=== PATIENT | female | born 1955 | race Caucasian/White ===

== ENCOUNTER 2018-07-27 10:26 | Inpatient (IN) | payer OTHER ==
[2018-07-27 10:46] VITALS: BMI 27.4
--- NOTE | 2018-07-27 11:31 | HP ---
CIWA Score - CIWA Score Nausea/Vomitin Muscle Tremors: 2 Anxiety: 2 Agitation: 2 Paroxysmal Sweats: 1-Minimal Palms Moist Orientation: 0-Oriented Tacttile Disturbances: 1-Very Mild Itch/Numbness Auditory Disturbances: 1-Very Mild Visual Disturbances: 0-None Headache: 2-Mild CIWA-Ar Total Score: 13 Admission ROS BHS - HPI Chief Complaint: i need help to stop drinking alcohol Allergies/Adverse Reactions: Allergies Allergy/AdvReac Type Severity Reaction Status Date / Time codeine [Codeine] AdvReac Severe Nausea Verified 07/27/18 11:11 History of Present Illness: this 62 years old female with alcohol dependence with alcohol dependence, seeking help detox,withdrawal symptom, seen in [facility] last night,receving ativan needed help to come in for detox from alcohol last adission in detox [facility] in 2017 history of hypertenion,fx left foot,ambulate with cane ambulatioin with cane for balance history of appnedectomy in 1987 right thoracotomy in 2009 for hemothorax post blunt trauma remoal of lipoma of neck longest period of sobriety copd rash left face no significant period of sobriety - Ebola screening Have you traveled outside of the country in the last 21 days: No Have you had contact with anyone from an Ebola affected area: No Have you been sick,other than usual withdrawal symptoms: No - Review of Systems Constitutional: Loss of Appetite, Malaise, Night Sweats, Changes in sleep, Weakness EENT: reports: Nose Congestion, Other (rash left face for 1 year) Respiratory: reports: No Symptoms reported, Other (copd s/p right thoracotomy post blunt trauma) Cardiac: reports: No Symptoms Reported GI: reports: Diarrhea, Nausea, Abdominal cramping : reports: No Symptoms Reported Musculoskeletal: reports: Back Pain, Muscle Pain Integumentary: reports: Dryness Neuro: reports: Headache, Tremors Endocrine: reports: No Symptoms Reported Hematology: reports: No Symptoms Reported Psychiatric: reports: No Sypmtoms Reported, Judgement Intact, Mood/Affect Appropiate, Orientated x3, Depressed Patient History - Patient Medical History Hx Anemia: Yes (NOT ON IRON SUPPLEMENT) Hx Asthma: No Hx Chronic Obstructive Pulmonary Disease (COPD): Yes (on albuterol inhaler) Hx Cardiac Disorders: No Hx Hypertension: No Hx Hypercholesterolemia: Yes (SLIGHTLY ELEVATED BUT NO MEDS) HX Cerebrovascular Accident: No Hx Seizures: Yes (Alcohol related last 4 years ago) Hx Diabetes: No Hx Gastrointestinal Disorders: Yes (HX OF ULCERITIVE COLITIS---RESOLVED) Hx Liver Disease: No Hx Genitourinary Disorders: No Hx Sexually Transmitted Disorders: No Hx Human Immunodeficiency Virus (HIV): No (NEGATIVE IN THE PAST last 2015) Hx Hepatitis C: No Hx Depression: Yes Hx Suicide Attempt: Yes (OD ON VALIUM IN 1987; DENIES CURRENT IDEATIONS.) Hx Bipolar Disorder: No Hx Schizophrenia: No Other Medical History: no suicidal,no homicidal, - Patient Surgical History Past Surgical History: Yes Hx Lung Surgery: Yes (Thoracotomy - 2009 for hemothorax post trauma) Hx Abdominal Surgery: Yes (Tubalization,s/p appendectomy in 1987) Anesthesia Reaction: No - PPD History Previous Implant?: Yes Documented Results: Negative w/o proof Implanted On Prior [facility] Admission?: Yes Date: 11/09/12 PPD to be Administered?: Yes - Reproductive History Patient is a Female of Child Bearing Age (11 -55 yrs old): No Patient : No - Smoking Cessation Smoking history: Never smoked - Substance & Tx. History Hx Alcohol Use: Yes Hx Substance Use: No Substance Use Type: Alcohol Hx Substance Use Treatment: Yes (last treatment in [facility] in 2017) - Substances Abused Alcohol-vodka Route: Oral Frequency: Daily Amount used: 1-2 pts. Age of first use: 12 Date of Last Use: 07/26/18 Family Disease History - Family Disease History Family Disease History: Other: Father (alcohol,no contact), Mother (alcohol, ) Admission Physical Exam S - Vital Signs Vital Signs: Vital Signs - 24 hr 07/27/18 10:44 Temperature 98.2 F Pulse Rate 60 Respiratory 20 Rate Blood Pressure 140/89 - Physical General Appearance: Yes: Moderate Distress, Tremorous, Irritable, Sweating, Anxious HEENTM: Yes: Normal ENT Inspection, WILBERTO, Pharynx Normal Respiratory: Yes: Lungs Clear, Normal Breath Sounds, No Respiratory Distress, Other (s/p right thoracotomy post trauma for hemothorax s/p right chest tube) Neck: Yes: Within Normal Limits, Supple, Trachea in good position Breast: Yes: Within Normal Limits Cardiology: Yes: Within Normal Limits, Regular Rhythm, Regular Rate, S1, S2 Abdominal: Yes: Within Normal Limits, Non Tender, Soft Genitourinary: Yes: Within Normal Limits Back: Yes: Muscle Spasm Extremities: Yes: Normal Range of Motion, Tremors Neurological: Yes: 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 NML intact, Fully Oriented, Alert, Motor Strength 5/5 Integumentary: Yes: Dry Lymphatic: Yes: Within Normal Limits - Diagnostic (1) Alcohol dependence with uncomplicated withdrawal Current Visit: Yes Status: Acute (2) COPD (chronic obstructive pulmonary disease) Current Visit: Yes Status: Acute (3) Alcohol related seizure Current Visit: Yes Status: Acute (4) Depression Current Visit: Yes Status: Acute (5) Use of cane as ambulatory aid Current Visit: Yes Status: Acute (6) History of thoracotomy Current Visit: Yes Status: Acute (7) History of appendectomy Current Visit: Yes Status: Acute (8) Rash Current Visit: Yes Status: Acute (9) Frequent falls Current Visit: Yes Status: Acute Cleared for Admission S - Detox or Rehab [facility] Level of Care: Medically Managed Detox Regimen/Protocol: Librium [facility] Breath Alcohol Content Breath Alcohol Content: 0 Urine Pregancy Test - Result Urine Test Results: Negative- NO Line Present Urine Drug Screen - Results Drug Screen Negative: No Urine Drug Screen Results: BZO-Benzodiazepines
[2018-07-27] MEDS ORDERED: LOPERAMIDE HCL 2 MG CAPSULE PO PRN (11:48)
[2018-07-27] MEDS ORDERED: ACETAMINOPHEN 325 MG TABLET (FP) PO PRN (11:48)
[2018-07-27] MEDS ORDERED: hydrOXYzine PAMOATE 25 MG CAPSULE (FP) PO PRN (11:48)
[2018-07-27] MEDS ORDERED: P-EPHED 60MG/TRIPROLIDI 2.5MG TABLET PO PRN (11:48)
[2018-07-27] MEDS ORDERED: MAGNESIUM CITRATE 300 ML BOTTLE PO PRN (11:48)
[2018-07-27] MEDS ORDERED: IBUPROFEN 400 MG TABLET (FP) PO PRN (11:48)
[2018-07-27] MEDS ORDERED: MAGNESIUM HYDROX 2400MG/30ML ORAL SUSPENSION 30 ML CUP PO PRN (11:48)
[2018-07-27] MEDS ORDERED: guaiFENesin/D-METHORPHAN HB 10 ML UNIT-DOSE CUPS PO PRN (11:48)
[2018-07-27] MEDS ORDERED: MAG HYDROX/AL HYDROX/SIMETH 30 ML UNIT-DOSE CUP PO PRN (11:48)
[2018-07-27] MEDS ORDERED: chlordiazePOXIDE HCL 25 MG CAPSULE PO PRN (11:48)
[2018-07-27] MEDS ORDERED: MENTHOL/PHENOL 1 EACH UD MM PRN (11:48)
--- NOTE | 2018-07-27 13:52 | CONSULT ---
[facility] Psychiatric Consult - Data Date of interview: 07/27/18 Admission source: [facility] Identifying data: this IS A 62 years old female,ambulating with a cane, , mother of three, homeless, on PA support, with no psychiatric hospitalization history, with chronic alcohol dependence reporting Alcohol withdrawal symptoms and seeking detox. Substance Abuse History: - Smoking Cessation. Smoking history: Never smoked. - Substance & Tx. History. Hx Alcohol Use: Yes. Hx Substance Use: No. Substance Use Type: Alcohol. Hx Substance Use Treatment: Yes (last treatment in [facility] in 2017). - Substances Abused. Alcohol-vodka. Route: Oral. Frequency: Daily. Amount used: 1-2 pts. Age of first use: 12. Date of Last Use: 07/26/18 Medical History: COPD, S/P Thoracotony after Pnumathorax, ambulates with cane, Psychiatric History: Patient reports history of depression and anxiety, reports suicidal attaempt on 1987 by OD with Valium, reports no suicidal history since then. Reports no psychiatric hospitalization history, denies suicidal , homicidal ideation, reports taking prior to admission: Trazodone 50mg po qhs Physical/Sexual Abuse/Trauma History: Denies Additional Comment: Trazodone 50mg po qhs Mental Status Exam - Mental Status Exam Alert and Oriented to: Person Cognitive Function: Fair Patient Appearance: Unkempt Mood: Anxious Affect: Mood Congruent Patient Behavior: Cooperative Speech Pattern: Appropriate Voice Loudness: Mildly Soft/Quiet Thought Process: Goal Oriented Thought Disorder: Being Controlled Hallucinations: Denies Suicidal Ideation: Denies Homicidal Ideation: Denies Insight/Judgement: Fair Sleep: Difficulty falling asleep Appetite: Fair Muscle strength/Tone: Mild Hypotonicity Gait/Station: Deferred Additional Comments: Trazodone 50mg po qhs Psychiatric Findings - Problem List ([place] 1, 2,3) (1) Alcohol dependence with uncomplicated withdrawal Current Visit: Yes Status: Acute (2) Alcohol related seizure Current Visit: Yes Status: Acute (3) COPD (chronic obstructive pulmonary disease) Current Visit: Yes Status: Acute (4) Frequent falls Current Visit: Yes Status: Acute (5) History of thoracotomy Current Visit: Yes Status: Acute (6) Use of cane as ambulatory aid Current Visit: Yes Status: Acute - Initial Treatment Plan Initial Treatment Plan: Trazodone 50mg po qhs
[2018-07-27] MEDS ORDERED: TUBERCULIN PPD 5 TU/0.1ML SYRINGE (IN PATIENT USE ONLY) ID ONE (14:45)
[2018-07-27] MEDS ORDERED: ONDANSETRON *ODT* 4 MG TABLET SL PRN (14:53)
[2018-07-27] MEDS: chlordiazePOXIDE HCL 25 MG CAPSULE PO SCH ×2 (17:16→22:08)
[2018-07-27] MEDS ORDERED: MELATONIN 5 MG TABLETS PO PRN (22:00)
[2018-07-27] MEDS: THIAMINE HCL 100 MG TABLET (FP) PO SCH (22:07)
[2018-07-27] MEDS: traZODone HCL 50 MG TABLET (FP) PO SCH (22:07)
[2018-07-27] MEDS: CLINDAMYCIN 1% TP SCH (22:07)
[2018-07-27] MEDS: AMMONIUM LACTATE 12% CREAM 140 GM TUBE TP SCH (22:08)
[2018-07-27 23:17] LABS: URINE APPEARANCE CLOUDY; URINE BILIRUBIN NEGATIVE (<2.0 mg/dL); URINE COLOR AMBER; URINE GLUCOSE (UA) NEGATIVE (NEGATIVE); URINE KETONE NEGATIVE (NEGATIVE); URINE LEUK ESTERASE 3+ (NEGATIVE); URINE NITRITE NEGATIVE (NEGATIVE); URINE PROTEIN 1+ (NEGATIVE)
[2018-07-27 23:29] LABS: EPI CELLS RARE /HPF (FEW); URINE BACTERIA RARE /hpf (NONE SEEN); URINE MUCUS RARE
[2018-07-28] MEDS: chlordiazePOXIDE HCL 25 MG CAPSULE PO SCH ×4 (05:29→23:07)
--- NOTE | 2018-07-28 09:45 | EKG ---
Test Reason : Blood Pressure : / mmHG Vent. Rate : 061 BPM Atrial Rate : 061 BPM P-R Int : 176 ms QRS Dur : 086 ms QT Int : 418 ms P-R-T Axes : 053 -08 022 degrees QTc Int : 420 ms NORMAL SINUS RHYTHM LOW VOLTAGE QRS NONSPECIFIC ST ABNORMALITY ABNORMAL ECG NO PREVIOUS ECGS AVAILABLE Confirmed by MAY ALEGRIA MD ([id number]) on 07/28/2018 9:45:17 AM Referred By: Confirmed By:MAY ALEGRIA MD
[2018-07-28] MEDS ORDERED: ERGOCALCIFEROL (VITAMIN D2) 50,000 UNIT CAPSULE (FP) PO SCH (10:00)
[2018-07-28] MEDS: MAGNESIUM OXIDE 400 MG TABLET (FP) PO SCH (10:36)
[2018-07-28] MEDS: FOLIC ACID 1 MG TABLET (FP) PO SCH (10:36)
[2018-07-28] MEDS: PRENATAL VITAMINS W/ FOLIC ACID TABLET (FP) PO SCH (10:36)
[2018-07-28] MEDS: CLINDAMYCIN 1% TP SCH ×2 (10:37→23:08)
[2018-07-28] MEDS: AMMONIUM LACTATE 12% CREAM 140 GM TUBE TP SCH ×2 (10:41→23:07)
[2018-07-28 10:42] LABS: HEMOGLOBIN 12.9 GM/dL (10.7-15.3); MCH 35.5 pg (25.7-33.7); MEAN CELL VOLUME 104.4 fl (80-96); MEAN PLT VOLUME 10.1 fl (7.5-11.1); PLATELET COUNT 89 K/MM3 (134-434); RBC 3.64 M/mm3 (3.60-5.2); RDW 14.2 % (11.6-15.6); WHITE BLOOD COUNT 4.6 K/mm3 (4.0-10.0)
[2018-07-28 10:53] LABS: ALK PHOS 113 U/L (45-117); ANION GAP 8 MMOL/L (8-16); BILIRUBIN,TOTAL 1.6 mg/dL (0.2-1); BLOOD UREA NITROGEN 10 mg/dL (7-18); CHLORIDE 103 mmol/L (98-107); CO2 31 mmol/L (21-32); CREATININE 0.8 mg/dL (0.55-1.3); GLUCOSE,RANDOM 91 mg/dL (74-106); POTASSIUM 3.4 mmol/L (3.5-5.1); SGOT/AST 96 U/L (15-37); SGPT/ALT 55 U/L (13-61); SODIUM 142 mmol/L (136-145); TOT PROT 7.3 g/dl (6.4-8.2)
--- NOTE | 2018-07-28 10:58 | PN ---
S CIWA - CIWA Score Nausea/Vomitin-Mild Nausea/No Vomiting Muscle Tremors: 4-Moderate,w/Arms Extend Anxiety: 3 Agitation: 4-Moderately Restless Paroxysmal Sweats: 3 Orientation: 0-Oriented Tacttile Disturbances: 0-None Auditory Disturbances: 0-None Visual Disturbances: 0-None Headache: 0-None Present CIWA-Ar Total Score: 15 BHS Progress Note (SOAP) Subjective: nausea sweats chills diarrhea body aches Objective: 07/28/18 10:55 Vital Signs Temperature 97.7 F 07/28/18 09:38 Pulse Rate 63 07/28/18 09:38 Respiratory Rate 16 07/28/18 09:38 Blood Pressure 133/76 07/28/18 09:38 O2 Sat by Pulse Oximetry (%) Laboratory Tests 07/27/18 07/28/18 07/28/18 16:09 05:45 05:45 WBC 4.6 RBC 3.64 Hgb 12.9 Hct 38.0 MCV 104.4 H MCH 35.5 H MCHC 34.0 RDW 14.2 Plt Count 89 L D MPV 10.1 Sodium 142 Potassium 3.4 L Chloride 103 Carbon Dioxide 31 Anion Gap 8 BUN 10 Creatinine 0.8 Creat Clearance w eGFR > 60 Random Glucose 91 Calcium 9.0 Total Bilirubin 1.6 H AST 96 H ALT 55 Alkaline Phosphatase 113 Total Protein 7.3 Albumin 4.0 Urine Color [place] Urine Appearance Cloudy Urine pH 6.0 Ur Specific [place] 1.016 Urine Protein 1+ H Urine Glucose (UA) Negative Urine Ketones Negative Urine Blood Negative Urine Nitrite Negative Urine Bilirubin Negative Urine Urobilinogen 2.0 H Ur Leukocyte Esterase 3+ H Urine WBC (Auto) 258 Urine RBC (Auto) None Ur Epithelial Cells Rare Urine Bacteria Rare Urine Mucus Rare low potassium 3.4; kdur 20meq x 4 days ordered repeat u/a aaox3 ambulating no acute distress Assessment: 07/28/18 10:58 withdrawal sx Plan: continue detox increase fluids kdur ordered repeat u/a pending results
[2018-07-28] MEDS: POTASSIUM CHLORIDE TABS 20 MEQ TABLET.ER (FP) PO SCH (11:18)
--- NOTE | 2018-07-28 11:21 | PN ---
BHS Progress Note Note: pt acknowledged to RN she has been scratching her head. assessment done and pt has active lice on head. Permetherin (elimite) ordered. Instruction will be given to pt regarding use.
[2018-07-28] MEDS ORDERED: PERMETHRIN 5% TOPICAL CREAM 60 GM TUBE TP ONE (11:30)
[2018-07-28] MEDS: [UNRECOGNIZED DRUG - OTHER] TP SCH (16:07)
[2018-07-28] MEDS: THIAMINE HCL 100 MG TABLET (FP) PO SCH (23:07)
[2018-07-28] MEDS: traZODone HCL 50 MG TABLET (FP) PO SCH (23:07)
[2018-07-29] MEDS: chlordiazePOXIDE HCL 25 MG CAPSULE PO SCH ×2 (05:59→10:36)
[2018-07-29] MEDS: PRENATAL VITAMINS W/ FOLIC ACID TABLET (FP) PO SCH (10:36)
[2018-07-29] MEDS: POTASSIUM CHLORIDE TABS 20 MEQ TABLET.ER (FP) PO SCH (10:36)
[2018-07-29] MEDS: FOLIC ACID 1 MG TABLET (FP) PO SCH (10:36)
[2018-07-29] MEDS: MAGNESIUM OXIDE 400 MG TABLET (FP) PO SCH (10:36)
[2018-07-29] MEDS: CLINDAMYCIN 1% TP SCH ×2 (10:37→22:16)
[2018-07-29] MEDS: AMMONIUM LACTATE 12% CREAM 140 GM TUBE TP SCH ×2 (13:58→22:16)
[2018-07-29] MEDS: [UNRECOGNIZED DRUG - OTHER] TP SCH (15:18)
--- NOTE | 2018-07-29 15:18 | PN ---
S CIWA - CIWA Score Nausea/Vomitin-No Nausea/No Vomiting Muscle Tremors: 3 Anxiety: 3 Agitation: 1-Slight > Activity Paroxysmal Sweats: No Perspiration Orientation: 0-Oriented Tacttile Disturbances: 0-None Auditory Disturbances: 0-None Visual Disturbances: 0-None Headache: 0-None Present CIWA-Ar Total Score: 7 BHS Progress Note (SOAP) Subjective: C/o anxiety and tremors of hands. Also very concerned about results of lice eradication. C/o itchy scalp. Objective: A&O x 3. Scattered small red pinpoint areas noted on scalp w/ c/o itchiness at site. No head lice in head and very few nits on shaft of hair. Mild tremors of hands. Gait steady w/ use of a cane. Vital Signs 07/29/18 07/29/18 14:08 17:44 Temperature 99.0 F 97 F L Pulse Rate 68 62 Respiratory 16 18 Rate Blood Pressure 121/80 154/87 Laboratory Last Values WBC 4.6 K/mm3 (4.0-10.0) 07/28/18 05:45 RBC 3.64 M/mm3 (3.60-5.2) 07/28/18 05:45 Hgb 12.9 GM/dL (10.7-15.3) 07/28/18 05:45 Hct 38.0 % (32.4-45.2) 07/28/18 05:45 MCV 104.4 fl (80-96) H 07/28/18 05:45 MCH 35.5 pg (25.7-33.7) H 07/28/18 05:45 MCHC 34.0 g/dl (32.0-36.0) 07/28/18 05:45 RDW 14.2 % (11.6-15.6) 07/28/18 05:45 Plt Count 89 K/MM3 (134-434) L D 07/28/18 05:45 MPV 10.1 fl (7.5-11.1) 07/28/18 05:45 Sodium 142 mmol/L (136-145) 07/28/18 05:45 Potassium 3.4 mmol/L (3.5-5.1) L 07/28/18 05:45 Chloride 103 mmol/L (98-107) 07/28/18 05:45 Carbon Dioxide 31 mmol/L (21-32) 07/28/18 05:45 Anion Gap 8 MMOL/L (8-16) 07/28/18 05:45 BUN 10 mg/dL (7-18) 07/28/18 05:45 Creatinine 0.8 mg/dL (0.55-1.3) 07/28/18 05:45 Creat Clearance w eGFR > 60 (>60) 07/28/18 05:45 Random Glucose 91 mg/dL (74-106) 07/28/18 05:45 Calcium 9.0 mg/dL (8.5-10.1) 07/28/18 05:45 Total Bilirubin 1.6 mg/dL (0.2-1) H 07/28/18 05:45 AST 96 U/L (15-37) H 07/28/18 05:45 ALT 55 U/L (13-61) 07/28/18 05:45 Alkaline Phosphatase 113 U/L (45-117) 07/28/18 05:45 Total Protein 7.3 g/dl (6.4-8.2) 07/28/18 05:45 Albumin 4.0 g/dl (3.4-5.0) 07/28/18 05:45 Urine Color [place] 07/27/18 16:09 Urine Appearance Cloudy 07/27/18 16:09 Urine pH 6.0 (5.0-8.0) 07/27/18 16:09 Ur Specific [place] 1.016 (1.010-1.035) 07/27/18 16:09 Urine Protein 1+ (NEGATIVE) H 07/27/18 16:09 Urine Glucose (UA) Negative (NEGATIVE) 07/27/18 16:09 Urine Ketones Negative (NEGATIVE) 07/27/18 16:09 Urine Blood Negative (NEGATIVE) 07/27/18 16:09 Urine Nitrite Negative (NEGATIVE) 07/27/18 16:09 Urine Bilirubin Negative (<2.0 mg/dL) 07/27/18 16:09 Urine Urobilinogen 2.0 mg/dL (0.2-1.0) H 07/27/18 16:09 Ur Leukocyte Esterase 3+ (NEGATIVE) H 07/27/18 16:09 Urine WBC (Auto) 258 /hpf (3-5) 07/27/18 16:09 Urine RBC (Auto) None /hpf (0-3) 07/27/18 16:09 Ur Epithelial Cells Rare /HPF (FEW) 07/27/18 16:09 Urine Bacteria Rare /hpf (NONE SEEN) 07/27/18 16:09 Urine Mucus Rare 07/27/18 16:09 RPR Titer Nonreactive (NONREACTIVE) 07/28/18 05:45 Assessment: Opiate withdrawal. S/P head lice Plan: Continue detox. Have patient wash hair thoroughly. Monitor linens, clothes, and hair for re-infestation.
[2018-07-29] MEDS: chlordiazePOXIDE 5 MG CAPSULE PO SCH ×2 (17:27→22:16)
[2018-07-29] MEDS: THIAMINE HCL 100 MG TABLET (FP) PO SCH (22:15)
[2018-07-29] MEDS: traZODone HCL 50 MG TABLET (FP) PO SCH (22:15)
[2018-07-30] MEDS: chlordiazePOXIDE 5 MG CAPSULE PO SCH ×2 (04:22→10:10)
[2018-07-30] MEDS: POTASSIUM CHLORIDE TABS 20 MEQ TABLET.ER (FP) PO SCH (10:10)
[2018-07-30] MEDS: PRENATAL VITAMINS W/ FOLIC ACID TABLET (FP) PO SCH (10:10)
[2018-07-30] MEDS: AMMONIUM LACTATE 12% CREAM 140 GM TUBE TP SCH ×2 (10:10→22:24)
[2018-07-30] MEDS: MAGNESIUM OXIDE 400 MG TABLET (FP) PO SCH (10:10)
[2018-07-30] MEDS: CLINDAMYCIN 1% TP SCH ×2 (10:11→22:23)
[2018-07-30] MEDS: FOLIC ACID 1 MG TABLET (FP) PO SCH (10:47)
--- NOTE | 2018-07-30 13:53 | PN ---
BHS Progress Note (SOAP) Subjective: feeling better no tremor less sweat no gi distress sleep better at night Objective: 07/30/18 13:49 Vital Signs Temperature 98.5 F 07/30/18 09:56 Pulse Rate 66 07/30/18 09:56 Respiratory Rate 16 07/30/18 09:56 Blood Pressure 110/69 07/30/18 09:56 O2 Sat by Pulse Oximetry (%) Laboratory Last Values WBC 4.6 K/mm3 (4.0-10.0) 07/28/18 05:45 RBC 3.64 M/mm3 (3.60-5.2) 07/28/18 05:45 Hgb 12.9 GM/dL (10.7-15.3) 07/28/18 05:45 Hct 38.0 % (32.4-45.2) 07/28/18 05:45 MCV 104.4 fl (80-96) H 07/28/18 05:45 MCH 35.5 pg (25.7-33.7) H 07/28/18 05:45 MCHC 34.0 g/dl (32.0-36.0) 07/28/18 05:45 RDW 14.2 % (11.6-15.6) 07/28/18 05:45 Plt Count 89 K/MM3 (134-434) L D 07/28/18 05:45 MPV 10.1 fl (7.5-11.1) 07/28/18 05:45 Sodium 142 mmol/L (136-145) 07/28/18 05:45 Potassium 3.4 mmol/L (3.5-5.1) L 07/28/18 05:45 Chloride 103 mmol/L (98-107) 07/28/18 05:45 Carbon Dioxide 31 mmol/L (21-32) 07/28/18 05:45 Anion Gap 8 MMOL/L (8-16) 07/28/18 05:45 BUN 10 mg/dL (7-18) 07/28/18 05:45 Creatinine 0.8 mg/dL (0.55-1.3) 07/28/18 05:45 Creat Clearance w eGFR > 60 (>60) 07/28/18 05:45 Random Glucose 91 mg/dL (74-106) 07/28/18 05:45 Calcium 9.0 mg/dL (8.5-10.1) 07/28/18 05:45 Total Bilirubin 1.6 mg/dL (0.2-1) H 07/28/18 05:45 AST 96 U/L (15-37) H 07/28/18 05:45 ALT 55 U/L (13-61) 07/28/18 05:45 Alkaline Phosphatase 113 U/L (45-117) 07/28/18 05:45 Total Protein 7.3 g/dl (6.4-8.2) 07/28/18 05:45 Albumin 4.0 g/dl (3.4-5.0) 07/28/18 05:45 Urine Color [place] 07/27/18 16:09 Urine Appearance Cloudy 07/27/18 16:09 Urine pH 6.0 (5.0-8.0) 07/27/18 16:09 Ur Specific [place] 1.016 (1.010-1.035) 07/27/18 16:09 Urine Protein 1+ (NEGATIVE) H 07/27/18 16:09 Urine Glucose (UA) Negative (NEGATIVE) 07/27/18 16:09 Urine Ketones Negative (NEGATIVE) 07/27/18 16:09 Urine Blood Negative (NEGATIVE) 07/27/18 16:09 Urine Nitrite Negative (NEGATIVE) 07/27/18 16:09 Urine Bilirubin Negative (<2.0 mg/dL) 07/27/18 16:09 Urine Urobilinogen 2.0 mg/dL (0.2-1.0) H 07/27/18 16:09 Ur Leukocyte Esterase 3+ (NEGATIVE) H 07/27/18 16:09 Urine WBC (Auto) 258 /hpf (3-5) 07/27/18 16:09 Urine RBC (Auto) None /hpf (0-3) 07/27/18 16:09 Ur Epithelial Cells Rare /HPF (FEW) 07/27/18 16:09 Urine Bacteria Rare /hpf (NONE SEEN) 07/27/18 16:09 Urine Mucus Rare 07/27/18 16:09 RPR Titer Nonreactive (NONREACTIVE) 07/28/18 05:45 lab noted Assessment: 07/30/18 13:52 mild withdrawal sx Plan: medically supervised detox
[2018-07-30] MEDS: diphenhydrAMINE HCL 25 MG CAPSULE (FP) PO PRN (14:23)
[2018-07-30] MEDS: [UNRECOGNIZED DRUG - OTHER] TP SCH (15:47)
[2018-07-30] MEDS: chlordiazePOXIDE HCL 10 MG CAPSULE PO SCH ×2 (17:56→22:24)
[2018-07-30 20:29] LABS: URINE APPEARANCE CLEAR; URINE BILIRUBIN NEGATIVE (<2.0 mg/dL); URINE COLOR LTYELLOW; URINE GLUCOSE (UA) NEGATIVE (NEGATIVE); URINE KETONE NEGATIVE (NEGATIVE); URINE LEUK ESTERASE NEGATIVE (NEGATIVE); URINE NITRITE NEGATIVE (NEGATIVE); URINE PROTEIN NEGATIVE (NEGATIVE); URINE UROBILINOGEN NEGATIVE mg/dL (0.2-1.0)
[2018-07-30] MEDS: THIAMINE HCL 100 MG TABLET (FP) PO SCH (22:23)
[2018-07-30] MEDS: traZODone HCL 50 MG TABLET (FP) PO SCH (22:24)
[2018-07-31] MEDS: diphenhydrAMINE HCL 25 MG CAPSULE (FP) PO PRN (03:44)
[2018-07-31] MEDS: chlordiazePOXIDE HCL 10 MG CAPSULE PO SCH ×2 (05:15→11:07)
--- NOTE | 2018-07-31 08:52 | DS ---
[facility] Detox Discharge Summary Admission Date: 07/27/18 Discharge Date: 07/31/18 - History Present History: Alcohol Dependence - Physical Exam Results Vital Signs: Vital Signs Temperature 97.9 F 07/31/18 06:00 Pulse Rate 50 L 07/31/18 06:00 Respiratory Rate 07/31/18 06:00 Blood Pressure 131/64 07/31/18 06:00 O2 Sat by Pulse Oximetry (%) - Treatment Hospital Course: Detox Protocol Followed, Detoxed Safely, Responded well, Discharged Condition Good, Rehab Referral Accepted - Medication Discharge Medications: Ambulatory Orders Ammonium Lactate Cream [Lac-Hydrin 12% Cream -] 1 applic TP BID 07/27/18 Ergocalciferol [Vitamin D2] 50,000 unit PO WEEKLY 07/27/18 Folic Acid - 1 mg PO DAILY 07/27/18 Magnesium Oxide [Mag-Ox -] 400 mg PO DAILY 07/27/18 Thiamine HCl [Vitamin B1 -] 100 mg PO DAILY 07/27/18 Tramadol HCl [Ultram] 50 mg PO TID PRN 07/27/18 traZODone HCL [Trazodone HCl] 50 mg PO HS #30 tablet 07/27/18 Clindamycin 1% Gel [Cleocin 1% Gel -] 30 gm TP BID #10 tube 07/30/18 Metoprolol Succinate [Toprol Xl] 50 mg PO DAILY #30 tab.er.24h 07/30/18 - Diagnosis (1) Alcohol dependence with uncomplicated withdrawal Current Visit: Yes Status: Chronic (2) Alcohol related seizure Current Visit: Yes Status: Acute (3) COPD (chronic obstructive pulmonary disease) Current Visit: Yes Status: Acute (4) Depression Current Visit: Yes Status: Acute (5) Frequent falls Current Visit: Yes Status: Acute (6) History of appendectomy Current Visit: Yes Status: Acute (7) History of thoracotomy Current Visit: Yes Status: Acute (8) Rash Current Visit: Yes Status: Acute (9) Use of cane as ambulatory aid Current Visit: Yes Status: Acute - AMA Did Patient Leave Against Medical Advice: No ([facility])
[2018-07-31 10:27] VITALS: BP 126/71; PULSE 59; TEMP 98.1
[2018-07-31] MEDS: AMMONIUM LACTATE 12% CREAM 140 GM TUBE TP SCH (11:07)
[2018-07-31] MEDS: CLINDAMYCIN 1% TP SCH (11:07)
[2018-07-31] MEDS: PRENATAL VITAMINS W/ FOLIC ACID TABLET (FP) PO SCH (11:08)
[2018-07-31] MEDS: MAGNESIUM OXIDE 400 MG TABLET (FP) PO SCH (11:08)
[2018-07-31] MEDS: FOLIC ACID 1 MG TABLET (FP) PO SCH (11:08)
[2018-07-31] MEDS: POTASSIUM CHLORIDE TABS 20 MEQ TABLET.ER (FP) PO SCH (11:10)
== END 2018-07-31 13:14 | disposition home or self-care (01) | DRG 775 ==
LOC: YASAS 10:26 → Y6N 12:17
PROC: HZ2ZZZZ Detoxification Services for Substance Abuse Treatment (ICD-10-PCS; principal; 2018-07-27)
DX: F10.230 Alcohol dependence with withdrawal, uncomplicated (principal); F32.9 Major depressive disorder, single episode, unspecified; J44.9 Chronic obstructive pulmonary disease, unspecified; B85.0 Pediculosis due to Pediculus humanus capitis; R21 Rash and other nonspecific skin eruption; R29.6 Repeated falls; Z99.89 Dependence on other enabling machines and devices; Z86.69 Personal history of other diseases of the nervous system and sense organs; Z88.6 Allergy status to analgesic agent; Z91.5 Personal history of self-harm
CPT/HCPCS: 36415; 80053; 81003; 81015; 84132; 85027; 86593; 93005; 93010; Q0162

== ENCOUNTER 2019-04-28 13:15 | Emergency (ER) | payer OTHER ==
--- NOTE | 2019-04-28 13:31 | PDOC ---
History of Present Illness - General Chief Complaint: Alcohol intoxication Stated Complaint: ETOH Time Seen by Provider: 04/28/19 13:30 History Source: Patient Exam Limitations: No Limitations - History of Present Illness Initial Comments: 63 yo F history EtOH abuse, COPD presents with EtOH intox. She was brought in by EMS after she was found sitting on a curb s/p fall. She recalls the details of the fall, stating she was trying to catch the bus, fell to the side, landing on her buttocks. Denies any pain at present. Did not hit her head, no LOC. She was drinking alcohol this morning. Past History - Past Medical History Allergies/Adverse Reactions: Allergies Allergy/AdvReac Type Severity Reaction Status Date / Time codeine [Codeine] AdvReac Severe Nausea Verified 07/27/18 11:11 Home Medications: Ambulatory Orders Ergocalciferol [Vitamin D2] 50,000 unit PO WEEKLY 07/27/18 Folic Acid - 1 mg PO DAILY 07/27/18 Magnesium Oxide [Mag-Ox -] 400 mg PO DAILY 07/27/18 Thiamine HCl [Vitamin B1 -] 100 mg PO DAILY 07/27/18 Tramadol HCl [Ultram] 50 mg PO TID PRN 07/27/18 traZODone HCL [Trazodone HCl] 50 mg PO HS #30 tablet 07/27/18 Cetirizine HCl [Zyrtec -] 10 mg PO DAILY 04/28/19 Anemia: Yes (NOT ON IRON SUPPLEMENT) Asthma: No Cardiac Disorders: No CVA: No COPD: Yes (on albuterol inhaler) Diabetes: No GI Disorders: Yes (HX OF ULCERITIVE COLITIS---RESOLVED) Disorders: No HTN: No Hypercholesterolemia: Yes (SLIGHTLY ELEVATED BUT NO MEDS) Kidney Stones: No Liver Disease: No Seizures: Yes (Alcohol related last 4 years ago) - Surgical History Abdominal Surgery: Yes (Tubalization,s/p appendectomy in 1987) Cardiac Surgery: No Lung Surgery: Yes (Thoracotomy - 2009 for hemothorax post trauma) Neurologic Surgery: No - Reproductive History PID: No - Suicide/Smoking/Psychosocial Hx Smoking History: Never smoked Have you smoked in the past 12 months: No Hx Alcohol Use: Yes Drug/Substance Use Hx: No Substance Use Type: Alcohol Hx Substance Use Treatment: Yes (last treatment in [facility] in 2016) Review of Systems - Review of Systems Able to Perform ROS?: Yes Comments:: GENERAL/CONSTITUTIONAL: No fever or chills. No weakness. HEAD, EYES, EARS, NOSE AND THROAT: No change in vision. No ear pain or discharge. No sore throat. CARDIOVASCULAR: No chest pain or shortness of breath. RESPIRATORY: No cough, wheezing, or hemoptysis. GASTROINTESTINAL: No nausea, vomiting, diarrhea or constipation. GENITOURINARY: No dysuria, frequency, or change in urination. MUSCULOSKELETAL: No joint or muscle swelling or pain. No neck or back pain. SKIN: No rash. NEUROLOGIC: No headache, vertigo, loss of consciousness, or change in strength/ sensation. ENDOCRINE: No increased thirst. No abnormal weight change. HEMATOLOGIC/LYMPHATIC: No anemia, easy bleeding, or history of blood clots. ALLERGIC/IMMUNOLOGIC: No hives or skin allergy. *Physical Exam - Physical Exam Comments: GENERAL: Awake, alert, and fully oriented. Slurred speech. +AOB. HEAD: No signs of trauma EYES: PERRLA, EOMI, sclera anicteric, conjunctiva clear ENT: Auricles normal inspection, hearing grossly normal, nares patent, oropharynx clear without exudates. Moist mucosa NECK: Normal ROM, supple, no lymphadenopathy, JVD, or masses LUNGS: Breath sounds equal, clear to auscultation bilaterally. No wheezes, and no crackles HEART: Regular rate and rhythm, normal S1 and S2, no murmurs, rubs or gallops ABDOMEN: Soft, nontender, normoactive bowel sounds. No guarding, no rebound. No masses EXTREMITIES: Normal range of motion, no edema. No clubbing or cyanosis. No cords, erythema, or tenderness NEUROLOGICAL: Cranial nerves II through XII grossly intact. Slurred speech. Motor and sensation intact. Gait not tested due to intoxication SKIN: Warm, dry, normal turgor, no rashes or lesions noted. Medical Decision Making - Medical Decision Making 04/28/19 13:55 Pt presents s/p fall, admits to intoxication. No visible head injury. Will DC home when clinically sober, as her speech is slurred at present. 04/28/19 14:32 Pt ambulated to bathroom without difficulty, then stated she did not wish to stay in the ED any longer. She is ambulating without difficulty, steady gait. Patient eloped. *DC/Admit/Observation/Transfer Diagnosis at time of Disposition: Alcohol intoxication Qualifiers: Complication of substance-induced condition: uncomplicated Qualified Code(s): F10.920 - Alcohol use, unspecified with intoxication, uncomplicated - Discharge Dispostion Disposition: ELOPED Condition at time of disposition: Stable Decision to Admit order: No - Referrals - Patient Instructions - Post Discharge Activity
[2019-04-28 13:49] VITALS: BP 103/61; PULSE 72; TEMP 97.8; BMI 27.3
== END 2019-04-28 14:25 | disposition home or self-care (01) ==
LOC: FER 13:15
DX: F10.920 Alcohol use, unspecified with intoxication, uncomplicated (principal); J44.9 Chronic obstructive pulmonary disease, unspecified; D64.9 Anemia, unspecified
CPT/HCPCS: 99282-25

== ENCOUNTER 2019-05-04 12:12 | Inpatient (IN) | payer OTHER ==
[2019-05-04] MEDS ORDERED: SODIUM CHLORIDE 1,000 ML IV STA (12:44)
[2019-05-04] MEDS ORDERED: ALBUTEROL SO4 2.5/IPRATROPIUM 0.5 INH SOL 3 ML VIAL.NEB. NEB ONE ×4 (12:54→14:34)
--- NOTE | 2019-05-04 13:01 | PDOC ---
History of Present Illness - General Chief Complaint: Shortness of Breath Stated Complaint: SOB Time Seen by Provider: 05/04/19 12:19 History Source: Patient, Old Records Exam Limitations: No Limitations - History of Present Illness Initial Comments: 05/04/19 12:55 63yo F with PMH of HTN, COPD, EtOH use presenting to ED with complaints of diarrhea x20d. Pt states she was at [facility] x[facility] since April 12, 2019 for a fall, diarrhea and sepsis. She says she has 5 loose stools daily without blood with slight stomach discomfort. When asked, pt states she feels short of breath at rest and with exertion. Also admits to dry cough. She is not taking any medications for COPD and denies tobacco use. She does endorse drinking 2 beers daily and drank prior to arrival. Denies chest pain, fever, chills, abdominal pain, nausea, vomiting, syncope, headache, dysuria, frequency, back pain, numbness/tingling. PMD: Lyo PMH: see hpi PSH: Meds: see med rec Allergies: codeine Social: alcohol use Past History - Past Medical History Allergies/Adverse Reactions: Allergies Allergy/AdvReac Type Severity Reaction Status Date / Time codeine [Codeine] AdvReac Severe Nausea Verified 07/27/18 11:11 Home Medications: Ambulatory Orders Ergocalciferol [Vitamin D2] 50,000 unit PO WEEKLY 07/27/18 Folic Acid - 1 mg PO DAILY 07/27/18 Magnesium Oxide [Mag-Ox -] 400 mg PO DAILY 07/27/18 Thiamine HCl [Vitamin B1 -] 100 mg PO DAILY 07/27/18 Tramadol HCl [Ultram] 50 mg PO TID PRN 07/27/18 traZODone HCL [Trazodone HCl] 50 mg PO HS #30 tablet 07/27/18 Cetirizine HCl [Zyrtec -] 10 mg PO DAILY 04/28/19 Albuterol 2.5/Ipratropium 0.5 [Duoneb -] 1 neb IH QID #20 vial.neb. 05/04/19 L. Acidophilus/Pectin, [place] [Acidophilus Probiotic Capsule] 1 each PO DAILY # 30 capsule 05/04/19 Nebulizer [Aeroeclipse II] 1 each MC DAILY 30 Days #30 each 05/04/19 Anemia: Yes (NOT ON IRON SUPPLEMENT) Asthma: No Cardiac Disorders: No CVA: No COPD: Yes (on albuterol inhaler) Diabetes: No GI Disorders: Yes (HX OF ULCERITIVE COLITIS---RESOLVED) Disorders: No HTN: No Hypercholesterolemia: Yes (SLIGHTLY ELEVATED BUT NO MEDS) Kidney Stones: No Liver Disease: No Seizures: Yes (Alcohol related last 4 years ago) - Surgical History Abdominal Surgery: Yes (Tubalization,s/p appendectomy in 1987) Cardiac Surgery: No Lung Surgery: Yes (Thoracotomy - 2010 for hemothorax post trauma) Neurologic Surgery: No - Reproductive History PID: No - Suicide/Smoking/Psychosocial Hx Smoking History: Never smoked Have you smoked in the past 12 months: No Hx Alcohol Use: Yes Drug/Substance Use Hx: No Substance Use Type: Alcohol Hx Substance Use Treatment: Yes (last treatment in [facility] in 2016) Review of Systems - Review of Systems Constitutional: No: Chills, Fever, Weakness HEENTM: No: Symptoms Reported Respiratory: Yes: Shortness of Breath. No: Cough, Wheezing, Productive cough, Hemoptysis Cardiac (ROS): No: Chest Pain, Lightheadedness, Palpitations, Syncope, Chest Tightness ABD/GI: Yes: Diarrhea. No: Nausea, Vomiting, Abdominal cramping : No: Symptoms Reported Musculoskeletal: No: Symptoms Reported Integumentary: No: Symptoms Reported Neurological: No: Symptoms reported *Physical Exam - Vital Signs Last Vital Signs Temp Pulse Resp BP Pulse Ox 97.9 F 54 L 19 94/52 L 98 05/04/19 12:13 05/04/19 12:13 05/04/19 12:13 05/04/19 12:13 05/04/19 12:13 - Physical Exam General Appearance: Yes: Nourished, Appropriately Dressed, Mild Distress, Other (alcohol on breath. No fasiculations) HEENT: positive: EOMI (horizontal nystagmus), WILBERTO, Pharynx Normal Neck: positive: Trachea midline, Supple Respiratory/Chest: positive: Lungs Clear, Normal Breath Sounds. negative: Accessory Muscle Use, Labored Respiration, Crackles, Rales, Rhonchi, Wheezing Cardiovascular: positive: Regular Rhythm, Regular Rate, S1, S2. negative: Edema , JVD, Murmur Vascular Pulses: Dorsalis-Pedis (R): 2+, Doralis-Pedis (L): 2+ Gastrointestinal/Abdominal: positive: Normal Bowel Sounds, Soft, Distended. negative: Tender, Guarding, Tenderness, Hernia Musculoskeletal: negative: CVA Tenderness Extremity: positive: Normal Capillary Refill. negative: Swelling, Calf Tenderness Integumentary: positive: Normal Color, Dry, Warm Neurologic: positive: gravity meter observer II-XII NML intact, Fully Oriented, Alert, Normal Mood/ Affect, Normal Response, Motor Strength 02/04 ED Treatment Course - LABORATORY CBC & Chemistry Diagram: 05/04/19 13:24 05/04/19 13:24 - RADIOLOGY Radiology Studies Ordered: Category Date Time Status CHEST PA & LAT [RAD] Stat Radiology 05/04/19 12:44 Ordered Medical Decision Making - Medical Decision Making 05/04/19 13:02 63yo F with PMH of HTN, COPD, EtOH use presenting to ED with complaints of diarrhea x20d. Pt states she was at [facility] x15 since April 12, 2019 for a fall, diarrhea and sepsis. She says she has 5 loose stools daily without blood with slight stomach discomfort. When asked, pt states she feels short of breath at rest and with exertion. Also admits to dry cough. She is not taking any medications for COPD and denies tobacco use. She does endorse drinking 2 beers daily and drank prior to arrival. Denies chest pain, fever, chills, abdominal pain, nausea, vomiting, syncope, headache, dysuria, frequency, back pain, numbness/tingling. Vitals: slightly hypotensive 90s/60s PE: horizontal nystagmus, slurred speech, distended abdomen without tenderness. lungs cta 05/04/19 14:44 ekg: nsr at 60bpm. NJ 160, QTc 406. no natalya or depressions. pt stating she cannot breathe. saturating well on ra, lungs sounds clear. not tachycardic, normotensive. rpt bp 114/64. when asked if feeling anxious pt says yes. will give 0.5mg Ativan. Will replete K and Mg. After first breathing treatment, pt did not feel better. Will order second. 05/04/19 14:56 Pt continues to feel sob, states now it is with exertion. Although not tachycardic, pt is on beta blockers. Pt is slightly hypotensive. will order CTA 08/02/19 19:33 CTA negative for PE. basilar atelectasis with possible superimposed infiltrate in R base. Pt does not have white count, is saturating well, not tachycardic or tachypneic, afebrile. Low suspicion for infectious process. All other labs wnl. K and Mg low, will replenish. Pt originally agreeable for dc home with rx for nebulizer and probiotics. Pt continues to feel short of breath. States that whenever she goes outside she cannot breathe. She states that she is unable to walk without her cane and ems did not bring her cane. Also stating that she is homeless, has no way to get her medications and has no transportation. Refusing to go to detox. Pt not actively withdrawing at this time. Pt refusing to go to alf or have arrangement to go to alf due to shortness of breath. Will admit for further evaluation of sob. accepted by admitting team. *DC/Admit/Observation/Transfer Diagnosis at time of Disposition: Shortness of breath - Discharge Dispostion Condition at time of disposition: Good Decision to Admit order: Yes - Prescriptions Prescriptions: Albuterol 2.5/Ipratropium 0.5 [Duoneb -] 1 neb IH QID #20 vial.neb. L. Acidophilus/Pectin, [place] [Acidophilus Probiotic Capsule] 1 each PO DAILY # 30 capsule Nebulizer [Aeroeclipse II] 1 each MC DAILY 30 Days #30 each - Referrals Referrals: Minnie Barnett MD, MD [Primary Care Provider] - Martinez Cooper MD [Staff Physician] - Sonido Wilson DO [Staff Physician] - - Patient Instructions Additional Instructions: You were seen in the emergency room today for shortness of breath and diarrhea. The diarrhea could be due to use of antibiotics. The shortness of breath could be due to COPD. Your blood work was normal and the CT scan shows atelectasis but no infection or clots. The breathing difficulties could be due to being around smoke. A prescription for a nebulizer and breathing treatments has been prescribed. Use as directed. A prescription for probiotics has also been prescribed; this can help with the diarrhea. You can also eat yogurt. I highly recommend that you see your doctor for further evaluation of your breathing. A referral to a auto locator is provided below. I also recommend seeing a GI doctor for evaluation of diarrhea. Information is also provided below. Come back to the emergency room if you have difficulty breathing, have chest pain, develop fever, have cough productive of yellow/green phlegm, notice swelling in your legs or if any new concerning symptom develops. Thank you - Post Discharge Activity
[2019-05-04 13:53] LABS: BASO % 0.9 % (0-2.0); EOS % 1.2 % (0-4.5); HEMATOCRIT 34.6 % (32.4-45.2); HEMOGLOBIN 11.7 GM/dL (10.7-15.3); LYMPH % 55.5 % (8-40); MCH 35.1 pg (25.7-33.7); MCHC 33.9 g/dl (32.0-36.0); MEAN CELL VOLUME 103.4 fl (80-96); MEAN PLT VOLUME 8.3 fl (7.5-11.1); MONO % 4.2 % (3.8-10.2); NEUT % 38.2 % (42.8-82.8); PLATELET COUNT 338 K/MM3 (134-434); RBC 3.35 M/mm3 (3.60-5.2); RDW 14.8 % (11.6-15.6); WHITE BLOOD COUNT 6.5 K/mm3 (4.0-10.0)
--- NOTE | 2019-05-04 13:58 | EKG ---
Test Reason : Blood Pressure : / mmHG Vent. Rate : 060 BPM Atrial Rate : 060 BPM P-R Int : 160 ms QRS Dur : 082 ms QT Int : 406 ms P-R-T Axes : 048 002 020 degrees QTc Int : 406 ms NORMAL SINUS RHYTHM LOW VOLTAGE QRS WHEN COMPARED WITH ECG OF 27-JUL-2018 13:13, NO SIGNIFICANT CHANGE WAS FOUND Confirmed by MAY ALEGRIA MD ([id number]) on 05/04/2019 1:58:14 PM Referred By: Confirmed By:MAY ALEGRIA MD
[2019-05-04 14:15] LABS: ALBUMIN 3.1 g/dl (3.4-5.0); BILIRUBIN,TOTAL 0.6 mg/dL (0.2-1); BLOOD UREA NITROGEN 10.6 mg/dL (7-18); CALCIUM 8.5 mg/dL (8.5-10.1); CREATININE 0.7 mg/dL (0.55-1.3); MAGNESIUM 1.7 mg/dL (1.8-2.4); POTASSIUM 3.4 mmol/L (3.5-5.1); TOT PROT 6.8 g/dl (6.4-8.2)
[2019-05-04] MEDS ORDERED: LORazepam 0.5 MG TABLET PO ONE (14:43)
[2019-05-04] MEDS ORDERED: MAGNESIUM SULF 50% (8.12 MEQ/2 ML-1 GM VIAL) IVPB ONE (14:52)
[2019-05-04] MEDS ORDERED: POTASSIUM CHLORIDE TABS 20 MEQ TABLET.ER (FP) PO ONE ×2 (14:52→15:00)
[2019-05-04] MEDS ORDERED: MAGNESIUM SULF 50% (8.12 MEQ/2 ML-1 GM VIAL) ONE (15:00)
[2019-05-04] MEDS ORDERED: LORazepam 0.5 MG TABLET ONE (15:00)
--- NOTE | 2019-05-04 15:10 | PDOC ---
Documentation entered by Kai Camp SCRIBE, acting as scribe for Jewel Knox MD. Jewel Knox MD: This documentation has been prepared by the Zoë gomez Xhesika, SCRIBE, under my direction and personally reviewed by me in its entirety. I confirm that the documentation accurately reflects all work, treatment, procedures, and medical decision making performed by me. Attending Attestation - Resident Resident Name: Luly Yadav - ED Attending Attestation I have performed the following: I have examined & evaluated the patient, The case was reviewed & discussed with the resident, I agree w/resident's findings & plan, Exceptions are as noted - HPI HPI: 05/04/19 13:04 The patient is a 63 year old female with a significant PMH of EtOH abuse, anemia, alcohol related seizures and COPD who presents to the emergency department with 3 weeks of diarrhea and SOB. Patient states she was recently admitted for 15 days for a fall and head injury. Pt states that during her admission, she developed PNA and an intestinal infection, for which she was started on abx. Since her discharge 2 weeks ago, pt has had persistent diarrhea and SOB with BURROWS. Patient states she endorses approximately 5 episodes of loose stools daily, described as chocolate pudding. She also reports dry cough and SOB. The patient denies chest pain, headache and dizziness. Denies fever, chills , nausea, vomiting, and constipation. Denies dysuria, frequency, urgency and hematuria. Allergies: codeine Past surgical history: Tubal Ligation (s/p appendectomy in 1987), Thoracotomy ( 2009 for hemothorax post trauma) Social history: EtOH abuse - Physicial Exam PE: 05/04/19 13:05 GENERAL: Awake, alert, and fully oriented, in no acute distress. HEAD: No signs of trauma EYES: PERRLA, EOMI, sclera anicteric, conjunctiva clear ENT: Auricles normal inspection, hearing grossly normal, nares patent, oropharynx clear without exudates. Moist mucosa NECK: Nontender, no stepoffs, Normal ROM, supple, no lymphadenopathy, JVD, or masses LUNGS: Breath sounds equal, clear to auscultation bilaterally. No wheezes, and no crackles HEART: Regular rate and rhythm, normal S1 and S2, no murmurs, rubs or gallops ABDOMEN: Soft, nontender, normoactive bowel sounds. No guarding, no rebound. No masses EXTREMITIES: Normal range of motion, no edema. No clubbing or cyanosis. No cords, erythema, or tenderness NEUROLOGICAL: Cranial nerves II through XII intact. 5/5 strength and sensation in all extremities, Normal speech, normal gait, normal cerebellar function SKIN: Warm, Dry, normal turgor, no rashes or lesions noted. - Medical Decision Making 05/04/19 15:14 63 F with diarrhea and SOB. Benign abdomen on exam. Suspect diarrhea is 2/2 abx use. Cause of pt's SOB unclear at this time. Pt with no wheezing on exam, but will trial nebs given h/o COPD. Given recent hospitalization, also consider PE vs recurrent PNA. - Labs, trop - CXR - Stool studies - Consider CTA chest to r/o PE 05/04/19 17:51 Labs unremarkable CTA negative for PE 05/04/19 18:46 Pt reassessed - reports persistent SOB
[2019-05-04] MEDS ORDERED: ALBUTEROL SO4 2.5/IPRATROPIUM 0.5 INH SOL 3 ML VIAL.NEB. NEB PRN (21:21)
--- NOTE | 2019-05-04 22:10 | HP ---
Admitting History and Physical - Primary Care Physician PCP: Jose Barnett MD - Admission Chief Complaint: Diarrhea, SOB History of Present Illness: This is a 89 y/o woman with a PMHx of HTN, COPD, Alcohol Abuse. Who presents to the ED with diarrhea for > 2 weeks, resolved 2 days ago and SOB x today. Patient reports drinking a pint of Vodka daily and admits to drinking prior to arrival. Patient reports recent admission to [facility] for s/p Fall, Intestinal Infection and Sepsis. Patient reports daily drinking to cope with "Life". She reports having a son with MS and that she is homeless. Patient reports increased SOB on exertion. She reports using her Ventolin MDI > 6x/day without relief. Patient denies fever, chills, dizziness, cP, palpitations, AP, N /V,dysuria History Source: Patient Limitations to Obtaining History: No Limitations - Past Medical History Cardiovascular: Yes: HTN Pulmonary: Yes: COPD Psych: Yes: Addictions (Alcohol) - Smoking History Smoking history: Never smoked Have you smoked in the past 12 months: No - Alcohol/Substance Use Hx Alcohol Use: Yes Number of Drinks Daily: 1 (Vodka Bottle) History of Substance Use: reports: None - Social History Usual Living Arrangement: Yes: Other (Homeless) ADL: Independent History of Recent Travel: No Home Medications - Allergies Allergies/Adverse Reactions: Allergies Allergy/AdvReac Type Severity Reaction Status Date / Time codeine [Codeine] AdvReac Severe Nausea Verified 07/27/18 11:11 - Home Medications Home Medications: Ambulatory Orders Ergocalciferol [Vitamin D2] 50,000 unit PO WEEKLY 07/27/18 Folic Acid - 1 mg PO DAILY 07/27/18 Magnesium Oxide [Mag-Ox -] 400 mg PO DAILY 07/27/18 Thiamine HCl [Vitamin B1 -] 100 mg PO DAILY 07/27/18 Tramadol HCl [Ultram] 50 mg PO TID PRN 07/27/18 traZODone HCL [Trazodone HCl] 50 mg PO HS #30 tablet 07/27/18 Cetirizine HCl [Zyrtec -] 10 mg PO DAILY 04/28/19 Albuterol 2.5/Ipratropium 0.5 [Duoneb -] 1 neb IH QID #20 vial.neb. 05/04/19 L. Acidophilus/Pectin, [place] [Acidophilus Probiotic Capsule] 1 each PO DAILY # 30 capsule 05/04/19 Nebulizer [Aeroeclipse II] 1 each MC DAILY 30 Days #30 each 05/04/19 Family Disease History - Family Disease History Family Disease History: CA: Father (Colon Ca, ), Mother (Lung Ca, ), Other: Father, Mother, Son (MS) Review of Systems - Review of Systems Constitutional: reports: No Symptoms Eyes: reports: No Symptoms HENT: reports: No Symptoms Neck: reports: No Symptoms Cardiovascular: reports: Shortness of Breath Respiratory: reports: SOB, SOB on Exertion Gastrointestinal: reports: Diarrhea Genitourinary: reports: No Symptoms Breasts: reports: No Symptoms Reported Musculoskeletal: reports: No Symptoms Integumentary: reports: No Symptoms Neurological: reports: No Symptoms Endocrine: reports: No Symptoms Hematology/Lymphatic: reports: No Symptoms Psychiatric: reports: No Symptoms Physical Examination Vital Signs: Vital Signs Temperature 98.6 F 05/04/19 19:05 Pulse Rate 66 05/04/19 19:05 Respiratory Rate 05/04/19 15:54 Blood Pressure 110/66 05/04/19 19:05 O2 Sat by Pulse Oximetry (%) 98 05/04/19 19:05 Constitutional: Yes: Anxious, Mild Distress Eyes: Yes: EOM Intact, PERRL, Other (Conjunctiva- injected) HENT: Yes: WNL, Atraumatic, Normocephalic Neck: Yes: WNL, Supple, Trachea Midline Cardiovascular: Yes: Regular Rate and Rhythm, S1, S2 Respiratory: Yes: On Nasal O2, Rhonchi, SOB on Exertion, Wheezes Gastrointestinal: Yes: Soft, Hypoactive Bowel Sounds Renal/: Yes: WNL Breast(s): Yes: WNL Musculoskeletal: Yes: WNL Extremities: Yes: WNL Edema: No Peripheral Pulses WNL: Yes Neurological: Yes: Tremors (mild-) ...Motor Strength: WNL Psychiatric: Yes: Alert, Oriented Labs: CBC, BMP 05/04/19 13:24 05/04/19 13:24 Laboratory Results - last 24 hr 05/04/19 05/04/19 05/04/19 13:24 13:24 13:24 WBC 6.5 RBC 3.35 L Hgb 11.7 Hct 34.6 MCV 103.4 H MCH 35.1 H MCHC 33.9 RDW 14.8 Plt Count 338 D MPV 8.3 D Absolute Neuts (auto) 2.5 Neutrophils % 38.2 L Lymphocytes % 55.5 H Monocytes % 4.2 Eosinophils % 1.2 Basophils % 0.9 Nucleated RBC % 0 Sodium 145 Potassium 3.4 L Chloride 109 H Carbon Dioxide 29 Anion Gap 7 L BUN 10.6 Creatinine 0.7 Est GFR (CKD-EPI)AfAm 106.87 Est GFR (CKD-EPI)NonAf 92.21 Random Glucose 111 H Calcium 8.5 Magnesium 1.7 L Total Bilirubin 0.6 AST 52 H ALT 27 Alkaline Phosphatase 178 H Troponin I < 0.02 Total Protein 6.8 Albumin 3.1 L Alcohol, Quantitative 05/04/19 13:24 WBC RBC Hgb Hct MCV MCH MCHC RDW Plt Count MPV Absolute Neuts (auto) Neutrophils % Lymphocytes % Monocytes % Eosinophils % Basophils % Nucleated RBC % Sodium Potassium Chloride Carbon Dioxide Anion Gap BUN Creatinine Est GFR (CKD-EPI)AfAm Est GFR (CKD-EPI)NonAf Random Glucose Calcium Magnesium Total Bilirubin AST ALT Alkaline Phosphatase Troponin I Total Protein Albumin Alcohol, Quantitative 411.4 H Intake & Output 05/01/19 05/02/19 05/03/19 05/04/19 23:59 23:59 23:59 23:59 Weight 68.039 kg Imaging - Results Chest X-ray: Report Reviewed, Image Reviewed Cat Scan: Report Reviewed, Image Reviewed Problem List - Problems (1) COPD exacerbation Code(s): J44.1 - CHRONIC OBSTRUCTIVE PULMONARY DISEASE W (ACUTE) EXACERBATION (2) Shortness of breath Code(s): R06.02 - SHORTNESS OF BREATH (3) Alcohol dependence with uncomplicated withdrawal Code(s): F10.230 - ALCOHOL DEPENDENCE WITH WITHDRAWAL, UNCOMPLICATED (4) Alcohol intoxication Code(s): F10.929 - ALCOHOL USE, UNSPECIFIED WITH INTOXICATION, UNSPECIFIED Qualifiers: Complication of substance-induced condition: uncomplicated Qualified Code(s ): F10.920 - Alcohol use, unspecified with intoxication, uncomplicated (5) HTN (hypertension) Code(s): I10 - ESSENTIAL (PRIMARY) HYPERTENSION (6) Depression Code(s): F32.9 - MAJOR DEPRESSIVE DISORDER, SINGLE EPISODE, UNSPECIFIED Assessment/Plan This is a 63 y/o woman with a PMHx of HTN, COPD, Alcohol Abuse. Admitted for COPD Exacerbation, Alcohol Dependency, Hypokalemia for further evaluation of their emergent condition. Admit CTA- neg PE, basilar atelectasis ?superimposed infiltrate R-base Chest Xray- No Leukocytosis, no L- shift, patient is afebrile less likely pneumonia Will order blood cultures, urine culture, urine legionella Repeat CBC, BMP Incentive Spirometer Appreciate Pulm consult Duonebs O2 Continue home meds Alcohol 411 Appreciate Detox Consult Ativan, Mg given in ED Banana Bag IVPB now Thiamine, MVI, Folic Acid po daily CIWAr 2 Ativan prn Appreciate Social Work consult- domicile placement CBC, BMP, Alcohol level in am Fall Precautions Seizure Precautions FEN- PO fluids as tolerated, Replete lytes prn, Low Na Diet DVT ppx- OOB, SCDs, Heparin Sq Dispo: Requires Inpatient Care Visit type - Emergency Visit Emergency Visit: Yes ED Registration Date: 05/04/19 Care time: The patient presented to the Emergency Department on the above date and was hospitalized for further evaluation of their emergent condition. - New Patient This patient is new to me today: Yes Date on this admission: 05/04/19 - Critical Care Critical Care patient: No
[2019-05-05] MEDS ORDERED: LORazepam 0.5 MG TABLET PO ONE (05:02)
[2019-05-05] MEDS ORDERED: AZITHROMYCIN IVPB 500 MG/250 ML BAG IVPB ONE (07:15)
[2019-05-05 07:29] LABS: COCAINE, UR NEGATIVE ng/ml (CUTOFF=300); METHADONE, UR NEGATIVE ng/ml (CUTOFF=300); OPIATES, URI NEGATIVE ng/ml (CUTOFF=300); PHENCYCLIDINE,URINE NEGATIVE ng/ml (CUTOFF=25); URINE AMPHETAMINES NEGATIVE ng/ml (CUTOFF=500); URINE BARBITURATES NEGATIVE ng/ml (CUTOFF=200); URINE BENZODIAZEPINES NEGATIVE ng/ml (CUTOFF=200)
[2019-05-05 08:13] LABS: BASO % 0.8 % (0-2.0); EOS % 2.6 % (0-4.5); HEMATOCRIT 29.9 % (32.4-45.2); HEMOGLOBIN 10.2 GM/dL (10.7-15.3); LYMPH % 38.8 % (8-40); MCH 35.7 pg (25.7-33.7); MCHC 34.2 g/dl (32.0-36.0); MEAN CELL VOLUME 104.5 fl (80-96); MEAN PLT VOLUME 8.4 fl (7.5-11.1); MONO % 4.9 % (3.8-10.2); NEUT % 52.9 % (42.8-82.8); PLATELET COUNT 238 K/MM3 (134-434); RBC 2.86 M/mm3 (3.60-5.2)
[2019-05-05 08:44] LABS: BLOOD UREA NITROGEN 8.4 mg/dL (7-18); CREATININE 0.6 mg/dL (0.55-1.3); MAGNESIUM 1.7 mg/dL (1.8-2.4); POTASSIUM 3.8 mmol/L (3.5-5.1)
[2019-05-05] MEDS ORDERED: TIOTROPIUM BROMIDE 2.5 MCG (SPIRIVA) RESPIMAT INHALER IH SCH (10:00)
[2019-05-05] MEDS: MULTIVITAMINS (DAILY MVI) TABLET (FP) PO SCH (10:29)
[2019-05-05] MEDS: FOLIC ACID 1 MG TABLET (FP) PO SCH (10:29)
[2019-05-05] MEDS: FOLIC ACID INJECTION - 1 MG, THIAMINE HCL 100 MG, MULTIVIT INJECTION ADULT 10 ML in SOD... IVPB ONE ×2 (10:30→11:58)
[2019-05-05] MEDS: THIAMINE HCL 100 MG TABLET (FP) PO SCH (10:30)
--- NOTE | 2019-05-05 11:26 | CONSULT ---
Consult Detox [facility] Reason for Current Admission/Consult: for alcohol detox Referred by:: gray jaeger - History History of Present Illness: this 63 years old female with alcohol dependence,stated drinking 1to 2 pint of vodka/2 of 12 ozs of beer,daily,stated at age of 12 years,last drinking 05/04/19 history of htn,copd,and anxiety,depression and insomnia multiple admissions in detox before last 04/12/19 in [facility] alcohol related seizure syncope alcohol related living in senior care history of anxiety,depression,insomnia,previous overdose i 07/04/88 non compliance with medical care ,last seen by private medical provider 3months ago no suicidal or homicidal ideation at this time stated last detox in [facility] history of head injury on 04/12/19 - History Source History Provided By: Patient Limitations to Obtaining History: No Limitations - Alcohol/Substance Use Hx Alcohol Use: Yes - Past Medical History [employer] DES[employer]RAF[employer]: Yes: Other (previous head injury on 04/12/19) Cardio/Vascular: Yes: HTN Pulmonary: Yes: COPD Gastrointestinal: Yes: Other (diarrhea) Hepatobiliary: Yes: Other (elevated liver enzymes) Psych: Yes: Addictions (Alcohol) Musculoskeletal: Yes: Chronic low back pain - Significant Medical Findings: this 63 years old female with alcohol dependence ,multiple admissions in detox, last [facility] on 04/12/19, alcohol related seizure,syncope,copd,hypertension,alcohol intoxication patient will need inpatient detox,ciwa score is 15,to start detox librium regimen CIWA Score - CIWA Score Nausea/Vomitin Muscle Tremors: 3 Anxiety: 3 Agitation: 3 Paroxysmal Sweats: 1-Minimal Palms Moist Orientation: 0-Oriented Tacttile Disturbances: 1-Very Mild Itch/Numbness Auditory Disturbances: 0-None Visual Disturbances: 0-None Headache: 2-Mild CIWA-Ar Total Score: 15 Assessment Plan - Diagnosis (1) COPD exacerbation Status: Acute (2) HTN (hypertension) Status: Acute (3) Alcohol dependence with uncomplicated withdrawal Status: Acute (4) Alcohol intoxication Status: Acute Qualifiers: Complication of substance-induced condition: uncomplicated Qualified Code(s ): F10.920 - Alcohol use, unspecified with intoxication, uncomplicated (5) Alcohol related seizure Status: Acute (6) COPD (chronic obstructive pulmonary disease) Status: Acute - Plan Plan: for detox from alcohol,librium regimen,medically managed Laboratory Last Values WBC 6.0 K/mm3 (4.0-10.0) 05/05/19 06:10 RBC 2.86 M/mm3 (3.60-5.2) L 05/05/19 06:10 Hgb 10.2 GM/dL (10.7-15.3) L 05/05/19 06:10 Hct 29.9 % (32.4-45.2) L 05/05/19 06:10 MCV 104.5 fl (80-96) H 05/05/19 06:10 MCH 35.7 pg (25.7-33.7) H 05/05/19 06:10 MCHC 34.2 g/dl (32.0-36.0) 05/05/19 06:10 RDW 15.0 % (11.6-15.6) 05/05/19 06:10 Plt Count 238 K/MM3 (134-434) D 05/05/19 06:10 MPV 8.4 fl (7.5-11.1) 05/05/19 06:10 Absolute Neuts (auto) 3.2 K/mm3 (1.5-8.0) 05/05/19 06:10 Neutrophils % 52.9 % (42.8-82.8) D 05/05/19 06:10 Lymphocytes % 38.8 % (8-40) D 05/05/19 06:10 Monocytes % 4.9 % (3.8-10.2) 05/05/19 06:10 Eosinophils % 2.6 % (0-4.5) D 05/05/19 06:10 Basophils % 0.8 % (0-2.0) 05/05/19 06:10 Nucleated RBC % 0 % (0-0) 05/05/19 06:10 Sodium 146 mmol/L (136-145) H 05/05/19 06:10 Potassium 3.8 mmol/L (3.5-5.1) 05/05/19 06:10 Chloride 111 mmol/L (98-107) H 05/05/19 06:10 Carbon Dioxide 25 mmol/L (21-32) 05/05/19 06:10 Anion Gap 10 MMOL/L (8-16) 05/05/19 06:10 BUN 8.4 mg/dL (7-18) 05/05/19 06:10 Creatinine 0.6 mg/dL (0.55-1.3) 05/05/19 06:10 Est GFR (CKD-EPI)AfAm 112.43 05/05/19 06:10 Est GFR (CKD-EPI)NonAf 97.01 05/05/19 06:10 Random Glucose 76 mg/dL (74-106) 05/05/19 06:10 Calcium 8.0 mg/dL (8.5-10.1) L 05/05/19 06:10 Magnesium 1.7 mg/dL (1.8-2.4) L 05/05/19 06:10 Total Bilirubin 0.6 mg/dL (0.2-1) 05/04/19 13:24 AST 52 U/L (15-37) H 05/04/19 13:24 ALT 27 U/L (13-61) 05/04/19 13:24 Alkaline Phosphatase 178 U/L (45-117) H 05/04/19 13:24 Creatine Kinase 35 U/L (26-192) 05/05/19 19:55 Troponin I < 0.02 ng/ml (0.00-0.05) 05/05/19 19:55 Total Protein 6.8 g/dl (6.4-8.2) 05/04/19 13:24 Albumin 3.1 g/dl (3.4-5.0) L 05/04/19 13:24 Opiates Screen Negative ng/ml (RKUSNE=239) 05/05/19 02:04 Methadone Screen Negative ng/ml (RCLTJQ=064) 05/05/19 02:04 Barbiturate Screen Negative ng/ml (QOAWKE=389) 05/05/19 02:04 Phencyclidine Screen Negative ng/ml (CUTOFF=25) 05/05/19 02:04 Ur Amphetamines Screen Negative ng/ml (ZLIXFK=319) 05/05/19 02:04 MDMA (Ecstasy) Screen Negative ng/ml (NUVSVC=684) 05/05/19 02:04 Benzodiazepines Screen Negative ng/ml (NZUQPA=770) 05/05/19 02:04 Cocaine Screen Negative ng/ml (WABCEF=036) 05/05/19 02:04 U Marijuana (THC) Screen Negative ng/ml (CUTOFF=50) 05/05/19 02:04 Alcohol, Quantitative 139.0 mg/dL (0.0-5.0) H 05/05/19 09:55 ast 52,alt 27 - Medication Detox Regimen/Protocol: Librium
--- NOTE | 2019-05-05 11:35 | PN ---
[facility] CIWA - CIWA Score Nausea/Vomitin Muscle Tremors: 3 Anxiety: 3 Agitation: 3 Paroxysmal Sweats: 1-Minimal Palms Moist Orientation: 0-Oriented Tacttile Disturbances: 1-Very Mild Itch/Numbness Auditory Disturbances: 0-None Visual Disturbances: 0-None Headache: 2-Mild CIWA-Ar Total Score: 15
[2019-05-05] MEDS ORDERED: LORazepam 1 MG TABLET PO PRN (11:37)
[2019-05-05] MEDS ORDERED: LORazepam 1 MG TABLET PO ONE (12:10)
[2019-05-05] MEDS ORDERED: chlordiazePOXIDE HCL 25 MG CAPSULE PO PRN (12:45)
--- NOTE | 2019-05-05 13:20 | CON.PULM ---
Consult Consult Specialty:: PULMONARY Referred by:: Dr Strange Reason for Consultation:: shortness of breath - History of Present Illness Chief Complaint: shortness of breath History of Present Illness: 63yo female with h/o HTN, COPD, alcohol abuse who was admitted with worsening generalized weakness and shortness of breath x 3 weeks. Denies chest pain or palpitations. +nonproductive cough without wheezing. No fevers, chills or sweats. Denies nausea, vomiting. Maintained on ventolin only at home but was not provide relief. No sick contacts or recent travel. She is a never smoker. 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) Cardio/Vascular: Yes: HTN Pulmonary: Yes: COPD Gastrointestinal: Yes: Other (diarrhea) Hepatobiliary: Yes: Other (elevated liver enzymes) Psych: Yes: Addictions (Alcohol) Musculoskeletal: Yes: Chronic low back pain - Alcohol/Substance Use Hx Alcohol Use: Yes Number of Drinks Daily: 1 (Vodka Bottle) History of Substance Use: reports: None - Smoking History Smoking history: Never smoked Have you smoked in the past 12 months: No - Social History ADL: Independent History of Recent Travel: No Home Medications - Allergies Allergies/Adverse Reactions: Allergies Allergy/AdvReac Type Severity Reaction Status Date / Time codeine [Codeine] AdvReac Severe Nausea Verified 07/27/18 11:11 - Home Medications Home Medications: Ambulatory Orders Ergocalciferol [Vitamin D2] 50,000 unit PO WEEKLY 07/27/18 Folic Acid - 1 mg PO DAILY 07/27/18 Magnesium Oxide [Mag-Ox -] 400 mg PO DAILY 07/27/18 Thiamine HCl [Vitamin B1 -] 100 mg PO DAILY 07/27/18 Tramadol HCl [Ultram] 50 mg PO TID PRN 07/27/18 traZODone HCL [Trazodone HCl] 50 mg PO HS #30 tablet 07/27/18 Cetirizine HCl [Zyrtec -] 10 mg PO DAILY 04/28/19 Albuterol 2.5/Ipratropium 0.5 [Duoneb -] 1 neb IH QID #20 vial.neb. 05/04/19 L. Acidophilus/Pectin, [place] [Acidophilus Probiotic Capsule] 1 each PO DAILY # 30 capsule 05/04/19 Nebulizer [Aeroeclipse II] 1 each MC DAILY 30 Days #30 each 05/04/19 Family Disease History - Family Disease History Family Disease History: CA: Father (Colon Ca, ), Mother (Lung Ca, ), Other: Father, Mother, Son (MS) Review of Systems - Review of Systems Constitutional: reports: Weakness. denies: Chills, Fever Eyes: denies: Recent Change in Vision HENT: denies: Nasal Congestion, Throat Pain Neck: denies: Stiffness, Tenderness Cardiovascular: reports: Shortness of Breath. denies: Chest Pain, Edema, Palpitations Respiratory: reports: Cough, Exercise Intolerance, SOB, SOB on Exertion. denies : Hemoptysis, Wheezing Gastrointestinal: denies: Abdominal Pain, Nausea, Vomiting Genitourinary: denies: Dysuria, Hematuria Neurological: denies: Dizziness, Headache Endocrine: denies: Unexplained Weight Loss Physical Exam Vital Sings: Vital Signs Temperature 98.6 F 05/05/19 09:00 Pulse Rate 92 H 05/05/19 09:00 Respiratory Rate 22 H 05/05/19 09:00 Blood Pressure 114/64 05/05/19 09:00 O2 Sat by Pulse Oximetry (%) 98 05/04/19 19:05 Constitutional: Yes: Anxious Eyes: Yes: Conjunctiva Clear, EOM Intact HENT: Yes: Atraumatic, Normocephalic Neck: Yes: Supple, Trachea Midline Cardiovascular: Yes: Regular Rate and Rhythm, Tachycardia Respiratory: Yes: Diminished (decreased breath sounds at the bases) ...Clubbing: No Gastrointestinal: Yes: Normal Bowel Sounds, Soft. No: Tenderness Edema: No Neurological: Yes: Alert, Oriented Labs: CBC, BMP 05/05/19 06:10 05/05/19 06:10 Imaging - Results Chest X-ray: Report Reviewed, Image Reviewed Cat Scan: Report Reviewed, Image Reviewed (RLL infiltrate vs atelectasis) Problem List - Problems (1) COPD exacerbation Code(s): J44.1 - CHRONIC OBSTRUCTIVE PULMONARY DISEASE W (ACUTE) EXACERBATION (2) HTN (hypertension) Code(s): I10 - ESSENTIAL (PRIMARY) HYPERTENSION (3) Alcohol intoxication Code(s): F10.929 - ALCOHOL USE, UNSPECIFIED WITH INTOXICATION, UNSPECIFIED Qualifiers: Complication of substance-induced condition: uncomplicated Qualified Code(s ): F10.920 - Alcohol use, unspecified with intoxication, uncomplicated Assessment/Plan Acute COPD Exacerbation Atelectasis vs Pneumonia HTN Alcohol Abuse - IV medrol - inhaled bronchodilators standing and PRN - empiric antibiotics - O2 to keep SpO2 >90% - echocardiogram to r/o CHF - monitor for alcohol withdrawal - outpt PFTs - DVT prophylaxis Thank you for this consult Yordy Eaton MD
[2019-05-05] MEDS ORDERED: ALBUTEROL SO4 0.083% IH SOL 2.5 MG/3 ML VIAL.NEB. NEB PRN (13:26)
[2019-05-05] MEDS ORDERED: methylPREDNISolone NA SUCC 40 MG/1 ML VIAL IVPUSH SCH (13:30)
[2019-05-05] MEDS ORDERED: CEFTRIAXONE 1 GM in DEXTROSE 5%-WATER - 50 ML IVPB SCH (13:45)
[2019-05-05] MEDS ORDERED: cefTRIAXone SODIUM 1 GM VIAL ONE (14:41)
[2019-05-05] MEDS ORDERED: DEXTROSE 5%-WATER - 50 ML IVPB ONE (14:41)
--- NOTE | 2019-05-05 15:34 | PN ---
Progress Note (short form) - Note Progress Note: SUBJECTIVE: feels jittery. No nausea/vomiting. No fever/chills. Mild dyspnea. Anxious++. no hallucinations OBJECTIVE: Afebrile, Hemodynamically Stable. Last Vital Signs Temp Pulse Resp BP Pulse Ox 98.6 F 92 H 22 H 114/64 98 05/05/19 09:00 05/05/19 09:00 05/05/19 09:00 05/05/19 09:00 05/04/19 19:05 HEENT - Atraumatic, normocephalic Heart - S1, s2, RRR Lungs - clear to auscultation, no wheeze. Abdomen - Soft, mild epigastric tenderness. Bowel Sounds normal. Extremities - No eema, no calf tenderness. Neuro - AAO x 3. Tone/Power normal all 4 extremities. Laboratory Results - last 24 hr 05/05/19 05/05/19 05/05/19 02:04 06:10 06:10 WBC 6.0 RBC 2.86 L Hgb 10.2 L Hct 29.9 L MCV 104.5 H MCH 35.7 H MCHC 34.2 RDW 15.0 Plt Count 238 D MPV 8.4 Absolute Neuts (auto) 3.2 Neutrophils % 52.9 D Lymphocytes % 38.8 D Monocytes % 4.9 Eosinophils % 2.6 D Basophils % 0.8 Nucleated RBC % 0 Sodium 146 H Potassium 3.8 Chloride 111 H Carbon Dioxide 25 Anion Gap 10 BUN 8.4 Creatinine 0.6 Est GFR (CKD-EPI)AfAm 112.43 Est GFR (CKD-EPI)NonAf 97.01 Random Glucose 76 Calcium 8.0 L Magnesium 1.7 L Opiates Screen Negative Methadone Screen Negative Barbiturate Screen Negative Phencyclidine Screen Negative Ur Amphetamines Screen Negative MDMA (Ecstasy) Screen Negative Benzodiazepines Screen Negative Cocaine Screen Negative U Marijuana (THC) Screen Negative Alcohol, Quantitative 05/05/19 09:55 WBC RBC Hgb Hct MCV MCH MCHC RDW Plt Count MPV Absolute Neuts (auto) Neutrophils % Lymphocytes % Monocytes % Eosinophils % Basophils % Nucleated RBC % Sodium Potassium Chloride Carbon Dioxide Anion Gap BUN Creatinine Est GFR (CKD-EPI)AfAm Est GFR (CKD-EPI)NonAf Random Glucose Calcium Magnesium Opiates Screen Methadone Screen Barbiturate Screen Phencyclidine Screen Ur Amphetamines Screen MDMA (Ecstasy) Screen Benzodiazepines Screen Cocaine Screen U Marijuana (THC) Screen Alcohol, Quantitative 139.0 H Current Medications Generic Name Dose Route Start Last Admin Trade Name Freq PRN Reason Stop Dose Admin Albuterol Sulfate 1 amp 05/05/19 13:26 Ventolin 0.083% Nebulizer Soln - NEB Q4H PRN SHORT OF BREATH/WHEEZING Albuterol/Ipratropium 1 amp 05/05/19 16:00 Duoneb - NEB RQID PENNIE Chlordiazepoxide HCl 10 mg 05/08/19 05:00 Librium - PO 05/08/19 23:01 [id number] PENNIE Chlordiazepoxide HCl 10 mg 05/09/19 05:00 Librium - PO 05/09/19 17:01 Q12H PENNIE Chlordiazepoxide HCl 10 mg 05/08/19 00:00 Librium - PO 05/09/19 00:00 Q4H PRN WITHDRAWAL(CONT SUBST) Chlordiazepoxide HCl 10 mg 05/10/19 05:00 Librium - PO 05/10/19 05:01 ONCE@0500 ONE Chlordiazepoxide HCl 50 mg 05/05/19 17:00 Librium - PO 05/06/19 23:01 [id number] PENNIE Chlordiazepoxide HCl 25 mg 05/07/19 05:00 Librium - PO 05/07/19 23:01 [id number] PENNIE Chlordiazepoxide HCl 25 mg 05/05/19 12:45 05/05/19 14:48 Librium - PO 05/06/19 12:44 25 mg Q4H PRN Administration WITHDRAWAL(CONT SUBST) Folic Acid 1 mg 05/05/19 10:00 05/05/19 10:29 Folic Acid - PO 1 mg DAILY PENNIE Administration Azithromycin 250 mg/ Dextrose 250 mls @ 250 mls/hr 05/06/19 10:00 IVPB 05/10/19 09:59 DAILY PENNIE Ceftriaxone Sodium 1 gm/ 50 mls @ 100 mls/hr 05/05/19 13:45 05/05/19 14:50 Dextrose IVPB 100 mls/hr DAILY PENNIE Administration Methylprednisolone Sodium Succinate 40 mg 05/05/19 13:30 05/05/19 14:49 Solu-Medrol - IVPUSH 40 mg Q8H-IV PENNIE Administration Multivitamins/Minerals/Vitamin C 1 tab 08/03/19 10:00 05/05/19 10:29 Tab-A-Vit - PO 1 tab DAILY PENNIE Administration Thiamine HCl 100 mg 05/05/19 10:00 05/05/19 10:30 Vitamin B1 - PO 100 mg DAILY PENNIE Administration Home Medications Medication Instructions Recorded Ergocalciferol [Vitamin D2] 50,000 unit PO WEEKLY 07/27/18 Folic Acid - 1 mg PO DAILY 07/27/18 Magnesium Oxide [Mag-Ox -] 400 mg PO DAILY 07/27/18 Thiamine HCl [Vitamin B1 -] 100 mg PO DAILY 07/27/18 Tramadol HCl [Ultram] 50 mg PO TID PRN 07/27/18 traZODone HCL [Trazodone HCl] 50 mg PO HS #30 tablet 07/27/18 Cetirizine HCl [Zyrtec -] 10 mg PO DAILY 04/28/19 Albuterol 2.5/Ipratropium 0.5 1 neb IH QID #20 vial.neb. 05/04/19 [Duoneb -] L. Acidophilus/Pectin, [place] 1 each PO DAILY #30 capsule 05/04/19 [Acidophilus Probiotic Capsule] Nebulizer [Aeroeclipse II] 1 each MC DAILY 30 Days #30 each 05/04/19 ASSESSMENT/PLAN: 63 year old homeless female with history of HTN, COPD, Alcohol Abuse, alcohol- related Seizure, Depression/Anxiety, Liver Cirrhosis, admitted with increasing SOB and lethargy/generalized weakness. 1. Acute Exacerbation of COPD CXR - No infiltrate CTA Chest - No PE. L basilar opacity, likely atelectasis. Hepatic Cirrhosis DuoNebs, Steroid, Abx Stable respiratory status. 2. Liver Cirrhosis Patient counselled. Needs GI follow up as out-patient for endoscopy. Will start Lactulose to maintain 3-4 soft bowel movements daily to prevent hepatic encephalopathy. Will give course of PPI (may have mild gastritis due to alcohol given mild epigastric tenderness). 3. Hx Alcohol Excess and Acute Withdrawal Seen by Addiction Medicine Started on Librium protocol for alcohol withdrawal. Thiamine, MVI, Folic Acid. Hx Alcohol withdrawal seizure - seizure/fall precautions Offered transfer to [facility] to complete Detox. 4. Hypomagnesemia - repleted. DVT Px - Heparin SQ Visit type - Emergency Visit Emergency Visit: Yes ED Registration Date: 05/04/19 Care time: The patient presented to the Emergency Department on the above date and was hospitalized for further evaluation of their emergent condition. - New Patient This patient is new to me today: Yes Date on this admission: 05/05/19 - Critical Care Critical Care patient: No - Discharge Referral Referred to [facility] Med [facility] No
[2019-05-05] MEDS ORDERED: MAGNESIUM SULF 50% (8.12 MEQ/2 ML-1 GM VIAL) IVPB STA (16:01)
[2019-05-05] MEDS ORDERED: LACTULOSE 20 GM/30 ML UDC (FOR ORAL USE ONLY) PO PRN ×2 (16:10→17:48)
[2019-05-05] MEDS: ALBUTEROL SO4 2.5/IPRATROPIUM 0.5 INH SOL 3 ML VIAL.NEB. NEB SCH ×2 (16:14→20:47)
[2019-05-05] MEDS: PANTOPRAZOLE 40 MG TABLET (FP) PO SCH (16:52)
--- NOTE | 2019-05-05 16:56 | DS ---
Physical Exam: SUBJECTIVE: Feels jittery. No nausea/vomiting. No fever/chills. Anxious++. No hallucinations. OBJECTIVE: Afebrile, Hemodynamically Stable. Last Vital Signs Temp Pulse Resp BP Pulse Ox 98.6 F 92 H 22 H 114/64 98 05/05/19 09:00 05/05/19 09:00 05/05/19 09:00 05/05/19 09:00 05/04/19 19:05 HEENT - Atraumatic, Normocephalic Heart - S1, S2, RRR Lungs - clear to auscultation, no wheeze. Abdomen - Soft, mild epigastric tenderness. Bowel Sounds normal. Extremities - No edema, no calf tenderness. Neuro - AAO x 3. Tone/Power normal all 4 extremities. Laboratory Results - last 24 hr 05/05/19 05/05/19 05/05/19 02:04 06:10 06:10 WBC 6.0 RBC 2.86 L Hgb 10.2 L Hct 29.9 L MCV 104.5 H MCH 35.7 H MCHC 34.2 RDW 15.0 Plt Count 238 D MPV 8.4 Absolute Neuts (auto) 3.2 Neutrophils % 52.9 D Lymphocytes % 38.8 D Monocytes % 4.9 Eosinophils % 2.6 D Basophils % 0.8 Nucleated RBC % 0 Sodium 146 H Potassium 3.8 Chloride 111 H Carbon Dioxide 25 Anion Gap 10 BUN 8.4 Creatinine 0.6 Est GFR (CKD-EPI)AfAm 112.43 Est GFR (CKD-EPI)NonAf 97.01 Random Glucose 76 Calcium 8.0 L Magnesium 1.7 L Opiates Screen Negative Methadone Screen Negative Barbiturate Screen Negative Phencyclidine Screen Negative Ur Amphetamines Screen Negative MDMA (Ecstasy) Screen Negative Benzodiazepines Screen Negative Cocaine Screen Negative U Marijuana (THC) Screen Negative Alcohol, Quantitative 05/05/19 09:55 WBC RBC Hgb Hct MCV MCH MCHC RDW Plt Count MPV Absolute Neuts (auto) Neutrophils % Lymphocytes % Monocytes % Eosinophils % Basophils % Nucleated RBC % Sodium Potassium Chloride Carbon Dioxide Anion Gap BUN Creatinine Est GFR (CKD-EPI)AfAm Est GFR (CKD-EPI)NonAf Random Glucose Calcium Magnesium Opiates Screen Methadone Screen Barbiturate Screen Phencyclidine Screen Ur Amphetamines Screen MDMA (Ecstasy) Screen Benzodiazepines Screen Cocaine Screen U Marijuana (THC) Screen Alcohol, Quantitative 139.0 H Discharge Medications Medication Instructions Recorded Ergocalciferol [Vitamin D2] 50,000 unit PO WEEKLY 07/27/18 Folic Acid - 1 mg PO DAILY 07/27/18 Magnesium Oxide [Mag-Ox -] 400 mg PO DAILY 07/27/18 Thiamine HCl [Vitamin B1 -] 100 mg PO DAILY 07/27/18 traZODone HCL [Trazodone HCl] 50 mg PO HS #30 tablet 07/27/18 Cetirizine HCl [Zyrtec -] 10 mg PO DAILY 04/28/19 Albuterol 2.5/Ipratropium 0.5 1 neb IH QID #20 vial.neb. 05/04/19 [Duoneb -] L. Acidophilus/Pectin, [place] 1 each PO DAILY #30 capsule 05/04/19 [Acidophilus Probiotic Capsule] Nebulizer [Aeroeclipse II] 1 each MC DAILY 30 Days #30 each 05/04/19 Albuterol 0.083% Nebulizer [place] 1 amp NEB Q4H PRN amp 05/05/19 [Ventolin 0.083% Nebulizer Soln -] Albuterol 2.5/Ipratropium 0.5 1 amp NEB Q6H PRN amp 05/05/19 [Duoneb -] Chlordiazepoxide [Librium -] 10 mg PO ASDIR capsule MDD 40mg 05/05/19 Lactulose (Oral Use) [Cephulac -] 20 gm PO TID PRN udc 05/05/19 Multivitamins [Multivit ([facility] 1 tab PO DAILY tab 05/05/19 Formulary)] Pantoprazole Sodium [Protonix -] 40 mg PO DAILY tablet.ec 05/05/19 Prednisone See Taper PO ASDIR #42 tablet 05/05/19 Tiotropium [place] [Spiriva 2 puff IH DAILY inhaler 05/05/19 Respimat] levoFLOXacin [Levaquin] 750 mg PO DAILY 4 Days #4 tab 05/05/19 Date of Admission:05/04/19 Date of Discharge: 05/05/19 Minutes to complete discharge: 40 Discharge Summary Reason For Visit: SOB/DIARRHEA Current Active Problems COPD exacerbation (Acute) HTN (hypertension) (Acute) Shortness of breath (Acute) Hospital Course: 63 year old homeless female with history of HTN, COPD, Alcohol Abuse, Hx of alcohol-related Seizure, Depression/Anxiety, Liver Cirrhosis, admitted with increasing SOB and lethargy/generalized weakness. She is being treated for COPD exacerbation and Alcohol withdrawal. She was given IV Antibiotics along with IV solumedroland bronchodilator nebulizations. Her oxygen saturations are 96% on room air so no need for supplemental oxygen. She will be transitioned to oral Prednisone taper along with oral Antibiotic Levofloxacin, which she should take 4 additional days to complete a 5 day course, as well as regular DuoNebs. She is medically stable for discharge to [facility] [place] to complete detox protocol with Librium. 1. Acute Exacerbation of COPD - improving CXR - No infiltrate CTA Chest - No PE. L basilar opacity, likely atelectasis. Hepatic Cirrhosis No need for supplemental O2 as SpO2 on Room air is 96% Continue DuoNebs, Levofloxacin (for 4 additonal days), and Prednisone taper ( 60mg for 2 additional days foll by 50mg for 2 additional days foll by 40mg for 2 additional days foll by 30mg for 2 additional days foll by 20mg for 2 additional days foll by 10mg for 2 additional days) Stable respiratory status. Medically optimized for discharge to [facility] [place]. No evidence of CHF clinically or radiologically. She should see Pulmonary as an outpatient for follow up and PFTs. 2. Liver Cirrhosis, newly recognized Patient counselled. Needs GI follow up as out-patient for screening endoscopy. Will start Lactulose to maintain 3-4 soft bowel movements daily to prevent hepatic encephalopathy. Will give course of PPI (may have mild gastritis due to alcohol given mild epigastric tenderness, especially with concurrent steroid taper). 3. Hx Alcohol Excess and Acute Withdrawal Seen by Addiction Medicine Started on Librium protocol for alcohol withdrawal. Continue Thiamine, MVI, Folic Acid. Hx Alcohol withdrawal seizure - seizure/fall precautions medically stable for transfer to [facility] [place] to complete Detox. 4. Hypomagnesemia - repleted. 5. Macrocytosis - likely sec to Alcohol excess. Can have B12 and Folate levels checked as out-patient. Condition: Good - Instructions Diet, Activity, Other Instructions: YOU WERE ADMITTED WITH SHORTNESS OF BREATH AND TREATED FOR COPD EXACERBATION. YOU ARE CURRENTLY WITHDRAWING FROM ALCOHOL AND YOU WERE EVALUATED BY THE ADDICTION MEDICINE SPECIALIST WHO STARTED YOU ON LIBRIUM WITHDRAWAL PROTOCOL. FOR YOUR COPD, YOU WILL CONTINUE ON BRONCHODILATOR NEBS, PREDNISONE TAPER, AND 4 ADDITIONAL DAYS OF ANTIBIOTICS TO COMPLETE A 5 DAY COURSE. YOU ARE MEDICALLY STABLE FOR TRANSFER TO [facility] TO COMPLETE YOUR DETOX FROM ALCOHOL. FOLLOW UP APPTS: 1. PCP - DR. LUCIA 2. PULMONARY - DR. FORBES FOR OUTPATIENT PFTS.YOU CAN ALSO BE REFERRED FOR OUTPATIENT ECHO AT THAT TIME. 3. GASTROENTEROLOGY FOR SCREENING ENDOSCOPY GIVEN NEWLY RECOGNIZED LIVER CIRRHOSIS Referrals: Minnie Lucia MD, MD [Primary Care Provider] - 1 Week Izabella Phelps MD [Staff Physician] - 1 Week Yordy Forbes MD, MD [Staff Physician] - Disposition: TRANSFER ACUTE CARE/OTHER HOSP - Home Medications Comprehensive Discharge Medication List: Ambulatory Orders Ergocalciferol [Vitamin D2] 50,000 unit PO WEEKLY 07/27/18 Folic Acid - 1 mg PO DAILY 07/27/18 Magnesium Oxide [Mag-Ox -] 400 mg PO DAILY 07/27/18 Thiamine HCl [Vitamin B1 -] 100 mg PO DAILY 07/27/18 traZODone HCL [Trazodone HCl] 50 mg PO HS #30 tablet 07/27/18 Cetirizine HCl [Zyrtec -] 10 mg PO DAILY 04/28/19 Albuterol 2.5/Ipratropium 0.5 [Duoneb -] 1 neb IH QID #20 vial.neb. 05/04/19 L. Acidophilus/Pectin, [place] [Acidophilus Probiotic Capsule] 1 each PO DAILY # 30 capsule 05/04/19 Nebulizer [Aeroeclipse II] 1 each MC DAILY 30 Days #30 each 05/04/19 Albuterol 0.083% Nebulizer [place] [Ventolin 0.083% Nebulizer Soln -] 1 amp NEB Q4H PRN amp 05/05/19 Albuterol 2.5/Ipratropium 0.5 [Duoneb -] 1 amp NEB Q6H PRN amp 05/05/19 Chlordiazepoxide [Librium -] 10 mg PO ASDIR capsule MDD 40mg 05/05/19 Lactulose (Oral Use) [Cephulac -] 20 gm PO TID PRN udc 05/05/19 Multivitamins [Multivit ([facility] Formulary)] 1 tab PO DAILY tab 05/05/19 Pantoprazole Sodium [Protonix -] 40 mg PO DAILY tablet.ec 05/05/19 Prednisone See Taper PO ASDIR #42 tablet 05/05/19 Tiotropium [place] [Spiriva Respimat] 2 puff IH DAILY inhaler 05/05/19 levoFLOXacin [Levaquin] 750 mg PO DAILY 4 Days #4 tab 05/05/19 This patient is new to me today: Yes Date on this admission: 05/05/19 Emergency Visit: Yes ED Registration Date: 05/04/19 Care time: The patient presented to the Emergency Department on the above date and was hospitalized for further evaluation of their emergent condition. Critical Care patient: No - Discharge Referral Referred to [facility] Med [facility].C.: No
[2019-05-05] MEDS ORDERED: predniSONE 20 MG TABLET (UD) PO ONE (17:00)
[2019-05-05] MEDS ORDERED: PANTOPRAZOLE 40 MG TABLET (FP) PO ONE (17:11)
[2019-05-05] MEDS ORDERED: traMADol HCL 50 MG TABLET PO ONE (17:11)
[2019-05-05] MEDS: chlordiazePOXIDE HCL 25 MG CAPSULE PO SCH ×2 (17:21→22:13)
[2019-05-05] MEDS: HEPARIN NA (PORCINE) 5,000 UNITS/ML 1ML VIAL SQ SCH (22:13)
[2019-05-06] MEDS: chlordiazePOXIDE HCL 25 MG CAPSULE PO SCH ×4 (05:48→22:28)
[2019-05-06] MEDS: HEPARIN NA (PORCINE) 5,000 UNITS/ML 1ML VIAL SQ SCH ×3 (05:48→22:28)
[2019-05-06] MEDS: ALBUTEROL SO4 2.5/IPRATROPIUM 0.5 INH SOL 3 ML VIAL.NEB. NEB SCH ×4 (08:53→19:58)
--- NOTE | 2019-05-06 09:02 | EKG ---
Test Reason : Blood Pressure : / mmHG Vent. Rate : 111 BPM Atrial Rate : 111 BPM P-R Int : 160 ms QRS Dur : 080 ms QT Int : 346 ms P-R-T Axes : 032 -18 -12 degrees QTc Int : 470 ms SINUS TACHYCARDIA POSSIBLE ANTEROLATERAL INFARCT , AGE UNDETERMINED ABNORMAL ECG WHEN COMPARED WITH ECG OF 04-MAY-2019 12:37, VENT. RATE HAS INCREASED BY 51 BPM NONSPECIFIC T WAVE ABNORMALITY NOW EVIDENT IN ANTEROLATERAL LEADS Confirmed by CLEMENCIA CAT MD ([id number]) on 05/06/2019 9:02:25 AM Referred By: DR GARIMA FINN Confirmed By:CLEMENCIA CAT MD
[2019-05-06] MEDS ORDERED: traMADol HCL 50 MG TABLET PO PRN (09:42)
[2019-05-06] MEDS ORDERED: AZITHROMYCIN IVPB 250 MG in DEXTROSE 5%-WATER - 250 ML IVPB SCH (10:00)
[2019-05-06] MEDS: predniSONE 20 MG TABLET (UD) PO SCH (10:26)
[2019-05-06] MEDS: MULTIVITAMINS (DAILY MVI) TABLET (FP) PO SCH (10:26)
[2019-05-06] MEDS: PANTOPRAZOLE 40 MG TABLET (FP) PO SCH (10:27)
[2019-05-06] MEDS: FOLIC ACID 1 MG TABLET (FP) PO SCH (10:27)
[2019-05-06] MEDS: THIAMINE HCL 100 MG TABLET (FP) PO SCH (10:27)
--- NOTE | 2019-05-06 12:08 | PN ---
Progress Note (short form) - Note Progress Note: SUBJECTIVE: Still feels "jittery/shakey". Mild nausea. No vomiting. No fever/ chills. Mild dyspnea. No cough/sputum/hemoptysis. Anxious++. No hallucinations. No fever/chills. OBJECTIVE: Afebrile, Hemodynamically Stable. Last Vital Signs Temp Pulse Resp BP Pulse Ox 98.3 F 117 H 20 140/72 97 05/06/19 10:00 05/06/19 10:00 05/06/19 10:00 05/06/19 10:00 05/05/19 21:00 Heart - S1, S2, RRR Lungs - clear to auscultation, occassional wheeze. Abdomen - Soft, mild epigastric tenderness. Bowel Sounds normal. Extremities - No edema, no calf tenderness. Neuro - AAO x 3. Tone/Power normal all 4 extremities. Laboratory Results - last 24 hr 05/05/19 05/06/19 19:55 09:26 Creatine Kinase 35 24 L Troponin I < 0.02 < 0.02 Current Medications Generic Name Dose Route Start Last Admin Trade Name Freq PRN Reason Stop Dose Admin Albuterol Sulfate 1 amp 05/05/19 13:26 Ventolin 0.083% Nebulizer Soln - NEB Q4H PRN SHORT OF BREATH/WHEEZING Albuterol/Ipratropium 1 amp 05/05/19 16:00 05/06/19 11:34 Duoneb - NEB 1 amp RQID PENNIE Administration Chlordiazepoxide HCl 10 mg 05/08/19 05:00 Librium - PO 05/08/19 23:01 [id number] PENNIE Chlordiazepoxide HCl 10 mg 05/09/19 05:00 Librium - PO 05/09/19 17:01 Q12H PENNIE Chlordiazepoxide HCl 10 mg 05/08/19 00:00 Librium - PO 05/09/19 00:00 Q4H PRN WITHDRAWAL(CONT SUBST) Chlordiazepoxide HCl 10 mg 05/10/19 05:00 Librium - PO 05/10/19 05:01 ONCE@0500 ONE Chlordiazepoxide HCl 50 mg 05/05/19 17:00 05/06/19 11:18 Librium - PO 05/06/19 23:01 50 mg [id number] PENNIE Administration Chlordiazepoxide HCl 25 mg 05/07/19 05:00 Librium - PO 05/07/19 23:01 [id number] PENNIE Chlordiazepoxide HCl 25 mg 05/05/19 12:45 05/05/19 14:48 Librium - PO 05/06/19 12:44 25 mg Q4H PRN Administration WITHDRAWAL(CONT SUBST) Folic Acid 1 mg 05/05/19 10:00 05/06/19 10:27 Folic Acid - PO 1 mg DAILY PENNIE Administration Heparin Sodium (Porcine) 5,000 unit 05/05/19 22:00 05/06/19 05:48 Heparin - SQ 5,000 unit TID PENNIE Administration Lactulose 20 gm 05/05/19 17:48 Cephulac (Oral Use) PO TID PRN CONSTIPATION Levofloxacin 750 mg 05/06/19 10:00 05/06/19 10:26 Levaquin - PO 750 mg DAILY PENNIE Administration Multivitamins/Minerals/Vitamin C 1 tab 05/05/19 10:00 05/06/19 10:26 Tab-A-Vit - PO 1 tab DAILY PENNIE Administration Pantoprazole Sodium 40 mg 05/05/19 16:15 05/06/19 10:27 Protonix - PO 40 mg DAILY PENNIE Administration Prednisone 60 mg 05/06/19 10:00 05/06/19 10:26 Deltasone - PO 60 mg DAILY PENNIE Administration Thiamine HCl 100 mg 05/05/19 10:00 05/06/19 10:27 Vitamin B1 - PO 100 mg DAILY PENNIE Administration Tramadol HCl 50 mg 05/06/19 09:42 Ultram - PO Q8H PRN PAIN LEVEL 4 - 6 Home Medications Medication Instructions Recorded Ergocalciferol [Vitamin D2] 50,000 unit PO WEEKLY 07/27/18 Folic Acid - 1 mg PO DAILY 07/27/18 Magnesium Oxide [Mag-Ox -] 400 mg PO DAILY 07/27/18 Thiamine HCl [Vitamin B1 -] 100 mg PO DAILY 07/27/18 Tramadol HCl [Ultram] 50 mg PO TID PRN 07/27/18 traZODone HCL [Trazodone HCl] 50 mg PO HS #30 tablet 07/27/18 Cetirizine HCl [Zyrtec -] 10 mg PO DAILY 04/28/19 Albuterol 2.5/Ipratropium 0.5 1 neb IH QID #20 vial.neb. 05/04/19 [Duoneb -] L. Acidophilus/Pectin, Mason 1 each PO DAILY #30 capsule 05/04/19 [Acidophilus Probiotic Capsule] Nebulizer [Aeroeclipse II] 1 each MC DAILY 30 Days #30 each 05/04/19 ASSESSMENT/PLAN: 63 year old homeless female with history of HTN, COPD, Alcohol Abuse, Hx of alcohol-related Seizure, Depression/Anxiety, Liver Cirrhosis, admitted with increasing SOB and lethargy/generalized weakness. She is being treated for COPD exacerbation and Alcohol withdrawal. She was given IV Antibiotics along with IV solumedroland bronchodilator nebulizations. Her oxygen saturations are 96% on room air so no need for supplemental oxygen. She was transitioned to oral Prednisone taper along with oral Antibiotic Levofloxacin, which she should take 4 additional days to complete a 5 day course, as well as regular DuoNebs. She is medically stable for discharge to [facility] to complete detox protocol with Librium if she chooses. 1. Acute Exacerbation of COPD - improving CXR - No infiltrate CTA Chest - No PE. L basilar opacity, likely atelectasis. Hepatic Cirrhosis No need for supplemental O2 as SpO2 on Room air is 97% Continue DuoNebs, Levofloxacin (for 4 additonal days), and Prednisone taper ( 60mg for 2 additional days foll by 50mg for 2 additional days foll by 40mg for 2 additional days foll by 30mg for 2 additional days foll by 20mg for 2 additional days foll by 10mg for 2 additional days) Stable respiratory status. Medically optimized for discharge to [facility]. No evidence of CHF clinically or radiologically. She should see Pulmonary as an outpatient for follow up and PFTs. 2. Liver Cirrhosis, newly recognized Patient counselled. Needs GI follow up as out-patient for screening endoscopy. Starte on Lactulose to maintain 3-4 soft bowel movements daily to prevent hepatic encephalopathy. also starte don course of PPI (may have mild gastritis due to alcohol given mild epigastric tenderness, especially with concurrent steroid use). 3. Hx Alcohol Excess and Acute Withdrawal Seen by Addiction Medicine Started on Librium protocol for alcohol withdrawal. Continue Thiamine, MVI, Folic Acid. Hx Alcohol withdrawal seizure - seizure/fall precautions Offered transfer to [facility] to complete detox, patient considering. Medically stable for transfer to [facility] to complete Detox once she agrees. 4. Hypomagnesemia - repleted. Awaiting today's labs. 5. Macrocytosis - likely sec to Alcohol excess/Liver Cirrhosis. Can have B12 and Folate levels checked as out-patient. DVT Px - Heparin SQ pending PT/INR check Visit type - Emergency Visit Emergency Visit: Yes ED Registration Date: 05/04/19 Care time: The patient presented to the Emergency Department on the above date and was hospitalized for further evaluation of their emergent condition. - New Patient This patient is new to me today: No - Critical Care Critical Care patient: No - Discharge Referral Referred to [facility] No
--- NOTE | 2019-05-06 12:18 | PN ---
Progress Note (short form) - Note Progress Note: PULMONARY Feels better today. Less shortness of breath. No fevers recorded. c/o abdominal pain. Vital Signs Period Temp Pulse Resp BP Sys/Bartlett Pulse Ox Last 24 Hr 98 F-98.7 F 76-117 20-22 127-140/72-87 95-97 Gen: less anxious Heart: RRR Lung: decreased breath sounds at the bases Abd: soft, nontender Ext: no edema CBC, BMP 05/05/19 06:10 Active Medications Albuterol Sulfate (Ventolin 0.083% Nebulizer Soln -) 1 amp NEB Q4H PRN PRN Reason: SHORT OF BREATH/WHEEZING Albuterol/Ipratropium (Duoneb -) 1 amp NEB RQID [facility] Last Admin: 05/06/19 11:34 Dose: 1 amp Chlordiazepoxide HCl (Librium -) 10 mg PO [id number] [facility] Stop: 05/08/19 23:01 Chlordiazepoxide HCl (Librium -) 10 mg PO Q12H [facility] Stop: 05/09/19 17:01 Chlordiazepoxide HCl (Librium -) 10 mg PO Q4H PRN PRN Reason: WITHDRAWAL(CONT SUBST) Stop: 05/09/19 00:00 Chlordiazepoxide HCl (Librium -) 10 mg PO ONCE@0500 ONE Stop: 05/10/19 05:01 Chlordiazepoxide HCl (Librium -) 50 mg PO [id number] [facility] Stop: 05/06/19 23:01 Last Admin: 05/06/19 11:18 Dose: 50 mg Chlordiazepoxide HCl (Librium -) 25 mg PO [id number] [facility] Stop: 05/07/19 23:01 Chlordiazepoxide HCl (Librium -) 25 mg PO Q4H PRN PRN Reason: WITHDRAWAL(CONT SUBST) Stop: 05/06/19 12:44 Last Admin: 05/05/19 14:48 Dose: 25 mg Folic Acid (Folic Acid -) 1 mg PO DAILY [facility] Last Admin: 05/06/19 10:27 Dose: 1 mg Heparin Sodium (Porcine) (Heparin -) 5,000 unit SQ TID [facility] Last Admin: 05/06/19 05:48 Dose: 5,000 unit Lactulose (Cephulac (Oral Use)) 20 gm PO TID PRN PRN Reason: CONSTIPATION Levofloxacin (Levaquin -) 750 mg PO DAILY [facility] Last Admin: 05/06/19 10:26 Dose: 750 mg Multivitamins/Minerals/Vitamin C (Tab-A-Vit -) 1 tab PO DAILY [facility] Last Admin: 05/06/19 10:26 Dose: 1 tab Pantoprazole Sodium (Protonix -) 40 mg PO DAILY [facility] Last Admin: 05/06/19 10:27 Dose: 40 mg Prednisone (Deltasone -) 60 mg PO DAILY [facility] Last Admin: 05/06/19 10:26 Dose: 60 mg Thiamine HCl (Vitamin B1 -) 100 mg PO DAILY [facility] Last Admin: 05/06/19 10:27 Dose: 100 mg Tramadol HCl (Ultram -) 50 mg PO Q8H PRN PRN Reason: PAIN LEVEL 4 - 6 A/P Acute COPD Exacerbation Atelectasis vs Pneumonia HTN Alcohol Abuse - prednisone - inhaled bronchodilators standing and PRN - empiric antibiotics - O2 to keep SpO2 >90% - echocardiogram to r/o CHF - monitor for alcohol withdrawal - outpt PFTs - DVT prophylaxis Problem List - Problems (1) COPD exacerbation Code(s): J44.1 - CHRONIC OBSTRUCTIVE PULMONARY DISEASE W (ACUTE) EXACERBATION (2) HTN (hypertension) Code(s): I10 - ESSENTIAL (PRIMARY) HYPERTENSION (3) Alcohol intoxication Code(s): F10.929 - ALCOHOL USE, UNSPECIFIED WITH INTOXICATION, UNSPECIFIED Qualifiers: Complication of substance-induced condition: uncomplicated Qualified Code(s ): F10.920 - Alcohol use, unspecified with intoxication, uncomplicated
[2019-05-06 14:32] LABS: ALBUMIN 3.2 g/dl (3.4-5.0); ALK PHOS 175 U/L (45-117); ANION GAP 8 MMOL/L (8-16); BILIRUBIN,TOTAL 1.6 mg/dL (0.2-1); BLOOD UREA NITROGEN 8.6 mg/dL (7-18); CALCIUM 9.3 mg/dL (8.5-10.1); CHLORIDE 104 mmol/L (98-107); CO2 28 mmol/L (21-32); CREATININE 0.8 mg/dL (0.55-1.3); GLUCOSE,RANDOM 131 mg/dL (74-106); MAGNESIUM 1.7 mg/dL (1.8-2.4); PHOSPHOROUS 3.6 mg/dL (2.5-4.9); POTASSIUM 4.2 mmol/L (3.5-5.1); SGOT/AST 45 U/L (15-37); SGPT/ALT 27 U/L (13-61); SODIUM 140 mmol/L (136-145); TOT PROT 7.1 g/dl (6.4-8.2)
[2019-05-06 14:50] VITALS: BMI 26.9
[2019-05-06 15:40] LABS: INR 1.26 (0.83-1.09); PROTHROMBIN TIME (PATIENT) 14.9 SEC (9.7-13.0)
[2019-05-06] MEDS ORDERED: MAGNESIUM SULF 50% (8.12 MEQ/2 ML-1 GM VIAL) IVPB ONE (15:45)
[2019-05-06 15:59] LABS: ALBUMIN 2.9 g/dl (3.4-5.0); BLOOD UREA NITROGEN 12.3 mg/dL (7-18); CALCIUM 9.1 mg/dL (8.5-10.1); CREATININE 1.1 mg/dL (0.55-1.3); MAGNESIUM 1.8 mg/dL (1.8-2.4); PHOSPHOROUS 2.8 mg/dL (2.5-4.9); POTASSIUM 4.6 mmol/L (3.5-5.1); TOT PROT 6.8 g/dl (6.4-8.2)
[2019-05-07] MEDS ORDERED: LORazepam 1 MG TABLET PO SCH (05:00)
[2019-05-07] MEDS: chlordiazePOXIDE HCL 25 MG CAPSULE PO SCH ×4 (05:15→22:03)
[2019-05-07] MEDS: HEPARIN NA (PORCINE) 5,000 UNITS/ML 1ML VIAL SQ SCH ×3 (05:16→21:49)
[2019-05-07] MEDS: ALBUTEROL SO4 2.5/IPRATROPIUM 0.5 INH SOL 3 ML VIAL.NEB. NEB SCH ×4 (07:45→20:20)
[2019-05-07] MEDS: PANTOPRAZOLE 40 MG TABLET (FP) PO SCH (10:49)
[2019-05-07] MEDS: predniSONE 20 MG TABLET (UD) PO SCH (10:50)
[2019-05-07] MEDS: FOLIC ACID 1 MG TABLET (FP) PO SCH (10:50)
[2019-05-07] MEDS: THIAMINE HCL 100 MG TABLET (FP) PO SCH (10:51)
[2019-05-07] MEDS: MULTIVITAMINS (DAILY MVI) TABLET (FP) PO SCH (10:51)
--- NOTE | 2019-05-07 11:13 | PN ---
Progress Note (short form) - Note Progress Note: Resting in NAD. Overall less shortness of breath. No fevers recorded. Intake & Output 05/04/19 05/05/19 05/06/19 05/07/19 23:59 23:59 23:59 23:59 Intake Total 600 450 Balance 600 450 Weight 150 lb 147 lb 11.2 oz 147 lb Last Vital Signs Temp Pulse Resp BP Pulse Ox 98.2 F 93 H 20 127/78 95 05/07/19 09:00 05/07/19 09:00 05/07/19 09:00 05/07/19 09:00 05/06/19 21:00 Active Medications Albuterol Sulfate (Ventolin 0.083% Nebulizer Soln -) 1 amp NEB Q4H PRN PRN Reason: SHORT OF BREATH/WHEEZING Albuterol/Ipratropium (Duoneb -) 1 amp NEB RQID [facility] Last Admin: 05/07/19 07:45 Dose: 1 amp Chlordiazepoxide HCl (Librium -) 10 mg PO [id number] [facility] Stop: 05/08/19 23:01 Chlordiazepoxide HCl (Librium -) 10 mg PO Q12H PENNIE Stop: 05/09/19 17:01 Chlordiazepoxide HCl (Librium -) 10 mg PO Q4H PRN PRN Reason: WITHDRAWAL(CONT SUBST) Stop: 05/09/19 00:00 Chlordiazepoxide HCl (Librium -) 10 mg PO ONCE@0500 ONE Stop: 05/10/19 05:01 Chlordiazepoxide HCl (Librium -) 25 mg PO [id number] [facility] Stop: 05/07/19 23:01 Last Admin: 05/07/19 10:52 Dose: 25 mg Folic Acid (Folic Acid -) 1 mg PO DAILY [facility] Last Admin: 05/07/19 10:50 Dose: 1 mg Heparin Sodium (Porcine) (Heparin -) 5,000 unit SQ TID [facility] Last Admin: 05/07/19 05:16 Dose: 5,000 unit Lactulose (Cephulac (Oral Use)) 20 gm PO TID PRN PRN Reason: CONSTIPATION Levofloxacin (Levaquin -) 750 mg PO DAILY [facility] Last Admin: 05/07/19 10:49 Dose: 750 mg Multivitamins/Minerals/Vitamin C (Tab-A-Vit -) 1 tab PO DAILY [facility] Last Admin: 05/07/19 10:51 Dose: 1 tab Pantoprazole Sodium (Protonix -) 40 mg PO DAILY [facility] Last Admin: 05/07/19 10:49 Dose: 40 mg Prednisone (Deltasone -) 60 mg PO DAILY [facility] Last Admin: 05/07/19 10:50 Dose: 60 mg Thiamine HCl (Vitamin B1 -) 100 mg PO DAILY [facility] Last Admin: 05/07/19 10:51 Dose: 100 mg Tramadol HCl (Ultram -) 50 mg PO Q8H PRN PRN Reason: PAIN LEVEL 4 - 6 Gen: NAD Heart: RRR Lung: decreased breath sounds at the bases Abd: soft, nontender Ext: no edema Laboratory Results - last 24 hr 05/06/19 05/06/19 05/06/19 09:26 14:45 14:45 PT with INR 14.90 H INR 1.26 H Sodium 140 139 Potassium 4.2 4.6 Chloride 104 103 Carbon Dioxide 28 27 Anion Gap 8 8 BUN 8.6 12.3 Creatinine 0.8 1.1 Est GFR (CKD-EPI)AfAm 90.94 61.88 Est GFR (CKD-EPI)NonAf 78.46 53.39 Random Glucose 131 H 132 H Calcium 9.3 9.1 Phosphorus 3.6 2.8 Magnesium 1.7 L 1.8 Total Bilirubin 1.6 H 1.0 AST 45 H 49 H ALT 27 27 Alkaline Phosphatase 175 H 165 H Creatine Kinase 24 L Troponin I < 0.02 Total Protein 7.1 6.8 Albumin 3.2 L 2.9 L Vitamin B12 1099 H Serum Folate 19 H Problem List - Problems (1) COPD exacerbation Code(s): J44.1 - CHRONIC OBSTRUCTIVE PULMONARY DISEASE W (ACUTE) EXACERBATION (2) HTN (hypertension) Code(s): I10 - ESSENTIAL (PRIMARY) HYPERTENSION (3) Alcohol intoxication Code(s): F10.929 - ALCOHOL USE, UNSPECIFIED WITH INTOXICATION, UNSPECIFIED Qualifiers: Complication of substance-induced condition: uncomplicated Qualified Code(s ): F10.920 - Alcohol use, unspecified with intoxication, uncomplicated A/P Acute COPD Exacerbation Atelectasis vs Pneumonia HTN Alcohol Abuse - prednisone - inhaled bronchodilators standing and PRN - O2 to keep SpO2 >90% - monitor for alcohol withdrawal - outpt PFTs - DVT prophylaxis Dr Keita
[2019-05-07 11:17] LABS: BILIRUBIN,TOTAL 0.9 mg/dL (0.2-1); BLOOD UREA NITROGEN 15.3 mg/dL (7-18); CALCIUM 9.1 mg/dL (8.5-10.1); CREATININE 1.1 mg/dL (0.55-1.3); MAGNESIUM 1.8 mg/dL (1.8-2.4); PHOSPHOROUS 2.9 mg/dL (2.5-4.9); POTASSIUM 3.3 mmol/L (3.5-5.1); TOT PROT 6.7 g/dl (6.4-8.2)
--- NOTE | 2019-05-07 12:14 | PN ---
Teaching Attending Note Name of Resident: Kennedy Kraus ATTENDING PHYSICIAN STATEMENT I saw and evaluated the patient. I reviewed the resident's note and discussed the case with the resident. I agree with the resident's findings and plan as documented. SUBJECTIVE: Still feels "shakey". Mild nausea. No vomiting. No fever/chills. No cough/sputum/hemoptysis. Anxious++. No hallucinations. No fever/chills. OBJECTIVE: Afebrile, Hemodynamically Stable. Last Vital Signs Temp Pulse Resp BP Pulse Ox 98.2 F 93 H 20 127/78 95 05/07/19 09:00 05/07/19 09:00 05/07/19 09:00 05/07/19 09:00 05/06/19 21:00 Heart - S1, S2, RRR Lungs - clear to auscultation. Abdomen - Soft, mild epigastric tenderness. Bowel Sounds normal. Extremities - No edema, no calf tenderness. Neuro - AAO x 3. Tone/Power normal all 4 extremities. Laboratory Results - last 24 hr 05/06/19 05/06/19 05/06/19 09:26 14:45 14:45 PT with INR 14.90 H INR 1.26 H Sodium 140 139 Potassium 4.2 4.6 Chloride 104 103 Carbon Dioxide 28 27 Anion Gap 8 8 BUN 8.6 12.3 Creatinine 0.8 1.1 Est GFR (CKD-EPI)AfAm 90.94 61.88 Est GFR (CKD-EPI)NonAf 78.46 53.39 Random Glucose 131 H 132 H Calcium 9.3 9.1 Phosphorus 3.6 2.8 Magnesium 1.7 L 1.8 Total Bilirubin 1.6 H 1.0 AST 45 H 49 H ALT 27 27 Alkaline Phosphatase 175 H 165 H Creatine Kinase 24 L Troponin I < 0.02 Total Protein 7.1 6.8 Albumin 3.2 L 2.9 L Vitamin B12 1099 H Serum Folate 19 H 05/07/19 10:25 PT with INR INR Sodium 142 Potassium 3.3 L Chloride 106 Carbon Dioxide 27 Anion Gap 9 BUN 15.3 Creatinine 1.1 Est GFR (CKD-EPI)AfAm 61.88 Est GFR (CKD-EPI)NonAf 53.39 Random Glucose 78 Calcium 9.1 Phosphorus 2.9 Magnesium 1.8 Total Bilirubin 0.9 AST 31 ALT 24 Alkaline Phosphatase 139 H Creatine Kinase Troponin I Total Protein 6.7 Albumin 3.0 L Vitamin B12 Serum Folate Current Medications Generic Name Dose Route Start Last Admin Trade Name Freq PRN Reason Stop Dose Admin Albuterol Sulfate 1 amp 05/05/19 13:26 Ventolin 0.083% Nebulizer Soln - NEB Q4H PRN SHORT OF BREATH/WHEEZING Albuterol/Ipratropium 1 amp 05/05/19 16:00 05/07/19 11:35 Duoneb - NEB 1 amp RQID PENNIE Administration Chlordiazepoxide HCl 10 mg 05/08/19 05:00 Librium - PO 05/08/19 23:01 [id number] PENNIE Chlordiazepoxide HCl 10 mg 05/09/19 05:00 Librium - PO 05/09/19 17:01 Q12H PENNIE Chlordiazepoxide HCl 10 mg 05/08/19 00:00 Librium - PO 05/09/19 00:00 Q4H PRN WITHDRAWAL(CONT SUBST) Chlordiazepoxide HCl 10 mg 05/10/19 05:00 Librium - PO 05/10/19 05:01 ONCE@0500 ONE Chlordiazepoxide HCl 25 mg 05/07/19 05:00 05/07/19 10:52 Librium - PO 05/07/19 23:01 25 mg [id number] PENNIE Administration Folic Acid 1 mg 05/05/19 10:00 05/07/19 10:50 Folic Acid - PO 1 mg DAILY PENNIE Administration Heparin Sodium (Porcine) 5,000 unit 05/05/19 22:00 05/07/19 05:16 Heparin - SQ 5,000 unit TID PENNIE Administration Lactulose 20 gm 05/05/19 17:48 Cephulac (Oral Use) PO TID PRN CONSTIPATION Levofloxacin 750 mg 05/06/19 10:00 05/07/19 10:49 Levaquin - PO 750 mg DAILY PENNIE Administration Magnesium Sulfate 2 gm 05/07/19 12:07 Magnesium Sulfate IVPB 05/07/19 12:08 ONCE ONE Multivitamins/Minerals/Vitamin C 1 tab 05/05/19 10:00 05/07/19 10:51 Tab-A-Vit - PO 1 tab DAILY PENNIE Administration Pantoprazole Sodium 40 mg 05/05/19 16:15 05/07/19 10:49 Protonix - PO 40 mg DAILY PENNIE Administration Potassium Chloride 40 meq 05/07/19 12:07 K-Dur - PO 05/07/19 12:08 ONCE ONE Prednisone 60 mg 05/06/19 10:00 05/07/19 10:50 Deltasone - PO 60 mg DAILY PENNIE Administration Thiamine HCl 100 mg 05/05/19 10:00 05/07/19 10:51 Vitamin B1 - PO 100 mg DAILY PENNIE Administration Home Medications Medication Instructions Recorded Ergocalciferol [Vitamin D2] 50,000 unit PO WEEKLY 07/27/18 Folic Acid - 1 mg PO DAILY 07/27/18 Magnesium Oxide [Mag-Ox -] 400 mg PO DAILY 07/27/18 Thiamine HCl [Vitamin B1 -] 100 mg PO DAILY 07/27/18 Tramadol HCl [Ultram] 50 mg PO TID PRN 07/27/18 traZODone HCL [Trazodone HCl] 50 mg PO HS #30 tablet 07/27/18 Cetirizine HCl [Zyrtec -] 10 mg PO DAILY 04/28/19 Albuterol 2.5/Ipratropium 0.5 1 neb IH QID #20 vial.neb. 05/04/19 [Duoneb -] L. Acidophilus/Pectin, Thomas 1 each PO DAILY #30 capsule 05/04/19 [Acidophilus Probiotic Capsule] Nebulizer [Aeroeclipse II] 1 each MC DAILY 30 Days #30 each 05/04/19 ASSESSMENT/PLAN: 63 year old homeless female with history of HTN, COPD, Alcohol Abuse, Hx of alcohol-related Seizure, Depression/Anxiety, Liver Cirrhosis, admitted with increasing SOB and lethargy/generalized weakness. She is being treated for COPD exacerbation and Alcohol withdrawal. She was given IV Antibiotics along with IV solumedrol and bronchodilator nebulizations. Her oxygen saturations are 96% on room air so no need for supplemental oxygen. She was transitioned to oral Prednisone taper along with oral Antibiotic Levofloxacin. She is medically stable for discharge to [facility] to complete detox protocol with Librium if she chooses. 1. Acute Exacerbation of COPD - improving CXR - No infiltrate CTA Chest - No PE. L basilar opacity, likely atelectasis. Hepatic Cirrhosis No need for supplemental O2 as SpO2 on Room air is 97% Continue DuoNebs, Levofloxacin (for 5 days total), and Prednisone taper (60mg for 2 additional days foll by 50mg for 2 additional days foll by 40mg for 2 additional days foll by 30mg for 2 additional days foll by 20mg for 2 additional days foll by 10mg for 2 additional days) Stable respiratory status. Medically optimized for discharge to [facility]. No evidence of CHF decompensation clinically or radiologically. Echo pending. She should see Pulmonary as an outpatient for follow up and PFTs. 2. Liver Cirrhosis, newly recognized Patient counselled. Needs GI follow up as out-patient for screening endoscopy. Started on Lactulose to maintain 3-4 soft bowel movements daily to prevent hepatic encephalopathy. also started on course of PPI (may have mild gastritis due to alcohol given mild epigastric tenderness, especially with concurrent steroid use). 3. Hx Alcohol Excess and Acute Withdrawal Seen by Addiction Medicine Started on Librium protocol for alcohol withdrawal. Continue Thiamine, MVI, Folic Acid. Hx Alcohol withdrawal seizure - no seizure activity on this admission. Seizure/ fall precautions. Offered transfer to [facility] to complete detox, patient considering. Medically stable for transfer to [facility] to complete Detox once she agrees. 4. Hypomagnesemia/hypokalemia - repleted. 5. Macrocytosis - likely sec to Alcohol excess/Liver Cirrhosis. B12/Folate levels are not deficient. DVT Px - Heparin SQ
--- NOTE | 2019-05-07 12:24 | ECHO ---
Name: GERHARDKENDALL Exam:Adult Echocardiogram Study Date: 05/07/2019 07:46 AM Age: 63 yrs Reason For Study: R/O CHF Height: 62 in Weight: 150 lb BSA: 1.7 m2 MMode/2D Measurements & Calculations IVSd: 0.84 cm Ao root diam: 2.9 cm LVIDd: 3.6 cm LA dimension: 2.8 cm LVIDs: 2.3 cm LVPWd: 0.71 cm EDV(Teich): 55.1 ml LVOT diam: 2.0 cm ESV(Teich): 17.9 ml LAV (MOD-bp): 40.9 ml Doppler Measurements & Calculations MV E max dale: 74.2 cm/sec Ao V2 max: 164.2 cm/sec MV A max dale: 81.0 cm/sec Ao max P.8 mmHg MV E/A: 0.92 MV dec time: 0.20 sec MANI(V,D): 2.0 cm2 LV V1 max P.4 mmHg TR max dale: 188.7 cm/sec LV V1 max: 105.3 cm/sec TR max P.3 mmHg PA V2 max: 90.9 cm/sec Med [place]: 7.0 cm/sec PA max P.3 mmHg Med E/e': 10.7 Lat [place]: 11.4 cm/sec Lat E/e': 6.5 Procedure A complete two-dimensional transthoracic echocardiogram was performed (2D, M-mode, Doppler and color flow Doppler). Left Ventricle The left ventricle is normal in size. Left ventricular systolic function is normal. Ejection Fraction = 60- 65%. No regional wall motion abnormalities noted. Right Ventricle The right ventricle is normal size. The right ventricular systolic function is normal. Atria The left atrial size is normal. LA volume index is 24 ml/m2. Right atrial size is normal. Mitral Valve The mitral valve is normal in structure and function. There is trace to mild mitral regurgitation. Tricuspid Valve The tricuspid valve is normal in structure and function. There is mild tricuspid regurgitation. Right ventricular systolic pressure is normal. Aortic Valve There is mild aortic sclerosis.;. Mild aortic regurgitation. Pulmonic Valve The pulmonic valve is not well visualized. Great Vessels The aortic root is normal size. Pericardium/Pleura There is no pericardial effusion. Interpretation Summary The left ventricle is normal in size. Left ventricular systolic function is normal. No regional wall motion abnormalities noted. Ejection Fraction = 60-65%. The right ventricular systolic function is normal. The left atrial size is normal. Right atrial size is normal. There is trace to mild mitral regurgitation. There is mild tricuspid regurgitation. Right ventricular systolic pressure is normal. There is mild aortic sclerosis. Mild aortic regurgitation. There is no pericardial effusion. Previous study is not available for comparison Chandan Franco MD 05/07/2019 12:24 PM
[2019-05-07] MEDS ORDERED: MAGNESIUM SULF 50% (8.12 MEQ/2 ML-1 GM VIAL) IVPB ONE (12:30)
[2019-05-07] MEDS ORDERED: POTASSIUM CHLORIDE TABS 20 MEQ TABLET.ER (FP) PO ONE (12:30)
--- NOTE | 2019-05-07 13:52 | PN ---
Physical Exam: SUBJECTIVE: 63 y/o F w PMH HTN, COPD, and etoh abuse, admitted for COPD exacerbation and etoh withdrawal, seen at bedside today, DIAZ 4. She c/o of feeling shaky. She states that she has felt this way the entire time she has been at the hospital. Pt reports loss of appetite but NO sweating, agitation, nausea, vomiting, tremor, and hallucinations. She has NOT experienced NVFD. She says she is breathing well and denies SOB, CP, and cough. She has NO SCOTT, vision changes, numbness, and tingling. Pt is concerned about where she will go after d /c because she and her are homeless. Huyen Grimm of social work team provided a list of placed pt can be d/c to and she would like to go to [facility]. OBJECTIVE: Vital Signs Temp Pulse Resp BP Pulse Ox 98.2 F 93 H 20 127/78 95 05/07/19 09:00 05/07/19 09:00 05/07/19 09:00 05/07/19 09:00 05/06/19 21:00 GENERAL: The patient is awake, alert, and fully oriented, in no acute distress. HEAD: Normal with no signs of trauma. EYES: HÉCTOR, EOMI, sclera anicteric, conjunctiva clear. ENT: Ears normal, nares patent, oropharynx clear without exudates, moist mucous membranes. NECK: Trachea midline, full range of motion, supple. LUNGS: Breath sounds equal, clear to auscultation bilaterally, no wheezes, no crackles, no accessory muscle use. HEART: Regular rate and rhythm, S1, S2 without murmur, rub or gallop. ABDOMEN: Soft, nontender, nondistended, normoactive bowel sounds, no guarding, no rebound, no hepatosplenomegaly, no masses. EXTREMITIES: 2+ pulses, warm, well-perfused, no edema. NEUROLOGICAL: Cranial nerves II through XII grossly intact. Normal speech, gait not observed. PSYCH: Anxious SKIN: Warm, dry, normal turgor, no rashes or lesions noted Laboratory Results - last 24 hr 05/06/19 05/06/19 05/06/19 09:26 14:45 14:45 PT with INR 14.90 H INR 1.26 H Sodium 140 139 Potassium 4.2 4.6 Chloride 104 103 Carbon Dioxide 28 27 Anion Gap 8 8 BUN 8.6 12.3 Creatinine 0.8 1.1 Est GFR (CKD-EPI)AfAm 90.94 61.88 Est GFR (CKD-EPI)NonAf 78.46 53.39 Random Glucose 131 H 132 H Calcium 9.3 9.1 Phosphorus 3.6 2.8 Magnesium 1.7 L 1.8 Total Bilirubin 1.6 H 1.0 AST 45 H 49 H ALT 27 27 Alkaline Phosphatase 175 H 165 H Total Protein 7.1 6.8 Albumin 3.2 L 2.9 L Vitamin B12 1099 H Serum Folate 19 H 05/07/19 10:25 PT with INR INR Sodium 142 Potassium 3.3 L Chloride 106 Carbon Dioxide 27 Anion Gap 9 BUN 15.3 Creatinine 1.1 Est GFR (CKD-EPI)AfAm 61.88 Est GFR (CKD-EPI)NonAf 53.39 Random Glucose 78 Calcium 9.1 Phosphorus 2.9 Magnesium 1.8 Total Bilirubin 0.9 AST 31 ALT 24 Alkaline Phosphatase 139 H Total Protein 6.7 Albumin 3.0 L Vitamin B12 Serum Folate Active Medications Albuterol Sulfate (Ventolin 0.083% Nebulizer Soln -) 1 amp NEB Q4H PRN PRN Reason: SHORT OF BREATH/WHEEZING Albuterol/Ipratropium (Duoneb -) 1 amp NEB RQID [facility] Last Admin: 05/07/19 11:35 Dose: 1 amp Chlordiazepoxide HCl (Librium -) 10 mg PO [id number] [facility] Stop: 05/08/19 23:01 Chlordiazepoxide HCl (Librium -) 10 mg PO Q12H [facility] Stop: 05/09/19 17:01 Chlordiazepoxide HCl (Librium -) 10 mg PO Q4H PRN PRN Reason: WITHDRAWAL(CONT SUBST) Stop: 05/09/19 00:00 Chlordiazepoxide HCl (Librium -) 10 mg PO ONCE@0500 [facility] Stop: 05/10/19 05:01 Chlordiazepoxide HCl (Librium -) 25 mg PO [id number] [facility] Stop: 05/07/19 23:01 Last Admin: 05/07/19 10:52 Dose: 25 mg Folic Acid (Folic Acid -) 1 mg PO DAILY [facility] Last Admin: 05/07/19 10:50 Dose: 1 mg Heparin Sodium (Porcine) (Heparin -) 5,000 unit SQ TID [facility] Last Admin: 05/07/19 05:16 Dose: 5,000 unit Lactulose (Cephulac (Oral Use)) 20 gm PO TID PRN PRN Reason: CONSTIPATION Levofloxacin (Levaquin -) 750 mg PO DAILY [facility] Stop: 05/09/19 23:59 Last Admin: 05/07/19 10:49 Dose: 750 mg Multivitamins/Minerals/Vitamin C (Tab-A-Vit -) 1 tab PO DAILY [facility] Last Admin: 05/07/19 10:51 Dose: 1 tab Pantoprazole Sodium (Protonix -) 40 mg PO DAILY [facility] Last Admin: 05/07/19 10:49 Dose: 40 mg Prednisone (Deltasone -) 50 mg PO DAILY [facility] Thiamine HCl (Vitamin B1 -) 100 mg PO DAILY [facility] Last Admin: 05/07/19 10:51 Dose: 100 mg ASSESSMENT/PLAN: 63 y/o homeless F w PMH HTN, COPD, and etoh abuse, admitted for COPD exacerbation and etoh withdrawal. She is stable today and met with social work to help determine what options she has for detox and rehab placement. # Acute COPD exacerbation - Cont. DuoNeb - Prednisone taper: 60mg for 2 additional days -> 50mg for 2 additional days -> 40mg for 2 additional days -> 30mg for 2 additional days -> 20mg for 2 additional days -> 10mg for 2 additional days - Outpt PFTs - Levofloxacin (for 5 days total) # Etoh w/drawal - Continue thiamine, MVI, folate - Librium protocol - Fall/seizure precautions - Physical therapy assesses her ability to walk with 2 wheel rolling significant for unsteady gait, shaky weaknes, imbalance, limited endurance, with limited distance of ambulation. Recommendation: rehabilitation. - Transfer to [facility] for detox and rehabilitation # Hepatic cirrhosis - Hepatic encephalopathy prophylaxis: Lactulose to maintain 3-4 soft bowel movements QD - PPI in setting of steroid administration and etoh abuse. - GI f/u out-patient for screening endoscopy # F/E/N - No standing fluids - Regular diet # DVT prophylaxis - SCD # Dispo Full code Dr. Kennedy Kraus MD Visit type - Emergency Visit Emergency Visit: No - New Patient This patient is new to me today: No - Critical Care Critical Care patient: No - Discharge Referral Referred to [facility] No ATTENDING PHYSICIAN STATEMENT I saw and evaluated the patient. I reviewed the resident's note and discussed the case with the resident. I agree with the resident's findings and plan as documented. SUBJECTIVE: OBJECTIVE: ASSESSMENT AND PLAN:
[2019-05-08] MEDS ORDERED: chlordiazePOXIDE 5 MG CAPSULE PO PRN
[2019-05-08] MEDS ORDERED: LORazepam 0.5 MG TABLET PO PRN
[2019-05-08] MEDS ORDERED: LORazepam 0.5 MG TABLET PO SCH (05:00)
[2019-05-08] MEDS: chlordiazePOXIDE 5 MG CAPSULE PO SCH ×4 (05:11→23:29)
[2019-05-08] MEDS: HEPARIN NA (PORCINE) 5,000 UNITS/ML 1ML VIAL SQ SCH ×3 (05:11→23:29)
[2019-05-08] MEDS: ALBUTEROL SO4 2.5/IPRATROPIUM 0.5 INH SOL 3 ML VIAL.NEB. NEB SCH ×4 (07:40→19:35)
[2019-05-08 08:15] LABS: BLOOD UREA NITROGEN 13.7 mg/dL (7-18); CALCIUM 8.7 mg/dL (8.5-10.1); CREATININE 0.8 mg/dL (0.55-1.3); POTASSIUM 3.7 mmol/L (3.5-5.1)
[2019-05-08] MEDS: MULTIVITAMINS (DAILY MVI) TABLET (FP) PO SCH (09:57)
[2019-05-08] MEDS: FOLIC ACID 1 MG TABLET (FP) PO SCH (09:57)
[2019-05-08] MEDS: PANTOPRAZOLE 40 MG TABLET (FP) PO SCH (09:57)
[2019-05-08] MEDS: predniSONE 20 MG TABLET (UD) PO SCH (09:57)
[2019-05-08] MEDS: THIAMINE HCL 100 MG TABLET (FP) PO SCH (09:58)
--- NOTE | 2019-05-08 11:38 | PN ---
Progress Note (short form) - Note Progress Note: Overall feels better. No fevers recorded. No acute events overnight. Intake & Output 05/05/19 05/06/19 05/07/19 05/08/19 23:59 23:59 23:59 23:59 Intake Total 407 121 3774 420 Balance 213 069 7060 420 Weight 147 lb 11.2 oz 147 lb Last Vital Signs Temp Pulse Resp BP Pulse Ox 98.6 F 63 20 136/73 99 05/08/19 02:00 05/08/19 02:00 05/08/19 02:00 05/08/19 02:00 05/07/19 21:00 Active Medications Albuterol Sulfate (Ventolin 0.083% Nebulizer Soln -) 1 amp NEB Q4H PRN PRN Reason: SHORT OF BREATH/WHEEZING Albuterol/Ipratropium (Duoneb -) 1 amp NEB RQID [facility] Last Admin: 05/08/19 07:40 Dose: 1 amp Chlordiazepoxide HCl (Librium -) 10 mg PO [id number] [facility] Stop: 05/08/19 23:01 Last Admin: 05/08/19 11:23 Dose: 10 mg Chlordiazepoxide HCl (Librium -) 10 mg PO Q12H [facility] Stop: 05/09/19 17:01 Chlordiazepoxide HCl (Librium -) 10 mg PO Q4H PRN PRN Reason: WITHDRAWAL(CONT SUBST) Stop: 05/09/19 00:00 Chlordiazepoxide HCl (Librium -) 10 mg PO ONCE@0500 ONE Stop: 05/10/19 05:01 Folic Acid (Folic Acid -) 1 mg PO DAILY [facility] Last Admin: 05/08/19 09:57 Dose: 1 mg Heparin Sodium (Porcine) (Heparin -) 5,000 unit SQ TID [facility] Last Admin: 05/08/19 05:11 Dose: 5,000 unit Lactulose (Cephulac (Oral Use)) 20 gm PO TID PRN PRN Reason: CONSTIPATION Levofloxacin (Levaquin -) 750 mg PO DAILY [facility] Stop: 05/09/19 23:59 Last Admin: 05/08/19 09:58 Dose: 750 mg Multivitamins/Minerals/Vitamin C (Tab-A-Vit -) 1 tab PO DAILY [facility] Last Admin: 08/06/19 09:57 Dose: 1 tab Pantoprazole Sodium (Protonix -) 40 mg PO DAILY [facility] Last Admin: 05/08/19 09:57 Dose: 40 mg Prednisone (Deltasone -) 50 mg PO DAILY [facility] Last Admin: 05/08/19 09:57 Dose: 50 mg Thiamine HCl (Vitamin B1 -) 100 mg PO DAILY [facility] Last Admin: 05/08/19 09:58 Dose: 100 mg Gen: NAD Heart: RRR Lung: decreased breath sounds at the bases Abd: soft, nontender Ext: no edema Laboratory Results - last 24 hr 05/08/19 07:20 Sodium 143 Potassium 3.7 Chloride 109 H Carbon Dioxide 26 Anion Gap 8 BUN 13.7 Creatinine 0.8 Est GFR (CKD-EPI)AfAm 90.94 Est GFR (CKD-EPI)NonAf 78.46 Random Glucose 78 Calcium 8.7 Problem List - Problems (1) COPD exacerbation Code(s): J44.1 - CHRONIC OBSTRUCTIVE PULMONARY DISEASE W (ACUTE) EXACERBATION (2) HTN (hypertension) Code(s): I10 - ESSENTIAL (PRIMARY) HYPERTENSION (3) Alcohol intoxication Code(s): F10.929 - ALCOHOL USE, UNSPECIFIED WITH INTOXICATION, UNSPECIFIED Qualifiers: Complication of substance-induced condition: uncomplicated Qualified Code(s ): F10.920 - Alcohol use, unspecified with intoxication, uncomplicated A/P Acute COPD Exacerbation Atelectasis vs Pneumonia HTN Alcohol Abuse - prednisone taper - inhaled bronchodilators standing and PRN - Noted Levaquin 750mg PO: consider deescalation - outpt PFTs - DVT prophylaxis - Needs substance abuse Rehab - No Pulmonary contraindication for D/C planning Dr Keita
[2019-05-08] MEDS ORDERED: IVERMECTIN 3 MG TABLET PO ONE (14:00)
[2019-05-08] MEDS ORDERED: LACTULOSE 20 GM/30 ML UDC (FOR ORAL USE ONLY) PO PRN (14:17)
[2019-05-08] MEDS ORDERED: PERMETHRIN 5% TOPICAL CREAM 60 GM TUBE TP ONE (14:25)
--- NOTE | 2019-05-08 14:35 | PN ---
Teaching Attending Note Name of Resident: Kennedy Kraus ATTENDING PHYSICIAN STATEMENT I saw and evaluated the patient. I reviewed the resident's note and discussed the case with the resident. I agree with the resident's findings and plan as documented. SUBJECTIVE:c/o diarrhea going 4x/day. also scalp pruritis which she reports is better today. has been treated for lice in the past with a cream. reports feeling shaky. denies Cp, SOB, fever, chills, N/V, no auditory/visual hallucinations OBJECTIVE: Last Vital Signs Temp Pulse Resp BP Pulse Ox 98 F 96 H 18 137/77 98 05/08/19 08:00 05/08/19 08:00 05/08/19 09:00 05/08/19 08:00 05/08/19 09:00 General NAD, resting comfortable, no agitation CV S1 S2 RRR no murmur/rub/sequeira Lungs CTA B/L no wheezing/rales/rhonchi Abdomen soft NT/ND Extremities no pedal edema no tremors ASSESSMENT AND PLAN: 63 year old homeless female with history of HTN, COPD, Alcohol Abuse, Hx of alcohol-related Seizure, Depression/Anxiety, Liver Cirrhosis, admitted with increasing SOB and lethargy/generalized weakness. She is being treated for COPD exacerbation and Alcohol withdrawal. She was given IV Antibiotics along with IV solumedrol and bronchodilator nebulizations. Her oxygen saturations are 96% on room air so no need for supplemental oxygen. She was transitioned to oral Prednisone taper along with oral Antibiotic Levofloxacin. She is medically stable for discharge to [facility] to complete detox protocol with Librium if she chooses. 1. Acute Exacerbation of COPD - improving. saturating well on RA. on prednisone taper and levaquin po. can reduce to 500mg for 5 days total which will be completed 05/09. pulmonary on board. will need formal PFT outpatient 2. Cirrhosis- newly diagnosed here. on lactulose. will reduce for 2-3BM/day. reports had EGD 2 years ago and was normal. was done "routinely" since they were doing a colonoscopy. can f/u with GI as outpatient 3. ETOH withdrawal- CIWA 2. on librium protocol. will complete on 05/10. counselled on risk assoc with continued use. never done inpatient rehab but not interested at this time. will give list for AA meetings 4. Lice- visualized by another person. permethrin cream and ivermectin given. contact precautions 5. Hypokalemia- kcl po 6. Hypomagnesmia- resolved 7. 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 no indication for transfusion. B12/folate levels wnl 8. DVT Px - Heparin SQ 9. optimized for discharge at this time. Only ambulates 15ft and would benefit from [facility] placement. awaiting bed availability. TESSA sent
--- NOTE | 2019-05-08 15:05 | PN ---
Physical Exam: SUBJECTIVE: 63 y/o F w PMH HTN, COPD, and etoh abuse, admitted for COPD exacerbation and etoh withdrawal, seen at bedside today, DIAZ 5. She c/o of itchy scalp. This has been getting worse over last two days. She states she thought her unwashed hair was the cause but now her head itches like it did when she was admitted in [facility] and was dx and tx for pediculosis capitis. The nurse aid last night was able to isolate 2 lice in a biohazard bag , which I can confirm are lice. Pt also reports 4x diarrhea over night: loose, non-bloody stools. Other than this new issue, the pt reports loss of appetite but NO sweating, agitation, nausea, vomiting, tremor, and hallucinations. She has NOT experienced NVFD. She says she is breathing well and denies SOB, CP, and cough. She has NO SCOTT, vision changes, numbness, and tingling. OBJECTIVE: Vital Signs Period Temp Pulse Resp BP Sys/Bartlett Pulse Ox Last 24 Hr 98 F-98.6 F 63-96 18-20 121-137/72-77 98-99 GENERAL: The patient is awake, alert, and fully oriented, in no acute distress. HEAD: Normal with no signs of trauma. EYES: HÉCTOR, EOMI, sclera anicteric, conjunctiva clear. ENT: Ears normal, nares patent, oropharynx clear without exudates, moist mucous membranes. NECK: Trachea midline, full range of motion, supple. LUNGS: Breath sounds equal, clear to auscultation bilaterally, no wheezes, no crackles, no accessory muscle use. HEART: Regular rate and rhythm, S1, S2 without murmur, rub or gallop. ABDOMEN: Soft, nontender, nondistended, normoactive bowel sounds, no guarding, no rebound, no hepatosplenomegaly, no masses. EXTREMITIES: 2+ pulses, warm, well-perfused, no edema. NEUROLOGICAL: Cranial nerves II through XII grossly intact. Normal speech, gait not observed. PSYCH: Anxious SKIN: Warm, dry, normal turgor, no rashes or lesions noted Laboratory Results - last 24 hr 05/08/19 07:20 Sodium 143 Potassium 3.7 Chloride 109 H Carbon Dioxide 26 Anion Gap 8 BUN 13.7 Creatinine 0.8 Est GFR (CKD-EPI)AfAm 90.94 Est GFR (CKD-EPI)NonAf 78.46 Random Glucose 78 Calcium 8.7 Active Medications Albuterol Sulfate (Ventolin 0.083% Nebulizer Soln -) 1 amp NEB Q4H PRN PRN Reason: SHORT OF BREATH/WHEEZING Albuterol/Ipratropium (Duoneb -) 1 amp NEB RQID [facility] Last Admin: 05/08/19 11:40 Dose: 1 amp Chlordiazepoxide HCl (Librium -) 10 mg PO [id number] [facility] Stop: 05/08/19 23:01 Last Admin: 05/08/19 11:23 Dose: 10 mg Chlordiazepoxide HCl (Librium -) 10 mg PO Q12H [facility] Stop: 05/09/19 17:01 Chlordiazepoxide HCl (Librium -) 10 mg PO Q4H PRN PRN Reason: WITHDRAWAL(CONT SUBST) Stop: 05/09/19 00:00 Chlordiazepoxide HCl (Librium -) 10 mg PO ONCE@0500 ONE Stop: 05/10/19 05:01 Folic Acid (Folic Acid -) 1 mg PO DAILY [facility] Last Admin: 05/08/19 09:57 Dose: 1 mg Heparin Sodium (Porcine) (Heparin -) 5,000 unit SQ TID [facility] Last Admin: 05/08/19 13:12 Dose: 5,000 unit Lactulose (Cephulac (Oral Use)) 20 gm PO TID PRN PRN Reason: CONSTIPATION Levofloxacin (Levaquin -) 500 mg PO DAILY@0600 [facility] Multivitamins/Minerals/Vitamin C (Tab-A-Vit -) 1 tab PO DAILY [facility] Last Admin: 05/08/19 09:57 Dose: 1 tab Pantoprazole Sodium (Protonix -) 40 mg PO DAILY [facility] Last Admin: 05/08/19 09:57 Dose: 40 mg Prednisone (Deltasone -) 50 mg PO DAILY [facility] Last Admin: 05/08/19 09:57 Dose: 50 mg Thiamine HCl (Vitamin B1 -) 100 mg PO DAILY [facility] Last Admin: 05/08/19 09:58 Dose: 100 mg ASSESSMENT/PLAN: 63 y/o homeless F w PMH HTN, COPD, and etoh abuse, admitted for COPD exacerbation and etoh withdrawal. Pt has pedulosis capitis, otherwise she is stable today, on penultimate date of librium treatment, and is awaiting [facility] for [facility]c [facility]. # Pediculosis capitis - Recommend shower and wet straight comb for hair - Permethrin rx # Diarrhea - Afibrile - Stool culture pending - Stop lactulose; may restart fermin. # Acute COPD exacerbation - Cont. DuoNeb - Prednisone taper: 60mg for 2 additional days -> 50mg for 2 additional days -> 40mg for 2 additional days -> 30mg for 2 additional days -> 20mg for 2 additional days -> 10mg for 2 additional days - Outpt PFTs - Levofloxacin (for 5 days total) # Etoh w/drawal - Continue thiamine, MVI, folate - Librium protocol - Fall/seizure precautions - Physical therapy assesses her ability to walk with 2 wheel rolling significant for unsteady gait, shaky weaknes, imbalance, limited endurance, with limited distance of ambulation. Recommendation: rehabilitation. - Transfer to [facility] for detox and rehabilitation # Hepatic cirrhosis - Hepatic encephalopathy prophylaxis, lactulose, HELD 2/2 to loose stools. Goal 2 BM. - PPI in setting of steroid administration and etoh abuse. - GI f/u out-patient for screening endoscopy # F/E/N - No standing fluids - Regular diet # DVT prophylaxis - SCD # Dispo Full code To [facility] Dr. Kennedy Kraus MD Visit type - Emergency Visit Emergency Visit: No - New Patient This patient is new to me today: No - Critical Care Critical Care patient: No - Discharge Referral [facility]erred to [facility] No ATTENDING PHYSICIAN STATEMENT I saw and evaluated the patient. I reviewed the resident's note and discussed the case with the resident. I agree with the resident's findings and plan as documented. SUBJECTIVE: OBJECTIVE: ASSESSMENT AND PLAN:
[2019-05-09] MEDS ORDERED: LORazepam 0.5 MG TABLET PO ONE (05:00)
[2019-05-09] MEDS: chlordiazePOXIDE 5 MG CAPSULE PO SCH ×2 (06:58→17:54)
[2019-05-09] MEDS: HEPARIN NA (PORCINE) 5,000 UNITS/ML 1ML VIAL SQ SCH (06:58)
[2019-05-09 07:31] LABS: BASO % 0.1 % (0-2.0); EOS % 0.3 % (0-4.5); HEMATOCRIT 30.6 % (32.4-45.2); HEMOGLOBIN 10.3 GM/dL (10.7-15.3); LYMPH % 26.6 % (8-40); MCH 35.3 pg (25.7-33.7); MCHC 33.6 g/dl (32.0-36.0); MEAN CELL VOLUME 104.9 fl (80-96); MEAN PLT VOLUME 8.6 fl (7.5-11.1); MONO % 6.1 % (3.8-10.2); NEUT % 66.9 % (42.8-82.8); PLATELET COUNT 89 K/MM3 (134-434); RBC 2.91 M/mm3 (3.60-5.2); RDW 14.7 % (11.6-15.6); WHITE BLOOD COUNT 4.7 K/mm3 (4.0-10.0)
[2019-05-09 07:50] LABS: ALBUMIN 2.7 g/dl (3.4-5.0); BILIRUBIN,TOTAL 0.6 mg/dL (0.2-1); BLOOD UREA NITROGEN 11.3 mg/dL (7-18); CALCIUM 8.5 mg/dL (8.5-10.1); CREATININE 0.9 mg/dL (0.55-1.3); MAGNESIUM 1.6 mg/dL (1.8-2.4); PHOSPHOROUS 3.2 mg/dL (2.5-4.9); POTASSIUM 3.4 mmol/L (3.5-5.1)
[2019-05-09] MEDS: ALBUTEROL SO4 2.5/IPRATROPIUM 0.5 INH SOL 3 ML VIAL.NEB. NEB SCH ×4 (08:00→21:37)
[2019-05-09] MEDS ORDERED: POTASSIUM CHLORIDE TABS 20 MEQ TABLET.ER (FP) PO ONE (08:25)
[2019-05-09] MEDS: predniSONE 20 MG TABLET (UD) PO SCH (10:45)
[2019-05-09] MEDS: NIFEdipine E.R. 30 MG TABLET (FP) PO SCH (10:45)
[2019-05-09] MEDS: THIAMINE HCL 100 MG TABLET (FP) PO SCH (10:46)
[2019-05-09] MEDS: FOLIC ACID 1 MG TABLET (FP) PO SCH (10:46)
[2019-05-09] MEDS: PANTOPRAZOLE 40 MG TABLET (FP) PO SCH (10:46)
[2019-05-09] MEDS: MULTIVITAMINS (DAILY MVI) TABLET (FP) PO SCH (10:46)
--- NOTE | 2019-05-09 10:56 | PN ---
Progress Note (short form) - Note Progress Note: Overall appears better. No fever. No acute events overnight. Intake & Output 05/06/19 05/07/19 05/08/19 05/09/19 23:59 23:59 23:59 23:59 Intake Total 450 1200 1140 0 Balance 450 1200 1140 0 Weight 147 lb Last Vital Signs Temp Pulse Resp BP Pulse Ox 98.7 F 88 18 128/77 98 05/09/19 10:00 05/09/19 10:00 05/09/19 10:00 05/09/19 10:00 05/08/19 21:00 Active Medications Albuterol Sulfate (Ventolin 0.083% Nebulizer Soln -) 1 amp NEB Q4H PRN PRN Reason: SHORT OF BREATH/WHEEZING Albuterol/Ipratropium (Duoneb -) 1 amp NEB RQID [facility] Last Admin: 05/09/19 08:00 Dose: Not Given Chlordiazepoxide HCl (Librium -) 10 mg PO Q12H [facility] Stop: 05/09/19 17:01 Last Admin: 05/09/19 06:58 Dose: 10 mg Chlordiazepoxide HCl (Librium -) 10 mg PO ONCE@0500 ONE Stop: 05/10/19 05:01 Folic Acid (Folic Acid -) 1 mg PO DAILY [facility] Last Admin: 05/09/19 10:46 Dose: 1 mg Heparin Sodium (Porcine) (Heparin -) 5,000 unit SQ TID [facility] Last Admin: 05/09/19 06:58 Dose: 5,000 unit Lactulose (Cephulac (Oral Use)) 20 gm PO TID PRN PRN Reason: CONSTIPATION Levofloxacin (Levaquin -) 500 mg PO DAILY@0600 [facility] Last Admin: 05/09/19 06:58 Dose: 500 mg Multivitamins/Minerals/Vitamin C (Tab-A-Vit -) 1 tab PO DAILY [facility] Last Admin: 05/09/19 10:46 Dose: 1 tab Nifedipine (Procardia Xl -) 30 mg PO DAILY [facility] Last Admin: 05/09/19 10:45 Dose: 30 mg Pantoprazole Sodium (Protonix -) 40 mg PO DAILY [facility] Last Admin: 05/09/19 10:46 Dose: 40 mg Prednisone (Deltasone -) 50 mg PO DAILY [facility] Last Admin: 05/09/19 10:45 Dose: 50 mg Thiamine HCl (Vitamin B1 -) 100 mg PO DAILY [facility] Last Admin: 05/09/19 10:46 Dose: 100 mg Trazodone HCl (Desyrel -) 50 mg PO HS [facility] Gen: NAD Heart: RRR Lung: decreased breath sounds at the bases Abd: soft, nontender Ext: no edema Laboratory Results - last 24 hr 05/09/19 05/09/19 06:30 06:30 WBC 4.7 RBC 2.91 L Hgb 10.3 L Hct 30.6 L MCV 104.9 H MCH 35.3 H MCHC 33.6 RDW 14.7 Plt Count 89 L D MPV 8.6 Absolute Neuts (auto) 3.1 Neutrophils % 66.9 D Lymphocytes % 26.6 D Monocytes % 6.1 Eosinophils % 0.3 D Basophils % 0.1 Nucleated RBC % 0 Sodium 142 Potassium 3.4 L Chloride 109 H Carbon Dioxide 24 Anion Gap 9 BUN 11.3 Creatinine 0.9 Est GFR (CKD-EPI)AfAm 78.87 Est GFR (CKD-EPI)NonAf 68.05 Random Glucose 98 Calcium 8.5 Phosphorus 3.2 Magnesium 1.6 L Total Bilirubin 0.6 AST 28 ALT 30 Alkaline Phosphatase 119 H Total Protein 6.0 L Albumin 2.7 L Problem List - Problems (1) COPD exacerbation Code(s): J44.1 - CHRONIC OBSTRUCTIVE PULMONARY DISEASE W (ACUTE) EXACERBATION (2) HTN (hypertension) Code(s): I10 - ESSENTIAL (PRIMARY) HYPERTENSION (3) Alcohol intoxication Code(s): F10.929 - ALCOHOL USE, UNSPECIFIED WITH INTOXICATION, UNSPECIFIED Qualifiers: Complication of substance-induced condition: uncomplicated Qualified Code(s ): F10.920 - Alcohol use, unspecified with intoxication, uncomplicated A/P Acute COPD Exacerbation Atelectasis vs Pneumonia HTN Alcohol Abuse - prednisone taper - inhaled bronchodilators standing and PRN - Noted Levaquin 750mg PO: consider deescalation - outpt PFTs - DVT prophylaxis - Needs substance abuse Rehab - No Pulmonary contraindication for D/C Dr Keita
[2019-05-09] MEDS ORDERED: MAGNESIUM SULF 50% (8.12 MEQ/2 ML-1 GM VIAL) IVPB ONE (11:40)
--- NOTE | 2019-05-09 12:10 | PN ---
Teaching Attending Note Name of Resident: Kennedy Kraus ATTENDING PHYSICIAN STATEMENT I saw and evaluated the patient. I reviewed the resident's note and discussed the case with the resident. I agree with the resident's findings and plan as documented. SUBJECTIVE:scalp remains pruritic. still having 4 BM this AM already. tolerating diet. states she was having diarrhea for a week prior to arrival. was at another facility where she was treated for sepsis and was on extended course of abx. denies Cp, SOB, fever, chills, N/V completed cream for lice yesterday OBJECTIVE: Last Vital Signs Temp Pulse Resp BP Pulse Ox 98.7 F 88 18 128/77 98 05/09/19 10:00 05/09/19 10:00 05/09/19 10:05/09/19 10:05/08/19 21:00 General NAD, resting comfortable, no agitation scalp- multiple bugs noted but are not moving. CV S1 S2 RRR no murmur/rub/sequeira Lungs CTA B/L no wheezing/rales/rhonchi Abdomen soft NT/ND Extremities no pedal edema no tremors ASSESSMENT AND PLAN: 63 year old homeless female with history of HTN, COPD, Alcohol Abuse, Hx of alcohol-related Seizure, Depression/Anxiety, Liver Cirrhosis, admitted with increasing SOB and lethargy/generalized weakness. She is being treated for COPD exacerbation and Alcohol withdrawal. She was given IV Antibiotics along with IV solumedrol and bronchodilator nebulizations. Her oxygen saturations are 96% on room air so no need for supplemental oxygen. She was transitioned to oral Prednisone taper along with oral Antibiotic Levofloxacin. She is medically stable for discharge to [facility] to complete detox protocol with Librium if she chooses. 1. Acute Exacerbation of COPD - improving. saturating well on RA. on prednisone taper and levaquin po day 5, can d/c after today. pulmonary on board. will need formal PFT outpatient 2. C diff diarrhea- ag + and toxin neg. has multiple risk factors for having cdiff despite not having any fevers, leukocytosis or abdominal pain. would treat at this time and check PCR. start vanco po. contact isolation. 3. Cirrhosis- newly diagnosed here. will hold lactulose as pt is having diarrhea with +cdiff ag. Reports had EGD 2 years ago and was normal. was done "routinely" since they were doing a colonoscopy. can f/u with GI as outpatient 4. ETOH withdrawal- CIWA 2. on librium protocol. will complete on 05/10. counselled on risk assoc with continued use. never done inpatient rehab but not interested at this time. will give list for AA meetings 5. Lice-scalp check performed. bugs visualized but none actively moving. will have patient do a good shower and then will re-check. contact precautions 6. Hypokalemia- kcl po 7. Hypomagnesmia- resolved 8. 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 no signs of bleeding. d/c hep 9. 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 no indication for transfusion. B12/folate levels wnl 10. DVT Px - SCD 11. spoke to significant other present at bedside. verbalized understanding and plan. Only ambulates 15ft and would benefit from [facility] placement.
[2019-05-09] MEDS: VANCOMYCIN 250 MG/5 ML ORAL SOLUTION PO SCH ×3 (13:40→23:28)
--- NOTE | 2019-05-09 16:55 | PN ---
Physical Exam: SUBJECTIVE: 63 y/o F w PMH HTN, COPD, and etoh abuse, admitted for COPD exacerbation and etoh withdrawal, seen at bedside today, DIAZ 6. She c/o of itchy scalp and diarrhea. Pt completing tx for pediculosis capitis today. 4x diarrhea throughout day: loose, non-bloody stools. Other than this new issue, the pt reports loss of appetite but NO sweating, agitation, nausea, vomiting, tremor, and hallucinations. She has NOT experienced NVFD. She says she is breathing well and denies SOB, CP, and cough. She has NO SCOTT, vision changes, numbness, and tingling. OBJECTIVE: Vital Signs Temp Pulse Resp BP Pulse Ox 99.1 F 83 18 121/69 98 05/09/19 15:41 05/09/19 15:41 05/09/19 15:41 05/09/19 15:41 05/08/19 21:00 GENERAL: The patient is awake, alert, and fully oriented, in no acute distress. HEAD: Normal with no signs of trauma. EYES: HÉCTOR, EOMI, sclera anicteric, conjunctiva clear. ENT: Ears normal, nares patent, oropharynx clear without exudates, moist mucous membranes. NECK: Trachea midline, full range of motion, supple. LUNGS: Breath sounds equal, clear to auscultation bilaterally, no wheezes, no crackles, no accessory muscle use. HEART: Regular rate and rhythm, S1, S2 without murmur, rub or gallop. ABDOMEN: Soft, nontender, nondistended, normoactive bowel sounds, no guarding, no rebound, no hepatosplenomegaly, no masses. EXTREMITIES: 2+ pulses, warm, well-perfused, no edema. NEUROLOGICAL: Cranial nerves II through XII grossly intact. Normal speech, gait not observed. PSYCH: Anxious SKIN: Warm, dry, normal turgor, no rashes or lesions noted Laboratory Results - last 24 hr 05/09/19 05/09/19 06:30 06:30 WBC 4.7 RBC 2.91 L Hgb 10.3 L Hct 30.6 L MCV 104.9 H MCH 35.3 H MCHC 33.6 RDW 14.7 Plt Count 89 L D MPV 8.6 Absolute Neuts (auto) 3.1 Neutrophils % 66.9 D Lymphocytes % 26.6 D Monocytes % 6.1 Eosinophils % 0.3 D Basophils % 0.1 Nucleated RBC % 0 Sodium 142 Potassium 3.4 L Chloride 109 H Carbon Dioxide 24 Anion Gap 9 BUN 11.3 Creatinine 0.9 Est GFR (CKD-EPI)AfAm 78.87 Est GFR (CKD-EPI)NonAf 68.05 Random Glucose 98 Calcium 8.5 Phosphorus 3.2 Magnesium 1.6 L Total Bilirubin 0.6 AST 28 ALT 30 Alkaline Phosphatase 119 H Total Protein 6.0 L Albumin 2.7 L Active Medications Albuterol Sulfate (Ventolin 0.083% Nebulizer Soln -) 1 amp NEB Q4H PRN PRN Reason: SHORT OF BREATH/WHEEZING Albuterol/Ipratropium (Duoneb -) 1 amp NEB RQID [facility] Last Admin: 05/09/19 15:30 Dose: 1 amp Chlordiazepoxide HCl (Librium -) 10 mg PO Q12H [facility] Stop: 05/09/19 17:01 Last Admin: 05/09/19 06:58 Dose: 10 mg Chlordiazepoxide HCl (Librium -) 10 mg PO ONCE@0500 ONE Stop: 05/10/19 05:01 Folic Acid (Folic Acid -) 1 mg PO DAILY [facility] Last Admin: 05/09/19 10:46 Dose: 1 mg Heparin Sodium (Porcine) (Heparin -) 5,000 unit SQ TID [facility] Last Admin: 05/09/19 06:58 Dose: 5,000 unit Multivitamins/Minerals/Vitamin C (Tab-A-Vit -) 1 tab PO DAILY [facility] Last Admin: 05/09/19 10:46 Dose: 1 tab Nifedipine (Procardia Xl -) 30 mg PO DAILY [facility] Last Admin: 05/09/19 10:45 Dose: 30 mg Pantoprazole Sodium (Protonix -) 40 mg PO DAILY [facility] Last Admin: 05/09/19 10:46 Dose: 40 mg Prednisone (Deltasone -) 40 mg PO DAILY [facility] Thiamine HCl (Vitamin B1 -) 100 mg PO DAILY [facility] Last Admin: 05/09/19 10:46 Dose: 100 mg Trazodone HCl (Desyrel -) 50 mg PO HS [facility] Vancomycin HCl (Vancomycin Oral Solution) 125 mg PO Q6HPO [facility] Last Admin: 05/09/19 13:40 Dose: 125 mg ASSESSMENT/PLAN: 63 y/o homeless F w PMH HTN, COPD, and etoh abuse, admitted for COPD exacerbation and etoh withdrawal. Pt has pedulosis capitis, otherwise she is stable today, on penultimate date of librium treatment, and is awaiting [facility] for d/c to halfway. # Pediculosis capitis - RESOLVED - Pt received permethrin yesterday 08 May 2019 - AM physical exam: several lice were found diffusely across scalp - PM physical exam s/p shower and shampoo: clean, dry, intact scalp with NO evidence of eggs, nymphs, nits, or adult lice. # Diarrhea - Afibrile - Stool culture: NEG c dif toxin, POS c dif bacteria - Will start vanco treatment - PCR for c diff - D/C lactulose # Acute COPD exacerbation - Cont. DuoNeb - Prednisone taper completed: 60mg for 2 additional days -> 50mg for 2 additional days -> - Prednisone taper remaininmg for 2 additional days -> 30mg for 2 additional days -> 20mg for 2 additional days -> 10mg for 2 additional days - Outpt PFTs - Levofloxacin (for 5 days total) # Etoh w/drawal - Continue thiamine, MVI, folate - Librium protocol to be completed tomorrow 10 May 2019 - Fall/seizure precautions - Physical therapy assesses her ability to walk with 2 wheel rolling significant for unsteady gait, shaky weaknes, imbalance, limited endurance, with limited distance of ambulation. Recommendation: rehabilitation. - Transfer to [facility] for detox and rehabilitation # Hepatic cirrhosis - Hepatic encephalopathy prophylaxis, lactulose, HELD 2/2 to loose stools. Goal 2 BM. - PPI in setting of steroid administration and etoh abuse. - GI f/u out-patient for screening endoscopy # F/E/N - No standing fluids - Regular diet # DVT prophylaxis - SCD # Dispo Full code To halfway Dr. Kennedy Kraus MD Visit type - Emergency Visit Emergency Visit: No - New Patient This patient is new to me today: No - Critical Care Critical Care patient: No - Discharge Referral Referred to [facility] Med [facility].C[facility] No ATTENDING PHYSICIAN STATEMENT I saw and evaluated the patient. I reviewed the resident's note and discussed the case with the resident. I agree with the resident's findings and plan as documented. SUBJECTIVE: OBJECTIVE: ASSESSMENT AND PLAN:
[2019-05-09] MEDS: traZODone HCL 50 MG TABLET (FP) PO SCH (23:27)
[2019-05-10] MEDS ORDERED: chlordiazePOXIDE 5 MG CAPSULE PO ONE (05:00)
[2019-05-10] MEDS: VANCOMYCIN 250 MG/5 ML ORAL SOLUTION PO SCH ×4 (06:39→23:06)
[2019-05-10] MEDS: ALBUTEROL SO4 2.5/IPRATROPIUM 0.5 INH SOL 3 ML VIAL.NEB. NEB SCH ×3 (08:00→16:13)
[2019-05-10 08:13] LABS: BASO % 0.2 % (0-2.0); EOS % 0.4 % (0-4.5); HEMATOCRIT 30.6 % (32.4-45.2); HEMOGLOBIN 10.3 GM/dL (10.7-15.3); LYMPH % 26.8 % (8-40); MCH 35.5 pg (25.7-33.7); MCHC 33.8 g/dl (32.0-36.0); MEAN CELL VOLUME 105.2 fl (80-96); MEAN PLT VOLUME 9.1 fl (7.5-11.1); MONO % 5.9 % (3.8-10.2); NEUT % 66.7 % (42.8-82.8); PLATELET COUNT 88 K/MM3 (134-434); RBC 2.91 M/mm3 (3.60-5.2); RDW 14.7 % (11.6-15.6); WHITE BLOOD COUNT 5.9 K/mm3 (4.0-10.0)
[2019-05-10 08:17] LABS: ALBUMIN 2.7 g/dl (3.4-5.0); BILIRUBIN,TOTAL 0.7 mg/dL (0.2-1); BLOOD UREA NITROGEN 10.4 mg/dL (7-18); CALCIUM 8.7 mg/dL (8.5-10.1); CREATININE 0.7 mg/dL (0.55-1.3); MAGNESIUM 1.7 mg/dL (1.8-2.4); POTASSIUM 3.7 mmol/L (3.5-5.1); TOT PROT 5.9 g/dl (6.4-8.2)
--- NOTE | 2019-05-10 09:33 | PN ---
Progress Note (short form) - Note Progress Note: Overall improved. No fever. No acute events overnight. Intake & Output 05/07/19 05/08/19 05/09/19 05/10/19 23:59 23:59 23:59 23:59 Intake Total 1200 1140 1120 Balance 1200 1140 1120 Last Vital Signs Temp Pulse Resp BP Pulse Ox 98.4 F 77 20 122/72 98 05/10/19 07:00 05/10/19 07:00 05/10/19 07:00 05/10/19 07:00 05/09/19 21:00 Active Medications Albuterol Sulfate (Ventolin 0.083% Nebulizer Soln -) 1 amp NEB Q4H PRN PRN Reason: SHORT OF BREATH/WHEEZING Albuterol/Ipratropium (Duoneb -) 1 amp NEB RQID [facility] Last Admin: 05/10/19 08:00 Dose: Not Given Folic Acid (Folic Acid -) 1 mg PO DAILY [facility] Last Admin: 05/09/19 10:46 Dose: 1 mg Heparin Sodium (Porcine) (Heparin -) 5,000 unit SQ TID [facility] Last Admin: 05/09/19 06:58 Dose: 5,000 unit Multivitamins/Minerals/Vitamin C (Tab-A-Vit -) 1 tab PO DAILY [facility] Last Admin: 05/09/19 10:46 Dose: 1 tab Nifedipine (Procardia Xl -) 30 mg PO DAILY [facility] Last Admin: 05/09/19 10:45 Dose: 30 mg Pantoprazole Sodium (Protonix -) 40 mg PO DAILY [facility] Last Admin: 05/09/19 10:46 Dose: 40 mg Prednisone (Deltasone -) 40 mg PO DAILY [facility] Thiamine HCl (Vitamin B1 -) 100 mg PO DAILY [facility] Last Admin: 05/09/19 10:46 Dose: 100 mg Trazodone HCl (Desyrel -) 50 mg PO HS [facility] Last Admin: 05/09/19 23:27 Dose: 50 mg Vancomycin HCl (Vancomycin Oral Solution) 125 mg PO Q6HPO [facility] Last Admin: 05/10/19 06:39 Dose: 125 mg Gen: NAD Heart: RRR Lung: decreased breath sounds at the bases Abd: soft, nontender Ext: no edema Laboratory Results - last 24 hr 05/10/19 05/10/19 06:50 06:50 WBC 5.9 RBC 2.91 L Hgb 10.3 L Hct 30.6 L MCV 105.2 H MCH 35.5 H MCHC 33.8 RDW 14.7 Plt Count 88 L MPV 9.1 Absolute Neuts (auto) 3.9 Neutrophils % 66.7 Lymphocytes % 26.8 Monocytes % 5.9 Eosinophils % 0.4 Basophils % 0.2 Nucleated RBC % 0 Sodium 143 Potassium 3.7 Chloride 111 H Carbon Dioxide 26 Anion Gap 6 L BUN 10.4 Creatinine 0.7 Est GFR (CKD-EPI)AfAm 106.87 Est GFR (CKD-EPI)NonAf 92.21 Random Glucose 84 Calcium 8.7 Phosphorus 4.0 Magnesium 1.7 L Total Bilirubin 0.7 AST 27 ALT 33 Alkaline Phosphatase 114 Total Protein 5.9 L Albumin 2.7 L Problem List - Problems (1) COPD exacerbation Code(s): J44.1 - CHRONIC OBSTRUCTIVE PULMONARY DISEASE W (ACUTE) EXACERBATION (2) HTN (hypertension) Code(s): I10 - ESSENTIAL (PRIMARY) HYPERTENSION (3) Alcohol intoxication Code(s): F10.929 - ALCOHOL USE, UNSPECIFIED WITH INTOXICATION, UNSPECIFIED Qualifiers: Complication of substance-induced condition: uncomplicated Qualified Code(s ): F10.920 - Alcohol use, unspecified with intoxication, uncomplicated A/P Acute COPD Exacerbation Atelectasis vs Pneumonia HTN Alcohol Abuse - prednisone taper - inhaled bronchodilators standing and PRN - outpt PFTs - DVT prophylaxis - Needs substance abuse Rehab - No Pulmonary contraindication for D/C Dr Keita
[2019-05-10] MEDS: NIFEdipine E.R. 30 MG TABLET (FP) PO SCH (11:26)
[2019-05-10] MEDS: PANTOPRAZOLE 40 MG TABLET (FP) PO SCH (11:26)
[2019-05-10] MEDS: predniSONE 20 MG TABLET (UD) PO SCH (11:27)
[2019-05-10] MEDS: FOLIC ACID 1 MG TABLET (FP) PO SCH (11:27)
[2019-05-10] MEDS: MULTIVITAMINS (DAILY MVI) TABLET (FP) PO SCH (11:27)
[2019-05-10] MEDS: THIAMINE HCL 100 MG TABLET (FP) PO SCH (11:28)
[2019-05-10 11:30] LABS: ANISOCYTOSIS 1+; MACROCYTOSIS 2+; PLATELET ESTIMATE DECREASED
--- NOTE | 2019-05-10 15:04 | PN ---
Teaching Attending Note Name of Resident: Kennedy Kraus ATTENDING PHYSICIAN STATEMENT I saw and evaluated the patient. I reviewed the resident's note and discussed the case with the resident. I agree with the resident's findings and plan as documented. SUBJECTIVE:c/o diarrhea. had 3 episodes this AM. unable to make it to the restroom before soiling herself. denies Cp, SOB, fever, chills, or abdominal pain OBJECTIVE: Last Vital Signs Temp Pulse Resp BP Pulse Ox 98.4 F 77 20 122/72 98 05/10/19 07:00 05/10/19 07:00 05/10/19 07:00 05/10/19 07:00 05/09/19 21:00 General NAD, scalp- no bugs seen on scalp or irritation of scalp Abdomen soft NT/ND ASSESSMENT AND PLAN: 63 year old homeless female with history of HTN, COPD, Alcohol Abuse, Hx of alcohol-related Seizure, Depression/Anxiety, Liver Cirrhosis, admitted with increasing SOB and lethargy/generalized weakness. She is being treated for COPD exacerbation and Alcohol withdrawal. She was given IV Antibiotics along with IV solumedrol and bronchodilator nebulizations. Her oxygen saturations are 96% on room air so no need for supplemental oxygen. She was transitioned to oral Prednisone taper along with oral Antibiotic Levofloxacin. She is medically stable for discharge to [facility] to complete detox protocol with Librium if she chooses. 1. Acute Exacerbation of COPD - improving. saturating well on RA. on prednisone taper. completed levaquin. pulmonary on board. will need formal PFT outpatient 2. C diff diarrhea- ag + and toxin neg.continues to have diarrhea. on vanco po. seems may have been treated for cdiff at another hospital. will try to obtain records. will treat for extended course. as per RN stools have been more formed than previously. will monitor. PCR pending. contact isolation. 3. Cirrhosis- newly diagnosed here. will hold lactulose as pt is having diarrhea with +cdiff ag. Reports had EGD 2 years ago and was normal. was done "routinely" since they were doing a colonoscopy. can f/u with GI as outpatient 4. ETOH withdrawal- CIWA 0. completed librium this AM. never done inpatient rehab but not interested at this time. will give list for AA meetings 5. Lice-scalp check performed. bugs visualized but none actively moving. will have patient do a good shower and then will re-check. contact precautions 6. Hypokalemia- resolvd 7. Hypomagnesmia- mg po 8. 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 no signs of bleeding. d/c hep 9. 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 no indication for transfusion. B12/folate levels wnl 10. DVT Px - SCD 11. accepted to [facility] for NATALIYA however due to significant diarrhea would like to monitor an additional day to see if stools become more controllable prior to discharge.
--- NOTE | 2019-05-10 17:56 | PN ---
Physical Exam: SUBJECTIVE: 63 y/o F w PMH HTN, COPD, and etoh abuse, admitted for COPD exacerbation and etoh withdrawal, seen at bedside today, DIAZ 7. During this visit she c/o diarrhea symptoms and has recovered from pediculosis capitis ( head lice). She no longer c/o of itchy scalp. Her diarrhea is improving: slightly more formed but pt reports continued urgency; frequency today x3. Otherwise, the pt reports loss of appetite but NO sweating, agitation, nausea, vomiting, tremor, and hallucinations. She has NOT experienced NVFD. She says she is breathing well and denies SOB, CP, and cough. She has NO SCOTT, vision changes, numbness, and tingling. OBJECTIVE: Vital Signs Temp Pulse Resp BP Pulse Ox 98.8 F 86 20 124/65 98 05/10/19 15:58 05/10/19 15:58 05/10/19 15:58 05/10/19 15:58 05/10/19 09:00 GENERAL: The patient is awake, alert, and fully oriented, in no acute distress. HEAD: Normal with no signs of trauma. EYES: HÉCTOR, EOMI, sclera anicteric, conjunctiva clear. ENT: Ears normal, nares patent, oropharynx clear without exudates, moist mucous membranes. NECK: Trachea midline, full range of motion, supple. LUNGS: Breath sounds equal, clear to auscultation bilaterally, no wheezes, no crackles, no accessory muscle use. HEART: Regular rate and rhythm, S1, S2 without murmur, rub or gallop. ABDOMEN: Soft, nontender, nondistended, normoactive bowel sounds, no guarding, no rebound, no hepatosplenomegaly, no masses. EXTREMITIES: 2+ pulses, warm, well-perfused, no edema. NEUROLOGICAL: Cranial nerves II through XII grossly intact. Normal speech, gait not observed. PSYCH: Not quiet as anxious as previous visits. Normal mood and affect today. SKIN: Warm, dry, normal turgor, no rashes or lesions noted Laboratory Results - last 24 hr 05/10/19 05/10/19 06:50 06:50 WBC 5.9 RBC 2.91 L Hgb 10.3 L Hct 30.6 L MCV 105.2 H MCH 35.5 H MCHC 33.8 RDW 14.7 Plt Count 88 L MPV 9.1 Absolute Neuts (auto) 3.9 Neutrophils % 66.7 Lymphocytes % 26.8 Monocytes % 5.9 Eosinophils % 0.4 Basophils % 0.2 Nucleated RBC % 0 Hypochromia 0 Platelet Estimate Decreased Polychromasia 0 Poikilocytosis 0 Anisocytosis 1+ Microcytosis 0 Macrocytosis 2+ Sodium 143 Potassium 3.7 Chloride 111 H Carbon Dioxide 26 Anion Gap 6 L BUN 10.4 Creatinine 0.7 Est GFR (CKD-EPI)AfAm 106.87 Est GFR (CKD-EPI)NonAf 92.21 Random Glucose 84 Calcium 8.7 Phosphorus 4.0 Magnesium 1.7 L Total Bilirubin 0.7 AST 27 ALT 33 Alkaline Phosphatase 114 Total Protein 5.9 L Albumin 2.7 L Active Medications Albuterol Sulfate (Ventolin 0.083% Nebulizer Soln -) 1 amp NEB Q4H PRN PRN Reason: SHORT OF BREATH/WHEEZING Albuterol/Ipratropium (Duoneb -) 1 amp NEB RQID [facility] Last Admin: 05/10/19 16:13 Dose: 1 amp Folic Acid (Folic Acid -) 1 mg PO DAILY [facility] Last Admin: 05/10/19 11:27 Dose: 1 mg Heparin Sodium (Porcine) (Heparin -) 5,000 unit SQ TID [facility] Last Admin: 05/09/19 06:58 Dose: 5,000 unit Multivitamins/Minerals/Vitamin C (Tab-A-Vit -) 1 tab PO DAILY [facility] Last Admin: 05/10/19 11:27 Dose: 1 tab Nifedipine (Procardia Xl -) 30 mg PO DAILY [facility] Last Admin: 05/10/19 11:26 Dose: 30 mg Pantoprazole Sodium (Protonix -) 40 mg PO DAILY [facility] Last Admin: 05/10/19 11:26 Dose: 40 mg Prednisone (Deltasone -) 40 mg PO DAILY [facility] Last Admin: 05/10/19 11:27 Dose: 40 mg Thiamine HCl (Vitamin B1 -) 100 mg PO DAILY [facility] Last Admin: 05/10/19 11:28 Dose: 100 mg Trazodone HCl (Desyrel -) 50 mg PO HS [facility] Last Admin: 05/09/19 23:27 Dose: 50 mg Vancomycin HCl (Vancomycin Oral Solution) 125 mg PO Q6HPO [facility] Last Admin: 05/10/19 17:15 Dose: 125 mg ASSESSMENT/PLAN: 63 y/o homeless F w PMH HTN, COPD, and etoh abuse, admitted for COPD exacerbation and etoh withdrawal. Pt was given IV abx with IV solumedrol and bronchodilator nebulizations. O2 sat now 96% on room air. Pt had pedulosis capitis and resolving diarrhea. Today was the final day of the librium proptocol. Pt has placement available at [facility]. Will monitor pt for another day to see if stools become more controllable prior to d/c. # Diarrhea - Afibrile - Awaiting stool pcr for c diff - Stool culture: NEG c dif toxin, POS c dif bacteria - Vanco day 2 - Will get in touch w [facility] to determine if pt was tx in the last hospitalization - D/C lactulose # Pediculosis capitis - RESOLVED - Pt received permethrin 08 May 2019, showered & scalp now clean, clear of infestation, and demonstrates intact skin # Acute COPD exacerbation - Cont. DuoNeb - Prednisone taper completed: 60mg for 2 additional days -> 50mg for 2 additional days -> 40mg for 2 additional days -> - Prednisone taper remaininmg for 2 additional days -> 20mg for 2 additional days -> 10mg for 2 additional days - Outpt PFTs - Levofloxacin (for 5 days total) - Under the care of yolanda Addison. # Etoh w/drawal - Continue thiamine, MVI, folate - Librium protocol completed today - Fall/seizure precautions - Physical therapy assesses her ability to walk with 2 wheel rolling significant for unsteady gait, shaky weaknes, imbalance, limited endurance, with limited distance of ambulation. Recommendation: rehabilitation. - Transfer to [facility] rehabilitation # Hepatic cirrhosis - Hepatic encephalopathy prophylaxis, lactulose, HELD 2/2 to loose stools. Goal 2 BM. - PPI in setting of steroid administration and etoh abuse. - Pt reports EGD 2 years ago was normal. - GI f/u out-patient for screening endoscopy # Thromobcytopenia - Consistent w cirrhosis - No signs of bleeding - D/C heparin # Macrocytic anemia - Consistent with etoh abuse and cirrohisis - No indication for transfusion - B12/folate levels wnl # F/E/N - No standing fluids - Regular diet # DVT prophylaxis - SCD # Dispo Full code To longterm Dr. Kennedy Kraus MD Visit type - Emergency Visit Emergency Visit: No - New Patient This patient is new to me today: No - Critical Care Critical Care patient: No - Discharge Referral Referred to [facility] No ATTENDING PHYSICIAN STATEMENT I saw and evaluated the patient. I reviewed the resident's note and discussed the case with the resident. I agree with the resident's findings and plan as documented. SUBJECTIVE: OBJECTIVE: ASSESSMENT AND PLAN:
[2019-05-10] MEDS: traZODone HCL 50 MG TABLET (FP) PO SCH (23:06)
[2019-05-11] MEDS: ALBUTEROL SO4 2.5/IPRATROPIUM 0.5 INH SOL 3 ML VIAL.NEB. NEB SCH ×5 (01:44→21:21)
[2019-05-11] MEDS: VANCOMYCIN 250 MG/5 ML ORAL SOLUTION PO SCH ×4 (05:45→22:05)
[2019-05-11] MEDS: PANTOPRAZOLE 40 MG TABLET (FP) PO SCH (10:55)
[2019-05-11] MEDS: THIAMINE HCL 100 MG TABLET (FP) PO SCH (10:55)
[2019-05-11] MEDS: MULTIVITAMINS (DAILY MVI) TABLET (FP) PO SCH (10:55)
[2019-05-11] MEDS: FOLIC ACID 1 MG TABLET (FP) PO SCH (10:55)
[2019-05-11] MEDS: NIFEdipine E.R. 30 MG TABLET (FP) PO SCH (10:55)
[2019-05-11] MEDS: predniSONE 20 MG TABLET (UD) PO SCH (11:00)
[2019-05-11] MEDS ORDERED: PT OWN MED DRAWER 7, Y5N ONE (12:40)
--- NOTE | 2019-05-11 12:40 | PN ---
Teaching Attending Note Name of Resident: Kennedy Kraus ATTENDING PHYSICIAN STATEMENT I saw and evaluated the patient. I reviewed the resident's note and discussed the case with the resident. I agree with the resident's findings and plan as documented. SUBJECTIVE:continues to have multiple BM. pudding consistency. is able to control BM at this time. denies Cp, SOB, fever, chills, N/V/ OBJECTIVE: Last Vital Signs Temp Pulse Resp BP Pulse Ox 98.6 F 88 18 116/68 98 05/11/19 12:00 05/11/19 12:00 05/11/19 12:00 05/11/19 12:00 05/10/19 09:00 General NAD, scalp- no bugs seen on scalp or irritation of scalp Abdomen soft NT/ND ASSESSMENT AND PLAN: 63 year old homeless female with history of HTN, COPD, Alcohol Abuse, Hx of alcohol-related Seizure, Depression/Anxiety, Liver Cirrhosis, admitted with increasing SOB and lethargy/generalized weakness. She is being treated for COPD exacerbation and Alcohol withdrawal. She was given IV Antibiotics along with IV solumedrol and bronchodilator nebulizations. Her oxygen saturations are 96% on room air so no need for supplemental oxygen. She was transitioned to oral Prednisone taper along with oral Antibiotic Levofloxacin. She is medically stable for discharge to [facility] to complete detox protocol with Librium if she chooses. 1. Acute Exacerbation of COPD - improving. saturating well on RA. on prednisone taper. completed levaquin. pulmonary on board. will need formal PFT outpatient 2. C diff diarrhea- ag + and toxin neg.continues to have multiple BM but are now more controlled. is able to hydrate well on her own. on vanco po. seems may have been treated for cdiff at another hospital. will try to obtain records. will treat for extended course. as per RN stools have been more formed than previously. will monitor. PCR pending. contact isolation. 3. Cirrhosis- newly diagnosed here. will hold lactulose as pt is having diarrhea with +cdiff ag. Reports had EGD 2 years ago and was normal. was done "routinely" since they were doing a colonoscopy. can f/u with GI as outpatient 4. ETOH withdrawal- CIWA 0. completed librium. never done inpatient rehab but not interested at this time. will give list for AA meetings 5. Lice-scalp check performed. no bugs seen. 6. Hypokalemia- resolved 7. Hypomagnesmia- resolved 8. 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 no signs of bleeding. d/c hep 9. 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 no indication for transfusion. B12/folate levels wnl 10. DVT Px - SCD 11. accepted to [facility] for NATALIYA will evaluate later today, anticipate discharge in next 24-48H if diarrhea continues to improve and pt able to hydrate well on her own
--- NOTE | 2019-05-11 14:37 | PN ---
Progress Note (short form) - Note Progress Note: PULMONARY Feels better today. Less shortness of breath. No fevers recorded. Vital Signs Period Temp Pulse Resp BP Sys/Bartlett Pulse Ox Last 24 Hr 98.0 F-98.8 F 86-89 18-20 116-135/65-70 Gen: less anxious Heart: RRR Lung: decreased breath sounds at the bases Abd: soft, nontender Ext: no edema CBC, BMP 05/10/19 06:50 05/10/19 06:50 Active Medications Albuterol Sulfate (Ventolin 0.083% Nebulizer Soln -) 1 amp NEB Q4H PRN PRN Reason: SHORT OF BREATH/WHEEZING Albuterol/Ipratropium (Duoneb -) 1 amp NEB RQID [facility] Last Admin: 05/11/19 11:36 Dose: 1 amp Folic Acid (Folic Acid -) 1 mg PO DAILY [facility] Last Admin: 05/11/19 10:55 Dose: 1 mg Heparin Sodium (Porcine) (Heparin -) 5,000 unit SQ TID [facility] Last Admin: 05/09/19 06:58 Dose: 5,000 unit Multivitamins/Minerals/Vitamin C (Tab-A-Vit -) 1 tab PO DAILY [facility] Last Admin: 05/11/19 10:55 Dose: 1 tab Nifedipine (Procardia Xl -) 30 mg PO DAILY [facility] Last Admin: 05/11/19 10:55 Dose: 30 mg Pantoprazole Sodium (Protonix -) 40 mg PO DAILY [facility] Last Admin: 05/11/19 10:55 Dose: 40 mg Prednisone (Deltasone -) 40 mg PO DAILY [facility] Last Admin: 05/11/19 11:00 Dose: 40 mg Thiamine HCl (Vitamin B1 -) 100 mg PO DAILY [facility] Last Admin: 05/11/19 10:55 Dose: 100 mg Trazodone HCl (Desyrel -) 50 mg PO HS [facility] Last Admin: 05/10/19 23:06 Dose: 50 mg Vancomycin HCl (Vancomycin Oral Solution) 125 mg PO Q6HPO [facility] Last Admin: 05/11/19 12:46 Dose: 125 mg A/P Acute COPD Exacerbation Atelectasis vs Pneumonia HTN Alcohol Abuse - prednisone taper - inhaled bronchodilators standing and PRN - continue antibiotics - O2 to keep SpO2 >90% - outpt PFTs - DVT prophylaxis Problem List - Problems (1) COPD exacerbation Code(s): J44.1 - CHRONIC OBSTRUCTIVE PULMONARY DISEASE W (ACUTE) EXACERBATION (2) HTN (hypertension) Code(s): I10 - ESSENTIAL (PRIMARY) HYPERTENSION
--- NOTE | 2019-05-11 16:01 | PN ---
Physical Exam: SUBJECTIVE: 63 y/o F w PMH HTN, COPD, and etoh abuse, admitted for COPD exacerbation and etoh withdrawal, seen at bedside today, DIAZ 8. During this visit she c/o diarrhea and has recovered from pediculosis capitis (head lice). She no longer c/o of itchy scalp. Her diarrhea is improving: pudding consistency , slightly more formed, and no longer experiencing urgency; frequency today x2. Otherwise, the pt reports loss of appetite but NO sweating, agitation, nausea, vomiting, tremor, and hallucinations. She has NOT experienced NVFD. She says she is breathing well and denies SOB, CP, and cough. She has NO SCOTT, vision changes, numbness, and tingling. OBJECTIVE: Vital Signs Temp Pulse Resp BP Pulse Ox 98.6 F 88 18 116/68 98 05/11/19 12:00 05/11/19 12:00 05/11/19 12:00 05/11/19 12:00 05/10/19 09:00 GENERAL: The patient is awake, alert, and fully oriented, in no acute distress. HEAD: Normocephalic, atraumatic EYES: HÉCTOR, EOMI, sclera anicteric, conjunctiva clear. ENT: Ears normal, nares patent, oropharynx clear without exudates, moist mucous membranes. NECK: Trachea midline, full range of motion, supple. LUNGS: Breath sounds equal, clear to auscultation bilaterally, no wheezes, no crackles, no accessory muscle use. HEART: Regular rate and rhythm, S1, S2 without murmur, rub or gallop. ABDOMEN: Soft, nontender, nondistended, normoactive bowel sounds, no guarding, no rebound, no hepatosplenomegaly, no masses. EXTREMITIES: 2+ pulses, warm, well-perfused, no edema. NEUROLOGICAL: Gait improved today with use of rollator: 50 feet with adequate strike, swing, and circumambulaiton. Cranial nerves II through XII grossly intact. Normal speech. PSYCH: Normal mood and affect today. SKIN: Warm, dry, normal turgor, no rashes or lesions noted Active Medications Albuterol Sulfate (Ventolin 0.083% Nebulizer Soln -) 1 amp NEB Q4H PRN PRN Reason: SHORT OF BREATH/WHEEZING Albuterol/Ipratropium (Duoneb -) 1 amp NEB RQID [facility] Last Admin: 05/11/19 11:36 Dose: 1 amp Folic Acid (Folic Acid -) 1 mg PO DAILY [facility] Last Admin: 05/11/19 10:55 Dose: 1 mg Heparin Sodium (Porcine) (Heparin -) 5,000 unit SQ TID [facility] Last Admin: 05/09/19 06:58 Dose: 5,000 unit Multivitamins/Minerals/Vitamin C (Tab-A-Vit -) 1 tab PO DAILY [facility] Last Admin: 05/11/19 10:55 Dose: 1 tab Nifedipine (Procardia Xl -) 30 mg PO DAILY [facility] Last Admin: 05/11/19 10:55 Dose: 30 mg Pantoprazole Sodium (Protonix -) 40 mg PO DAILY [facility] Last Admin: 05/11/19 10:55 Dose: 40 mg Prednisone (Deltasone -) 40 mg PO DAILY [facility] Last Admin: 05/11/19 11:00 Dose: 40 mg Thiamine HCl (Vitamin B1 -) 100 mg PO DAILY [facility] Last Admin: 05/11/19 10:55 Dose: 100 mg Trazodone HCl (Desyrel -) 50 mg PO HS [facility] Last Admin: 05/10/19 23:06 Dose: 50 mg Vancomycin HCl (Vancomycin Oral Solution) 125 mg PO Q6HPO [facility] Last Admin: 05/11/19 12:46 Dose: 125 mg ASSESSMENT/PLAN: 63 y/o homeless F w PMH HTN, COPD, and etoh abuse, admitted for COPD exacerbation and etoh withdrawal. Pt was given IV abx with IV solumedrol and bronchodilator nebulizations. O2 sat now 96% on room air. Pt had pedulosis capitis and has resolving diarrhea (c diff toxin NEG, c diff organism POS). Librium proptocol complete. On prednisone taper. Pt has placement available at [facility] plan to d/c tomorrow. # Diarrhea - Afibrile - 2 loose stools today (improvement) - On vanco day 3 - Awaiting stool pcr for c diff - Stool culture: NEG c dif toxin, POS c dif bacteria - Pt endorses this is second c diff infxn. Will start appropriate vanco regimen - D/C lactulose # Pediculosis capitis - RESOLVED - Pt received permethrin 08 May 2019, showered & scalp now clean, clear of infestation, and demonstrates intact skin # Acute COPD exacerbation - Cont. DuoNeb - Prednisone taper completed: 60mg for 2 additional days -> 50mg for 2 additional days -> 40mg for 2 additional days -> - Prednisone taper remaininmg for 2 additional days -> 20mg for 2 additional days -> 10mg for 2 additional days - Outpt PFTs - Levofloxacin (for 5 days total) - Under the care of yolanda Addison. # Etoh w/drawal - Continue thiamine, MVI, folate - Librium protocol completed yesterday - Fall/seizure precautions - Physical therapy assesses her ability to walk with 2 wheel rolling significant for unsteady gait, shaky weaknes, imbalance, limited endurance, with limited distance of ambulation. Recommendation: rehabilitation. - Transfer to [facility] tomorrow # Hepatic cirrhosis - Hepatic encephalopathy prophylaxis, lactulose, HELD 2/2 to loose stools. Goal 2 BM achieved today. - PPI in setting of steroid administration and etoh abuse. - Pt reports EGD 2 years ago was normal. - GI f/u out-patient for screening endoscopy # Thromobcytopenia - Consistent w cirrhosis - No signs of bleeding - D/C heparin # Macrocytic anemia - Consistent with etoh abuse and cirrohisis - No indication for transfusion - B12/folate levels wnl # F/E/N - No standing fluids - Regular diet # DVT prophylaxis - SCD # Dispo Full code To retirement Dr. Kennedy Kraus MD ATTENDING PHYSICIAN STATEMENT I saw and evaluated the patient. I reviewed the resident's note and discussed the case with the resident. I agree with the resident's findings and plan as documented. SUBJECTIVE: OBJECTIVE: ASSESSMENT AND PLAN:
[2019-05-11] MEDS: traZODone HCL 50 MG TABLET (FP) PO SCH (21:48)
[2019-05-12] MEDS: VANCOMYCIN 250 MG/5 ML ORAL SOLUTION PO SCH ×2 (05:26→11:43)
[2019-05-12] MEDS: ALBUTEROL SO4 2.5/IPRATROPIUM 0.5 INH SOL 3 ML VIAL.NEB. NEB SCH ×2 (08:41→11:41)
--- NOTE | 2019-05-12 10:08 | PN ---
Progress Note (short form) - Note Progress Note: PULMONARY Breathing better today. +nonproductive cough. No fevers recorded. Vital Signs Period Temp Pulse Resp BP Sys/Bartlett Pulse Ox Last 24 Hr 97.7 F-98.7 F 84-102 18-20 116-136/68-85 Gen: NAD at rest Heart: RRR Lung: decreased breath sounds at the bases Abd: soft, nontender Ext: no edema CBC, BMP 05/10/19 06:50 05/10/19 06:50 Active Medications Albuterol Sulfate (Ventolin 0.083% Nebulizer Soln -) 1 amp NEB Q4H PRN PRN Reason: SHORT OF BREATH/WHEEZING Albuterol/Ipratropium (Duoneb -) 1 amp NEB RQID [facility] Last Admin: 05/12/19 08:41 Dose: Not Given Folic Acid (Folic Acid -) 1 mg PO DAILY [facility] Last Admin: 05/11/19 10:55 Dose: 1 mg Heparin Sodium (Porcine) (Heparin -) 5,000 unit SQ TID [facility] Last Admin: 05/09/19 06:58 Dose: 5,000 unit Multivitamins/Minerals/Vitamin C (Tab-A-Vit -) 1 tab PO DAILY [facility] Last Admin: 05/11/19 10:55 Dose: 1 tab Nifedipine (Procardia Xl -) 30 mg PO DAILY [facility] Last Admin: 05/11/19 10:55 Dose: 30 mg Pantoprazole Sodium (Protonix -) 40 mg PO DAILY [facility] Last Admin: 05/11/19 10:55 Dose: 40 mg Prednisone (Deltasone -) 40 mg PO DAILY [facility] Last Admin: 05/11/19 11:00 Dose: 40 mg Thiamine HCl (Vitamin B1 -) 100 mg PO DAILY [facility] Last Admin: 05/11/19 10:55 Dose: 100 mg Trazodone HCl (Desyrel -) 50 mg PO HS [facility] Last Admin: 05/11/19 21:48 Dose: 50 mg Vancomycin HCl (Vancomycin Oral Solution) 125 mg PO Q6HPO [facility] Last Admin: 05/12/19 05:26 Dose: 125 mg A/P Acute COPD Exacerbation Atelectasis vs Pneumonia HTN Alcohol Abuse - prednisone taper, will decrease to 30mg daily - inhaled bronchodilators standing and PRN - continue antibiotics - O2 to keep SpO2 >90% - outpt PFTs - DVT prophylaxis Problem List - Problems (1) COPD exacerbation Code(s): J44.1 - CHRONIC OBSTRUCTIVE PULMONARY DISEASE W (ACUTE) EXACERBATION (2) HTN (hypertension) Code(s): I10 - ESSENTIAL (PRIMARY) HYPERTENSION
[2019-05-12] MEDS ORDERED: predniSONE 20 MG TABLET (UD) PO SCH (10:15)
--- NOTE | 2019-05-12 10:38 | PN ---
Progress Note (short form) - Note Progress Note: stools continue to be pudding consistency. went 4 times yesterday and 2 today. denies Cp, SOB, fever, chills, N/V/C/d, scalp pruritis. able to tolerate drinking fluids Current Medications Generic Name Dose Route Start Last Admin Trade Name Freq PRN Reason Stop Dose Admin Albuterol Sulfate 1 amp 05/05/19 13:26 Ventolin 0.083% Nebulizer Soln - NEB Q4H PRN SHORT OF BREATH/WHEEZING Albuterol/Ipratropium 1 amp 05/05/19 16:00 05/12/19 08:41 Duoneb - NEB Not Given RQID PENNIE Folic Acid 1 mg 05/05/19 10:00 05/11/19 10:55 Folic Acid - PO 1 mg DAILY PENNIE Administration Heparin Sodium (Porcine) 5,000 unit 05/05/19 22:00 05/09/19 06:58 Heparin - SQ 5,000 unit TID PENNIE Administration Multivitamins/Minerals/Vitamin C 1 tab 05/05/19 10:00 05/11/19 10:55 Tab-A-Vit - PO 1 tab DAILY [facility]ENNIE Administration Nifedipine 30 mg 05/09/19 10:00 05/11/19 10:55 Procardia Xl - PO 30 mg DAILY [facility]ENNIE Administration Pantoprazole Sodium 40 mg 05/05/19 16:15 05/11/19 10:55 Protonix - PO 40 mg DAILY [facility]ENNIE Administration Prednisone 30 mg 05/12/19 10:15 Deltasone - PO DAILY [facility]ENN[facility] Thiamine HCl 100 mg 05/05/19 10:00 05/11/19 10:55 Vitamin B1 - PO 100 mg DAILY [facility]ENNIE Administration Trazodone HCl 50 mg 05/09/19 22:00 05/11/19 21:48 Desyrel - PO 50 mg HS [facility]ENNIE Administration Vancomycin HCl 125 mg 05/09/19 12:00 05/12/19 05:26 Vancomycin Oral Solution PO 125 mg Q6HPO [facility]ENNIE Administration Last Vital Signs Temp Pulse Resp BP Pulse Ox 97.7 F 93 H 20 132/80 98 05/12/19 06:00 05/12/19 06:00 05/12/19 06:00 05/12/19 06:00 05/10/19 09:00 General NAD, scalp- no bugs seen on scalp or irritation of scalp Abdomen soft NT/ND ASSESSMENT AND PLAN: 63 year old homeless female with history of HTN, COPD, Alcohol Abuse, Hx of alcohol-related Seizure, Depression/Anxiety, Liver Cirrhosis, admitted with increasing SOB and lethargy/generalized weakness. She is being treated for COPD exacerbation and Alcohol withdrawal. She was given IV Antibiotics along with IV solumedrol and bronchodilator nebulizations. Her oxygen saturations are 96% on room air so no need for supplemental oxygen. She was transitioned to oral Prednisone taper along with oral Antibiotic Levofloxacin. She is medically stable for discharge to [facility] to complete detox protocol with Librium if she chooses. 1. Acute Exacerbation of COPD - improving. saturating well on RA. on prednisone taper. completed levaquin. pulmonary on board. will need formal PFT outpatient 2. C diff diarrhea- ag + and toxin neg. BM are slowing down in frequency. since this is 1st reoccurance will need extended course of vanco po. taper documented in d/c plan. will need GI follow up as outpatient. PCR pending. contact isolation. 3. Cirrhosis- newly diagnosed here. will hold lactulose as pt is having diarrhea with +cdiff ag. Reports had EGD 2 years ago and was normal. was done "routinely" since they were doing a colonoscopy. can f/u with GI as outpatient 4. ETOH withdrawal- CIWA 0. completed librium. never done inpatient rehab but not interested at this time. will give list for AA meetings 5. Lice-scalp check performed. no bugs seen. will need an additional dose of ivermectin next week to esnure all eggs have been killed 6. Hypokalemia- resolved 7. Hypomagnesmia- resolved 8. 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 no signs of bleeding. d/c hep 9. 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 no indication for transfusion. B12/folate levels wnl 10. DVT Px - SCD 11. d/c to [facility] for [facility] Visit type - Emergency Visit Emergency Visit: Yes ED Registration Date: 05/04/19 Care time: The patient presented to the Emergency Department on the above date and was hospitalized for further evaluation of their emergent condition. - New Patient This patient is new to me today: No - Critical Care Critical Care patient: No - Discharge Referral Referred to [facility] Med P.C.: No
[2019-05-12] MEDS: PANTOPRAZOLE 40 MG TABLET (FP) PO SCH (11:42)
[2019-05-12] MEDS: NIFEdipine E.R. 30 MG TABLET (FP) PO SCH (11:42)
[2019-05-12] MEDS: FOLIC ACID 1 MG TABLET (FP) PO SCH (11:42)
[2019-05-12] MEDS: MULTIVITAMINS (DAILY MVI) TABLET (FP) PO SCH (11:42)
[2019-05-12] MEDS: THIAMINE HCL 100 MG TABLET (FP) PO SCH (11:43)
[2019-05-12 13:18] VITALS: BP 115/81; PULSE 89; TEMP 98.1
== END 2019-05-12 12:20 | DRG 775 ==
LOC: JER 12:12 → J5S 18:36 → JER 21:30 → J5S 21:30
PROVIDERS: ADMIT Internal Medicine; ATTEND Internal Medicine
PROC: HZ2ZZZZ Detoxification Services for Substance Abuse Treatment (ICD-10-PCS; principal; 2019-05-04)
DX: F10.239 Alcohol dependence with withdrawal, unspecified (principal); J44.9 Chronic obstructive pulmonary disease, unspecified; F10.229 Alcohol dependence with intoxication, unspecified; J98.11 Atelectasis; E87.6 Hypokalemia; I10 Essential (primary) hypertension; B85.0 Pediculosis due to Pediculus humanus capitis; K74.60 Unspecified cirrhosis of liver; D75.89 Other specified diseases of blood and blood-forming organs; D53.9 Nutritional anemia, unspecified; J44.1 Chronic obstructive pulmonary disease with (acute) exacerbation; A04.72 Enterocolitis due to Clostridium difficile, not specified as recurrent; D69.6 Thrombocytopenia, unspecified; J18.9 Pneumonia, unspecified organism; E83.42 Hypomagnesemia
CPT/HCPCS: 36415; 71045-TC-FY; 71275-TC; 80048; 80053; 80307; 82550; 82607; 82746; 83735; 84100; 84484; 85025; 85610; 87045; 87046; 87077; 87324; 87449; 87493; 93005; 93010; 93306-TC; 94150; 94640; 97116-GP; 97161-GP; 99283-25; J1644; J7030

== ENCOUNTER 2019-06-30 00:20 | Emergency (ER) | payer OTHER ==
[2019-06-30 00:28] VITALS: BMI 31.1
--- NOTE | 2019-06-30 01:41 | PDOC ---
Attending Attestation - Resident Resident Name: Chin Cm - ED Attending Attestation I have performed the following: I have examined & evaluated the patient, The case was reviewed & discussed with the resident, I agree w/resident's findings & plan - HPI HPI: 06/30/19 01:41 Pt is an alcohol abuser and today she walked into detox and there were no beds, so they sent her here. She wants detox. 06/30/19 02:19 She has no complaints. Last detox was never - Physicial Exam PE: 06/30/19 01:41 Agree with resident exam 06/30/19 02:20 Normal heart and lungs. Abd soft NT ND. Afebrile. No pitting edema. A+Ox3 and resting comfortably. - Medical Decision Making 06/30/19 02:21 Pt will be observed overnight. I spoke to [facility] detox, and there are no beds available. She will be snet over there at 8AM with our securioty guards for eval in the morning in case a bed opens up.
--- NOTE | 2019-06-30 02:24 | PDOC ---
History of Present Illness - General Chief Complaint: Alcohol intoxication Stated Complaint: INTOX Time Seen by Provider: 06/30/19 00:39 History Source: Patient, Old Records Exam Limitations: Intoxication - History of Present Illness Initial Comments: 06/30/19 02:23 Patrica Berman is a 63F with PMH alcohol use disorder, COPD, and an admission to [facility] last summer for PNA and sepsis sent from [facility] because of alcohol intoxication and there were not beds available for detox. Patient reports that her went missing 2 weeks ago, which prompted her to increase her alcohol consumption to 1 pint of vodka per day. Today reports drinking at least 1 bottle of vodka this morning. Says she went to [facility] for detox because she is drinking too much. Denies drinking other forms of alcohol, and denies tobacco and all other drug use. Says she has had withdrawal symptoms in the past, and has had some tremors and syncope. Denies loss of consciousness, injury to head or body. Has history of COPD reported to be unrelated to tobacco, not on home oxygen. Currently denies N/V, chest pain, SOB, abd pain, urinary sx, C/D, dizziness, fever, chills. Not having tremors, anxiety, at this time. Denies hallucinations , suicidal/homicidal ideation. Walks with a cane. Past History - Past Medical History Allergies/Adverse Reactions: Allergies Allergy/AdvReac Type Severity Reaction Status Date / Time codeine [Codeine] AdvReac Severe Nausea Verified 06/30/19 10:18 Home Medications: Ambulatory Orders Ergocalciferol [Vitamin D2] 50,000 unit PO WEEKLY 07/27/18 Folic Acid - 1 mg PO DAILY 07/27/18 Magnesium Oxide [Mag-Ox -] 400 mg PO DAILY 07/27/18 Thiamine HCl [Vitamin B1 -] 100 mg PO DAILY 07/27/18 Cetirizine HCl [Zyrtec -] 10 mg PO DAILY 04/28/19 L. Acidophilus/Pectin, Bay [Acidophilus Probiotic Capsule] 1 each PO DAILY # 30 capsule 05/04/19 Nebulizer [Aeroeclipse II] 1 each MC DAILY 30 Days #30 each 05/04/19 Albuterol 0.083% Nebulizer Diamond [Ventolin 0.083% Nebulizer Soln -] 1 amp NEB Q4H PRN amp 05/05/19 Multivitamins [Multivit ([facility] Formulary)] 1 tab PO DAILY tab 05/05/19 Pantoprazole Sodium [Protonix -] 40 mg PO DAILY tablet.ec 05/05/19 Tiotropium Angora [Spiriva Respimat] 2 puff IH DAILY inhaler 05/05/19 Albuterol 2.5/Ipratropium 0.5 [Duoneb -] 1 amp NEB Q4H 05/07/19 Cephalexin [Keflex] 500 mg PO BID #14 capsule 06/30/19 Tramadol HCl [Ultram] 50 mg PO TID PRN 06/30/19 traZODone HCL [Trazodone HCl] 100 mg PO HS 06/30/19 Anemia: Yes (NOT ON IRON SUPPLEMENT) Asthma: No Cardiac Disorders: No CVA: No COPD: Yes (on albuterol inhaler) Diabetes: No GI Disorders: Yes (HX OF ULCERITIVE COLITIS---RESOLVED) Disorders: No HTN: No Hypercholesterolemia: Yes (SLIGHTLY ELEVATED BUT NO MEDS) Kidney Stones: No Liver Disease: No Seizures: Yes (Alcohol related last 4 years ago) - Surgical History Abdominal Surgery: Yes (Tubalization,s/p appendectomy in 1987) Cardiac Surgery: No Lung Surgery: Yes (Thoracotomy - 2009 for hemothorax post trauma) Neurologic Surgery: No - Reproductive History PID: No - Psycho Social/Smoking Cessation Hx Smoking History: Unknown if ever smoked Have you smoked in the past 12 months: No Information on smoking cessation initiated: No Hx Alcohol Use: Yes Drug/Substance Use Hx: Yes Substance Use Type: Alcohol Hx Substance Use Treatment: Yes Review of Systems - Review of Systems Constitutional: No: Chills, Fever, Weakness, Unexplained wgt Loss HEENTM: No: Blurred Vision, Recent change in vision, Hearing Loss Respiratory: Yes: Shortness of Breath. No: Cough Cardiac (ROS): No: Chest Pain, Irregular Heart Rate, Lightheadedness, Palpitations, Syncope ABD/GI: No: Constipated, Diarrhea, Nausea, Vomiting : No: Burning, Dysuria, Discharge, Frequency, Flank Pain, Hematuria, Incontinence Musculoskeletal: No: Symptoms Reported Integumentary: No: Symptoms Reported Neurological: Yes: Headache, Unsteady Gait. No: Numbness, Paresthesia, Seizure Psychiatric: Yes: Stressors, Emotional Problems Endocrine: No: Symptoms Reported Hematologic/Lymphatic: No: Symptoms Reported All Other Systems: Reviewed and Negative *Physical Exam - Vital Signs Last Vital Signs Temp Pulse Resp BP Pulse Ox 97.7 F 93 H 18 116/70 95 06/30/19 00:26 06/30/19 00:26 06/30/19 00:26 06/30/19 00:06/30/19 00:26 - Physical Exam General Appearance: Yes: Nourished, Appropriately Dressed, Mild Distress HEENT: positive: EOMI, WILBERTO, Normal Voice, Symmetrical, Pharynx Normal, Hearing Grossly Normal, Other (breath smells like alcohol). negative: Scleral Icterus ( R), Scleral Icterus (L), Pharyngeal Erythema, Tonsillar Exudate, Tonsillar Erythema Neck: positive: Trachea midline, Supple. negative: Rigid, Lymphadenopathy (R), Lymphadenopathy (L) Respiratory/Chest: positive: Lungs Clear, Normal Breath Sounds. negative: Respiratory Distress, Accessory Muscle Use, Crackles, Rales, Rhonchi Cardiovascular: positive: Regular Rhythm, Regular Rate. negative: Edema (BLE no edema noted), Murmur Gastrointestinal/Abdominal: positive: Normal Bowel Sounds, Flat, Soft. negative : Tender, Organomegaly Musculoskeletal: positive: Normal Inspection. negative: CVA Tenderness Extremity: positive: Normal Capillary Refill, Normal Inspection, Normal Range of Motion Integumentary: positive: Normal Color, Dry, Warm. negative: Diaphoresis, Bruising Neurologic: positive: slurry tank tender II-XII NML intact, Fully Oriented, Alert, Normal Mood/ Affect, Normal Response, Motor Strength 5/5, Other (no slurred speech, no confusion, ambulates with a cane but without ataxia). negative: Confused ED Treatment Course - LABORATORY CBC & Chemistry Diagram: 06/30/19 04:05 06/30/19 04:05 Medical Decision Making - Medical Decision Making 06/30/19 02:23 Patrica Berman is a 63F with PMH alcohol use disorder, COPD, and an admission to [facility] last summer for PNA and sepsis sent from [facility] because of alcohol intoxication and there were not beds available for detox. Patient presents A/O x3, good historian, gives accurate medical history, is able to ambulate with cane, no slurred speech, mild confusion, no tremors, or diaphoresis, no LOC or fall, consistent with acute alcohol intoxication without withdrawal symptoms. Contacted [facility], agree that if patient VS stable, can be sent back to [facility] at 8AM for possible placement. Patient resting comfortably in bed, in no acute distress. 06/30/19 04:28 Patient re-assessed, now having tremors and some anxiety, CIWA 8. Getting CMP, CBC, UA/UTOX. Starting 50mg PO Librium for likely withdrawal. 06/30/19 05:07 BAL 362 UTOX positive for benzos UA shows +nitrite and +leukesterase consistent with UTI, started on Keflex 500mg bid for 7 days. 06/30/19 06:55 Patient stable for discharge and self return to [facility]. Stable, in no acute distress, already given 50mg Librium and improved. Discharge - Discharge Information Problems reviewed: Yes Clinical Impression/Diagnosis: Alcohol dependence with uncomplicated withdrawal, Use of cane as ambulatory aid COPD (chronic obstructive pulmonary disease) Qualifiers: COPD type: unspecified COPD Qualified Code(s): J44.9 - Chronic obstructive pulmonary disease, unspecified Alcohol intoxication Qualifiers: Complication of substance-induced condition: uncomplicated Qualified Code(s): F10.920 - Alcohol use, unspecified with intoxication, uncomplicated Condition: Stable Disposition: HOME - Admission No - Additional Discharge Information Prescriptions: Cephalexin [Keflex] 500 mg PO BID #14 capsule - Follow up/Referral Referrals: Jose Barnett MD, MD [Primary Care Provider] - - Patient Discharge Instructions Patient Printed Discharge Instructions: DI for Alcohol Abuse, DI for Drug or Alcohol Withdrawal Additional Instructions: Today you were evaluated for alcohol intoxication and assistance getting into rehab. You began exhibiting signs of alcohol withdrawal, so we gave you 50mg of Librium and got some blood labs that do not show signs of significant infection or anemia. Your urine labs show that you have a urinary tract infection, so we started you on an antibiotic called Keflex. Please continue to take this twice a day for the next 7 days. Please see your doctor or the doctors at [facility] in the next 3 days for further management of your detox and UTI. If you experience worsening tremors, anxiety, abdominal pain, seizures, chest pain, shortness of breath, nausea, or vomiting, please return to the closest emergency room. - Post Discharge Activity
[2019-06-30] MEDS ORDERED: chlordiazePOXIDE HCL 25 MG CAPSULE PO ONE (03:45)
[2019-06-30] MEDS ORDERED: chlordiazePOXIDE HCL 25 MG CAPSULE ONE (03:55)
[2019-06-30 04:10] LABS: EPI CELLS 2.9 /HPF (0-5/HPF); HYALINE CASTS 1 /lpf (0-8); PH,URINE 5.5 (5.0-8.0); URINE APPEARANCE CLEAR; URINE BACTERIA 299.4 /hpf (NEGATIVE); URINE BILIRUBIN NEGATIVE (NEGATIVE); URINE COLOR YELLOW; URINE GLUCOSE (UA) NEGATIVE (NEGATIVE); URINE KETONE NEGATIVE (NEGATIVE); URINE LEUK ESTERASE 1+ (NEGATIVE); URINE NITRITE POSITIVE (NEGATIVE); URINE PROTEIN NEGATIVE (NEGATIVE); URINE RBC 0 /hpf (0-4); URINE UROBILINOGEN 0.2 mg/dL (0.2-1.0); URINE WBC 8 /hpf (0-5)
[2019-06-30 04:24] LABS: COCAINE, UR NEGATIVE ng/ml (CUTOFF=300); METHADONE, UR NEGATIVE ng/ml (CUTOFF=300); OPIATES, URI NEGATIVE ng/ml (CUTOFF=300); PHENCYCLIDINE,URINE NEGATIVE ng/ml (CUTOFF=25); URINE AMPHETAMINES NEGATIVE ng/ml (CUTOFF=500); URINE BARBITURATES NEGATIVE ng/ml (CUTOFF=200)
[2019-06-30] MEDS ORDERED: CEPHALEXIN MONOHYDRATE 500 MG CAPSULE (UD) PO ONE (04:28)
[2019-06-30] MEDS ORDERED: CEPHALEXIN MONOHYDRATE 500 MG CAPSULE (UD) ONE (04:31)
[2019-06-30 04:52] LABS: BASO % 0.6 % (0-2.0); EOS % 0.2 % (0-4.5); HEMATOCRIT 37.5 % (32.4-45.2); HEMOGLOBIN 12.4 GM/dL (10.7-15.3); LYMPH % 40.3 % (8-40); MCH 31.8 pg (25.7-33.7); MCHC 33.1 g/dl (32.0-36.0); MEAN PLT VOLUME 7.9 fl (7.5-11.1); MONO % 4.1 % (3.8-10.2); NEUT % 54.8 % (42.8-82.8); PLATELET COUNT 268 K/MM3 (134-434); RBC 3.91 M/mm3 (3.60-5.2); RDW 15.3 % (11.6-15.6); WHITE BLOOD COUNT 11.1 K/mm3 (4.0-10.0)
[2019-06-30 04:55] LABS: URINE BENZODIAZEPINES POSITIVE ng/ml (CUTOFF=200)
[2019-06-30 05:12] LABS: ALBUMIN 3.8 g/dl (3.4-5.0); BILIRUBIN,TOTAL 0.6 mg/dL (0.2-1); BLOOD UREA NITROGEN 12.1 mg/dL (7-18); CALCIUM 9.1 mg/dL (8.5-10.1); CREATININE 0.7 mg/dL (0.55-1.3); TOT PROT 7.1 g/dl (6.4-8.2)
[2019-06-30 06:33] VITALS: BP 121/74; PULSE 88; TEMP 97.8
== END 2019-06-30 07:00 | disposition home or self-care (01) ==
LOC: JER 00:20
DX: F10.230 Alcohol dependence with withdrawal, uncomplicated (principal); Y90.8 Blood alcohol level of 240 mg/100 ml or more; N39.0 Urinary tract infection, site not specified; J44.9 Chronic obstructive pulmonary disease, unspecified; Z99.89 Dependence on other enabling machines and devices; D64.9 Anemia, unspecified; E78.00 Pure hypercholesterolemia, unspecified; Z86.69 Personal history of other diseases of the nervous system and sense organs; Z88.5 Allergy status to narcotic agent
CPT/HCPCS: 36415; 80053; 80307; 81003; 85025; 99283-25

== ENCOUNTER 2019-06-30 09:54 | Inpatient (IN) | payer OTHER ==
[2019-06-30 10:39] VITALS: BMI 30.2
--- NOTE | 2019-06-30 11:25 | HP ---
CIWA Score Nausea/Vomitin Muscle Tremors: 4-Moderate,w/Arms Extend Anxiety: 4-Mod. Anxious/Guarded Agitation: 1-Slight > Activity Paroxysmal Sweats: No Perspiration Orientation: 0-Oriented Tacttile Disturbances: 0-None Auditory Disturbances: 0-None Visual Disturbances: 0-None Headache: 2-Mild CIWA-Ar Total Score: 13 - Admission Criteria OASAS Guidelines: Admission for Medically Managed Detox: Requires at least one of the followin. CIWA greater than 12 2. Seizures within the past 24 hours 3. Delirium tremens within the past 24 hours 4. Hallucinations within the past 24 hours 5. Acute intervention needed for co occurring medical disorder 6. Acute intervention needed for co occurring psychiatric disorder 7. Severe withdrawal that cannot be handled at a lower level of care (continued vomiting, continued diarrhea, abnormal vital signs) requiring intravenous medication and/or fluids 8. Admission [facility] Chief Complaint: I don't want to be like this, I don't like this feeling, I want to stop drinking Allergies/Adverse Reactions: Allergies Allergy/AdvReac Type Severity Reaction Status Date / Time codeine [Codeine] AdvReac Severe Nausea Verified 06/30/19 10:18 History of Present Illness: 63 yo woman here for detox from alcohol - one of several admissions for detox. Patient was here at [facility] early this morning and sent to ED as no beds available, treated for UTI and one dose of librium and then sent back here for detox. History of alcohol related seizure in April 2019 when tried to stop drinking on her own. She states she gets really shaky if she doesn't drink and then has to take a drink to stop shaking. States she cannot control her drinking and it has been escalating. 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 Patient states she fell in April 2019 and hit her head - was treated at [facility] then transferred to [facility] where she developed sepsis and was there for about three weeks. She was out a few days, then went to [facility] for diarrhea where she stayed a few days and then went to [facility] - states she was discharged around June 09 and she relapsed drinking after a week or so. Exam Limitations: No Limitations - Ebola screening Have you traveled outside of the country in the last 21 days: No (N) Have you had contact with anyone from an Ebola affected area: No Do you have a fever: No - Review of Systems Constitutional: Chills, Malaise, Changes in sleep, Weakness EENT: reports: No Symptoms Reported Respiratory: reports: SOB with Exertion Cardiac: reports: No Symptoms Reported GI: reports: Nausea, Poor Appetite, Abdominal cramping : reports: Dysuria Musculoskeletal: reports: Back Pain, Muscle Pain Integumentary: reports: Dryness Neuro: reports: Headache, Tremors Endocrine: reports: No Symptoms Reported Hematology: reports: No Symptoms Reported Psychiatric: reports: Judgement Intact, Mood/Affect Appropiate, Orientated x3, Anxious Other Systems: Reviewed and Negative Patient History - Patient Medical History Hx Anemia: No Hx Asthma: No Hx Chronic Obstructive Pulmonary Disease (COPD): Yes (on albuterol inhaler) Hx Cancer: No Hx Cardiac Disorders: No Hx Congestive Heart Failure: No Hx Hypertension: No Hx Hypercholesterolemia: No HX Cerebrovascular Accident: No (? hx of TIA) Hx Seizures: Yes (Alcohol related April 2019) Hx Diabetes: No Hx Gastrointestinal Disorders: Yes (HX OF ULCERITIVE COLITIS---RESOLVED) Hx Liver Disease: Yes (cirrhosis) Hx Genitourinary Disorders: Yes (uti) Hx Sexually Transmitted Disorders: No Hx Renal Disease (ESRD): No Hx Thyroid Disease: No Hx Human Immunodeficiency Virus (HIV): No (NEGATIVE IN THE PAST last 2015) Hx Hepatitis C: No Hx Depression: Yes Hx Suicide Attempt: Yes (OD ON VALIUM IN 1987; DENIES CURRENT IDEATIONS.) Hx Bipolar Disorder: No Hx Schizophrenia: No Other Medical History: back pain - Patient Surgical History Past Surgical History: Yes Hx Neurologic Surgery: No Hx Cataract Extraction: No Hx Cardiac Surgery: No Hx Lung Surgery: Yes (Thoracotomy - 2009 for hemothorax post trauma) Hx Abdominal Surgery: Yes (Tubalization,s/p appendectomy in 1987) Anesthesia Reaction: No - PPD History Previous Implant?: Yes Documented Results: Negative w/proof Implanted On Prior [facility] Admission?: Yes Date: 07/29/18 Results: 0 mm PPD to be Administered?: No - Reproductive History Patient is a Female of Child Bearing Age (11 -55 yrs old): No - Smoking Cessation Smoking history: Never smoked Have you smoked in the past 12 months: No Hx Chewing Tobacco Use: No - Substance & Tx. History Hx Alcohol Use: Yes Hx Substance Use: No Substance Use Type: Alcohol Hx Substance Use Treatment: Yes (detox, rehab) - Substances abused Alcohol Substance route: Oral Frequency: Daily Amount used: 1 pint of vodka Age of first use: 12 Date of last use: 06/29/19 Admission Physical Exam [facility] - Vital Signs Vital Signs: Vital Signs - 24 hr 06/30/19 10:36 Temperature 97.5 F L Pulse Rate 97 H Respiratory 20 Rate Blood Pressure 134/81 - Physical General Appearance: Yes: Nourished, Appropriately Dressed, Moderate Distress, Tremorous, Anxious HEENTM: Yes: EOMI, Normocephalic, Normal Voice, Pharynx Normal, Hearing Decreased Respiratory: Yes: Lungs Clear, No Respiratory Distress Neck: Yes: No masses,lesions,Nodules, Supple Breast: Yes: Breast Exam Deferred Cardiology: Yes: Regular Rhythm, Regular Rate Abdominal: Yes: Soft Genitourinary: Yes: Hesitency Back: Yes: Decreased Range of Motion Musculoskeletal: Yes: full range of Motion, Gait Steady, Back pain, Muscle Pain Extremities: Yes: Normal Inspection, Non-Tender Neurological: Yes: Fully Oriented, Alert, Normal Mood/Affect, Normal Response, Numbness Integumentary: Yes: Normal Color, Warm Lymphatic: Yes: Within Normal Limits - Diagnostic (1) Alcohol dependence with uncomplicated withdrawal Current Visit: Yes Status: Acute (2) COPD (chronic obstructive pulmonary disease) Current Visit: Yes Status: Chronic Qualifiers: COPD type: unspecified COPD Qualified Code(s): J44.9 - Chronic obstructive pulmonary disease, unspecified (3) Frequent falls Current Visit: Yes Status: Chronic (4) HTN (hypertension) Current Visit: Yes Status: Chronic Qualifiers: Hypertension type: essential hypertension Qualified Code(s): I10 - Essential (primary) hypertension (5) History of appendectomy Current Visit: Yes Status: Chronic (6) History of thoracotomy Current Visit: Yes Status: Chronic (7) Use of cane as ambulatory aid Current Visit: Yes Status: Chronic (8) Chronic back pain Current Visit: Yes Status: Acute Qualifiers: Back pain location: low back pain Back pain laterality: bilateral Sciatica presence: without sciatica Qualified Code(s): M54.5 - Low back pain; G89.29 - Other chronic pain (9) History of seizure Current Visit: Yes Status: Chronic Cleared for Admission [facility] - Detox or Rehab [facility] Level of Care: Medically Managed Detox Regimen/Protocol: Librium Breathalyzer - Breathalyzer Breathalyzer: 0 Urine Drug Screen - Test Device Lot number: [id number] Expiration date: 03/02/21 - Control Is test valid?: Yes - Results Drug screen NEGATIVE: Yes Urine drug screen results: BZO-Benzodiazepines Inpatient Rehab Admission - Rehab Decision to Admit Inpatient rehab admission?: No
[2019-06-30] MEDS ORDERED: hydrOXYzine PAMOATE 25 MG CAPSULE (FP) PO PRN (11:40)
[2019-06-30] MEDS ORDERED: ACETAMINOPHEN 325 MG TABLET (FP) PO PRN (11:40)
[2019-06-30] MEDS ORDERED: METHOCARBAMOL 500 MG TABLET PO PRN (11:40)
[2019-06-30] MEDS ORDERED: BISMUTH SUBSALICYLATE 524 MG/30 ML UD PO PRN (11:40)
[2019-06-30] MEDS ORDERED: MAGNESIUM HYDROX 2400MG/30ML ORAL SUSPENSION 30 ML CUP PO PRN (11:40)
[2019-06-30] MEDS ORDERED: MAG HYDROX/AL HYDROX/SIMETH 30 ML UNIT-DOSE CUP PO PRN (11:40)
[2019-06-30] MEDS ORDERED: MAGNESIUM CITRATE 300 ML BOTTLE PO PRN (11:40)
[2019-06-30] MEDS ORDERED: MELATONIN 5 MG TABLETS PO PRN (11:40)
[2019-06-30] MEDS ORDERED: MENTHOL/PHENOL 1 EACH UD MM PRN (11:40)
[2019-06-30] MEDS ORDERED: chlordiazePOXIDE HCL 25 MG CAPSULE PO ONE (11:40)
[2019-06-30] MEDS ORDERED: ERGOCALCIFEROL (VIT D2) 50,000 UNIT (1.25 MG) CAPSULE PO SCH (11:45)
[2019-06-30] MEDS ORDERED: chlordiazePOXIDE HCL 25 MG CAPSULE PO PRN (13:00)
[2019-06-30] MEDS ORDERED: PNEUMOC 13-VAL CONJ-DIP CRM/PF 0.5 ML DISP.SYRIN IM ONE (13:18)
[2019-06-30] MEDS: TIOTROPIUM BROMIDE 2.5 MCG (SPIRIVA) RESPIMAT INHALER IH SCH (14:17)
[2019-06-30] MEDS: ALBUTEROL SO4 2.5/IPRATROPIUM 0.5 INH SOL 3 ML VIAL.NEB. NEB SCH ×2 (14:19→15:50)
[2019-06-30] MEDS: MAGNESIUM OXIDE 400 MG TABLET (FP) PO SCH (15:21)
[2019-06-30] MEDS: chlordiazePOXIDE HCL 25 MG CAPSULE PO SCH ×2 (17:55→22:08)
[2019-06-30] MEDS: CEPHALEXIN MONOHYDRATE 500 MG CAPSULE (UD) PO SCH (22:09)
[2019-06-30] MEDS: THIAMINE HCL 100 MG TABLET (FP) PO SCH (22:09)
[2019-07-01] MEDS: chlordiazePOXIDE HCL 25 MG CAPSULE PO SCH ×4 (05:39→22:12)
[2019-07-01] MEDS: MAGNESIUM OXIDE 400 MG TABLET (FP) PO SCH (10:11)
[2019-07-01] MEDS: PANTOPRAZOLE 40 MG TABLET (FP) PO SCH (10:11)
[2019-07-01] MEDS: CEPHALEXIN MONOHYDRATE 500 MG CAPSULE (UD) PO SCH ×2 (10:11→21:33)
[2019-07-01] MEDS: PRENATAL VITAMINS W/ FOLIC ACID TABLET (FP) PO SCH (10:11)
[2019-07-01] MEDS: TIOTROPIUM BROMIDE 2.5 MCG (SPIRIVA) RESPIMAT INHALER IH SCH (10:12)
[2019-07-01 10:49] LABS: ALBUMIN 3.3 g/dl (3.4-5.0); BILIRUBIN,TOTAL 1.7 mg/dL (0.2-1); BLOOD UREA NITROGEN 8.4 mg/dL (7-18); CALCIUM 8.8 mg/dL (8.5-10.1); CREATININE 0.8 mg/dL (0.55-1.3); POTASSIUM 3.6 mmol/L (3.5-5.1); TOT PROT 6.2 g/dl (6.4-8.2)
[2019-07-01 11:05] LABS: HEMATOCRIT 32.3 % (32.4-45.2); HEMOGLOBIN 11.3 GM/dL (10.7-15.3); MCH 33.4 pg (25.7-33.7); MCHC 34.9 g/dl (32.0-36.0); MEAN CELL VOLUME 95.8 fl (80-96); MEAN PLT VOLUME 8.2 fl (7.5-11.1); PLATELET COUNT 139 K/MM3 (134-434); RBC 3.37 M/mm3 (3.60-5.2); RDW 15.4 % (11.6-15.6); WHITE BLOOD COUNT 3.6 K/mm3 (4.0-10.0)
[2019-07-01] MEDS ORDERED: LOPERAMIDE HCL 2 MG CAPSULE PO ONE (12:46)
[2019-07-01] MEDS: ALBUTEROL SO4 2.5/IPRATROPIUM 0.5 INH SOL 3 ML VIAL.NEB. NEB SCH (12:47)
[2019-07-01] MEDS ORDERED: LOPERAMIDE HCL 2 MG CAPSULE PO PRN (16:00)
--- NOTE | 2019-07-01 18:12 | PN ---
[facility] CIWA - CIWA Score Nausea/Vomitin-Mild Nausea/No Vomiting Muscle Tremors: 4-Moderate,w/Arms Extend Anxiety: 4-Mod. Anxious/Guarded Agitation: 3 Paroxysmal Sweats: 3 Orientation: 0-Oriented Tacttile Disturbances: 0-None Auditory Disturbances: 0-None Visual Disturbances: 0-None Headache: 0-None Present CIWA-Ar Total Score: 15 BHS Progress Note (SOAP) Subjective: Tremor, sweating, interrupted sleep and diarrhea (request imodium) Objective: 07/01/19 18:08 Last Vital Signs Temp Pulse Resp BP Pulse Ox 98.1 F 82 16 145/93 07/01/19 17:21 07/01/19 17:21 07/01/19 17:21 07/01/19 17:21 Elevated b/p noted, denies htn, not on meds Laboratory Tests 07/01/19 07/01/19 07/01/19 07:30 07:30 07:30 WBC 3.6 L RBC 3.37 L Hgb 11.3 Hct 32.3 L MCV 95.8 MCH 33.4 MCHC 34.9 RDW 15.4 Plt Count 139 D MPV 8.2 Sodium 142 Potassium 3.6 Chloride 105 Carbon Dioxide 29 Anion Gap 8 BUN 8.4 Creatinine 0.8 Est GFR (CKD-EPI)AfAm 90.94 Est GFR (CKD-EPI)NonAf 78.46 Random Glucose 96 Calcium 8.8 Total Bilirubin 1.7 H AST 38 H ALT 18 Alkaline Phosphatase 84 Total Protein 6.2 L Albumin 3.3 L RPR Titer Nonreactive HIV 1&2 Antibody Screen HIV P24 Antigen 07/01/19 07:40 WBC RBC Hgb Hct MCV MCH MCHC RDW Plt Count MPV Sodium Potassium Chloride Carbon Dioxide Anion Gap BUN Creatinine Est GFR (CKD-EPI)AfAm Est GFR (CKD-EPI)NonAf Random Glucose Calcium Total Bilirubin AST ALT Alkaline Phosphatase Total Protein Albumin RPR Titer HIV 1&2 Antibody Screen Negative HIV P24 Antigen Negative Labs reviewed: total bilirubin 1.7 Assessment: 07/01/19 18:12 Withdrawal sxs Noted with elevated b/p and elevated total bilirubin Plan: Continue detox Encouraged PO water intake Elevated b/p: clonidine prn Elevated total bilirubin: repeat level
[2019-07-01] MEDS: THIAMINE HCL 100 MG TABLET (FP) PO SCH (21:33)
[2019-07-01] MEDS: cloNIDine HCL 0.1 MG TABLET PO PRN (21:33)
[2019-07-02] MEDS: chlordiazePOXIDE HCL 25 MG CAPSULE PO SCH ×4 (07:07→22:17)
--- NOTE | 2019-07-02 09:36 | PN ---
S CIWA - CIWA Score Nausea/Vomitin-No Nausea/No Vomiting Muscle Tremors: 3 Anxiety: 3 Agitation: 3 Paroxysmal Sweats: 3 Orientation: 0-Oriented Tacttile Disturbances: 0-None Auditory Disturbances: 0-None Visual Disturbances: 0-None Headache: 0-None Present CIWA-Ar Total Score: 12 S Progress Note (SOAP) Subjective: interrupted sleep chills sweats poor appetite no diarrhea today Objective: 07/02/19 09:32 Vital Signs Temperature 96.6 F L 07/02/19 09:17 Pulse Rate 83 07/02/19 09:17 Respiratory Rate 16 07/02/19 09:17 Blood Pressure 138/91 07/02/19 09:17 O2 Sat by Pulse Oximetry (%) Laboratory Tests 07/01/19 07/01/19 07/01/19 07:30 07:30 07:30 WBC 3.6 L RBC 3.37 L Hgb 11.3 Hct 32.3 L MCV 95.8 MCH 33.4 MCHC 34.9 RDW 15.4 Plt Count 139 D MPV 8.2 Sodium 142 Potassium 3.6 Chloride 105 Carbon Dioxide 29 Anion Gap 8 BUN 8.4 Creatinine 0.8 Est GFR (CKD-EPI)AfAm 90.94 Est GFR (CKD-EPI)NonAf 78.46 Random Glucose 96 Calcium 8.8 Total Bilirubin 1.7 H AST 38 H ALT 18 Alkaline Phosphatase 84 Total Protein 6.2 L Albumin 3.3 L RPR Titer Nonreactive HIV 1&2 Antibody Screen HIV P24 Antigen 07/01/19 07:40 WBC RBC Hgb Hct MCV MCH MCHC RDW Plt Count MPV Sodium Potassium Chloride Carbon Dioxide Anion Gap BUN Creatinine Est GFR (CKD-EPI)AfAm Est GFR (CKD-EPI)NonAf Random Glucose Calcium Total Bilirubin AST ALT Alkaline Phosphatase Total Protein Albumin RPR Titer HIV 1&2 Antibody Screen Negative HIV P24 Antigen Negative aaox3 ambulating no acute distress Assessment: 07/02/19 09:35 withdrawals Plan: continue detox increase fluids dietary consultation ordered
[2019-07-02] MEDS: PRENATAL VITAMINS W/ FOLIC ACID TABLET (FP) PO SCH (10:08)
[2019-07-02] MEDS: PANTOPRAZOLE 40 MG TABLET (FP) PO SCH (10:08)
[2019-07-02] MEDS: CEPHALEXIN MONOHYDRATE 500 MG CAPSULE (UD) PO SCH ×2 (10:08→22:17)
[2019-07-02] MEDS: MAGNESIUM OXIDE 400 MG TABLET (FP) PO SCH (10:09)
[2019-07-02] MEDS: TIOTROPIUM BROMIDE 2.5 MCG (SPIRIVA) RESPIMAT INHALER IH SCH (10:09)
[2019-07-02 13:06] LABS: EPI CELLS 8.4 /HPF (0-5/HPF); HYALINE CASTS 11 /lpf (0-8); PH,URINE 8.5 (5.0-8.0); URINE APPEARANCE CLEAR; URINE BACTERIA 11.2 /hpf (NEGATIVE); URINE BILIRUBIN NEGATIVE (NEGATIVE); URINE COLOR YELLOW; URINE GLUCOSE (UA) NEGATIVE (NEGATIVE); URINE KETONE NEGATIVE (NEGATIVE); URINE LEUK ESTERASE 1+ (NEGATIVE); URINE NITRITE NEGATIVE (NEGATIVE); URINE PROTEIN NEGATIVE (NEGATIVE); URINE RBC 1 /hpf (0-4); URINE UROBILINOGEN 0.2 mg/dL (0.2-1.0); URINE WBC 17 /hpf (0-5)
[2019-07-02] MEDS: ALBUTEROL SO4 2.5/IPRATROPIUM 0.5 INH SOL 3 ML VIAL.NEB. NEB SCH ×2 (19:27→23:50)
[2019-07-02] MEDS: traZODone HCL 100 MG TABLET (FP) PO PRN (22:17)
[2019-07-02] MEDS: THIAMINE HCL 100 MG TABLET (FP) PO SCH (22:18)
[2019-07-03] MEDS ORDERED: chlordiazePOXIDE HCL 10 MG CAPSULE PO PRN
[2019-07-03] MEDS: chlordiazePOXIDE HCL 10 MG CAPSULE PO SCH ×4 (05:36→22:22)
[2019-07-03] MEDS: ALBUTEROL SO4 2.5/IPRATROPIUM 0.5 INH SOL 3 ML VIAL.NEB. NEB SCH (09:12)
[2019-07-03] MEDS: IBUPROFEN 400 MG TABLET (FP) PO PRN ×2 (09:15→22:26)
[2019-07-03] MEDS: CEPHALEXIN MONOHYDRATE 500 MG CAPSULE (UD) PO SCH ×2 (10:53→22:22)
[2019-07-03] MEDS: PRENATAL VITAMINS W/ FOLIC ACID TABLET (FP) PO SCH (10:53)
[2019-07-03] MEDS: TIOTROPIUM BROMIDE 2.5 MCG (SPIRIVA) RESPIMAT INHALER IH SCH (10:53)
[2019-07-03] MEDS: MAGNESIUM OXIDE 400 MG TABLET (FP) PO SCH (10:53)
[2019-07-03] MEDS: PANTOPRAZOLE 40 MG TABLET (FP) PO SCH (10:53)
--- NOTE | 2019-07-03 12:52 | PN ---
S CIWA - CIWA Score Nausea/Vomitin-No Nausea/No Vomiting Muscle Tremors: 3 Anxiety: 2 Agitation: 2 Paroxysmal Sweats: No Perspiration Orientation: 0-Oriented Tacttile Disturbances: 0-None Auditory Disturbances: 0-None Visual Disturbances: 0-None Headache: 0-None Present CIWA-Ar Total Score: 7 S Progress Note (SOAP) Subjective: tired sweats body aches Objective: 07/03/19 12:52 Vital Signs Temperature 96.4 F L 07/03/19 09:48 Pulse Rate 94 H 07/03/19 09:48 Respiratory Rate 18 07/03/19 09:48 Blood Pressure 134/67 07/03/19 09:48 O2 Sat by Pulse Oximetry (%) Laboratory Tests 07/01/19 07/01/19 07/01/19 07:30 07:30 07:30 WBC 3.6 L RBC 3.37 L Hgb 11.3 Hct 32.3 L MCV 95.8 MCH 33.4 MCHC 34.9 RDW 15.4 Plt Count 139 D MPV 8.2 Sodium 142 Potassium 3.6 Chloride 105 Carbon Dioxide 29 Anion Gap 8 BUN 8.4 Creatinine 0.8 Est GFR (CKD-EPI)AfAm 90.94 Est GFR (CKD-EPI)NonAf 78.46 Random Glucose 96 Calcium 8.8 Total Bilirubin 1.7 H AST 38 H ALT 18 Alkaline Phosphatase 84 Total Protein 6.2 L Albumin 3.3 L Urine Color Urine Appearance Urine pH Ur Specific [place] Urine Protein Urine Glucose (UA) Urine Ketones Urine Blood Urine Nitrite Urine Bilirubin Urine Urobilinogen Ur Leukocyte Esterase Urine WBC (Auto) Urine RBC (Auto) Urine Casts (Auto) U Epithel Cells (Auto) Urine Bacteria (Auto) RPR Titer Nonreactive HIV 1&2 Antibody Screen HIV P24 Antigen 07/01/19 07/02/19 07/02/19 07:40 09:00 09:12 WBC RBC Hgb Hct MCV MCH MCHC RDW Plt Count MPV Sodium Potassium Chloride Carbon Dioxide Anion Gap BUN Creatinine Est GFR (CKD-EPI)AfAm Est GFR (CKD-EPI)NonAf Random Glucose Calcium Total Bilirubin 1.4 H AST ALT Alkaline Phosphatase Total Protein Albumin Urine Color Yellow Urine Appearance Clear Urine pH 8.5 H D Ur Specific [place] 1.014 Urine Protein Negative Urine Glucose (UA) Negative Urine Ketones Negative Urine Blood Negative Urine Nitrite Negative Urine Bilirubin Negative Urine Urobilinogen 0.2 Ur Leukocyte Esterase 1+ H Urine WBC (Auto) 17 Urine RBC (Auto) 1 Urine Casts (Auto) 11 U Epithel Cells (Auto) 8.4 Urine Bacteria (Auto) 11.2 RPR Titer HIV 1&2 Antibody Screen Negative HIV P24 Antigen Negative labs noted pt is currently taking ABX for uti aaox3 lying in bed no acute distress Assessment: 07/03/19 12:53 withdrawals sx Plan: continue detox increase fluids
[2019-07-03] MEDS: THIAMINE HCL 100 MG TABLET (FP) PO SCH (22:21)
[2019-07-03] MEDS: traZODone HCL 100 MG TABLET (FP) PO PRN (22:23)
[2019-07-04] MEDS: chlordiazePOXIDE HCL 10 MG CAPSULE PO SCH ×2 (06:20→17:16)
[2019-07-04] MEDS: IBUPROFEN 400 MG TABLET (FP) PO PRN ×2 (06:22→21:39)
[2019-07-04] MEDS: PANTOPRAZOLE 40 MG TABLET (FP) PO SCH (10:04)
[2019-07-04] MEDS: PRENATAL VITAMINS W/ FOLIC ACID TABLET (FP) PO SCH (10:04)
[2019-07-04] MEDS: CEPHALEXIN MONOHYDRATE 500 MG CAPSULE (UD) PO SCH (10:04)
[2019-07-04] MEDS: TIOTROPIUM BROMIDE 2.5 MCG (SPIRIVA) RESPIMAT INHALER IH SCH (10:05)
[2019-07-04] MEDS: MAGNESIUM OXIDE 400 MG TABLET (FP) PO SCH (10:05)
[2019-07-04] MEDS: ALBUTEROL SO4 2.5/IPRATROPIUM 0.5 INH SOL 3 ML VIAL.NEB. NEB SCH ×5 (10:05→22:50)
--- NOTE | 2019-07-04 10:54 | PN ---
S CIWA - CIWA Score Nausea/Vomitin-No Nausea/No Vomiting Muscle Tremors: 2 Anxiety: 1-Mildly Anxious Agitation: 0-Normal Activity Paroxysmal Sweats: 1-Minimal Palms Moist Orientation: 0-Oriented Tacttile Disturbances: 0-None Auditory Disturbances: 0-None Visual Disturbances: 0-None Headache: 0-None Present CIWA-Ar Total Score: 4 BHS Progress Note (SOAP) Subjective: anxiety little sweats Objective: 07/04/19 10:53 Vital Signs Temperature 96.1 F L 07/04/19 09:23 Pulse Rate 90 07/04/19 09:23 Respiratory Rate 07/04/19 09:23 Blood Pressure 156/96 07/04/19 09:23 O2 Sat by Pulse Oximetry (%) aaox3 ambulating no acute distress Assessment: 07/04/19 10:54 mild withdrawals Plan: continue detox d/c in am
[2019-07-04] MEDS: traZODone HCL 100 MG TABLET (FP) PO PRN (21:39)
[2019-07-04] MEDS: THIAMINE HCL 100 MG TABLET (FP) PO SCH (21:39)
[2019-07-05] MEDS ORDERED: chlordiazePOXIDE HCL 10 MG CAPSULE PO ONE (05:00)
[2019-07-05 07:17] VITALS: TEMP 97.7
[2019-07-05] MEDS: ALBUTEROL SO4 2.5/IPRATROPIUM 0.5 INH SOL 3 ML VIAL.NEB. NEB SCH ×2 (08:50→11:03)
--- NOTE | 2019-07-05 08:58 | DS ---
[facility] Detox Discharge Summary Admission Date: 06/30/19 Discharge Date: 07/05/19 - History Present History: Alcohol Dependence - Physical Exam Results Vital Signs: Vital Signs Temperature 97.7 F 07/05/19 07:16 Pulse Rate 52 L 07/05/19 07:16 Respiratory Rate 16 07/05/19 07:16 Blood Pressure 118/73 07/05/19 07:16 O2 Sat by Pulse Oximetry (%) Pertinent Admission Physical Exam Findings: [facility] Laboratory Tests 07/01/19 07/01/19 07/01/19 07:30 07:30 07:30 WBC 3.6 L RBC 3.37 L Hgb 11.3 Hct 32.3 L MCV 95.8 MCH 33.4 MCHC 34.9 RDW 15.4 Plt Count 139 D MPV 8.2 Sodium 142 Potassium 3.6 Chloride 105 Carbon Dioxide 29 Anion Gap 8 BUN 8.4 Creatinine 0.8 Est GFR (CKD-EPI)AfAm 90.94 Est GFR (CKD-EPI)NonAf 78.46 Random Glucose 96 Calcium 8.8 Total Bilirubin 1.7 H AST 38 H ALT 18 Alkaline Phosphatase 84 Total Protein 6.2 L Albumin 3.3 L Urine Color Urine Appearance Urine pH Ur Specific [place] Urine Protein Urine Glucose (UA) Urine Ketones Urine Blood Urine Nitrite Urine Bilirubin Urine Urobilinogen Ur Leukocyte Esterase Urine WBC (Auto) Urine RBC (Auto) Urine Casts (Auto) U Epithel Cells (Auto) Urine Bacteria (Auto) RPR Titer Nonreactive HIV 1&2 Antibody Screen HIV P24 Antigen 07/01/19 07/02/19 07/02/19 07:40 09:00 09:12 WBC RBC Hgb Hct MCV MCH MCHC RDW Plt Count MPV Sodium Potassium Chloride Carbon Dioxide Anion Gap BUN Creatinine Est GFR (CKD-EPI)AfAm Est GFR (CKD-EPI)NonAf Random Glucose Calcium Total Bilirubin 1.4 H AST ALT Alkaline Phosphatase Total Protein Albumin Urine Color Yellow Urine Appearance Clear Urine pH 8.5 H D Ur Specific [place] 1.014 Urine Protein Negative Urine Glucose (UA) Negative Urine Ketones Negative Urine Blood Negative Urine Nitrite Negative Urine Bilirubin Negative Urine Urobilinogen 0.2 Ur Leukocyte Esterase 1+ H Urine WBC (Auto) 17 Urine RBC (Auto) 1 Urine Casts (Auto) 11 U Epithel Cells (Auto) 8.4 Urine Bacteria (Auto) 11.2 RPR Titer HIV 1&2 Antibody Screen Negative HIV P24 Antigen Negative today pt is aaox3 ambulating no acute distress no s/s of withdrawals - Treatment Hospital Course: Detox Protocol Followed, Detoxed Safely, Responded well, Discharged Condition Good, Rehab Referral Accepted Patient has Accepted a Rehab Referral to: referral provided - Medication Discharge Medications: Ambulatory Orders Ergocalciferol [Vitamin D2] 50,000 unit PO WEEKLY 07/27/18 Folic Acid - 1 mg PO DAILY 07/27/18 Magnesium Oxide [Mag-Ox -] 400 mg PO DAILY 07/27/18 Thiamine HCl [Vitamin B1 -] 100 mg PO DAILY 07/27/18 Cetirizine HCl [Zyrtec -] 10 mg PO DAILY 04/28/19 L. Acidophilus/Pectin, [place] [Acidophilus Probiotic Capsule] 1 each PO DAILY # 30 capsule 05/04/19 Nebulizer [Aeroeclipse II] 1 each MC DAILY 30 Days #30 each 05/04/19 Albuterol 0.083% Nebulizer Diamond [Ventolin 0.083% Nebulizer Soln -] 1 amp NEB Q4H PRN amp 05/05/19 Multivitamins [Multivit ([facility] Formulary)] 1 tab PO DAILY tab 05/05/19 Pantoprazole Sodium [Protonix -] 40 mg PO DAILY tablet.ec 05/05/19 Tiotropium [place] [Spiriva Respimat] 2 puff IH DAILY inhaler 05/05/19 Albuterol 2.5/Ipratropium 0.5 [Duoneb -] 1 amp NEB Q4H 05/07/19 Cephalexin [Keflex] 500 mg PO BID #14 capsule 06/30/19 Tramadol HCl [Ultram] 50 mg PO TID PRN 06/30/19 traZODone HCL [Trazodone HCl] 100 mg PO HS 06/30/19 - Diagnosis (1) Alcohol dependence with uncomplicated withdrawal Current Visit: Yes Status: Chronic (2) Chronic back pain Current Visit: Yes Status: Chronic Qualifiers: Back pain location: low back pain Back pain laterality: bilateral Sciatica presence: without sciatica Qualified Code(s): M54.5 - Low back pain; G89.29 - Other chronic pain (3) COPD (chronic obstructive pulmonary disease) Current Visit: Yes Status: Chronic Qualifiers: COPD type: unspecified COPD Qualified Code(s): J44.9 - Chronic obstructive pulmonary disease, unspecified (4) Frequent falls Current Visit: Yes Status: Chronic (5) HTN (hypertension) Current Visit: Yes Status: Chronic Qualifiers: Hypertension type: essential hypertension Qualified Code(s): I10 - Essential (primary) hypertension (6) History of appendectomy Current Visit: No Status: Chronic (7) History of seizure Current Visit: No Status: Chronic (8) History of thoracotomy Current Visit: No Status: Chronic (9) Depression Current Visit: No Status: Chronic - AMA Did Patient Leave Against Medical Advice: No
[2019-07-05 09:56] VITALS: BP 134/87; PULSE 84
[2019-07-05] MEDS: PANTOPRAZOLE 40 MG TABLET (FP) PO SCH (11:00)
[2019-07-05] MEDS: MAGNESIUM OXIDE 400 MG TABLET (FP) PO SCH (11:00)
[2019-07-05] MEDS: PRENATAL VITAMINS W/ FOLIC ACID TABLET (FP) PO SCH (11:00)
[2019-07-05] MEDS: TIOTROPIUM BROMIDE 2.5 MCG (SPIRIVA) RESPIMAT INHALER IH SCH (11:01)
[2019-07-05] MEDS: cloNIDine HCL 0.1 MG TABLET PO PRN (11:04)
[2019-07-07] MEDS ORDERED: ERGOCALCIFEROL (VIT D2) 50,000 UNIT (1.25 MG) CAPSULE PO SCH (10:00)
== END 2019-07-05 13:54 | disposition home or self-care (01) | DRG 775 ==
LOC: YASAS 09:54 → Y6N 11:45
PROVIDERS: ADMIT Surgery; ATTEND Surgery
PROC: HZ2ZZZZ Detoxification Services for Substance Abuse Treatment (ICD-10-PCS; principal; 2019-06-30)
DX: F10.230 Alcohol dependence with withdrawal, uncomplicated (principal); F32.9 Major depressive disorder, single episode, unspecified; I10 Essential (primary) hypertension; J44.9 Chronic obstructive pulmonary disease, unspecified; R26.9 Unspecified abnormalities of gait and mobility; E80.6 Other disorders of bilirubin metabolism; K74.60 Unspecified cirrhosis of liver; M54.5 Low back pain; G89.29 Other chronic pain; Z88.5 Allergy status to narcotic agent; Z86.69 Personal history of other diseases of the nervous system and sense organs; Z90.89 Acquired absence of other organs; Z59.0 Homelessness; Z91.5 Personal history of self-harm
CPT/HCPCS: 36415; 80053; 81003; 82247; 85027; 86593; 87389; 90670; 94640; J0735

== ENCOUNTER 2019-08-07 00:28 | Inpatient (IN) | payer OTHER ==
[2019-08-07] MEDS ORDERED: ASPIRIN 81 MG CHEWABLE TABLETS PO ONE (00:39)
[2019-08-07] MEDS ORDERED: ASPIRIN 81 MG CHEWABLE TABLETS ONE (00:59)
--- NOTE | 2019-08-07 01:46 | PDOC ---
History of Present Illness - General Chief Complaint: Chest Pain Stated Complaint: CHEST PAIN Time Seen by Provider: 08/07/19 00:38 - History of Present Illness Initial Comments: 08/07/19 01:46 63F with PMH alcohol use disorder and COPD (no home O2) who presents with shortness of breath and chest heaviness. The patient walks with a cane at baseline. Patient was recently in [facility] for COPD d/c on 07/26. She has no other complaints. ROS GENERAL/CONSTITUTIONAL: No fever or chills. No weakness. CARDIOVASCULAR: No chest pain or shortness of breath RESPIRATORY: + cough, wheezing, or hemoptysis. GASTROINTESTINAL: No nausea, vomiting, diarrhea or constipation. GENITOURINARY: No dysuria, frequency, or change in urination. MUSCULOSKELETAL: No joint or muscle pain. No neck or back pain. SKIN: No rash NEUROLOGIC: No headache, vertigo, loss of consciousness, or change in strength/ sensation. PE GENERAL: Awake, alert, and fully oriented, in no acute distress HEAD: No signs of trauma, normocephalic, atraumatic EYES: EOMI, sclera anicteric, conjunctiva clear ENT: oropharynx clear without exudates. Moist mucosa NECK: Normal ROM, supple LUNGS: No distress, speaks full sentences, decreased breath sounds throughout HEART: Regular rate and rhythm, normal S1 and S2, no murmurs, rubs or gallops, peripheral pulses normal and equal bilaterally. ABDOMEN: Soft, nontender No guarding, no rebound. No masses EXTREMITIES : Normal inspection, Normal range of motion, no edema. No clubbing or cyanosis. NEUROLOGICAL: Cranial nerves II through XII grossly intact. Normal speech, no focal sensorimotor deficits SKIN: Warm, Dry, normal turgor, no rashes or lesions noted DDX including but not limited to: COPD exacerb r/o CHF r/o ACS ED Course: patient labs wnl patient given duoneb and solumedrol still short of breath with some work of breathing cxr without acute findings ekg nsr in the 60s with no ST segment changes will plan for admission Therese Amaya, PGY2 Emergency Medicine Past History - Past Medical History Allergies/Adverse Reactions: Allergies Allergy/AdvReac Type Severity Reaction Status Date / Time codeine [Codeine] AdvReac Severe Nausea Verified 08/07/19 00:40 Home Medications: Ambulatory Orders Ergocalciferol [Vitamin D2] 50,000 unit PO WEEKLY 07/27/18 L. Acidophilus/Pectin, [place] [Acidophilus Probiotic Capsule] 1 each PO DAILY # 30 capsule 05/04/19 Nebulizer [Aeroeclipse II] 1 each MC DAILY 30 Days #30 each 05/04/19 Albuterol 0.083% Nebulizer Diamond [Ventolin 0.083% Nebulizer Soln -] 1 amp NEB Q4H PRN amp 05/05/19 Multivitamins [Multivit ([facility] Formulary)] 1 tab PO DAILY tab 05/05/19 Tiotropium [place] [Spiriva Respimat] 2 puff IH DAILY inhaler 05/05/19 Albuterol 2.5/Ipratropium 0.5 [Duoneb -] 1 amp NEB Q4H 05/07/19 traZODone HCL [Trazodone HCl] 100 mg PO HS 06/30/19 Buspirone HCl [Buspar -] 10 mg PO TID #42 tablet 08/14/19 Fluoxetine HCl 10 mg PO DAILY #14 capsule 08/14/19 Fluticasone Prop 0.05% Nasal [Flonase -] 1 spray NS BID #1 spray 08/14/19 Folic Acid - 1 mg PO DAILY #14 tablet 08/14/19 Magnesium Oxide [Mag-Ox -] 400 mg PO DAILY #14 tablet 08/14/19 Pantoprazole Sodium [Protonix -] 40 mg PO DAILY #14 tablet.ec 08/14/19 Thiamine HCl [Vitamin B1 -] 100 mg PO DAILY #14 tablet 08/14/19 Tiotropium [place] [Spiriva Respimat] 2 puff IH DAILY #1 inhaler 08/14/19 traZODone HCL [Desyrel -] 100 mg PO HS #14 tablet 08/14/19 Anemia: No Asthma: No Cancer: No Cardiac Disorders: No CVA: No (? hx of TIA) COPD: No CHF: No Diabetes: No GI Disorders: No Disorders: No HTN: No Hypercholesterolemia: No Kidney Stones: No Liver Disease: Yes (cirrhosis) Seizures: Yes Thyroid Disease: No - Surgical History Abdominal Surgery: Yes (Tubalization,s/p appendectomy in 1987) Cardiac Surgery: No Lung Surgery: Yes (Thoracotomy - 2009 for hemothorax post trauma) Neurologic Surgery: No - Reproductive History PID: No - Psycho Social/Smoking Cessation Hx Smoking History: Never smoked Have you smoked in the past 12 months: No Hx Alcohol Use: No Drug/Substance Use Hx: No Substance Use Type: Alcohol Hx Substance Use Treatment: Yes *Physical Exam - Vital Signs Last Vital Signs Temp Pulse Resp BP Pulse Ox 98.9 F 56 L 18 111/62 98 08/07/19 00:28 08/07/19 00:28 08/07/19 00:28 08/07/19 00:28 08/07/19 00:28 ED Treatment Course - LABORATORY CBC & Chemistry Diagram: 08/13/19 06:20 08/13/19 06:20 - Medications Given in the ED: ED Medications Discontinued Medications Generic Name Dose Route Start Last Admin Trade Name Freq PRN Reason Stop Dose Admin Aspirin 324 mg 08/07/19 00:39 08/07/19 01:01 Asa - PO 08/07/19 00:40 324 mg ONCE ONE Administration Discharge - Discharge Information Problems reviewed: Yes Clinical Impression/Diagnosis: COPD (chronic obstructive pulmonary disease) Qualifiers: COPD type: unspecified COPD Qualified Code(s): J44.9 - Chronic obstructive pulmonary disease, unspecified Condition: Fair Disposition: HOME - Follow up/Referral - Patient Discharge Instructions - Post Discharge Activity
--- NOTE | 2019-08-07 01:49 | PDOC ---
Attending Attestation - Resident Resident Name: Therese Amaya - ED Attending Attestation I have performed the following: I have examined & evaluated the patient, The case was reviewed & discussed with the resident, I agree w/resident's findings & plan - HPI HPI: 08/07/19 03:59 see resident hpi - Physicial Exam PE: 08/07/19 03:59 agree with resident exam - Medical Decision Making 08/07/19 03:59 63-year-old female with dyspnea on exertion and history of COPD Chest x-ray shows no focal infiltrate EKG shows no acute ST segment abnormalities Plan for labs, Solu-Medrol/duo nebs and admission to medical service for serial troponins and COPD management
[2019-08-07 02:06] LABS: BASO % 1.2 % (0-2.0); EOS % 2.6 % (0-4.5); HEMATOCRIT 36.9 % (32.4-45.2); HEMOGLOBIN 12.3 GM/dL (10.7-15.3); LYMPH % 43.5 % (8-40); MCH 31.6 pg (25.7-33.7); MCHC 33.3 g/dl (32.0-36.0); MEAN CELL VOLUME 95.2 fl (80-96); MEAN PLT VOLUME 9.5 fl (7.5-11.1); NEUT % 48.7 % (42.8-82.8); PLATELET COUNT 98 K/MM3 (134-434); RBC 3.87 M/mm3 (3.60-5.2); RDW 16.6 % (11.6-15.6); WHITE BLOOD COUNT 4.4 K/mm3 (4.0-10.0)
[2019-08-07 02:53] LABS: MAGNESIUM 1.4 mg/dL (1.8-2.4)
[2019-08-07 02:54] LABS: ALBUMIN 3.8 g/dl (3.4-5.0); BILIRUBIN,TOTAL 0.5 mg/dL (0.2-1); BLOOD UREA NITROGEN 6.4 mg/dL (7-18); CALCIUM 8.8 mg/dL (8.5-10.1); CREATININE 0.8 mg/dL (0.55-1.3); TOT PROT 6.9 g/dl (6.4-8.2)
[2019-08-07] MEDS ORDERED: ALBUTEROL SO4 2.5/IPRATROPIUM 0.5 INH SOL 3 ML VIAL.NEB. NEB ONE ×5 (03:00→05:47)
[2019-08-07 03:19] LABS: N-TERMINAL BNP 68.9 pg/ml (5-125)
[2019-08-07] MEDS ORDERED: methylPREDNISolone NA SUCC 125 MG/2 ML VIAL IVPUSH ONE (03:42)
[2019-08-07] MEDS ORDERED: methylPREDNISolone NA SUCC 125 MG/2 ML VIAL ONE (03:51)
[2019-08-07] MEDS: ALBUTEROL SO4 2.5/IPRATROPIUM 0.5 INH SOL 3 ML VIAL.NEB. NEB SCH ×8 (03:56→20:43)
--- NOTE | 2019-08-07 04:37 | HP ---
Admitting History and Physical - Primary Care Physician PCP: Dr. howard - Admission Chief Complaint: right side chest pain, SOB, SOB on exertion History of Present Illness: 63 year old female with PMHx of alcohol use disorder, COPD, Depression/ anxiety , chronic low back pain, GERD arrived to ED with complains of shortness of breath, SOB on exertions and chest heaviness, chest pain starts from right shoulder to mid-sternal, numbness to b/l feet, denies any pain on left side of chest/neck pain, denies UE pain/numbness or tingling. No fever, chills, N/V, constipation or diarrhea. Patient was recently in [facility] for COPD discharged on 07/26, and prior was hospitalized at [place] in July for detox/ alcohol rehab . 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 on 04/12/19) Pulmonary: Yes: COPD Gastrointestinal: Yes: GERD Hepatobiliary: Yes: Cirrhosis Psych: Yes: Addictions (Alcohol), Anxiety, Depression Musculoskeletal: Yes: Chronic low back pain - Past Surgical History Additional Past Surgical History: Tubalization,s/p appendectomy in 1987, Thoracotomy - 2009 for hemothorax post trauma - Smoking History Smoking history: Never smoked Have you smoked in the past 12 months: No - Alcohol/Substance Use Hx Alcohol Use: Yes Number of Drinks Daily: 1 (Vodka Bottle) History of Substance Use: reports: None - Social History Usual Living Arrangement: Yes: Other (Snf) ADL: Independent History of Recent Travel: No Home Medications - Allergies Allergies/Adverse Reactions: Allergies Allergy/AdvReac Type Severity Reaction Status Date / Time codeine [Codeine] AdvReac Severe Nausea Verified 08/07/19 00:40 - Home Medications Home Medications: Ambulatory Orders Ergocalciferol [Vitamin D2] 50,000 unit PO WEEKLY 07/27/18 Folic Acid - 1 mg PO DAILY 07/27/18 Magnesium Oxide [Mag-Ox -] 400 mg PO DAILY 07/27/18 Thiamine HCl [Vitamin B1 -] 100 mg PO DAILY 07/27/18 L. Acidophilus/Pectin, [place] [Acidophilus Probiotic Capsule] 1 each PO DAILY # 30 capsule 05/04/19 Nebulizer [Aeroeclipse II] 1 each MC DAILY 30 Days #30 each 05/04/19 Albuterol 0.083% Nebulizer Diamond [Ventolin 0.083% Nebulizer Soln -] 1 amp NEB Q4H PRN amp 05/05/19 Multivitamins [Multivit ([facility] Formulary)] 1 tab PO DAILY tab 05/05/19 Pantoprazole Sodium [Protonix -] 40 mg PO DAILY tablet.ec 05/05/19 Tiotropium [place] [Spiriva Respimat] 2 puff IH DAILY inhaler 05/05/19 Albuterol 2.5/Ipratropium 0.5 [Duoneb -] 1 amp NEB Q4H 05/07/19 Tramadol HCl [Ultram] 50 mg PO TID PRN 06/30/19 traZODone HCL [Trazodone HCl] 100 mg PO HS 06/30/19 Buspirone HCl [Buspar -] 10 mg PO TID 08/07/19 Fluoxetine HCl 10 mg PO DAILY 08/07/19 Family Medical History Family History: Denies Review of Systems - Review of Systems Constitutional: reports: No Symptoms Eyes: reports: No Symptoms HENT: reports: No Symptoms Neck: reports: No Symptoms Cardiovascular: reports: Chest Pain (right side), Shortness of Breath Respiratory: reports: SOB, SOB on Exertion Genitourinary: reports: No Symptoms Musculoskeletal: reports: No Symptoms Integumentary: reports: No Symptoms Neurological: reports: Numbness (b/l LE) Endocrine: reports: No Symptoms Hematology/Lymphatic: reports: No Symptoms Psychiatric: reports: No Symptoms Physical Examination Vital Signs: Vital Signs Temperature 98.9 F 08/07/19 00:34 Pulse Rate 56 L 08/07/19 00:34 Respiratory Rate 18 08/07/19 00:34 Blood Pressure 111/62 08/07/19 00:34 O2 Sat by Pulse Oximetry (%) 98 08/07/19 00:34 Constitutional: Yes: No Distress, Calm Eyes: Yes: Conjunctiva Clear, EOM Intact HENT: Yes: Atraumatic, Normocephalic Neck: Yes: Supple, Trachea Midline Cardiovascular: Yes: Regular Rate and Rhythm Respiratory: Yes: Regular, CTA Bilaterally Gastrointestinal: Yes: Normal Bowel Sounds, Soft Musculoskeletal: Yes: WNL Extremities: Yes: WNL Edema: Yes Edema: LLE: 1+, RLE: 1+ Peripheral Pulses WNL: Yes Integumentary: Yes: WNL Neurological: Yes: Alert, Oriented Psychiatric: Yes: Alert, Oriented Labs: CBC, BMP 08/07/19 01:50 08/07/19 01:50 Imaging - Results Chest X-ray: Report Reviewed (no acute consolidation) EKG: Report Reviewed (no acute ST segment changes) Problem List - Problems (1) Chest pain Code(s): R07.9 - CHEST PAIN, UNSPECIFIED (2) COPD (chronic obstructive pulmonary disease) Code(s): J44.9 - CHRONIC OBSTRUCTIVE PULMONARY DISEASE, UNSPECIFIED Qualifiers: COPD type: unspecified COPD Qualified Code(s): J44.9 - Chronic obstructive pulmonary disease, unspecified (3) Alcohol dependence with uncomplicated withdrawal Code(s): F10.230 - ALCOHOL DEPENDENCE WITH WITHDRAWAL, UNCOMPLICATED (4) Chronic back pain Code(s): M54.9 - DORSALGIA, UNSPECIFIED; G89.29 - OTHER CHRONIC PAIN Qualifiers: Back pain location: low back pain Back pain laterality: bilateral Sciatica presence: without sciatica Qualified Code(s): M54.5 - Low back pain; G89.29 - Other chronic pain (5) Depression Code(s): F32.9 - MAJOR DEPRESSIVE DISORDER, SINGLE EPISODE, UNSPECIFIED Assessment/Plan 63 year old female with PMHx of alcohol use disorder, COPD, Depression/ anxiety , chronic low back pain, GERD arrived to ED with complains of shortness of breath, SOB on exertions and chest heaviness, chest pain starts from right shoulder to mid-sternal, numbness to b/l feet, denies any pain on left side of chest/neck pain, denies UE pain/numbness or tingling. No fever, chills, N/V, constipation or diarrhea. Patient was recently in [facility] for COPD discharged on 07/26, and prior was hospitalized at [place] in July for detox/ alcohol rehab . #COPD exacerabtion #? chest pain tele obs - Chest x-ray shows no focal infiltrate - EKG shows no acute ST segment changes - trop: negative , awaiting # 2 trops if positive consider cardiology follow up - IN ED given: Solu-Medrol/duo nebs x2 and ASA - with relief - continue with solumedrol q 8 hours - Albuterol 0.083% Nebulizer Diamond 1 amp NEB Q4H PRN - Tiotropium [place] 2 puff IH DAILY inhaler - Albuterol 2.5/Ipratropium 0.5 1 amp NEB Q4H 05/07/19 - O2 via NC 3L/min # alcohol abuse -Folic Acid 1 mg PO DAILY -Magnesium Oxide 400 mg PO DAILY -Thiamine HCl 100 mg PO DAILY #GERD - Pantoprazole Sodium 40 mg PO DAILY #Depression/Anxiety -Fluoxetine HCl 10 mg PO DAILY -traZODone HCL 100 mg PO HS -Buspirone HCl 10 mg PO TID # chronic low back pain -Tramadol HCl 50 mg PO TID PRN DIET: cardiac diet DVT PPX: ambulation as toleration, tele obs Visit type - Emergency Visit Emergency Visit: Yes Care time: The patient presented to the Emergency Department on the above date and was hospitalized for further evaluation of their emergent condition. - New Patient This patient is new to me today: Yes Date on this admission: 08/07/19 - Critical Care Critical Care patient: No
[2019-08-07] MEDS ORDERED: ALBUTEROL SO4 0.083% IH SOL 2.5 MG/3 ML VIAL.NEB. NEB SCH (05:17)
[2019-08-07] MEDS ORDERED: busPIRone HCL 5 MG TABLET ONE (05:47)
[2019-08-07] MEDS ORDERED: ALBUTEROL SO4 0.083% IH SOL 2.5 MG/3 ML VIAL.NEB. NEB ONE (05:47)
[2019-08-07] MEDS: busPIRone HCL 10 MG TABLET (FP) PO SCH ×3 (05:55→22:41)
--- NOTE | 2019-08-07 09:20 | EKG ---
Test Reason : Blood Pressure : / mmHG Vent. Rate : 062 BPM Atrial Rate : 241 BPM P-R Int : 000 ms QRS Dur : 074 ms QT Int : 450 ms P-R-T Axes : 000 -19 -03 degrees QTc Int : 456 ms poor data quality cannot assess rhythm ANTEROLATERAL INFARCT (CITED ON OR BEFORE 05-MAY-2019) ABNORMAL ECG Confirmed by MD Brigitte, Yusef ([id number]) on 08/07/2019 9:20:17 AM Referred By: Confirmed By:Yusef Briggs MD
[2019-08-07] MEDS ORDERED: TIOTROPIUM BROMIDE 2.5 MCG (SPIRIVA) RESPIMAT INHALER IH SCH (10:00)
[2019-08-07] MEDS ORDERED: PT OWN MED DRAWER 7, Y5N ONE (11:18)
[2019-08-07] MEDS: FOLIC ACID 1 MG TABLET (FP) PO SCH (11:31)
[2019-08-07] MEDS: PANTOPRAZOLE 40 MG TABLET (FP) PO SCH (11:31)
[2019-08-07] MEDS: FLUoxetine HCL 10 MG CAPSULE (FP) PO SCH (11:31)
[2019-08-07] MEDS: THIAMINE HCL 100 MG TABLET (FP) PO SCH (11:31)
[2019-08-07] MEDS: MAGNESIUM OXIDE 400 MG TABLET (FP) PO SCH (11:31)
[2019-08-07 13:18] VITALS: BMI 27.6
[2019-08-07] MEDS ORDERED: FLU VACCINE QUAD 60 MCG/0.5 ML (MDV 19-20) IM ONE (15:00)
[2019-08-07] MEDS: traMADol HCL 50 MG TABLET PO PRN ×2 (15:30→20:45)
--- NOTE | 2019-08-07 16:01 | PN ---
Progress Note, Physician Chief Complaint: Chest Pain SOB on Exertion History of Present Illness: Previous notes and events reviewed awake and alert NAD sts having SOB with exertion denies chest pain trop neg x 1, repeat ordered - Current Medication List Current Medications: Active Medications Albuterol Sulfate (Ventolin 0.083% Nebulizer Soln -) 1 amp NEB RQ4H PRN PRN Reason: SHORT OF BREATH/WHEEZING Albuterol/Ipratropium (Duoneb -) 1 amp NEB RQ4H [facility] Last Admin: 08/07/19 08:08 Dose: 1 amp Buspirone HCl (Buspar -) 10 mg PO TID [facility] Last Admin: 08/07/19 15:32 Dose: Not Given Chlordiazepoxide HCl (Librium -) 25 mg PO Q6H PRN PRN Reason: WITHDRAWAL(CONT SUBST) Ergocalciferol (Drisdol -) 50,000 unit PO Sa@1000 [facility] Fluoxetine HCl (Prozac -) 10 mg PO DAILY [facility] Last Admin: 08/07/19 11:31 Dose: Not Given Folic Acid (Folic Acid -) 1 mg PO DAILY [facility] Last Admin: 08/07/19 11:31 Dose: 1 mg Magnesium Oxide (Mag-Ox -) 400 mg PO DAILY [facility] Last Admin: 08/07/19 11:31 Dose: 400 mg Pantoprazole Sodium (Protonix -) 40 mg PO DAILY [facility] Last Admin: 08/07/19 11:31 Dose: 40 mg Thiamine HCl (Vitamin B1 -) 100 mg PO DAILY [facility] Last Admin: 08/07/19 11:31 Dose: 100 mg Tiotropium [place] (Spiriva Respimat) 2 puff IH DAILY [facility] Tramadol HCl (Ultram -) 50 mg PO TID PRN PRN Reason: PAIN Last Admin: 08/07/19 15:30 Dose: 50 mg Trazodone HCl (Desyrel -) 100 mg PO [facility] - Objective Vital Signs: Vital Signs Temperature 97.5 F L 08/07/19 14:00 Pulse Rate 97 H 08/07/19 14:00 Respiratory Rate 20 08/07/19 14:00 Blood Pressure 157/86 08/07/19 14:00 O2 Sat by Pulse Oximetry (%) 98 08/07/19 12:56 Constitutional: Yes: No Distress, Calm Eyes: Yes: Conjunctiva Clear HENT: Yes: Atraumatic Cardiovascular: Yes: Tachycardia Respiratory: Yes: Regular, Diminished, On Nasal O2 Gastrointestinal: Yes: Normal Bowel Sounds, Soft Musculoskeletal: Yes: Muscle Weakness Extremities: Yes: WNL Edema: No Neurological: Yes: Alert, Oriented Psychiatric: Yes: Alert, Oriented Labs: CBC, BMP 08/07/19 01:50 08/07/19 01:50 Problem List - Problems (1) Chest pain Assessment/Plan: -Tele monitoring -Cardiology consult -Trop neg x 1, repeat ordered Code(s): R07.9 - CHEST PAIN, UNSPECIFIED (2) Alcohol dependence with uncomplicated withdrawal Assessment/Plan: -Dr Thurman consult -Librium Code(s): F10.230 - ALCOHOL DEPENDENCE WITH WITHDRAWAL, UNCOMPLICATED (3) COPD (chronic obstructive pulmonary disease) Assessment/Plan: -Pulm consult -Bronchodilators -Spiriva -CXR shows minimal atelectatic changes at the bases -keep SpO2 >90% -O2 via NC Code(s): J44.9 - CHRONIC OBSTRUCTIVE PULMONARY DISEASE, UNSPECIFIED Qualifiers: COPD type: unspecified COPD Qualified Code(s): J44.9 - Chronic obstructive pulmonary disease, unspecified (4) HTN (hypertension) Assessment/Plan: -monitor BP -low Na diet Code(s): I10 - ESSENTIAL (PRIMARY) HYPERTENSION Qualifiers: Hypertension type: essential hypertension Qualified Code(s): I10 - Essential (primary) hypertension (5) Chronic back pain Assessment/Plan: -Tramadol Code(s): M54.9 - DORSALGIA, UNSPECIFIED; G89.29 - OTHER CHRONIC PAIN Qualifiers: Back pain location: low back pain Back pain laterality: bilateral Sciatica presence: without sciatica Qualified Code(s): M54.5 - Low back pain; G89.29 - Other chronic pain (6) Depression Assessment/Plan: -Buspar, Trazadone, Prozac Code(s): F32.9 - MAJOR DEPRESSIVE DISORDER, SINGLE EPISODE, UNSPECIFIED (7) Frequent falls Assessment/Plan: -PT -fall precautions Code(s): R29.6 - REPEATED FALLS Assessment/Plan see problem list dvt ppx
--- NOTE | 2019-08-07 16:49 | CON.CARD ---
Consult Consult Specialty:: Cardiology Reason for Consultation:: Chest pain - History of Present Illness Chief Complaint: Chest pain and SOB History of Present Illness: This is a 63 year old female with a PMH of ETOH use disorder, OPD, Depression/ anxiety, chronic low back pain, and GERD. She was recently in [facility] for COPD discharged on 07/26, and prior was hospitalized at [place] in July for detox/ alcohol rehab. She presents now with worsening BURROWS and and episode of chest pain. She described a mid sternal pressure than lasted about 30 seconds, non radiating and not related to exertion. Presently CP free. EKG NSR at 62 BPM with leftward axis deviation, normal intervals, and PRWP across the precordial leads. 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/19) Cardio/Vascular: Yes: HTN Pulmonary: Yes: COPD Gastrointestinal: Yes: GERD Hepatobiliary: Yes: Cirrhosis ...: No Psych: Yes: Addictions (Alcohol), Anxiety, Depression Musculoskeletal: Yes: Chronic low back pain - Alcohol/Substance Use Hx Alcohol Use: Yes Number of Drinks Daily: 1 (Vodka Bottle) History of Substance Use: reports: None - Smoking History Smoking history: Former smoker Have you smoked in the past 12 months: No - Social History ADL: Independent History of Recent Travel: No Home Medications - Allergies Allergies/Adverse Reactions: Allergies Allergy/AdvReac Type Severity Reaction Status Date / Time codeine [Codeine] AdvReac Severe Nausea Verified 08/07/19 00:40 - Home Medications Home Medications: Ambulatory Orders Ergocalciferol [Vitamin D2] 50,000 unit PO WEEKLY 07/27/18 Folic Acid - 1 mg PO DAILY 07/27/18 Magnesium Oxide [Mag-Ox -] 400 mg PO DAILY 07/27/18 Thiamine HCl [Vitamin B1 -] 100 mg PO DAILY 07/27/18 L. Acidophilus/Pectin, [place] [Acidophilus Probiotic Capsule] 1 each PO DAILY # 30 capsule 05/04/19 Nebulizer [Aeroeclipse II] 1 each MC DAILY 30 Days #30 each 05/04/19 Albuterol 0.083% Nebulizer [place] [Ventolin 0.083% Nebulizer Soln -] 1 amp NEB Q4H PRN amp 05/05/19 Multivitamins [Multivit ([facility] Formulary)] 1 tab PO DAILY tab 05/05/19 Pantoprazole Sodium [Protonix -] 40 mg PO DAILY tablet.ec 05/05/19 Tiotropium [place] [Spiriva Respimat] 2 puff IH DAILY inhaler 05/05/19 Albuterol 2.5/Ipratropium 0.5 [Duoneb -] 1 amp NEB Q4H 05/07/19 Tramadol HCl [Ultram] 50 mg PO TID PRN 06/30/19 traZODone HCL [Trazodone HCl] 100 mg PO HS 06/30/19 Buspirone HCl [Buspar -] 10 mg PO TID 08/07/19 Fluoxetine HCl 10 mg PO DAILY 08/07/19 Vital Signs: Vital Signs Temperature 97.5 F L 08/07/19 14:00 Pulse Rate 97 H 08/07/19 14:00 Respiratory Rate 20 08/07/19 14:00 Blood Pressure 157/86 08/07/19 14:00 O2 Sat by Pulse Oximetry (%) 98 08/07/19 12:56 Constitutional: Yes: No Distress, Poor Hygeine HENT: Yes: WNL Neck: Yes: WNL Respiratory: Yes: Diminished Gastrointestinal: Yes: Soft Cardiovascular: Yes: Regular Rate and Rhythm (No MRHG) Edema: No Neurological: Yes: Alert, Oriented - Other Data Labs, Other Data: CBC, BMP 08/07/19 01:50 08/07/19 01:50 Troponin, BNP 08/07/19 08/07/19 08/07/19 01:50 01:50 02:35 Troponin I < 0.02 Cancelled B-Natriuretic Peptide 68.9 Cancelled Troponin, BNP 08/07/19 08/07/19 08/07/19 01:50 01:50 02:35 Troponin I < 0.02 Cancelled B-Natriuretic Peptide 68.9 Cancelled Assessment/Plan 63 year old female with a PMH of ETOH use disorder, OPD, Depression/ anxiety, chronic low back pain, and GERD. She was recently in [facility] for COPD discharged on 07/26, and prior was hospitalized at [place] in July for detox/ alcohol rehab. She presents now with worsening BURROWS and and episode of chest pain. She described a mid sternal pressure than lasted about 30 seconds, non radiating and not related to exertion. Presently CP free. EKG NSR at 62 BPM with leftward axis deviation, normal intervals, and PRWP across the precordial leads. Trop x1 neg Chest pain Atypical features Would obtain an echocardiogram Obtain 3 troponins Obtain a Lexiscan assuming the troponin remains negative Avoid Beta Major Treat to GERD Home Medications Medication Instructions Recorded Ergocalciferol [Vitamin D2] 50,000 unit PO WEEKLY 07/27/18 Folic Acid - 1 mg PO DAILY 07/27/18 Magnesium Oxide [Mag-Ox -] 400 mg PO DAILY 07/27/18 Thiamine HCl [Vitamin B1 -] 100 mg PO DAILY 07/27/18 L. Acidophilus/Pectin, [place] 1 each PO DAILY #30 capsule 05/04/19 [Acidophilus Probiotic Capsule] Nebulizer [Aeroeclipse II] 1 each MC DAILY 30 Days #30 each 05/04/19 Albuterol 0.083% Nebulizer [place] 1 amp NEB Q4H PRN amp 05/05/19 [Ventolin 0.083% Nebulizer Soln -] Multivitamins [Multivit ([facility] 1 tab PO DAILY tab 05/05/19 Formulary)] Pantoprazole Sodium [Protonix -] 40 mg PO DAILY tablet.ec 05/05/19 Tiotropium [place] [Spiriva 2 puff IH DAILY inhaler 05/05/19 Respimat] Albuterol 2.5/Ipratropium 0.5 1 amp NEB Q4H 05/07/19 [Duoneb -] Tramadol HCl [Ultram] 50 mg PO TID PRN 06/30/19 traZODone HCL [Trazodone HCl] 100 mg PO HS 06/30/19 Buspirone HCl [Buspar -] 10 mg PO TID 08/07/19 Fluoxetine HCl 10 mg PO DAILY 08/07/19
[2019-08-07] MEDS: traZODone HCL 50 MG TABLET (FP) PO SCH (22:41)
[2019-08-08] MEDS: ALBUTEROL SO4 2.5/IPRATROPIUM 0.5 INH SOL 3 ML VIAL.NEB. NEB SCH ×4 (03:18→11:05)
[2019-08-08] MEDS: busPIRone HCL 5 MG TABLET PO SCH ×3 (06:35→21:39)
[2019-08-08 06:45] LABS: HEMOGLOBIN 11.4 GM/dL (10.7-15.3); MCH 32.2 pg (25.7-33.7); MCHC 34.5 g/dl (32.0-36.0); MEAN CELL VOLUME 93.3 fl (80-96); MEAN PLT VOLUME 9.3 fl (7.5-11.1); PLATELET COUNT 95 K/MM3 (134-434); RBC 3.54 M/mm3 (3.60-5.2); RDW 16.1 % (11.6-15.6); WHITE BLOOD COUNT 3.4 K/mm3 (4.0-10.0)
[2019-08-08 07:26] LABS: ALBUMIN 3.7 g/dl (3.4-5.0); BILIRUBIN,TOTAL 1.5 mg/dL (0.2-1); CREATININE 0.8 mg/dL (0.55-1.3); TOT PROT 6.5 g/dl (6.4-8.2)
--- NOTE | 2019-08-08 08:48 | PN ---
Progress Note, Physician - Current Medication List Current Medications: Active Medications Albuterol Sulfate (Ventolin 0.083% Nebulizer Soln -) 1 amp NEB RQ4H PRN PRN Reason: SHORT OF BREATH/WHEEZING Albuterol/Ipratropium (Duoneb -) 1 amp NEB RQ4H [facility] Last Admin: 08/08/19 07:25 Dose: 1 amp Buspirone HCl (Buspar -) 10 mg PO TID [facility] Last Admin: 08/08/19 06:35 Dose: 10 mg Chlordiazepoxide HCl (Librium -) 25 mg PO Q6H PRN PRN Reason: WITHDRAWAL(CONT SUBST) Ergocalciferol (Drisdol -) 50,000 unit PO Sa@1000 [facility] Fluoxetine HCl (Prozac -) 10 mg PO DAILY [facility] Last Admin: 08/07/19 11:31 Dose: Not Given Folic Acid (Folic Acid -) 1 mg PO DAILY [facility] Last Admin: 08/07/19 11:31 Dose: 1 mg Magnesium Oxide (Mag-Ox -) 400 mg PO DAILY [facility] Last Admin: 08/07/19 11:31 Dose: 400 mg Pantoprazole Sodium (Protonix -) 40 mg PO DAILY [facility] Last Admin: 08/07/19 11:31 Dose: 40 mg Thiamine HCl (Vitamin B1 -) 100 mg PO DAILY [facility] Last Admin: 08/07/19 11:31 Dose: 100 mg Tiotropium [place] (Spiriva Respimat) 2 puff IH DAILY [facility] Tramadol HCl (Ultram -) 50 mg PO TID PRN PRN Reason: PAIN Last Admin: 08/07/19 20:45 Dose: 50 mg Trazodone HCl (Desyrel -) 100 mg PO HS [facility] Last Admin: 08/07/19 22:41 Dose: 100 mg - Objective Vital Signs: Vital Signs Temperature 98.1 F 08/08/19 01:56 Pulse Rate 80 08/08/19 05:00 Respiratory Rate 20 08/08/19 05:00 Blood Pressure 146/82 08/08/19 05:00 O2 Sat by Pulse Oximetry (%) 96 08/07/19 21:00 Labs: CBC, BMP 08/08/19 06:15 08/08/19 06:15 Assessment/Plan - Problems (1) Chest pain Assessment/Plan: -Tele monitoring -Cardiology consult noted--Echo and Stress test -Trop neg Code(s): R07.9 - CHEST PAIN, UNSPECIFIED (2) Alcohol dependence with uncomplicated withdrawal Assessment/Plan: -Dr Thurman consult -Librium Code(s): F10.230 - ALCOHOL DEPENDENCE WITH WITHDRAWAL, UNCOMPLICATED (3) COPD (chronic obstructive pulmonary disease) Assessment/Plan: -Pulm consult -Bronchodilators -Spiriva -CXR shows minimal atelectatic changes at the bases -keep SpO2 >90% -O2 via NC Code(s): J44.9 - CHRONIC OBSTRUCTIVE PULMONARY DISEASE, UNSPECIFIED Qualifiers: COPD type: unspecified COPD Qualified Code(s): J44.9 - Chronic obstructive pulmonary disease, unspecified (4) HTN (hypertension) Assessment/Plan: -monitor BP -low Na diet Code(s): I10 - ESSENTIAL (PRIMARY) HYPERTENSION Qualifiers: Hypertension type: essential hypertension Qualified Code(s): I10 - Essential (primary) hypertension (5) Chronic back pain Assessment/Plan: -Tramadol Code(s): M54.9 - DORSALGIA, UNSPECIFIED; G89.29 - OTHER CHRONIC PAIN Qualifiers: Back pain location: low back pain Back pain laterality: bilateral Sciatica presence: without sciatica Qualified Code(s): M54.5 - Low back pain; G89.29 - Other chronic pain (6) Depression Assessment/Plan: -Buspar, Trazadone, Prozac Code(s): F32.9 - MAJOR DEPRESSIVE DISORDER, SINGLE EPISODE, UNSPECIFIED (7) Frequent falls Assessment/Plan: -PT -fall precautions Code(s): R29.6 - REPEATED FALLS (8) Cirrhosis Assessment/Plan: -US (9) Pancytopenia Assessment/Plan: -2/2 cirrhosis
--- NOTE | 2019-08-08 11:32 | PN ---
Progress Note (short form) - Note Progress Note: PULMONARY CONSULTATION DICTATED 08/08/19 IMP DYSPNEA/CHEST PRESSURE R/O CARDIAC COPD ETOH ABUSE ANXIETY ? H/O PNEUMONIA ANEMIA/THROMBOCYTOPENIA PLAN ECHO INHALED BRONCHODILATORS NASAL O2 CHEST CT PFTS OUTPATIENT CARDIAC W/U PER CARDIOLOGY MONITOR CBC DR CORREA Problem List - Problems (1) Dyspnea Code(s): R06.00 - DYSPNEA, UNSPECIFIED (2) Chest pain Code(s): R07.9 - CHEST PAIN, UNSPECIFIED (3) Alcohol dependence with uncomplicated withdrawal Code(s): F10.230 - ALCOHOL DEPENDENCE WITH WITHDRAWAL, UNCOMPLICATED (4) COPD (chronic obstructive pulmonary disease) Code(s): J44.9 - CHRONIC OBSTRUCTIVE PULMONARY DISEASE, UNSPECIFIED Qualifiers: COPD type: unspecified COPD Qualified Code(s): J44.9 - Chronic obstructive pulmonary disease, unspecified (5) Chronic back pain Code(s): M54.9 - DORSALGIA, UNSPECIFIED; G89.29 - OTHER CHRONIC PAIN Qualifiers: Back pain location: low back pain Back pain laterality: bilateral Sciatica presence: without sciatica Qualified Code(s): M54.5 - Low back pain; G89.29 - Other chronic pain (6) HTN (hypertension) Code(s): I10 - ESSENTIAL (PRIMARY) HYPERTENSION Qualifiers: Hypertension type: essential hypertension Qualified Code(s): I10 - Essential (primary) hypertension
--- NOTE | 2019-08-08 11:38 | EKG ---
Test Reason : Blood Pressure : / mmHG Vent. Rate : 066 BPM Atrial Rate : 066 BPM P-R Int : 158 ms QRS Dur : 078 ms QT Int : 432 ms P-R-T Axes : 042 -17 -06 degrees QTc Int : 452 ms NORMAL SINUS RHYTHM ANTEROLATERAL INFARCT (CITED ON OR BEFORE 05-MAY-2019) ABNORMAL ECG WHEN COMPARED WITH ECG OF 07-AUG-2019 01:08, PREVIOUS ECG HAS UNDETERMINED RHYTHM, NEEDS REVIEW Confirmed by STELLA BOWEN MD ([id number]) on 08/08/2019 11:38:34 AM Referred By: Confirmed By:STELLA BOWEN MD
[2019-08-08] MEDS ORDERED: PT OWN MED DRAWER 7, Y5N ONE ×2 (12:03→17:08)
[2019-08-08] MEDS: MAGNESIUM OXIDE 400 MG TABLET (FP) PO SCH (12:11)
[2019-08-08] MEDS: FOLIC ACID 1 MG TABLET (FP) PO SCH (12:11)
[2019-08-08] MEDS: PANTOPRAZOLE 40 MG TABLET (FP) PO SCH (12:11)
[2019-08-08] MEDS: chlordiazePOXIDE HCL 25 MG CAPSULE PO PRN ×2 (12:11→21:43)
[2019-08-08] MEDS: THIAMINE HCL 100 MG TABLET (FP) PO SCH (12:11)
[2019-08-08] MEDS: FLUoxetine HCL 10 MG CAPSULE (FP) PO SCH (12:12)
--- NOTE | 2019-08-08 14:35 | ECHO ---
Name: KENDALL HENNESSY Exam:Adult Echocardiogram Study Date: 08/08/2019 10:51 AM Age: 63 yrs Reason For Study: Chest pain Height: 62 in Weight: 151 lb BSA: 1.7 m2 MMode/2D Measurements & Calculations IVSd: 0.90 cm Ao root diam: 2.7 cm LVIDd: 4.1 cm LA dimension: 3.8 cm LVIDs: 2.8 cm LVPWd: 0.98 cm LVPWs: 1.1 cm EDV(Teich): 73.5 ml ESV(Teich): 30.0 ml LVOT diam: 1.9 cm LAV (MOD-bp): 50.0 ml Doppler Measurements & Calculations MV E max dale: 61.0 cm/sec Ao V2 max: 146.8 cm/sec MV A max dale: 83.9 cm/sec Ao max P.6 mmHg MV E/A: 0.73 Ao V2 mean: 105.5 cm/sec MV dec time: 0.15 sec Ao mean P.8 mmHg Ao V2 VTI: 31.4 cm MANI(I,D): 1.9 cm2 MANI(V,D): 1.9 cm2 LV V1 max P.6 mmHg SV(LVOT): 61.0 ml LV V1 mean P.9 mmHg LV V1 max: 94.3 cm/sec LV V1 mean: 63.5 cm/sec LV V1 VTI: 20.8 cm PA V2 max: 105.9 cm/sec Med [place]: 5.3 cm/sec PA max P.5 mmHg Med E/e': 11.6 Lat [place]: 6.9 cm/sec Lat E/e': 8.8 Procedure A two-dimensional transthoracic echocardiogram with color flow and Doppler was performed. Left Ventricle The left ventricular size, thickness and function are normal. The left ventricular ejection fraction is normal. E/A reversal consistent with but not diagnostic of poor LV compliance. The left ventricular w all motion is normal. Right Ventricle The right ventricle is normal in size and function. Atria Normal left and right atrial size and function. The atrial septum is aneurysmal. Mitral Valve There is mild mitral valve thickening. There is no mitral valve stenosis. There is trace to mild mitr al regurgitation. Tricuspid Valve The tricuspid valve is normal in structure and function. There is no tricuspid stenosis. There was insufficient TR detected to calculate RV systolic pressure. Aortic Valve There is mild to moderate aortic valve thickening. There is mild aortic sclerosis.;. No hemodynamical ly significant valvular aortic stenosis. No aortic regurgitation is present. Pulmonic Valve The pulmonic valve is not well visualized. Great Vessels The aortic root is normal size. Pericardium/Pleura There is no pericardial effusion. Interpretation Summary The left ventricular size, thickness and function are normal There is mild to moderate aortic valve thickening. The left ventricular ejection fraction is normal. The left ventricular wall motion is normal. The atrial septum is aneurysmal. E/A reversal consistent with but not diagnostic of poor LV compliance There is trace to mild mitral regurgitation. There was insufficient TR detected to calculate RV systolic pressure. MD Jigar Sorenson 08/08/2019 02:34 PM
[2019-08-08] MEDS: ALBUTEROL SO4 0.083% IH SOL 2.5 MG/3 ML VIAL.NEB. NEB PRN (16:05)
--- NOTE | 2019-08-08 16:55 | PN ---
Progress Note, Physician Chief Complaint: No new complaints History of Present Illness: This is a 63 year old female with a PMH of ETOH use disorder, OPD, Depression/ anxiety, chronic low back pain, and GERD. She was recently in [facility] for COPD discharged on 07/26, and prior was hospitalized at [facility] in July for detox/ alcohol rehab. She presents now with worsening BURROWS and and episode of chest pain. She described a mid sternal pressure than lasted about 30 seconds, non radiating and not related to exertion. Presently CP free. EKG NSR at 62 BPM with leftward axis deviation, normal intervals, and PRWP across the precordial leads. Trop x2 neg - Current Medication List Current Medications: Active Medications Albuterol Sulfate (Ventolin 0.083% Nebulizer Soln -) 1 amp NEB RQ4H PRN PRN Reason: SHORT OF BREATH/WHEEZING Last Admin: 08/08/19 16:05 Dose: 1 amp Buspirone HCl (Buspar -) 10 mg PO TID [facility] Last Admin: 08/08/19 06:35 Dose: 10 mg Chlordiazepoxide HCl (Librium -) 25 mg PO Q6H PRN PRN Reason: WITHDRAWAL(CONT SUBST) Last Admin: 08/08/19 12:11 Dose: 25 mg Ergocalciferol (Drisdol -) 50,000 unit PO Sa@1000 [facility] Fluoxetine HCl (Prozac -) 10 mg PO DAILY [facility] Last Admin: 08/08/19 12:12 Dose: 10 mg Folic Acid (Folic Acid -) 1 mg PO DAILY [facility] Last Admin: 08/08/19 12:11 Dose: 1 mg Magnesium Oxide (Mag-Ox -) 400 mg PO DAILY [facility] Last Admin: 08/08/19 12:11 Dose: 400 mg Pantoprazole Sodium (Protonix -) 40 mg PO DAILY [facility] Last Admin: 08/08/19 12:11 Dose: 40 mg Thiamine HCl (Vitamin B1 -) 100 mg PO DAILY [facility] Last Admin: 08/08/19 12:11 Dose: 100 mg Tiotropium [place] (Spiriva Respimat) 2 puff IH DAILY [facility] Tramadol HCl (Ultram -) 50 mg PO TID PRN PRN Reason: PAIN Last Admin: 08/07/19 20:45 Dose: 50 mg Trazodone HCl (Desyrel -) 100 mg PO HS [facility] Last Admin: 08/07/19 22:41 Dose: 100 mg - Objective Vital Signs: Vital Signs Temperature 98.2 F 08/08/19 14:00 Pulse Rate 72 08/08/19 14:00 Respiratory Rate 20 08/08/19 14:00 Blood Pressure 126/72 08/08/19 14:00 O2 Sat by Pulse Oximetry (%) 97 08/08/19 09:00 Constitutional: Yes: No Distress Eyes: Yes: WNL HENT: Yes: WNL Cardiovascular: Yes: Regular Rate and Rhythm, S1, S2 Respiratory: Yes: Diminished (basilar) Gastrointestinal: Yes: Soft Edema: No Wound/Incision: Yes: Unapproximated Neurological: Yes: Alert Labs: CBC, BMP 08/08/19 06:15 08/08/19 06:15 Assessment/Plan 63 year old female with a PMH of ETOH use disorder, OPD, Depression/ anxiety, chronic low back pain, and GERD. She was recently in [facility] for COPD discharged on 07/26, and prior was hospitalized at [facility] in July for detox/ alcohol rehab. She presents now with worsening BURROWS and and episode of chest pain. She described a mid sternal pressure than lasted about 30 seconds, non radiating and not related to exertion. Presently CP free. EKG NSR at 62 BPM with leftward axis deviation, normal intervals, and PRWP across the precordial leads. Trop x2 neg Echo normal LV fxn Chest pain Atypical features Obtain a Lexiscan Avoid Beta Major
--- NOTE | 2019-08-08 17:23 | CONS ---
DATE OF CONSULTATION: 08/08/2019 PULMONARY CONSULTATION REFERRING PHYSICIAN: Dillan Strange MD HISTORY OF PRESENT ILLNESS: The patient is a 63-year-old white female with a past medical history of hypertension, ETOH abuse, COPD, depression, anxiety, chronic back pain, pneumonia in May 2019. She was readmitted to [facility] secondary to shortness of breath and midsternal chest pain. The patient was recently in [facility] for COPD and was discharged on July 26. Prior to admission to [facility], she was at [facility] in July for detox and ETOH rehab. She presented to [facility] on August 07 with complaints of dyspnea on exertion as well as chest pain pressure-like. She denies any nausea, vomiting or diaphoresis. She has shortness of breath, increasing with exertion as well as occasionally at rest. She denies any chronic cough, hemoptysis, nausea, fever or chills. She is a nonsmoker. 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 PAST MEDICAL HISTORY: Again, this includes hypertension, ETOH abuse, COPD, depression, anxiety, chronic back pain, GERD, cirrhosis. SOCIAL HISTORY: Nonsmoker. ETOH: Approximately one bottle of vodka daily. 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 REVIEW OF SYSTEMS: No orthopnea or PND. Positive for dyspnea on exertion, positive for occasional on shortness of breath at rest. No cough, no palpitations, no hemoptysis. Positive chest discomfort, positive chest tightness. No lower extremity edema. CURRENT MEDICATIONS: Prozac, magnesium oxide, Desyrel, Spiriva, BuSpar, Librium , albuterol, DuoNeb, Ultram, Protonix, folic acid. PHYSICAL EXAMINATION: General: The patient is a thin female, awake and alert, in no acute distress. Vital Signs: She is afebrile. Blood pressure is 146/82, respiratory rate 20, O2 saturation is 96% on 3 liters per nasal cannula. HEENT: Head is normocephalic, atraumatic. Neck: Supple. Heart: Regular, S1, S2. Chest: Clear. Abdomen: Soft. Bowel sounds are positive. Extremities: No cyanosis or edema. LABORATORY: WBC is 3.4, hemoglobin 11.4, hematocrit 33.3, platelet count of 95, 000. INR is 1.26. BUN 9, creatinine 0.8, BNP is 68.9, troponin negative. A chest x-ray shows scoliosis and mild atelectasis at the bases. Of note, the patient had a CT scan of the chest in May that revealed a right lower lobe consolidation and minimal left lower lobe discoid atelectasis. IMPRESSION: 1. Dyspnea and chest pressure; rule out cardiac etiology. 2. Chronic obstructive pulmonary disease. 3. History of ETOH. 4. History of cirrhosis. 5. Anxiety. 6. Possible history of pneumonia vs. atelectasis, right lower lobe. PLAN: 1. Obtain echo and a chest CT. 2. Inhaled bronchodilators. 3. PFT as an outpatient. 4. Further cardiac workup as per cardiology. SANTOSH CORREA M.D. EMMANUEL/[id number] MTDD
[2019-08-08] MEDS: traZODone HCL 50 MG TABLET (FP) PO SCH (21:39)
[2019-08-09] MEDS: busPIRone HCL 5 MG TABLET PO SCH ×3 (05:51→21:58)
[2019-08-09] MEDS: ALBUTEROL SO4 0.083% IH SOL 2.5 MG/3 ML VIAL.NEB. NEB PRN (07:35)
[2019-08-09 07:40] LABS: BASO % 0.5 % (0-2.0); EOS % 0.8 % (0-4.5); HEMATOCRIT 34.1 % (32.4-45.2); HEMOGLOBIN 11.6 GM/dL (10.7-15.3); LYMPH % 25.4 % (8-40); MEAN CELL VOLUME 94.1 fl (80-96); MEAN PLT VOLUME 9.4 fl (7.5-11.1); MONO % 4.9 % (3.8-10.2); NEUT % 68.4 % (42.8-82.8); PLATELET COUNT 78 K/MM3 (134-434); RBC 3.63 M/mm3 (3.60-5.2); RDW 16.2 % (11.6-15.6); WHITE BLOOD COUNT 3.3 K/mm3 (4.0-10.0)
[2019-08-09 08:13] LABS: ALBUMIN 3.6 g/dl (3.4-5.0); BILIRUBIN,TOTAL 1.4 mg/dL (0.2-1); CALCIUM 8.8 mg/dL (8.5-10.1); CREATININE 0.8 mg/dL (0.55-1.3); POTASSIUM 3.5 mmol/L (3.5-5.1); TOT PROT 6.2 g/dl (6.4-8.2)
[2019-08-09] MEDS ORDERED: REGADENOSON 0.4 MG/5 ML PRE-FILLED SYRINGE IVPUSH ONE ×2 (09:30→10:28)
[2019-08-09] MEDS: FLUoxetine HCL 10 MG CAPSULE (FP) PO SCH (14:08)
[2019-08-09] MEDS: MAGNESIUM OXIDE 400 MG TABLET (FP) PO SCH (14:08)
[2019-08-09] MEDS: PANTOPRAZOLE 40 MG TABLET (FP) PO SCH (14:08)
[2019-08-09] MEDS: FOLIC ACID 1 MG TABLET (FP) PO SCH (14:09)
[2019-08-09] MEDS: THIAMINE HCL 100 MG TABLET (FP) PO SCH (14:09)
[2019-08-09] MEDS: chlordiazePOXIDE HCL 25 MG CAPSULE PO PRN ×2 (14:09→21:58)
--- NOTE | 2019-08-09 14:39 | PN ---
Progress Note, Physician Chief Complaint: patient complained of right sided chest pain in the morning around her breast then it subsided - Current Medication List Current Medications: Active Medications Albuterol Sulfate (Ventolin 0.083% Nebulizer Soln -) 1 amp NEB RQ4H PRN PRN Reason: SHORT OF BREATH/WHEEZING Last Admin: 08/09/19 07:35 Dose: 1 amp Buspirone HCl (Buspar -) 10 mg PO TID [facility] Last Admin: 08/09/19 05:51 Dose: Not Given Chlordiazepoxide HCl (Librium -) 25 mg PO Q6H PRN PRN Reason: WITHDRAWAL(CONT SUBST) Last Admin: 08/09/19 14:09 Dose: 25 mg Ergocalciferol (Drisdol -) 50,000 unit PO Sa@1000 [facility] Fluoxetine HCl (Prozac -) 10 mg PO DAILY [facility] Last Admin: 08/09/19 14:08 Dose: 10 mg Folic Acid (Folic Acid -) 1 mg PO DAILY [facility] Last Admin: 08/09/19 14:09 Dose: 1 mg Magnesium Oxide (Mag-Ox -) 400 mg PO DAILY [facility] Last Admin: 08/09/19 14:08 Dose: 400 mg Pantoprazole Sodium (Protonix -) 40 mg PO DAILY [facility] Last Admin: 08/09/19 14:08 Dose: 40 mg Thiamine HCl (Vitamin B1 -) 100 mg PO DAILY [facility] Last Admin: 08/09/19 14:09 Dose: 100 mg Tramadol HCl (Ultram -) 50 mg PO TID PRN PRN Reason: PAIN Last Admin: 08/07/19 20:45 Dose: 50 mg Trazodone HCl (Desyrel -) 100 mg PO [facility] Last Admin: 08/08/19 21:39 Dose: 100 mg - Objective Vital Signs: Vital Signs Temperature 98.4 F 08/09/19 14:00 Pulse Rate 80 08/09/19 14:00 Respiratory Rate 20 08/09/19 14:00 Blood Pressure 136/71 08/09/19 14:00 O2 Sat by Pulse Oximetry (%) 98 08/08/19 21:00 Constitutional: Yes: Calm Neck: Yes: Trachea Midline Cardiovascular: Yes: Regular Rate and Rhythm, S1, S2 Respiratory: Yes: CTA Bilaterally Edema: No Labs: CBC, BMP 08/09/19 06:45 08/09/19 06:45 Problem List - Problems (1) Chest pain Assessment/Plan: atypical chest pain stress test negative troponin 3 sets negative discharge if ok with cardiology Code(s): R07.9 - CHEST PAIN, UNSPECIFIED (2) Alcohol dependence with uncomplicated withdrawal Assessment/Plan: lirbrium prn Code(s): F10.230 - ALCOHOL DEPENDENCE WITH WITHDRAWAL, UNCOMPLICATED
--- NOTE | 2019-08-09 16:11 | PN ---
Progress Note, Physician Chief Complaint: No new complaints History of Present Illness: This is a 63 year old female with a PMH of ETOH use disorder, OPD, Depression/ anxiety, chronic low back pain, and GERD. She was recently in [facility] for COPD discharged on 07/26, and prior was hospitalized at [facility] in July for detox/ alcohol rehab. She presents now with worsening BURROWS and and episode of chest pain. She described a mid sternal pressure than lasted about 30 seconds, non radiating and not related to exertion. Presently CP free. EKG NSR at 62 BPM with leftward axis deviation, normal intervals, and PRWP across the precordial leads. Trop x2 neg - Current Medication List Current Medications: Active Medications Albuterol Sulfate (Ventolin 0.083% Nebulizer Soln -) 1 amp NEB RQ4H PRN PRN Reason: SHORT OF BREATH/WHEEZING Last Admin: 08/09/19 07:35 Dose: 1 amp Buspirone HCl (Buspar -) 10 mg PO TID [facility] Last Admin: 08/09/19 05:51 Dose: Not Given Chlordiazepoxide HCl (Librium -) 25 mg PO Q6H PRN PRN Reason: WITHDRAWAL(CONT SUBST) Last Admin: 08/09/19 14:09 Dose: 25 mg Ergocalciferol (Drisdol -) 50,000 unit PO Sa@1000 [facility] Fluoxetine HCl (Prozac -) 10 mg PO DAILY [facility] Last Admin: 08/09/19 14:08 Dose: 10 mg Folic Acid (Folic Acid -) 1 mg PO DAILY [facility] Last Admin: 08/09/19 14:09 Dose: 1 mg Magnesium Oxide (Mag-Ox -) 400 mg PO DAILY [facility] Last Admin: 08/09/19 14:08 Dose: 400 mg Pantoprazole Sodium (Protonix -) 40 mg PO DAILY [facility] Last Admin: 08/09/19 14:08 Dose: 40 mg Thiamine HCl (Vitamin B1 -) 100 mg PO DAILY [facility] Last Admin: 08/09/19 14:09 Dose: 100 mg Tramadol HCl (Ultram -) 50 mg PO TID PRN PRN Reason: PAIN Last Admin: 08/07/19 20:45 Dose: 50 mg Trazodone HCl (Desyrel -) 100 mg PO HS [facility] Last Admin: 08/08/19 21:39 Dose: 100 mg - Objective Vital Signs: Vital Signs Temperature 98.4 F 08/09/19 14:00 Pulse Rate 80 08/09/19 14:00 Respiratory Rate 20 08/09/19 14:00 Blood Pressure 136/71 08/09/19 14:00 O2 Sat by Pulse Oximetry (%) 96 08/09/19 10:00 Constitutional: Yes: No Distress Eyes: Yes: WNL HENT: Yes: WNL Neck: Yes: WNL Cardiovascular: Yes: Regular Rate and Rhythm Respiratory: Yes: CTA Bilaterally Gastrointestinal: Yes: Soft Extremities: Yes: WNL Edema: No Neurological: Yes: Alert, Oriented Labs: CBC, BMP 08/09/19 06:45 08/09/19 06:45 Assessment/Plan 63 year old female with a PMH of ETOH use disorder, OPD, Depression/ anxiety, chronic low back pain, and GERD. She was recently in [facility] for COPD discharged on 07/26, and prior was hospitalized at [facility] in July for detox/ alcohol rehab. She presents now with worsening BURROWS and and episode of chest pain. She described a mid sternal pressure than lasted about 30 seconds, non radiating and not related to exertion. Presently CP free. EKG NSR at 62 BPM with leftward axis deviation, normal intervals, and PRWP across the precordial leads. Trop x2 neg Echo normal LV fxn Chest pain Atypical features Lexiscan Normal perfusion Avoid Beta Major Call prn
[2019-08-09] MEDS: traMADol HCL 50 MG TABLET PO PRN (17:59)
[2019-08-09] MEDS: traZODone HCL 50 MG TABLET (FP) PO SCH (21:57)
[2019-08-10] MEDS: busPIRone HCL 5 MG TABLET PO SCH ×3 (06:14→22:23)
[2019-08-10] MEDS ORDERED: PT OWN MED DRAWER 7, Y5N ONE ×2 (08:16→09:59)
[2019-08-10] MEDS: MAGNESIUM OXIDE 400 MG TABLET (FP) PO SCH (09:58)
[2019-08-10] MEDS: THIAMINE HCL 100 MG TABLET (FP) PO SCH (09:58)
[2019-08-10] MEDS: PANTOPRAZOLE 40 MG TABLET (FP) PO SCH (09:58)
[2019-08-10] MEDS: FOLIC ACID 1 MG TABLET (FP) PO SCH (09:58)
[2019-08-10] MEDS: FLUoxetine HCL 10 MG CAPSULE (FP) PO SCH (10:00)
--- NOTE | 2019-08-10 12:01 | PN ---
Progress Note, Physician History of Present Illness: PULMONARY ALERT,LESS DYSPNEIC,-CP.LEXISCAN NO ISCHEMIA - Current Medication List Current Medications: Active Medications Albuterol Sulfate (Ventolin 0.083% Nebulizer Soln -) 1 amp NEB RQ4H PRN PRN Reason: SHORT OF BREATH/WHEEZING Last Admin: 08/09/19 07:35 Dose: 1 amp Buspirone HCl (Buspar -) 10 mg PO TID [facility] Last Admin: 08/10/19 06:14 Dose: 10 mg Chlordiazepoxide HCl (Librium -) 25 mg PO Q6H PRN PRN Reason: WITHDRAWAL(CONT SUBST) Last Admin: 08/09/19 21:58 Dose: 25 mg Ergocalciferol (Drisdol -) 50,000 unit PO Sa@1000 [facility] Fluoxetine HCl (Prozac -) 10 mg PO DAILY [facility] Last Admin: 08/10/19 10:00 Dose: 10 mg Folic Acid (Folic Acid -) 1 mg PO DAILY [facility] Last Admin: 08/10/19 09:58 Dose: 1 mg Magnesium Oxide (Mag-Ox -) 400 mg PO DAILY [facility] Last Admin: 08/10/19 09:58 Dose: 400 mg Pantoprazole Sodium (Protonix -) 40 mg PO DAILY [facility] Last Admin: 08/10/19 09:58 Dose: 40 mg Thiamine HCl (Vitamin B1 -) 100 mg PO DAILY [facility] Last Admin: 08/10/19 09:58 Dose: 100 mg Tramadol HCl (Ultram -) 50 mg PO TID PRN PRN Reason: PAIN Last Admin: 08/09/19 17:59 Dose: 50 mg Trazodone HCl (Desyrel -) 100 mg PO [facility] Last Admin: 08/09/19 21:57 Dose: 100 mg - Objective Vital Signs: Vital Signs Temperature 98.4 F 08/10/19 10:00 Pulse Rate 72 08/10/19 10:00 Respiratory Rate 18 08/10/19 10:00 Blood Pressure 123/73 08/10/19 10:00 O2 Sat by Pulse Oximetry (%) 96 08/10/19 10:00 Constitutional: Yes: Well Nourished, Calm Eyes: Yes: WNL HENT: Yes: WNL Neck: Yes: WNL Cardiovascular: Yes: Regular Rate and Rhythm, S1, S2 Respiratory: Yes: CTA Bilaterally Gastrointestinal: Yes: Normal Bowel Sounds, Soft Extremities: Yes: WNL Edema: No Labs: CBC, BMP Problem List - Problems (1) Dyspnea Code(s): R06.00 - DYSPNEA, UNSPECIFIED (2) Chest pain Code(s): R07.9 - CHEST PAIN, UNSPECIFIED (3) Alcohol dependence with uncomplicated withdrawal Code(s): F10.230 - ALCOHOL DEPENDENCE WITH WITHDRAWAL, UNCOMPLICATED (4) COPD (chronic obstructive pulmonary disease) Code(s): J44.9 - CHRONIC OBSTRUCTIVE PULMONARY DISEASE, UNSPECIFIED Qualifiers: COPD type: unspecified COPD Qualified Code(s): J44.9 - Chronic obstructive pulmonary disease, unspecified (5) Chronic back pain Code(s): M54.9 - DORSALGIA, UNSPECIFIED; G89.29 - OTHER CHRONIC PAIN Qualifiers: Back pain location: low back pain Back pain laterality: bilateral Sciatica presence: without sciatica Qualified Code(s): M54.5 - Low back pain; G89.29 - Other chronic pain (6) HTN (hypertension) Code(s): I10 - ESSENTIAL (PRIMARY) HYPERTENSION Qualifiers: Hypertension type: essential hypertension Qualified Code(s): I10 - Essential (primary) hypertension Assessment/Plan IMP DYSPNEA/CHEST PRESSURE IMPROVING R/O CARDIAC NEGATIVE W/U COPD ETOH ABUSE ANXIETY ? H/O PNEUMONIA ANEMIA/THROMBOCYTOPENIA PLAN INHALED BRONCHODILATORS NASAL O2 CHEST CT PFTS OUTPATIENT MONITOR MADYSON CORREA Problem List - Problems (1) Dyspnea Code(s): R06.00 - DYSPNEA, UNSPECIFIED (2) Chest pain Code(s): R07.9 - CHEST PAIN, UNSPECIFIED (3) Alcohol dependence with uncomplicated withdrawal Code(s): F10.230 - ALCOHOL DEPENDENCE WITH WITHDRAWAL, UNCOMPLICATED (4) COPD (chronic obstructive pulmonary disease) Code(s): J44.9 - CHRONIC OBSTRUCTIVE PULMONARY DISEASE, UNSPECIFIED Qualifiers: COPD type: unspecified COPD Qualified Code(s): J44.9 - Chronic obstructive pulmonary disease, unspecified (5) Chronic back pain Code(s): M54.9 - DORSALGIA, UNSPECIFIED; G89.29 - OTHER CHRONIC PAIN Qualifiers: Back pain location: low back pain Back pain laterality: bilateral Sciatica presence: without sciatica Qualified Code(s): M54.5 - Low back pain; G89.29 - Other chronic pain (6) HTN (hypertension) Code(s): I10 - ESSENTIAL (PRIMARY) HYPERTENSION Qualifiers: Hypertension type: essential hypertension Qualified Code(s): I10 - Essential (primary) hypertension
[2019-08-10] MEDS ORDERED: IBUPROFEN 400 MG TABLET (FP) PO ONE (15:03)
--- NOTE | 2019-08-10 15:29 | PN ---
Progress Note, Physician Chief Complaint: patient seen and examined and awaiting for insurance paperwork complains of rhinorrhea - Current Medication List Current Medications: Active Medications Albuterol Sulfate (Ventolin 0.083% Nebulizer Soln -) 1 amp NEB RQ4H PRN PRN Reason: SHORT OF BREATH/WHEEZING Last Admin: 08/09/19 07:35 Dose: 1 amp Buspirone HCl (Buspar -) 10 mg PO TID [facility] Last Admin: 08/10/19 15:21 Dose: 10 mg Chlordiazepoxide HCl (Librium -) 25 mg PO Q6H PRN PRN Reason: WITHDRAWAL(CONT SUBST) Last Admin: 08/09/19 21:58 Dose: 25 mg Ergocalciferol (Drisdol -) 50,000 unit PO Sa@1000 [facility] Fluoxetine HCl (Prozac -) 10 mg PO DAILY [facility] Last Admin: 08/10/19 10:00 Dose: 10 mg Folic Acid (Folic Acid -) 1 mg PO DAILY [facility] Last Admin: 08/10/19 09:58 Dose: 1 mg Magnesium Oxide (Mag-Ox -) 400 mg PO DAILY [facility] Last Admin: 08/10/19 09:58 Dose: 400 mg Pantoprazole Sodium (Protonix -) 40 mg PO DAILY [facility] Last Admin: 08/10/19 09:58 Dose: 40 mg Thiamine HCl (Vitamin B1 -) 100 mg PO DAILY [facility] Last Admin: 08/10/19 09:58 Dose: 100 mg Tramadol HCl (Ultram -) 50 mg PO TID PRN PRN Reason: PAIN Last Admin: 08/09/19 17:59 Dose: 50 mg Trazodone HCl (Desyrel -) 100 mg PO [facility] Last Admin: 08/09/19 21:57 Dose: 100 mg - Objective Vital Signs: Vital Signs Temperature 98.3 F 08/10/19 14:00 Pulse Rate 78 08/10/19 14:00 Respiratory Rate 20 08/10/19 14:00 Blood Pressure 112/68 08/10/19 14:00 O2 Sat by Pulse Oximetry (%) 96 08/10/19 10:00 Constitutional: Yes: Calm Cardiovascular: Yes: Regular Rate and Rhythm, S1, S2 Respiratory: Yes: CTA Bilaterally, On Nasal O2 Gastrointestinal: Yes: Normal Bowel Sounds, Soft Edema: No Labs: CBC, BMP 08/09/19 06:45 08/09/19 06:45 Problem List - Problems (1) Chest pain Assessment/Plan: atypical chest pain stress test negative troponin 3 sets negative Code(s): R07.9 - CHEST PAIN, UNSPECIFIED (2) Alcohol dependence with uncomplicated withdrawal Assessment/Plan: lirbrium prn Code(s): F10.230 - ALCOHOL DEPENDENCE WITH WITHDRAWAL, UNCOMPLICATED (3) Rhinorrhea Assessment/Plan: loratidine nasal sprays Code(s): J34.89 - OTHER SPECIFIED DISORDERS OF NOSE AND NASAL SINUSES (4) Elevated LFTs Assessment/Plan: incrase lft and thrombocytopneia Code(s): R94.5 - ABNORMAL RESULTS OF LIVER FUNCTION STUDIES
[2019-08-10] MEDS ORDERED: MAGNESIUM SULF 50% (8.12 MEQ/2 ML-1 GM VIAL) IVPB ONE (15:30)
[2019-08-10] MEDS ORDERED: LORATADINE 10 MG TABLET PO ONE (15:30)
[2019-08-10 16:45] LABS: BASO % 0.3 % (0-2.0); EOS % 2.5 % (0-4.5); HEMATOCRIT 34.2 % (32.4-45.2); HEMOGLOBIN 11.6 GM/dL (10.7-15.3); LYMPH % 24.3 % (8-40); MCH 32.1 pg (25.7-33.7); MCHC 33.8 g/dl (32.0-36.0); MEAN CELL VOLUME 94.9 fl (80-96); MEAN PLT VOLUME 9.6 fl (7.5-11.1); MONO % 7.4 % (3.8-10.2); NEUT % 65.5 % (42.8-82.8); PLATELET COUNT 81 K/MM3 (134-434); RDW 15.9 % (11.6-15.6); WHITE BLOOD COUNT 4.8 K/mm3 (4.0-10.0)
[2019-08-10] MEDS: FLUTICASONE PROP 0.05% 16 GM NASAL SPRAY NS SCH (17:26)
[2019-08-10] MEDS: traMADol HCL 50 MG TABLET PO PRN (22:22)
[2019-08-10] MEDS: traZODone HCL 50 MG TABLET (FP) PO SCH (22:23)
[2019-08-11] MEDS: busPIRone HCL 5 MG TABLET PO SCH ×3 (06:13→22:01)
[2019-08-11 07:01] LABS: BASO % 0.4 % (0-2.0); EOS % 5.5 % (0-4.5); HEMATOCRIT 33.7 % (32.4-45.2); HEMOGLOBIN 11.5 GM/dL (10.7-15.3); LYMPH % 29.9 % (8-40); MCH 32.5 pg (25.7-33.7); MCHC 34.2 g/dl (32.0-36.0); MEAN CELL VOLUME 94.9 fl (80-96); MEAN PLT VOLUME 9.6 fl (7.5-11.1); MONO % 8.1 % (3.8-10.2); NEUT % 56.1 % (42.8-82.8); PLATELET COUNT 73 K/MM3 (134-434); RBC 3.55 M/mm3 (3.60-5.2); RDW 15.9 % (11.6-15.6); WHITE BLOOD COUNT 3.2 K/mm3 (4.0-10.0)
[2019-08-11] MEDS ORDERED: PT OWN MED DRAWER 7, Y5N ONE (09:51)
[2019-08-11] MEDS ORDERED: ERGOCALCIFEROL (VIT D2) 50,000 UNIT (1.25 MG) CAPSULE PO SCH (10:00)
[2019-08-11] MEDS: FLUoxetine HCL 10 MG CAPSULE (FP) PO SCH (10:06)
[2019-08-11] MEDS: MAGNESIUM OXIDE 400 MG TABLET (FP) PO SCH (10:07)
[2019-08-11] MEDS: THIAMINE HCL 100 MG TABLET (FP) PO SCH (10:07)
[2019-08-11] MEDS: FOLIC ACID 1 MG TABLET (FP) PO SCH (10:07)
[2019-08-11] MEDS: PANTOPRAZOLE 40 MG TABLET (FP) PO SCH (10:07)
--- NOTE | 2019-08-11 11:14 | PN ---
Progress Note, Physician Chief Complaint: AWAKE ALERT EVENTS AND NOTES REVIEWED - Current Medication List Current Medications: Active Medications Albuterol Sulfate (Ventolin 0.083% Nebulizer Soln -) 1 amp NEB RQ4H PRN PRN Reason: SHORT OF BREATH/WHEEZING Last Admin: 08/09/19 07:35 Dose: 1 amp Buspirone HCl (Buspar -) 10 mg PO TID [facility] Last Admin: 08/11/19 06:13 Dose: 10 mg Ergocalciferol (Drisdol -) 50,000 unit PO Sa@1000 [facility] Last Admin: 08/11/19 10:07 Dose: 50,000 unit Fluoxetine HCl (Prozac -) 10 mg PO DAILY [facility] Last Admin: 08/11/19 10:06 Dose: 10 mg Fluticasone Propionate (Flonase -) 1 spray NS DAILY [facility] Last Admin: 08/10/19 17:26 Dose: 1 spray Folic Acid (Folic Acid -) 1 mg PO DAILY [facility] Last Admin: 08/11/19 10:07 Dose: 1 mg Magnesium Oxide (Mag-Ox -) 400 mg PO DAILY [facility] Last Admin: 08/11/19 10:07 Dose: 400 mg Pantoprazole Sodium (Protonix -) 40 mg PO DAILY [facility] Last Admin: 08/11/19 10:07 Dose: 40 mg Thiamine HCl (Vitamin B1 -) 100 mg PO DAILY [facility] Last Admin: 08/11/19 10:07 Dose: 100 mg Trazodone HCl (Desyrel -) 100 mg PO HS [facility] Last Admin: 08/10/19 22:23 Dose: 100 mg - Objective Vital Signs: Vital Signs Temperature 98.3 F 08/11/19 06:00 Pulse Rate 63 08/11/19 06:00 Respiratory Rate 20 08/11/19 06:00 Blood Pressure 131/72 08/11/19 06:00 O2 Sat by Pulse Oximetry (%) 95 08/10/19 21:00 Constitutional: Yes: Mild Distress Eyes: Yes: WNL HENT: Yes: WNL Neck: Yes: WNL Cardiovascular: Yes: Regular Rate and Rhythm Respiratory: Yes: WNL Gastrointestinal: Yes: WNL Genitourinary: Yes: WNL Musculoskeletal: Yes: WNL Extremities: Yes: WNL Edema: No Integumentary: Yes: WNL Wound/Incision: Yes: Clean/Dry Neurological: Yes: Pre-Existing Deficit Psychiatric: Yes: Other Labs: CBC, BMP 08/11/19 06:20 08/09/19 06:45 Problem List - Problems (1) Chest pain Code(s): R07.9 - CHEST PAIN, UNSPECIFIED (2) Dyspnea Code(s): R06.00 - DYSPNEA, UNSPECIFIED (3) Elevated LFTs Code(s): R94.5 - ABNORMAL RESULTS OF LIVER FUNCTION STUDIES (4) Alcohol dependence with uncomplicated withdrawal Code(s): F10.230 - ALCOHOL DEPENDENCE WITH WITHDRAWAL, UNCOMPLICATED (5) COPD (chronic obstructive pulmonary disease) Code(s): J44.9 - CHRONIC OBSTRUCTIVE PULMONARY DISEASE, UNSPECIFIED Qualifiers: COPD type: unspecified COPD Qualified Code(s): J44.9 - Chronic obstructive pulmonary disease, unspecified (6) Depression Code(s): F32.9 - MAJOR DEPRESSIVE DISORDER, SINGLE EPISODE, UNSPECIFIED Assessment/Plan CARDIAC WORKUP NEGATIVE [facility] FOR PLACEMENT DVT PROPHYLAXIS
--- NOTE | 2019-08-11 12:42 | PN ---
Progress Note (short form) - Note Progress Note: Feels better. Eating lunch. Less SOB. CT: non-specific 4mm LLL pleural nodule, may be inflammatory Intake & Output 08/08/19 08/09/19 08/10/19 08/11/19 23:59 23:59 23:59 23:59 Intake Total 510 260 530 130 Output Total 2 Balance 510 260 528 130 Last Vital Signs Temp Pulse Resp BP Pulse Ox 98.3 F 63 20 131/72 95 08/11/19 06:00 08/11/19 06:00 08/11/19 06:00 08/11/19 06:00 08/10/19 21:00 Active Medications Albuterol Sulfate (Ventolin 0.083% Nebulizer Soln -) 1 amp NEB RQ4H PRN PRN Reason: SHORT OF BREATH/WHEEZING Last Admin: 08/09/19 07:35 Dose: 1 amp Buspirone HCl (Buspar -) 10 mg PO TID [facility] Last Admin: 08/11/19 06:13 Dose: 10 mg Ergocalciferol (Drisdol -) 50,000 unit PO Sa@1000 [facility] Last Admin: 08/11/19 10:07 Dose: 50,000 unit Fluoxetine HCl (Prozac -) 10 mg PO DAILY [facility] Last Admin: 08/11/19 10:06 Dose: 10 mg Fluticasone Propionate (Flonase -) 1 spray NS DAILY [facility] Last Admin: 08/10/19 17:26 Dose: 1 spray Folic Acid (Folic Acid -) 1 mg PO DAILY [facility] Last Admin: 08/11/19 10:07 Dose: 1 mg Magnesium Oxide (Mag-Ox -) 400 mg PO DAILY [facility] Last Admin: 08/11/19 10:07 Dose: 400 mg Pantoprazole Sodium (Protonix -) 40 mg PO DAILY [facility] Last Admin: 08/11/19 10:07 Dose: 40 mg Thiamine HCl (Vitamin B1 -) 100 mg PO DAILY [facility] Last Admin: 08/11/19 10:07 Dose: 100 mg Trazodone HCl (Desyrel -) 100 mg PO HS [facility] Last Admin: 08/10/19 22:23 Dose: 100 mg Constitutional: Yes: NAD Eyes: Yes: WNL HENT: Yes: WNL Neck: Yes: WNL Cardiovascular: Yes: Regular Rate and Rhythm, S1, S2 Respiratory: Yes: CTA Bilaterally Gastrointestinal: Yes: Normal Bowel Sounds, Soft Extremities: Yes: WNL Edema: No Labs: Laboratory Results - last 24 hr 08/10/19 08/11/19 08/11/19 15:40 06:20 06:20 WBC 4.8 3.2 L RBC 3.60 3.55 L Hgb 11.6 11.5 Hct 34.2 33.7 MCV 94.9 94.9 MCH 32.1 32.5 MCHC 33.8 34.2 RDW 15.9 H 15.9 H Plt Count 81 L 73 L MPV 9.6 9.6 Absolute Neuts (auto) 3.1 1.8 Neutrophils % 65.5 56.1 Lymphocytes % 24.3 29.9 D Monocytes % 7.4 8.1 Eosinophils % 2.5 D 5.5 H D Basophils % 0.3 0.4 Nucleated RBC % 0 0 Magnesium 1.7 L Problem List - Problems (1) Dyspnea Code(s): R06.00 - DYSPNEA, UNSPECIFIED (2) Chest pain Code(s): R07.9 - CHEST PAIN, UNSPECIFIED (3) Alcohol dependence with uncomplicated withdrawal Code(s): F10.230 - ALCOHOL DEPENDENCE WITH WITHDRAWAL, UNCOMPLICATED (4) COPD (chronic obstructive pulmonary disease) Code(s): J44.9 - CHRONIC OBSTRUCTIVE PULMONARY DISEASE, UNSPECIFIED Qualifiers: COPD type: unspecified COPD Qualified Code(s): J44.9 - Chronic obstructive pulmonary disease, unspecified (5) Chronic back pain Code(s): M54.9 - DORSALGIA, UNSPECIFIED; G89.29 - OTHER CHRONIC PAIN Qualifiers: Back pain location: low back pain Back pain laterality: bilateral Sciatica presence: without sciatica Qualified Code(s): M54.5 - Low back pain; G89.29 - Other chronic pain (6) HTN (hypertension) Code(s): I10 - ESSENTIAL (PRIMARY) HYPERTENSION Qualifiers: Hypertension type: essential hypertension Qualified Code(s): I10 - Essential (primary) hypertension Assessment/Plan IMP DYSPNEA/CHEST PRESSURE IMPROVING R/O CARDIAC NEGATIVE W/U COPD ETOH ABUSE ANXIETY 4 MM LLL PLEURAL BASED NODULE: MAY BE INFLAMMATORY ANEMIA/THROMBOCYTOPENIA PLAN INHALED BRONCHODILATORS NASAL O2 FOLLOW CHEST CT AN OUTPATIENT PFTS OUTPATIENT MONITOR CBC DR FAULKNER
[2019-08-11] MEDS: FLUTICASONE PROP 0.05% 16 GM NASAL SPRAY NS SCH (13:43)
[2019-08-11] MEDS: traMADol HCL 50 MG TABLET PO PRN (18:54)
[2019-08-11] MEDS: traZODone HCL 50 MG TABLET (FP) PO SCH (22:01)
[2019-08-12] MEDS ORDERED: ALBUTEROL SO4 0.083% IH SOL 2.5 MG/3 ML VIAL.NEB. NEB PRN (01:59)
[2019-08-12] MEDS: busPIRone HCL 5 MG TABLET PO SCH ×3 (05:44→21:04)
[2019-08-12] MEDS: traMADol HCL 50 MG TABLET PO PRN ×2 (09:50→18:24)
[2019-08-12] MEDS: FLUoxetine HCL 10 MG CAPSULE (FP) PO SCH (09:50)
[2019-08-12] MEDS: MAGNESIUM OXIDE 400 MG TABLET (FP) PO SCH (09:51)
[2019-08-12] MEDS: THIAMINE HCL 100 MG TABLET (FP) PO SCH (09:51)
[2019-08-12] MEDS: PANTOPRAZOLE 40 MG TABLET (FP) PO SCH (09:51)
[2019-08-12] MEDS: FOLIC ACID 1 MG TABLET (FP) PO SCH (09:51)
--- NOTE | 2019-08-12 09:52 | PN ---
Progress Note (short form) - Note Progress Note: Feels overall better. Less SOB. CT: non-specific 4mm LLL pleural nodule, may be inflammatory Intake & Output 08/09/19 08/10/19 08/11/19 08/12/19 23:59 23:59 23:59 23:59 Intake Total 260 530 770 400 Output Total 2 Balance 260 528 770 400 Last Vital Signs Temp Pulse Resp BP Pulse Ox 97.9 F 88 20 131/77 95 08/11/19 21:31 08/11/19 21:31 08/11/19 21:31 08/11/19 21:31 08/11/19 21:00 Active Medications Albuterol Sulfate (Ventolin 0.083% Nebulizer Soln -) 1 amp NEB RQ4H PRN PRN Reason: SHORT OF BREATH/WHEEZING Buspirone HCl (Buspar -) 10 mg PO TID [facility] Last Admin: 08/12/19 05:44 Dose: 10 mg Ergocalciferol (Drisdol -) 50,000 unit PO Sa@1000 [facility] Fluoxetine HCl (Prozac -) 10 mg PO DAILY [facility] Fluticasone Propionate (Flonase -) 1 spray NS BID [facility] Folic Acid (Folic Acid -) 1 mg PO DAILY [facility] Magnesium Oxide (Mag-Ox -) 400 mg PO DAILY [facility] Pantoprazole Sodium (Protonix -) 40 mg PO DAILY [facility] Thiamine HCl (Vitamin B1 -) 100 mg PO DAILY [facility] Tiotropium [place] (Spiriva Respimat) 2 puff IH DAILY [facility] Tramadol HCl (Ultram -) 50 mg PO Q8H PRN PRN Reason: PAIN LEVEL 6-10 Last Admin: 08/11/19 18:54 Dose: 50 mg Trazodone HCl (Desyrel -) 100 mg PO HS [facility] Constitutional: Yes: NAD Eyes: Yes: WNL HENT: Yes: WNL Neck: Yes: WNL Cardiovascular: Yes: Regular Rate and Rhythm, S1, S2 Respiratory: Yes: CTA Bilaterally, diminished at the bases Gastrointestinal: Yes: Normal Bowel Sounds, Soft Extremities: Yes: WNL Edema: No Labs: Problem List - Problems (1) Dyspnea Code(s): R06.00 - DYSPNEA, UNSPECIFIED (2) Chest pain Code(s): R07.9 - CHEST PAIN, UNSPECIFIED (3) Alcohol dependence with uncomplicated withdrawal Code(s): F10.230 - ALCOHOL DEPENDENCE WITH WITHDRAWAL, UNCOMPLICATED (4) COPD (chronic obstructive pulmonary disease) Code(s): J44.9 - CHRONIC OBSTRUCTIVE PULMONARY DISEASE, UNSPECIFIED Qualifiers: COPD type: unspecified COPD Qualified Code(s): J44.9 - Chronic obstructive pulmonary disease, unspecified (5) Chronic back pain Code(s): M54.9 - DORSALGIA, UNSPECIFIED; G89.29 - OTHER CHRONIC PAIN Qualifiers: Back pain location: low back pain Back pain laterality: bilateral Sciatica presence: without sciatica Qualified Code(s): M54.5 - Low back pain; G89.29 - Other chronic pain (6) HTN (hypertension) Code(s): I10 - ESSENTIAL (PRIMARY) HYPERTENSION Qualifiers: Hypertension type: essential hypertension Qualified Code(s): I10 - Essential (primary) hypertension Assessment/Plan IMP DYSPNEA/CHEST PRESSURE IMPROVING R/O CARDIAC NEGATIVE W/U COPD ETOH ABUSE ANXIETY 4 MM LLL PLEURAL BASED NODULE: MAY BE INFLAMMATORY ANEMIA/THROMBOCYTOPENIA PLAN:SPIRIVA OD INHALED BRONCHODILATORS NASAL O2 FOLLOW CHEST CT AN OUTPATIENT PFTS OUTPATIENT MONITOR CBC DR FAULKNRE
[2019-08-12] MEDS ORDERED: PT OWN MED DRAWER 7, Y5N ONE ×2 (10:30→20:39)
[2019-08-12] MEDS: FLUTICASONE PROP 0.05% 16 GM NASAL SPRAY NS SCH ×2 (11:11→21:07)
[2019-08-12] MEDS: TIOTROPIUM BROMIDE 2.5 MCG (SPIRIVA) RESPIMAT INHALER IH SCH (11:12)
--- NOTE | 2019-08-12 15:56 | PN ---
Progress Note, Physician Chief Complaint: Chest Pain SOB on Exertion History of Present Illness: Previous notes and events reviewed awake and alert NAD sts having SOB with exertion no acute events overnight - Current Medication List Current Medications: Active Medications Albuterol Sulfate (Ventolin 0.083% Nebulizer Soln -) 1 amp NEB RQ4H PRN PRN Reason: SHORT OF BREATH/WHEEZING Buspirone HCl (Buspar -) 10 mg PO TID [facility] Last Admin: 08/12/19 14:16 Dose: 10 mg Ergocalciferol (Drisdol -) 50,000 unit PO Sa@1000 [facility] Fluoxetine HCl (Prozac -) 10 mg PO DAILY [facility] Last Admin: 08/12/19 09:50 Dose: 10 mg Fluticasone Propionate (Flonase -) 1 spray NS BID [facility] Last Admin: 08/12/19 11:11 Dose: 1 spray Folic Acid (Folic Acid -) 1 mg PO DAILY [facility] Last Admin: 08/12/19 09:51 Dose: 1 mg Magnesium Oxide (Mag-Ox -) 400 mg PO DAILY [facility] Last Admin: 08/12/19 09:51 Dose: 400 mg Pantoprazole Sodium (Protonix -) 40 mg PO DAILY [facility] Last Admin: 08/12/19 09:51 Dose: 40 mg Thiamine HCl (Vitamin B1 -) 100 mg PO DAILY [facility] Last Admin: 08/12/19 09:51 Dose: 100 mg Tiotropium [place] (Spiriva Respimat) 2 puff IH DAILY [facility] Last Admin: 08/12/19 11:12 Dose: 2 puff Tramadol HCl (Ultram -) 50 mg PO Q8H PRN PRN Reason: PAIN LEVEL 6-10 Last Admin: 08/12/19 09:50 Dose: 50 mg Trazodone HCl (Desyrel -) 100 mg PO [facility] - Objective Vital Signs: Vital Signs Temperature 98.7 F 08/12/19 14:55 Pulse Rate 67 08/12/19 14:55 Respiratory Rate 20 08/12/19 14:55 Blood Pressure 121/67 08/12/19 14:55 O2 Sat by Pulse Oximetry (%) 98 08/12/19 09:00 Constitutional: Yes: No Distress, Calm Eyes: Yes: Conjunctiva Clear HENT: Yes: Atraumatic Cardiovascular: Yes: Regular Rate and Rhythm Respiratory: Yes: Regular, Diminished Gastrointestinal: Yes: Normal Bowel Sounds, Soft Musculoskeletal: Yes: Muscle Weakness Extremities: Yes: WNL Edema: No Neurological: Yes: Alert, Oriented Psychiatric: Yes: Alert, Oriented Labs: CBC, BMP 08/11/19 06:20 08/09/19 06:45 Problem List - Problems (1) Chest pain Assessment/Plan: -Tele monitoring d/c -Cardiology consult -Trop neg x 1 Code(s): R07.9 - CHEST PAIN, UNSPECIFIED (2) Alcohol dependence with uncomplicated withdrawal Assessment/Plan: -Dr Thurman consult -Librium Code(s): F10.230 - ALCOHOL DEPENDENCE WITH WITHDRAWAL, UNCOMPLICATED (3) COPD (chronic obstructive pulmonary disease) Assessment/Plan: -Pulm on board -Bronchodilators -Spiriva -CXR shows minimal atelectatic changes at the bases -keep SpO2 >90% -O2 via NC Code(s): J44.9 - CHRONIC OBSTRUCTIVE PULMONARY DISEASE, UNSPECIFIED Qualifiers: COPD type: unspecified COPD Qualified Code(s): J44.9 - Chronic obstructive pulmonary disease, unspecified (4) HTN (hypertension) Assessment/Plan: -monitor BP -low Na diet Code(s): I10 - ESSENTIAL (PRIMARY) HYPERTENSION Qualifiers: Hypertension type: essential hypertension Qualified Code(s): I10 - Essential (primary) hypertension (5) Chronic back pain Assessment/Plan: -Tramadol Code(s): M54.9 - DORSALGIA, UNSPECIFIED; G89.29 - OTHER CHRONIC PAIN Qualifiers: Back pain location: low back pain Back pain laterality: bilateral Sciatica presence: without sciatica Qualified Code(s): M54.5 - Low back pain; G89.29 - Other chronic pain (6) Depression Assessment/Plan: -Buspar, Trazadone, Prozac Code(s): F32.9 - MAJOR DEPRESSIVE DISORDER, SINGLE EPISODE, UNSPECIFIED (7) Frequent falls Assessment/Plan: -PT -fall precautions Code(s): R29.6 - REPEATED FALLS Assessment/Plan see problem list dvt ppx
[2019-08-12] MEDS: traZODone HCL 50 MG TABLET (FP) PO SCH (21:04)
[2019-08-13] MEDS: traMADol HCL 50 MG TABLET PO PRN ×2 (05:49→14:18)
[2019-08-13] MEDS: busPIRone HCL 5 MG TABLET PO SCH ×3 (05:49→22:02)
[2019-08-13 07:08] LABS: HEMATOCRIT 33.3 % (32.4-45.2); HEMOGLOBIN 11.3 GM/dL (10.7-15.3); MCH 32.1 pg (25.7-33.7); MEAN CELL VOLUME 94.3 fl (80-96); MEAN PLT VOLUME 9.2 fl (7.5-11.1); PLATELET COUNT 92 K/MM3 (134-434); RBC 3.53 M/mm3 (3.60-5.2); RDW 16.4 % (11.6-15.6); WHITE BLOOD COUNT 3.5 K/mm3 (4.0-10.0)
[2019-08-13 07:40] LABS: ALBUMIN 3.3 g/dl (3.4-5.0); BILIRUBIN,TOTAL 0.6 mg/dL (0.2-1); BLOOD UREA NITROGEN 15.1 mg/dL (7-18); CALCIUM 8.6 mg/dL (8.5-10.1); CREATININE 0.8 mg/dL (0.55-1.3); POTASSIUM 3.9 mmol/L (3.5-5.1); TOT PROT 5.9 g/dl (6.4-8.2)
--- NOTE | 2019-08-13 09:40 | PN ---
Progress Note (short form) - Note Progress Note: Feels overall better. Less SOB. CT: non-specific 4mm LLL pleural nodule, may be inflammatory Intake & Output 08/10/19 08/11/19 08/12/19 08/13/19 23:59 23:59 23:59 23:59 Intake Total 530 770 600 100 Output Total 2 Balance 528 770 600 100 Last Vital Signs Temp Pulse Resp BP Pulse Ox 98.5 F 76 18 141/78 98 08/13/19 06:00 08/13/19 06:00 08/13/19 06:00 08/13/19 06:00 08/12/19 21:00 Active Medications Albuterol Sulfate (Ventolin 0.083% Nebulizer Soln -) 1 amp NEB RQ4H PRN PRN Reason: SHORT OF BREATH/WHEEZING Buspirone HCl (Buspar -) 10 mg PO TID [facility] Last Admin: 08/13/19 05:49 Dose: 10 mg Ergocalciferol (Drisdol -) 50,000 unit PO Sa@1000 [facility] Fluoxetine HCl (Prozac -) 10 mg PO DAILY [facility] Last Admin: 08/12/19 09:50 Dose: 10 mg Fluticasone Propionate (Flonase -) 1 spray NS BID [facility] Last Admin: 08/12/19 21:07 Dose: 1 spray Folic Acid (Folic Acid -) 1 mg PO DAILY [facility] Last Admin: 08/12/19 09:51 Dose: 1 mg Magnesium Oxide (Mag-Ox -) 400 mg PO DAILY [facility] Last Admin: 08/12/19 09:51 Dose: 400 mg Pantoprazole Sodium (Protonix -) 40 mg PO DAILY [facility] Last Admin: 08/12/19 09:51 Dose: 40 mg Thiamine HCl (Vitamin B1 -) 100 mg PO DAILY [facility] Last Admin: 08/12/19 09:51 Dose: 100 mg Tiotropium [place] (Spiriva Respimat) 2 puff IH DAILY [facility] Last Admin: 08/12/19 11:12 Dose: 2 puff Tramadol HCl (Ultram -) 50 mg PO Q8H PRN PRN Reason: PAIN LEVEL 6-10 Last Admin: 08/13/19 05:49 Dose: 50 mg Trazodone HCl (Desyrel -) 100 mg PO [facility] Last Admin: 08/12/19 21:04 Dose: 100 mg Constitutional: Yes: NAD Eyes: Yes: WNL HENT: Yes: WNL Neck: Yes: WNL Cardiovascular: Yes: Regular Rate and Rhythm, S1, S2 Respiratory: Yes: CTA Bilaterally, diminished at the bases Gastrointestinal: Yes: Normal Bowel Sounds, Soft Extremities: Yes: WNL Edema: No Labs: Laboratory Results - last 24 hr 08/13/19 08/13/19 06:20 06:20 WBC 3.5 L RBC 3.53 L Hgb 11.3 Hct 33.3 MCV 94.3 MCH 32.1 MCHC 34.0 RDW 16.4 H Plt Count 92 L D MPV 9.2 Sodium 139 Potassium 3.9 Chloride 107 Carbon Dioxide 28 Anion Gap 4 L BUN 15.1 Creatinine 0.8 Est GFR (CKD-EPI)AfAm 90.94 Est GFR (CKD-EPI)NonAf 78.46 Random Glucose 91 Calcium 8.6 Total Bilirubin 0.6 AST 31 ALT 31 Alkaline Phosphatase 72 Total Protein 5.9 L Albumin 3.3 L Problem List - Problems (1) Dyspnea Code(s): R06.00 - DYSPNEA, UNSPECIFIED (2) Chest pain Code(s): R07.9 - CHEST PAIN, UNSPECIFIED (3) Alcohol dependence with uncomplicated withdrawal Code(s): F10.230 - ALCOHOL DEPENDENCE WITH WITHDRAWAL, UNCOMPLICATED (4) COPD (chronic obstructive pulmonary disease) Code(s): J44.9 - CHRONIC OBSTRUCTIVE PULMONARY DISEASE, UNSPECIFIED Qualifiers: COPD type: unspecified COPD Qualified Code(s): J44.9 - Chronic obstructive pulmonary disease, unspecified (5) Chronic back pain Code(s): M54.9 - DORSALGIA, UNSPECIFIED; G89.29 - OTHER CHRONIC PAIN Qualifiers: Back pain location: low back pain Back pain laterality: bilateral Sciatica presence: without sciatica Qualified Code(s): M54.5 - Low back pain; G89.29 - Other chronic pain (6) HTN (hypertension) Code(s): I10 - ESSENTIAL (PRIMARY) HYPERTENSION Qualifiers: Hypertension type: essential hypertension Qualified Code(s): I10 - Essential (primary) hypertension Assessment/Plan IMP DYSPNEA/CHEST PRESSURE IMPROVING R/O CARDIAC NEGATIVE W/U COPD ETOH ABUSE ANXIETY 4 MM LLL PLEURAL BASED NODULE: MAY BE INFLAMMATORY ANEMIA/THROMBOCYTOPENIA PLAN:SPIRIVA OD INHALED BRONCHODILATORS NASAL O2 FOLLOW CHEST CT AN OUTPATIENT PFTS OUTPATIENT NO PULMONARY CONTRAINDICATION FOR DC DR FAULKNER
[2019-08-13] MEDS: TIOTROPIUM BROMIDE 2.5 MCG (SPIRIVA) RESPIMAT INHALER IH SCH (09:55)
[2019-08-13] MEDS: FLUoxetine HCL 10 MG CAPSULE (FP) PO SCH (09:56)
[2019-08-13] MEDS: THIAMINE HCL 100 MG TABLET (FP) PO SCH (09:56)
[2019-08-13] MEDS: PANTOPRAZOLE 40 MG TABLET (FP) PO SCH (09:56)
[2019-08-13] MEDS: MAGNESIUM OXIDE 400 MG TABLET (FP) PO SCH (09:56)
[2019-08-13] MEDS: FLUTICASONE PROP 0.05% 16 GM NASAL SPRAY NS SCH ×2 (09:56→22:05)
[2019-08-13] MEDS: FOLIC ACID 1 MG TABLET (FP) PO SCH (09:56)
--- NOTE | 2019-08-13 11:36 | DS ---
Physical Examination Vital Signs: Vital Signs Temperature 98.4 F 08/13/19 10:00 Pulse Rate 77 08/13/19 10:00 Respiratory Rate 18 08/13/19 10:00 Blood Pressure 131/78 08/13/19 10:00 O2 Sat by Pulse Oximetry (%) 98 08/13/19 09:00 Constitutional: Yes: Calm Neck: Yes: Trachea Midline Cardiovascular: Yes: Regular Rate and Rhythm, S1, S2 Respiratory: Yes: CTA Bilaterally, Diminished (at bases) Gastrointestinal: Yes: Normal Bowel Sounds, Soft Neurological: Yes: Alert Labs: CBC, BMP 08/13/19 06:20 08/13/19 06:20 Discharge Summary Problems reviewed: Yes Reason For Visit: CHRONIC OBSTRUCTIVE PULMONARY DISEASE Current Active Problems Chest pain (Acute) Dyspnea (Acute) Elevated LFTs (Acute) Rhinorrhea (Acute) Other Procedures: chest CT scarring of both lungs no infiltrates. stress test negative for ischemia. echo left ventricle ejection normal and normal thickening Hospital Course: 63 year old female with PMHx of alcohol use disorder, COPD, Depression/ anxiety , chronic low back pain, GERD arrived to ED with complains of shortness of breath, SOB on exertions and chest heaviness, chest pain starts from right shoulder to mid-sternal, numbness to b/l feet, denies any pain on left side of chest/neck pain, denies UE pain/numbness or tingling. No fever, chills, N/V, constipation or diarrhea. Patient was recently in [facility] for COPD discharged on 07/26, and prior was hospitalized at [facility] in July for detox/ alcohol rehab . patient got bronchodilators chest pain rules out with stress test and echo patient is homeless no insurance Condition: Fair - Instructions Referrals: Minnie Barnett MD, MD [Primary Care Provider] - - Home Medications Comprehensive Discharge Medication List: Ambulatory Orders Ergocalciferol [Vitamin D2] 50,000 unit PO WEEKLY 07/27/18 Folic Acid - 1 mg PO DAILY 07/27/18 Magnesium Oxide [Mag-Ox -] 400 mg PO DAILY 07/27/18 Thiamine HCl [Vitamin B1 -] 100 mg PO DAILY 07/27/18 L. Acidophilus/Pectin, [place] [Acidophilus Probiotic Capsule] 1 each PO DAILY # 30 capsule 05/04/19 Nebulizer [Aeroeclipse II] 1 each MC DAILY 30 Days #30 each 05/04/19 Albuterol 0.083% Nebulizer [place] [Ventolin 0.083% Nebulizer Soln -] 1 amp NEB Q4H PRN amp 05/05/19 Multivitamins [Multivit ([facility] Formulary)] 1 tab PO DAILY tab 05/05/19 Pantoprazole Sodium [Protonix -] 40 mg PO DAILY tablet.ec 05/05/19 Tiotropium [place] [Spiriva Respimat] 2 puff IH DAILY inhaler 05/05/19 Albuterol 2.5/Ipratropium 0.5 [Duoneb -] 1 amp NEB Q4H 05/07/19 Tramadol HCl [Ultram] 50 mg PO TID PRN 06/30/19 traZODone HCL [Trazodone HCl] 100 mg PO HS 06/30/19 Buspirone HCl [Buspar -] 10 mg PO TID 08/07/19 Fluoxetine HCl 10 mg PO DAILY 08/07/19
[2019-08-13] MEDS ORDERED: MAGNESIUM SULF 50% (8.12 MEQ/2 ML-1 GM VIAL) IVPB ONE (12:00)
[2019-08-13 12:04] LABS: MAGNESIUM 1.8 mg/dL (1.8-2.4)
--- NOTE | 2019-08-13 13:23 | CON.GI ---
Consult Consult Specialty:: GI Referred by:: Medicine Reason for Consultation:: ? cirrhosis - History of Present Illness Chief Complaint: SOB History of Present Illness: 63F with h/o COPD, ETOH abuse, depression/anxiety, reported h/o C. diff, presenting for SOB. GI consulted for ? cirrhosis seen on noncontrast chest CT. US 08/08 w hepatic parenchymal disease, hepatopedal flow in PV, limited exam TTE without TR jet - cannot assess for PAH, RHF Patient reports heavy ETOH abuse since of 16 years ago - recently 8-10 vodka drinks daily Denies drug use Reports has OP GI, Dr. 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) Cardio/Vascular: Yes: HTN Pulmonary: Yes: COPD Gastrointestinal: Yes: GERD Hepatobiliary: Yes: Cirrhosis ...: No Infectious Disease: Yes: C-Diff Psych: Yes: Addictions (Alcohol), Anxiety, Depression Musculoskeletal: Yes: Chronic low back pain - Alcohol/Substance Use Hx Alcohol Use: Yes Number of Drinks Daily: 1 (Vodka Bottle) History of Substance Use: reports: None - Smoking History Smoking history: Former smoker Have you smoked in the past 12 months: No - Social History ADL: Independent History of Recent Travel: No Home Medications - Allergies Allergies/Adverse Reactions: Allergies Allergy/AdvReac Type Severity Reaction Status Date / Time codeine [Codeine] AdvReac Severe Nausea Verified 08/07/19 00:40 - Home Medications Home Medications: Ambulatory Orders Ergocalciferol [Vitamin D2] 50,000 unit PO WEEKLY 07/27/18 Folic Acid - 1 mg PO DAILY 07/27/18 Magnesium Oxide [Mag-Ox -] 400 mg PO DAILY 07/27/18 Thiamine HCl [Vitamin B1 -] 100 mg PO DAILY 07/27/18 L. Acidophilus/Pectin, [place] [Acidophilus Probiotic Capsule] 1 each PO DAILY # 30 capsule 05/04/19 Nebulizer [Aeroeclipse II] 1 each MC DAILY 30 Days #30 each 05/04/19 Albuterol 0.083% Nebulizer [place] [Ventolin 0.083% Nebulizer Soln -] 1 amp NEB Q4H PRN amp 05/05/19 Multivitamins [Multivit ([facility] Formulary)] 1 tab PO DAILY tab 05/05/19 Pantoprazole Sodium [Protonix -] 40 mg PO DAILY tablet.ec 05/05/19 Tiotropium [place] [Spiriva Respimat] 2 puff IH DAILY inhaler 05/05/19 Albuterol 2.5/Ipratropium 0.5 [Duoneb -] 1 amp NEB Q4H 05/07/19 traZODone HCL [Trazodone HCl] 100 mg PO HS 06/30/19 Buspirone HCl [Buspar -] 10 mg PO TID 08/07/19 Fluoxetine HCl 10 mg PO DAILY 08/07/19 Family Medical History Family History: Unremarkable Review of Systems - Review of Systems Constitutional: reports: No Symptoms Eyes: reports: No Symptoms HENT: reports: No Symptoms Neck: reports: No Symptoms Cardiovascular: reports: No Symptoms Respiratory: reports: SOB, SOB on Exertion Gastrointestinal: denies: Abdominal Pain, Constipation, Diarrhea, Melena, Rectal Bleeding Breasts: reports: No Symptoms Reported Musculoskeletal: reports: No Symptoms Neurological: reports: No Symptoms Endocrine: reports: No Symptoms Hematology/Lymphatic: reports: No Symptoms Psychiatric: reports: No Symptoms Physical Exam-GI Vital Signs: Vital Signs Temperature 98.4 F 08/13/19 10:00 Pulse Rate 77 08/13/19 10:00 Respiratory Rate 18 08/13/19 10:00 Blood Pressure 131/78 08/13/19 10:00 O2 Sat by Pulse Oximetry (%) 98 08/13/19 09:00 Constitutional: Yes: Well Nourished, No Distress Eyes: Yes: WNL. No: Sclera Icterus Cardiovascular: Yes: Regular Rate and Rhythm Respiratory: Yes: CTA Bilaterally ...Palpate: Yes: Soft. No: Tenderness ...Percussion: No: Dullness, Tympanitic ...Rectal Exam: Yes: Deferred Edema: No Neurological: Yes: Alert, Oriented. No: [place] Psychiatric: Yes: Alert, Oriented Labs: CBC, BMP 08/13/19 06:20 08/13/19 06:20 Hepatic Panel Total Bilirubin 0.6 mg/dL (0.2-1) 08/13/19 06:20 AST 31 U/L (15-37) 08/13/19 06:20 ALT 31 U/L (13-61) 08/13/19 06:20 Alkaline Phosphatase 72 U/L (45-117) 08/13/19 06:20 Albumin 3.3 g/dl (3.4-5.0) L 08/13/19 06:20 Imaging - Results Cat Scan: Report Reviewed Ultrasound: Report Reviewed Other: Report Reviewed (TTE) Assessment/Plan ? cirrhosis based on CT chest - noncontrast, so cannot make any comments based on this. DDx if cirrhotic (platelets are suggestive) would be ETOH vs cardiac -- and if cirrhotic, would be compensated Would get complete abdominal US with doppler to assess spleen size, comment on size of PV Would ask if TTE can be repeated to check TR jet -- seems less likely given RV size is normal Check hepatitis serologies Further work up if necessary can be done as an outpatient, but would start w above ETOH cessation discussed
[2019-08-13] MEDS: traZODone HCL 50 MG TABLET (FP) PO SCH (22:02)
[2019-08-14] MEDS: busPIRone HCL 5 MG TABLET PO SCH ×2 (06:07→14:00)
[2019-08-14 07:56] LABS: ALBUMIN 3.4 g/dl (3.4-5.0); BILIRUBIN,DIRECT 0.2 mg/dL (0.0-0.2); BILIRUBIN,TOTAL 0.5 mg/dL (0.2-1); TOT PROT 6.3 g/dl (6.4-8.2)
[2019-08-14] MEDS: traMADol HCL 50 MG TABLET PO PRN (08:20)
[2019-08-14] MEDS ORDERED: PT OWN MED DRAWER 7, Y5N ONE (09:45)
--- NOTE | 2019-08-14 09:51 | PN ---
Progress Note (short form) - Note Progress Note: Feels overall better. Less SOB. CT: non-specific 4mm LLL pleural nodule, may be inflammatory Intake & Output 08/11/19 08/12/19 08/13/19 08/14/19 23:59 23:59 23:59 23:59 Intake Total 167 992 6395 Balance 619 261 7277 Last Vital Signs Temp Pulse Resp BP Pulse Ox 97.9 F 65 16 109/54 L 98 08/14/19 06:00 08/14/19 06:00 08/14/19 06:00 08/14/19 06:00 08/13/19 21:00 Active Medications Albuterol Sulfate (Ventolin 0.083% Nebulizer Soln -) 1 amp NEB RQ4H PRN PRN Reason: SHORT OF BREATH/WHEEZING Buspirone HCl (Buspar -) 10 mg PO TID [facility] Last Admin: 08/14/19 06:07 Dose: 10 mg Ergocalciferol (Drisdol -) 50,000 unit PO Sa@1000 [facility] Fluoxetine HCl (Prozac -) 10 mg PO DAILY [facility] Last Admin: 08/13/19 09:56 Dose: 10 mg Fluticasone Propionate (Flonase -) 1 spray NS BID [facility] Last Admin: 08/13/19 22:05 Dose: 1 spray Folic Acid (Folic Acid -) 1 mg PO DAILY [facility] Last Admin: 08/13/19 09:56 Dose: 1 mg Magnesium Oxide (Mag-Ox -) 400 mg PO DAILY [facility] Last Admin: 08/13/19 09:56 Dose: 400 mg Pantoprazole Sodium (Protonix -) 40 mg PO DAILY [facility] Last Admin: 08/13/19 09:56 Dose: 40 mg Thiamine HCl (Vitamin B1 -) 100 mg PO DAILY [facility] Last Admin: 08/13/19 09:56 Dose: 100 mg Tiotropium [place] (Spiriva Respimat) 2 puff IH DAILY [facility] Last Admin: 08/13/19 09:55 Dose: 2 puff Tramadol HCl (Ultram -) 50 mg PO Q8H PRN PRN Reason: PAIN LEVEL 6-10 Last Admin: 08/14/19 08:20 Dose: 50 mg Trazodone HCl (Desyrel -) 100 mg PO HS [facility] Last Admin: 08/13/19 22:02 Dose: 100 mg Constitutional: Yes: NAD Eyes: Yes: WNL HENT: Yes: WNL Neck: Yes: WNL Cardiovascular: Yes: Regular Rate and Rhythm, S1, S2 Respiratory: Yes: CTA Bilaterally, diminished at the bases Gastrointestinal: Yes: Normal Bowel Sounds, Soft Extremities: Yes: WNL Edema: No Labs: Laboratory Results - last 24 hr 08/13/19 08/14/19 06:20 06:40 Sodium 139 Potassium 3.9 Chloride 107 Carbon Dioxide 28 Anion Gap 4 L BUN 15.1 Creatinine 0.8 Est GFR (CKD-EPI)AfAm 90.94 Est GFR (CKD-EPI)NonAf 78.46 Random Glucose 91 Calcium 8.6 Magnesium 1.8 Total Bilirubin 0.6 0.5 Direct Bilirubin 0.2 AST 31 25 ALT 31 29 Alkaline Phosphatase 72 79 Total Protein 5.9 L 6.3 L Albumin 3.3 L 3.4 Problem List - Problems (1) Dyspnea Code(s): R06.00 - DYSPNEA, UNSPECIFIED (2) Chest pain Code(s): R07.9 - CHEST PAIN, UNSPECIFIED (3) Alcohol dependence with uncomplicated withdrawal Code(s): F10.230 - ALCOHOL DEPENDENCE WITH WITHDRAWAL, UNCOMPLICATED (4) COPD (chronic obstructive pulmonary disease) Code(s): J44.9 - CHRONIC OBSTRUCTIVE PULMONARY DISEASE, UNSPECIFIED Qualifiers: COPD type: unspecified COPD Qualified Code(s): J44.9 - Chronic obstructive pulmonary disease, unspecified (5) Chronic back pain Code(s): M54.9 - DORSALGIA, UNSPECIFIED; G89.29 - OTHER CHRONIC PAIN Qualifiers: Back pain location: low back pain Back pain laterality: bilateral Sciatica presence: without sciatica Qualified Code(s): M54.5 - Low back pain; G89.29 - Other chronic pain (6) HTN (hypertension) Code(s): I10 - ESSENTIAL (PRIMARY) HYPERTENSION Qualifiers: Hypertension type: essential hypertension Qualified Code(s): I10 - Essential (primary) hypertension Assessment/Plan IMP DYSPNEA/CHEST PRESSURE IMPROVING R/O CARDIAC NEGATIVE W/U COPD ETOH ABUSE ANXIETY 4 MM LLL PLEURAL BASED NODULE: MAY BE INFLAMMATORY ANEMIA/THROMBOCYTOPENIA PLAN:SPIRIVA OD INHALED BRONCHODILATORS NASAL O2 FOLLOW CHEST CT AN OUTPATIENT PFTS OUTPATIENT NO PULMONARY CONTRAINDICATION FOR DC DR FAULKNER
[2019-08-14 10:01] VITALS: TEMP 98.2
[2019-08-14] MEDS: PANTOPRAZOLE 40 MG TABLET (FP) PO SCH (10:02)
[2019-08-14] MEDS: FOLIC ACID 1 MG TABLET (FP) PO SCH (10:02)
[2019-08-14] MEDS: THIAMINE HCL 100 MG TABLET (FP) PO SCH (10:02)
[2019-08-14] MEDS: FLUoxetine HCL 10 MG CAPSULE (FP) PO SCH (10:02)
[2019-08-14] MEDS: MAGNESIUM OXIDE 400 MG TABLET (FP) PO SCH (10:03)
[2019-08-14] MEDS: TIOTROPIUM BROMIDE 2.5 MCG (SPIRIVA) RESPIMAT INHALER IH SCH (10:03)
[2019-08-14] MEDS: FLUTICASONE PROP 0.05% 16 GM NASAL SPRAY NS SCH (10:03)
--- NOTE | 2019-08-14 14:47 | PN ---
Progress Note, Physician Chief Complaint: Chest Pain SOB on Exertion History of Present Illness: Previous notes and events reviewed awake and alert NAD patient being discharged today does not have insurance so unable to be discharged to SNF, given list of shelters medications sent to pharmacy - Current Medication List Current Medications: Active Medications Albuterol Sulfate (Ventolin 0.083% Nebulizer Soln -) 1 amp NEB RQ4H PRN PRN Reason: SHORT OF BREATH/WHEEZING Buspirone HCl (Buspar -) 10 mg PO TID [facility] Last Admin: 08/14/19 14:00 Dose: 10 mg Ergocalciferol (Drisdol -) 50,000 unit PO Sa@1000 [facility] Fluoxetine HCl (Prozac -) 10 mg PO DAILY [facility] Last Admin: 08/14/19 10:02 Dose: 10 mg Fluticasone Propionate (Flonase -) 1 spray NS BID [facility] Last Admin: 08/14/19 10:03 Dose: 1 spray Folic Acid (Folic Acid -) 1 mg PO DAILY [facility] Last Admin: 08/14/19 10:02 Dose: 1 mg Magnesium Oxide (Mag-Ox -) 400 mg PO DAILY [facility] Last Admin: 08/14/19 10:03 Dose: 400 mg Pantoprazole Sodium (Protonix -) 40 mg PO DAILY [facility] Last Admin: 08/14/19 10:02 Dose: 40 mg Thiamine HCl (Vitamin B1 -) 100 mg PO DAILY [facility] Last Admin: 08/14/19 10:02 Dose: 100 mg Tiotropium [place] (Spiriva Respimat) 2 puff IH DAILY [facility] Last Admin: 08/14/19 10:03 Dose: 2 puff Tramadol HCl (Ultram -) 50 mg PO Q8H PRN PRN Reason: PAIN LEVEL 6-10 Last Admin: 08/14/19 08:20 Dose: 50 mg Trazodone HCl (Desyrel -) 100 mg PO HS [facility] Last Admin: 08/13/19 22:02 Dose: 100 mg - Objective Vital Signs: Vital Signs Temperature 98.2 F 08/14/19 08:15 Pulse Rate 67 08/14/19 08:15 Respiratory Rate 16 08/14/19 08:15 Blood Pressure 122/73 08/14/19 08:15 O2 Sat by Pulse Oximetry (%) 97 08/14/19 08:20 Constitutional: Yes: No Distress, Calm Eyes: Yes: Conjunctiva Clear HENT: Yes: Atraumatic Cardiovascular: Yes: Regular Rate and Rhythm Respiratory: Yes: Regular, CTA Bilaterally Gastrointestinal: Yes: Normal Bowel Sounds, Soft Musculoskeletal: Yes: Muscle Weakness Extremities: Yes: WNL Edema: No Neurological: Yes: Alert, Oriented Psychiatric: Yes: Alert, Oriented Labs: CBC, BMP 08/13/19 06:20 08/13/19 06:20 Problem List - Problems (1) Chest pain Assessment/Plan: - -Cardiology consult -Trop neg x 1 Code(s): R07.9 - CHEST PAIN, UNSPECIFIED (2) Alcohol dependence with uncomplicated withdrawal Assessment/Plan: -Dr Thurman consult -[facility] Code(s): F10.230 - ALCOHOL DEPENDENCE WITH WITHDRAWAL, UNCOMPLICATED (3) COPD (chronic obstructive pulmonary disease) Assessment/Plan: -Pulm on board -Bronchodilators -Spiriva -CXR shows minimal atelectatic changes at the bases -keep SpO2 >90% -O2 via NC Code(s): J44.9 - CHRONIC OBSTRUCTIVE PULMONARY DISEASE, UNSPECIFIED Qualifiers: COPD type: unspecified COPD Qualified Code(s): J44.9 - Chronic obstructive pulmonary disease, unspecified (4) HTN (hypertension) Assessment/Plan: -monitor BP -low Na diet Code(s): I10 - ESSENTIAL (PRIMARY) HYPERTENSION Qualifiers: Hypertension type: essential hypertension Qualified Code(s): I10 - Essential (primary) hypertension (5) Chronic back pain Assessment/Plan: -Tramadol Code(s): M54.9 - DORSALGIA, UNSPECIFIED; G89.29 - OTHER CHRONIC PAIN Qualifiers: Back pain location: low back pain Back pain laterality: bilateral Sciatica presence: without sciatica Qualified Code(s): M54.5 - Low back pain; G89.29 - Other chronic pain (6) Depression Assessment/Plan: -Buspar, Trazadone, Prozac Code(s): F32.9 - MAJOR DEPRESSIVE DISORDER, SINGLE EPISODE, UNSPECIFIED (7) Frequent falls Assessment/Plan: -PT -fall precautions Code(s): R29.6 - REPEATED FALLS Assessment/Plan see problem list dvt ppx given list of shelters medications sent to pharmacy
[2019-08-14 15:38] VITALS: BP 130/58; PULSE 71
[2019-08-15 20:07] LABS: HEP B CORE AB, TOT Positive (Negative)
[2019-08-17 02:06] LABS: FIBROSIS SCORE. 0.44 (0.00-0.21); HCV ALPHA 2 MACRO CHART 202 mg/dL (110-276); NECRO.INFLAM ACT.SCORE 0.12 (0.00-0.17); NECROINFLAM. ACTIVITY GRADE A0-No activity (.)
[2019-08-18] MEDS ORDERED: ERGOCALCIFEROL (VIT D2) 50,000 UNIT (1.25 MG) CAPSULE PO SCH (10:00)
== END 2019-08-14 16:34 | disposition home or self-care (01) | DRG 203 ==
LOC: JER 00:28 → JERBED 04:13 → J4W 09:25 → OBSVTOIN 08-08 09:55 → J7W 08-11 14:25
PROVIDERS: ADMIT Internal Medicine; ATTEND Family Medicine
DX: R07.89 Other chest pain (principal); J44.9 Chronic obstructive pulmonary disease, unspecified; K21.9 Gastro-esophageal reflux disease without esophagitis; F41.8 Other specified anxiety disorders; M54.5 Low back pain; K70.30 Alcoholic cirrhosis of liver without ascites; F10.230 Alcohol dependence with withdrawal, uncomplicated; G89.29 Other chronic pain; R29.6 Repeated falls; D61.818 Other pancytopenia; D64.9 Anemia, unspecified; D69.6 Thrombocytopenia, unspecified; F32.9 Major depressive disorder, single episode, unspecified; J34.89 Other specified disorders of nose and nasal sinuses; R94.5 Abnormal results of liver function studies; R91.1 Solitary pulmonary nodule
CPT/HCPCS: 36415; 71046-TC-FY; 71250-TC; 76700-TC; 76705-TC; 78452-TC; 80053; 80076; 80307; 82172; 82977; 83010; 83735; 83880; 83883; 84460; 84484; 85025; 85027; 86704; 86706; 86707; 86708; 86709; 87340; 93005; 93010; 93017; 93306-TC; 94640; 94761; 99285-25; A9502; G0378; J2785; Q2036

== ENCOUNTER 2019-09-28 22:44 | Inpatient (IN) | payer OTHER ==
[2019-09-28] MEDS ORDERED: ACETAMINOPHEN 325 MG TABLET (FP) PO ONE (23:21)
[2019-09-28] MEDS ORDERED: ACETAMINOPHEN 325 MG TABLET (FP) ONE (23:40)
[2019-09-29 00:29] LABS: BASO % 0.4 % (0-2.0); HEMATOCRIT 37.4 % (32.4-45.2); HEMOGLOBIN 12.7 GM/dL (10.7-15.3); LYMPH % 16.5 % (8-40); MCH 32.9 pg (25.7-33.7); MCHC 33.8 g/dl (32.0-36.0); MEAN CELL VOLUME 97.4 fl (80-96); MONO % 0.3 % (3.8-10.2); NEUT % 82.8 % (42.8-82.8); PLATELET COUNT 271 K/MM3 (134-434); RBC 3.84 M/mm3 (3.60-5.2); RDW 16.7 % (11.6-15.6); WHITE BLOOD COUNT 5.2 K/mm3 (4.0-10.0)
--- NOTE | 2019-09-29 00:38 | PDOC ---
Documentation entered by Aiyana Chakraborty SCRIBE, acting as scribe for Bea Casper MD. Bea Casper MD: This documentation has been prepared by the Mylene gomez Adrianna, SCRIBE, under my direction and personally reviewed by me in its entirety. I confirm that the documentation accurately reflects all work, treatment, procedures, and medical decision making performed by me. History of Present Illness - General Chief Complaint: Alcohol intoxication Stated Complaint: LEFT ANKLE INJURY Time Seen by Provider: 09/28/19 23:07 History Source: Patient Exam Limitations: No Limitations - History of Present Illness Initial Comments: The patient is a 63 year old female, with a significant PMH of EtOH abuse, TIA, COPD, HTN, liver cirrhosis (2/2 EtOH abuse), and seizures, who presents to the ED s/p fall. Patient notes she was walking earlier tonight, when she stepped in a crack in the sidewalk and fell. She complains of left ankle pain most prominent at the medial aspect. Patient notes her pain is exacerbated with weight bearing and palpating the area. She denies any LOC or hitting any other part of her body during the fall. She states she has broken this foot in the past, and notes this does not feel similar (she does not think its broken). Patient does admit to having 4-5 drinks tonight. Allergies: Codeine Surgical History: Tubal Ligation, appendectomy, thoracotomy Social History: EtOH abuse (endorses having 4-5 drinks tonight). Denies tobacco or illicit drug use. Patient is currently living at a senior care with her ( Caden Corea) PCP: Dr. Barnett Past History - Past Medical History Allergies/Adverse Reactions: Allergies Allergy/AdvReac Type Severity Reaction Status Date / Time codeine [Codeine] AdvReac Severe Nausea Verified 08/07/19 00:40 Home Medications: Ambulatory Orders Nebulizer [Aeroeclipse II] 1 each MC DAILY 30 Days #30 each 05/04/19 Albuterol 0.083% Nebulizer [place] [Ventolin 0.083% Nebulizer Soln -] 1 amp NEB Q4H PRN amp 05/05/19 Multivitamins [Multivit ([facility] Form[facility])] 1 tab PO DAILY tab 05/05/19 Tiotropium [place] [Spiriva Respimat] 2 puff IH DAILY inhaler 05/05/19 Albuterol 2.5/Ipratropium 0.5 [Duoneb -] 1 amp NEB Q4H 05/07/19 Buspirone HCl [Buspar -] 10 mg PO TID #42 tablet 08/14/19 Fluoxetine HCl 10 mg PO DAILY #14 capsule 08/14/19 Fluticasone Prop 0.05% Nasal [Flonase -] 1 spray NS BID #1 spray 08/14/19 Folic Acid - 1 mg PO DAILY #14 tablet 08/14/19 Magnesium Oxide [Mag-Ox -] 400 mg PO DAILY #14 tablet 08/14/19 Pantoprazole Sodium [Protonix -] 40 mg PO DAILY #14 tablet.ec 08/14/19 Thiamine HCl [Vitamin B1 -] 100 mg PO DAILY #14 tablet 08/14/19 Tiotropium [place] [Spiriva Respimat] 2 puff IH DAILY #1 inhaler 08/14/19 traZODone HCL [Desyrel -] 100 mg PO HS #14 tablet 08/14/19 Anemia: No Asthma: No Cancer: No Cardiac Disorders: No CVA: No (? hx of TIA) COPD: No CHF: No Diabetes: No GI Disorders: No Disorders: No HTN: No Hypercholesterolemia: No Kidney Stones: No Liver Disease: Yes (cirrhosis) Seizures: Yes Thyroid Disease: No - Surgical History Abdominal Surgery: Yes (Tubalization,s/p appendectomy in 1987) Cardiac Surgery: No Lung Surgery: Yes (Thoracotomy - 2009 for hemothorax post trauma) Neurologic Surgery: No - Reproductive History PID: No - Psycho Social/Smoking Cessation Hx Smoking History: Never smoked Have you smoked in the past 12 months: No Hx Alcohol Use: No Drug/Substance Use Hx: No Substance Use Type: Alcohol Hx Substance Use Treatment: Yes Review of Systems - Review of Systems Comments:: GENERAL/CONSTITUTIONAL: +S/p fall. +4-5 drinks tonight. No fever or chills. No weakness. HEAD, EYES, EARS, NOSE AND THROAT: No change in vision. No ear pain or discharge. No sore throat. CARDIOVASCULAR: No chest pain or shortness of breath. RESPIRATORY: No cough, wheezing, or hemoptysis. GASTROINTESTINAL: No nausea, vomiting, diarrhea or constipation. GENITOURINARY: No dysuria, frequency, or change in urination. MUSCULOSKELETAL: +Left medial ankle pain. No joint or muscle swelling. No neck or back pain. SKIN: No rash NEUROLOGIC: No headache, vertigo, loss of consciousness, or change in strength/ sensation. ENDOCRINE: No increased thirst. No abnormal weight change. HEMATOLOGIC/LYMPHATIC: No anemia, easy bleeding, or history of blood clots. ALLERGIC/IMMUNOLOGIC: No hives or skin allergy. *Physical Exam - Physical Exam GENERAL: +Malodorous. The patient is in no acute distress. HEAD: Normal with no signs of trauma. EYES: PERRLA, EOMI, sclera anicteric, conjunctiva clear. ENT: Ears normal, nares patent, oropharynx clear without exudates. Moist mucous membranes. NECK: Normal range of motion, supple without lymphadenopathy, JVD, or masses. LUNGS: Breath sounds equal, clear to auscultation bilaterally. No wheezes, and no crackles. HEART:Regular rate and rhythm, normal S1 and S2 without murmur, rub or gallop. ABDOMEN: Soft, nontender, normoactive bowel sounds. No guarding, no rebound. No masses palpable. EXTREMITIES: +Tenderness to palpation over the medial malleolus. No edema. No clubbing or cyanosis. No erythema. NEUROLOGICAL: Cranial nerves II through XII grossly intact. Normal speech. No focal neurological deficits. MUSCULOSKELETAL: Back non-tender to palpation, no CVA tenderness SKIN: Warm, Dry, normal turgor, no rashes or lesions noted. ED Treatment Course - LABORATORY CBC & Chemistry Diagram: 09/29/19 00:05 09/29/19 00:05 - RADIOLOGY Radiology Studies Ordered: Category Date Time Status HEAD CT WITHOUT CONTRAST [CT] Stat CT Scan 09/28/19 23:21 Ordered ANKLE & FOOT-LEFT* [RAD] Stat Radiology 09/28/19 23:21 Ordered Medical Decision Making - Medical Decision Making 09/28/19 23:39 Ms. Berman is a 63-year-old female who presents emergency department secondary to a fall while intoxicated The patient states that her foot ended up in a ditch and she fell She denies head trauma Reports pain in the ankle only 09/29/19 00:39 Laboratory Tests 09/29/19 00:05 WBC 5.2 Hgb 12.7 Hct 37.4 Plt Count 271 D Xray pending Labs pending CT pending Pt signed out to overnight team Discharge - Discharge Information Problems reviewed: Yes Clinical Impression/Diagnosis: Frequent falls Alcohol dependence with acute alcoholic intoxication Qualifiers: Complication of substance-induced condition: uncomplicated Qualified Code(s): F10.220 - Alcohol dependence with intoxication, uncomplicated Injury of ankle, left Qualifiers: Encounter type: initial encounter Qualified Code(s): S99.912A - Unspecified injury of left ankle, initial encounter Condition: Stable - Admission No - Follow up/Referral - Patient Discharge Instructions - Post Discharge Activity
[2019-09-29 01:46] LABS: ALBUMIN 4.2 g/dl (3.4-5.0); BILIRUBIN,TOTAL 0.9 mg/dL (0.2-1); BLOOD UREA NITROGEN 15.4 mg/dL (7-18); CALCIUM 8.9 mg/dL (8.5-10.1); POTASSIUM 4.5 mmol/L (3.5-5.1); TOT PROT 7.2 g/dl (6.4-8.2)
--- NOTE | 2019-09-29 03:48 | PDOC ---
*Physical Exam - Vital Signs Last Vital Signs Temp Pulse Resp BP Pulse Ox 97.9 F 70 18 109/61 97 09/28/19 22:50 09/28/19 22:50 09/28/19 22:50 09/28/19 22:50 09/28/19 22:50 - Physical Exam 09/29/19 05:45 General Appearance: Nourished. No Apparent Distress HEENT: No Pharyngeal Erythema, Tonsillar Exudate, Tonsillar Erythema Neck: No Cervical Lymphadenopathy Respiratory/Chest: Lungs Clear, Normal Breath Sounds. No Crackles, Rales, Rhonchi, Wheezing Cardiovascular: Regular Rhythm, Regular Rate. No Murmur, Gallops, Rubs Gastrointestinal/Abdominal: Normal Bowel Sounds, Soft. No Guarding, Rebound, Tenderness Musculoskeletal: No CVA Tenderness Extremity: Edema with tenderness to palpation to the left medial malleolus. Sensation to light touch and temperature intact distially, 2+ DP pulses bilaterally. Normal Capillary Refill Integumentary: Normal Color, Dry, Warm Neurologic: Fully Oriented, Alert, Normal Mood/Affect, Normal Response, ED Treatment Course - LABORATORY CBC & Chemistry Diagram: 09/29/19 00:05 09/29/19 00:05 - ADDITIONAL ORDERS Additional order review: Laboratory Results 09/29/19 00:05 Sodium 140 Potassium 4.5 Chloride 105 Carbon Dioxide 19 L Anion Gap 15 BUN 15.4 Creatinine 1.0 Est GFR (CKD-EPI)AfAm 69.44 Est GFR (CKD-EPI)NonAf 59.91 Random Glucose 114 H Calcium 8.9 Total Bilirubin 0.9 AST 48 H ALT 38 Alkaline Phosphatase 92 Total Protein 7.2 Albumin 4.2 Alcohol, Quantitative 361.3 H 09/29/19 00:05 RBC 3.84 MCV 97.4 H MCHC 33.8 RDW 16.7 H MPV 8.0 D Neutrophils % 82.8 D Lymphocytes % 16.5 D Monocytes % 0.3 L D Eosinophils % 0.0 D Basophils % 0.4 - Medications Given in the ED: ED Medications Discontinued Medications Generic Name Dose Route Start Last Admin Trade Name Freq PRN Reason Stop Dose Admin Acetaminophen 975 mg 09/28/19 23:21 09/29/19 00:14 Tylenol - PO 09/28/19 23:22 975 mg ONCE ONE Administration Medical Decision Making - Medical Decision Making 09/29/19 05:46 CBC, cmp were unremarkable. ETOH level was 390. Plain films demonstrates a fracture of the medial malleolus. The patient was placed in a posterior splint and should be non-weight bearing. The patient usually ambulates with a cane and will not be able to ambulate with a splint on her foot. She is unable to ambulate with crutches. She will require admission for further monitoring and management. Discharge - Discharge Information Problems reviewed: Yes Clinical Impression/Diagnosis: Frequent falls Alcohol dependence with acute alcoholic intoxication Qualifiers: Complication of substance-induced condition: uncomplicated Qualified Code(s): F10.220 - Alcohol dependence with intoxication, uncomplicated Injury of ankle, left Qualifiers: Encounter type: initial encounter Qualified Code(s): S99.912A - Unspecified injury of left ankle, initial encounter Condition: Stable - Admission Yes - Follow up/Referral Referrals: Minnie Barnett MD, MD [Primary Care Provider] - - Patient Discharge Instructions - Post Discharge Activity Procedures - Splinting Splint Location: Left: Ankle Pre-Proc Neuro Vasc Exam: normal Hand-Made Type: orthoglass Splint Type: Yes: Posterior Post-Proc Neuro Vasc Exam: normal Hu Bandage: yes, 4" Complications: No
--- NOTE | 2019-09-29 05:56 | HP ---
Admitting History and Physical - Primary Care Physician PCP: Dr. Strange - Admission Chief Complaint: left ankle pain History of Present Illness: 63 year old female, with a significant PMH of EtOH abuse, h/o TIA, COPD, HTN, liver cirrhosis (2/2 EtOH abuse), and seizures, who presents to the ED s/p fall. Patient states she was walking earlier tonight, when she stepped in a crack in the sidewalk and fell. She complains of left ankle pain most prominent at the medial aspect. Patient notes her pain is exacerbated with weight bearing and palpating the area. She denies any LOC or hitting any other part of her body during the fall. Patient admits to having 4-5 drinks tonight. Patient otherwise denies CP/SOB, fever, chills, urinary symptoms. 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 (previous head injury on 04/12/19) Cardiovascular: Yes: HTN Pulmonary: Yes: COPD Gastrointestinal: Yes: GERD Hepatobiliary: Yes: Cirrhosis Infectious Disease: Yes: C-Diff Psych: Yes: Addictions (Alcohol), Anxiety, Depression Musculoskeletal: Yes: Chronic low back pain - Past Surgical History Past Surgical History: Yes: Appendectomy, Thoracotomy, Tubal Ligation - Smoking History Smoking history: Never smoked Have you smoked in the past 12 months: No - Alcohol/Substance Use Number of Drinks Daily: 5 (Vodka Bottle) History of Substance Use: reports: None - Social History ADL: Independent History of Recent Travel: No Home Medications - Allergies Allergies/Adverse Reactions: Allergies Allergy/AdvReac Type Severity Reaction Status Date / Time codeine [Codeine] AdvReac Severe Nausea Verified 08/07/19 00:40 - Home Medications Home Medications: Ambulatory Orders Ergocalciferol [Vitamin D2] 50,000 unit PO WEEKLY 07/27/18 L. Acidophilus/Pectin, [place] [Acidophilus Probiotic Capsule] 1 each PO DAILY # 30 capsule 05/04/19 Nebulizer [Aeroeclipse II] 1 each MC DAILY 30 Days #30 each 05/04/19 Albuterol 0.083% Nebulizer Diamond [Ventolin 0.083% Nebulizer Soln -] 1 amp NEB Q4H PRN amp 05/05/19 Multivitamins [Multivit ([facility] Formul[facility])] 1 tab PO DAILY tab 05/05/19 Tiotropium Zumb[place] [Spiriva Respimat] 2 puff IH DAILY inhaler 05/05/19 Albuterol 2.5/Ipratropium 0.5 [Duoneb -] 1 amp NEB Q4H 05/07/19 traZODone HCL [Trazodone HCl] 100 mg PO HS 06/30/19 Buspirone HCl [Buspar -] 10 mg PO TID #42 tablet 08/14/19 Fluoxetine HCl 10 mg PO DAILY #14 capsule 08/14/19 Fluticasone Prop 0.05% Nasal [Flonase -] 1 spray NS BID #1 spray 08/14/19 Folic Acid - 1 mg PO DAILY #14 tablet 08/14/19 Magnesium Oxide [Mag-Ox -] 400 mg PO DAILY #14 tablet 08/14/19 Pantoprazole Sodium [Protonix -] 40 mg PO DAILY #14 tablet.ec 08/14/19 Thiamine HCl [Vitamin B1 -] 100 mg PO DAILY #14 tablet 08/14/19 Tiotropium [place] [Spiriva Respimat] 2 puff IH DAILY #1 inhaler 08/14/19 traZODone HCL [Desyrel -] 100 mg PO HS #14 tablet 08/14/19 Family Medical History Family History: Denies Review of Systems - Review of Systems Constitutional: reports: No Symptoms Eyes: reports: No Symptoms HENT: reports: No Symptoms Neck: reports: No Symptoms Cardiovascular: reports: No Symptoms Respiratory: reports: No Symptoms Gastrointestinal: reports: No Symptoms Genitourinary: reports: No Symptoms Musculoskeletal: reports: Extremity Pain, Joint Pain, Joint Swelling (left ankle pain) Integumentary: reports: No Symptoms Neurological: reports: No Symptoms Endocrine: reports: No Symptoms Hematology/Lymphatic: reports: No Symptoms Psychiatric: reports: No Symptoms Physical Examination Vital Signs: Vital Signs Temperature 97.9 F 09/28/19 22:50 Pulse Rate 70 09/28/19 22:50 Respiratory Rate 18 09/28/19 22:50 Blood Pressure 109/61 09/28/19 22:50 O2 Sat by Pulse Oximetry (%) 97 09/28/19 22:50 Constitutional: Yes: No Distress Eyes: Yes: Conjunctiva Clear, EOM Intact HENT: Yes: Atraumatic, Normocephalic Neck: Yes: Supple, Trachea Midline Cardiovascular: Yes: Regular Rate and Rhythm Respiratory: Yes: Regular, CTA Bilaterally Gastrointestinal: Yes: Normal Bowel Sounds, Soft Renal/: Yes: WNL Musculoskeletal: Yes: Joint Swelling (left ankle tender to touch, no erythemea, edema noted) Edema: No Peripheral Pulses WNL: Yes Neurological: Yes: Alert, Oriented Labs: CBC, BMP 09/29/19 00:05 09/29/19 00:05 Imaging - Results X-ray: Report Reviewed (left foot/ankle xr: demonstrates a fracture of the medial malleolus.) Cat Scan: Report Reviewed (CT head: no acute pathology) Problem List - Problems (1) Alcohol dependence with acute alcoholic intoxication Code(s): F10.229 - ALCOHOL DEPENDENCE WITH INTOXICATION, UNSPECIFIED Qualifiers: Complication of substance-induced condition: uncomplicated Qualified Code(s ): F10.220 - Alcohol dependence with intoxication, uncomplicated (2) Ankle fracture, left Code(s): S82.892A - OTH FRACTURE OF LEFT LOWER LEG, INIT FOR CLOS FX (3) Injury of ankle, left Code(s): S99.912A - UNSPECIFIED INJURY OF LEFT ANKLE, INITIAL ENCOUNTER Qualifiers: Encounter type: initial encounter Qualified Code(s): S99.912A - Unspecified injury of left ankle, initial encounter (4) Frequent falls Code(s): R29.6 - REPEATED FALLS (5) Anxiety Code(s): F41.9 - ANXIETY DISORDER, UNSPECIFIED (6) EtOH dependence Code(s): F10.20 - ALCOHOL DEPENDENCE, UNCOMPLICATED (7) GERD (gastroesophageal reflux disease) Code(s): K21.9 - GASTRO-ESOPHAGEAL REFLUX DISEASE WITHOUT ESOPHAGITIS (8) COPD (chronic obstructive pulmonary disease) Code(s): J44.9 - CHRONIC OBSTRUCTIVE PULMONARY DISEASE, UNSPECIFIED Qualifiers: COPD type: unspecified COPD Qualified Code(s): J44.9 - Chronic obstructive pulmonary disease, unspecified (9) Depression Code(s): F32.9 - MAJOR DEPRESSIVE DISORDER, SINGLE EPISODE, UNSPECIFIED (10) HTN (hypertension) Code(s): I10 - ESSENTIAL (PRIMARY) HYPERTENSION Qualifiers: Hypertension type: essential hypertension Qualified Code(s): I10 - Essential (primary) hypertension (11) History of seizure Code(s): Z87.898 - PERSONAL HISTORY OF OTHER SPECIFIED CONDITIONS Assessment/Plan 63 year old female, with a significant PMH of EtOH abuse, h/o TIA, COPD, HTN, liver cirrhosis (2/2 EtOH abuse), and seizures, who presents to the ED s/p fall. Patient etoh use and c/o of left ankle pain, difficulty with ambulation. # post fall # Left ankle fx - In ED splint done - follow up orhto in [place] - follow up PT/OT - follow up social work job titles/case management proper placement - pain management - safety/fall precaution # ETOH dependence -Alcohol quantitative: 361.3 -Folic Acid 1 mg PO DAILY -Magnesium Oxide 400 mg PO DAILY -Thiamine HCl 100 mg PO DAILY -Education provided on cessation of alcohol use #Depression/Anxiety - traZODone HCL 100 mg PO HS - Buspirone HCl 10 mg PO TID - Fluoxetine HCl 10 mg PO DAILY - monitor for acute behavioral changes #COPD - Tiotropium [place] 2 puff IH DAILY inhaler - Albuterol 2.5/Ipratropium 0.5 1 amp NEB Q4H #GERD - Pantoprazole Sodium 40 mg PO DAILY Diet: regular VTE: Heparin TID SQ Dispo: med-surg Visit type - Emergency Visit Emergency Visit: Yes Care time: The patient presented to the Emergency Department on the above date and was hospitalized for further evaluation of their emergent condition. - New Patient This patient is new to me today: Yes Date on this admission: 09/29/19 - Critical Care Critical Care patient: No
[2019-09-29] MEDS ORDERED: IBUPROFEN 400 MG TABLET (FP) PO PRN (06:09)
[2019-09-29] MEDS ORDERED: ALBUTEROL SO4 2.5/IPRATROPIUM 0.5 INH SOL 3 ML VIAL.NEB. NEB SCH (06:15)
[2019-09-29 08:42] VITALS: BMI 23.8
[2019-09-29] MEDS ORDERED: ERGOCALCIFEROL (VIT D2) 50,000 UNIT (1.25 MG) CAPSULE PO SCH (10:00)
[2019-09-29] MEDS: PANTOPRAZOLE 40 MG TABLET (FP) PO SCH (10:19)
[2019-09-29] MEDS: FOLIC ACID 1 MG TABLET (FP) PO SCH (10:19)
[2019-09-29] MEDS: THIAMINE HCL 100 MG TABLET (FP) PO SCH (10:19)
[2019-09-29] MEDS: MAGNESIUM OXIDE 400 MG TABLET (FP) PO SCH (10:19)
[2019-09-29] MEDS: TIOTROPIUM BROMIDE 2.5 MCG (SPIRIVA) RESPIMAT INHALER IH SCH (11:22)
[2019-09-29] MEDS: FLUoxetine HCL 10 MG CAPSULE (FP) PO SCH (11:22)
--- NOTE | 2019-09-29 11:48 | PN ---
Progress Note, Physician Chief Complaint: L Ankle Fracture ETOH Abuse History of Present Illness: Previous notes and events reviewed awake and alert NAD pain is controlled with pain medication denies chest pain or SOB - Current Medication List Current Medications: Active Medications Albuterol/Ipratropium (Duoneb -) 1 amp NEB Q4H [facility] Buspirone HCl (Buspar -) 10 mg PO TID [facility] Ergocalciferol (Drisdol -) 50,000 unit PO Q7D [facility] Last Admin: 09/29/19 11:22 Dose: 50,000 unit Fluoxetine HCl (Prozac -) 10 mg PO DAILY [facility] Last Admin: 09/29/19 11:22 Dose: 10 mg Folic Acid (Folic Acid -) 1 mg PO DAILY [facility] Last Admin: 09/29/19 10:19 Dose: 1 mg Heparin Sodium (Porcine) (Heparin -) 5,000 unit SQ TID [facility] Ibuprofen (Motrin -) 800 mg PO Q8H PRN PRN Reason: PAIN LEVEL 4 - 6 Last Admin: 09/29/19 10:19 Dose: 800 mg Magnesium Oxide (Mag-Ox -) 400 mg PO DAILY [facility] Last Admin: 09/29/19 10:19 Dose: 400 mg Pantoprazole Sodium (Protonix -) 40 mg PO DAILY [facility] Last Admin: 09/29/19 10:19 Dose: 40 mg Thiamine HCl (Vitamin B1 -) 100 mg PO DAILY [facility] Last Admin: 09/29/19 10:19 Dose: 100 mg Tiotropium [place] (Spiriva Respimat) 2 puff IH DAILY [facility] Last Admin: 09/29/19 11:22 Dose: 2 puff Trazodone HCl (Desyrel -) 100 mg PO [facility] - Objective Vital Signs: Vital Signs Temperature 97.2 F L 09/29/19 08:24 Pulse Rate 87 09/29/19 08:24 Respiratory Rate 18 09/29/19 08:24 Blood Pressure 121/78 09/29/19 08:24 O2 Sat by Pulse Oximetry (%) 98 09/29/19 08:24 Constitutional: Yes: No Distress, Calm Eyes: Yes: Conjunctiva Clear HENT: Yes: Atraumatic Cardiovascular: Yes: Regular Rate and Rhythm Respiratory: Yes: Regular, CTA Bilaterally Gastrointestinal: Yes: Normal Bowel Sounds, Soft Musculoskeletal: Yes: Muscle Weakness Extremities: Yes: Other (cast LLE) Edema: No Neurological: Yes: Alert, Oriented Psychiatric: Yes: Alert, Oriented Labs: CBC, BMP 09/29/19 00:05 09/29/19 00:05 Problem List - Problems (1) Alcohol dependence with acute alcoholic intoxication Assessment/Plan: -Dr Thurman Consult -seizure precaution -fall precaution -MVI, Folate, Thiamine -Ativan 0.5mg BID prn for withdrawal -Alcohol level 361.3 Code(s): F10.229 - ALCOHOL DEPENDENCE WITH INTOXICATION, UNSPECIFIED Qualifiers: Complication of substance-induced condition: uncomplicated Qualified Code(s ): F10.220 - Alcohol dependence with intoxication, uncomplicated (2) Ankle fracture, left Assessment/Plan: -Orthopedic consult -L Ankle/Foot Xray shows fracture of the medial malleolus and third and fourth metatarsals, arthritic changes -pain control -PT Code(s): S82.892A - OTH FRACTURE OF LEFT LOWER LEG, INIT FOR CLOS FX (3) GERD (gastroesophageal reflux disease) Assessment/Plan: -Pantoprazole Code(s): K21.9 - GASTRO-ESOPHAGEAL REFLUX DISEASE WITHOUT ESOPHAGITIS (4) Frequent falls Assessment/Plan: -Fall Precaution -PT Code(s): R29.6 - REPEATED FALLS (5) COPD (chronic obstructive pulmonary disease) Assessment/Plan: -Bronchodilators -keep SpO2 >90% -Spiriva -O2 via [place] Code(s): J44.9 - CHRONIC OBSTRUCTIVE PULMONARY DISEASE, UNSPECIFIED Qualifiers: COPD type: unspecified COPD Qualified Code(s): J44.9 - Chronic obstructive pulmonary disease, unspecified (6) HTN (hypertension) Assessment/Plan: -monitor BP -low Na diet Code(s): I10 - ESSENTIAL (PRIMARY) HYPERTENSION Qualifiers: Hypertension type: essential hypertension Qualified Code(s): I10 - Essential (primary) hypertension (7) Depression Assessment/Plan: -Buspar, Trazadone, Prozac -Psych consult Code(s): F32.9 - MAJOR DEPRESSIVE DISORDER, SINGLE EPISODE, UNSPECIFIED Assessment/Plan see problem list dvt ppx
--- NOTE | 2019-09-29 13:31 | EKG ---
Test Reason : Blood Pressure : / mmHG Vent. Rate : 076 BPM Atrial Rate : 076 BPM P-R Int : 168 ms QRS Dur : 086 ms QT Int : 418 ms P-R-T Axes : 057 -23 009 degrees QTc Int : 470 ms NORMAL SINUS RHYTHM LOW VOLTAGE QRS BORDERLINE ECG WHEN COMPARED WITH ECG OF 07-AUG-2019 02:29, NONSPECIFIC T WAVE ABNORMALITY NO LONGER EVIDENT IN ANTERIOR LEADS Confirmed by MD KARLEY, ALBERTA ([id number]) on 09/29/2019 1:30:48 PM Referred By: Confirmed By:ALBERTA CRANDALL MD
[2019-09-29] MEDS ORDERED: busPIRone HCL 10 MG TABLET (FP) PO SCH (14:00)
[2019-09-29] MEDS: HEPARIN NA (PORCINE) 5,000 UNITS/ML 1ML VIAL SQ SCH ×2 (14:08→21:03)
[2019-09-29] MEDS ORDERED: INSULIN SLIDING SCALE (NOVOLOG) 1 VIAL SQ SCH (16:30)
--- NOTE | 2019-09-29 17:16 | CON.PSY ---
Psychiatry Consult Chief Complaint: 63cv Yerav o0ld femal;e with a history of Depression and alcohol abuse and depemdence admitted wuth Broken foot. Patient vclaimd she is drinkling but patricia more depressed. I came for Broken foot. Symptoms: reports: Irritability - Previous Psychiatric Treatment Outpatient: Less than 6 mos ago Inpatient: Within the last 12 months - Previous Substance Abuse Treatment Outpatient: More than 6 mos ago Inpatient: Within the last 12 months - Reason for Previous Treatment Reason for Previous Treatment: Major Depression, Alcohol Abuse - Current Medications Current Medications: Active Medications Albuterol/Ipratropium (Duoneb -) 1 amp NEB Q4H [facility] Buspirone HCl (Buspar -) 10 mg PO TID [facility] Last Admin: 09/29/19 14:07 Dose: 10 mg Ergocalciferol (Drisdol -) 50,000 unit PO Q7D [facility] Last Admin: 09/29/19 11:22 Dose: 50,000 unit Fluoxetine HCl (Prozac -) 10 mg PO DAILY [facility] Last Admin: 09/29/19 11:22 Dose: 10 mg Folic Acid (Folic Acid -) 1 mg PO DAILY [facility] Last Admin: 09/29/19 10:19 Dose: 1 mg Heparin Sodium (Porcine) (Heparin -) 5,000 unit SQ TID [facility] Last Admin: 09/29/19 14:08 Dose: 5,000 unit Ibuprofen (Motrin -) 800 mg PO Q8H PRN PRN Reason: PAIN LEVEL 4 - 6 Last Admin: 09/29/19 10:19 Dose: 800 mg Lorazepam (Ativan -) 0.5 mg PO BID PRN PRN Reason: AGITATION Magnesium Oxide (Mag-Ox -) 400 mg PO DAILY [facility] Last Admin: 09/29/19 10:19 Dose: 400 mg Multivitamins/Minerals/Vitamin C (Tab-A-Vit -) 1 tab PO DAILY [facility] Pantoprazole Sodium (Protonix -) 40 mg PO DAILY [facility] Last Admin: 09/29/19 10:19 Dose: 40 mg Thiamine HCl (Vitamin B1 -) 100 mg PO DAILY [facility] Last Admin: 09/29/19 10:19 Dose: 100 mg Tiotropium [place] (Spiriva Respimat) 2 puff IH DAILY [facility] Last Admin: 09/29/19 11:22 Dose: 2 puff Trazodone HCl (Desyrel -) 100 mg PO HS [facility] - Allergies Allergies: Allergies Allergy/AdvReac Type Severity Reaction Status Date / Time codeine [Codeine] AdvReac Severe Nausea Verified 08/07/19 00:40 - Current Living Status Usual Living Arrangement: With Spouse - Current Mental Status Evaluation Appearance: Well Groomed, Disheveled Attitude: Cooperative - Affect Affect: Constrictive Appropriateness: Appropriate to Content - Mood Mood: Irritable - Speech/Language Expressive: Coherent - Psychomotor Activity Psychomotor Activity: Normal - Thought Process Thought Process: Intact - Thought Content Hallucinations: Absent Delusions: Absent - Self Perception Self Perception: No Impairment - Concentration Serial Sevens Intact: No Simple Calculations Intact: No - Abstraction Proverb Interpretation: Intact Judgement: Minimally Impaired - Insight Insight: Intact - Impulse Control Impulse Control: Good Control - Suicidal Ideation Suicidal Ideation: No - Homicidal Ideation Homicidal Ideation: No Assessment/Plan 1) Continue with [facility] REgimen.
--- NOTE | 2019-09-29 19:05 | CONSULT ---
Consult - text type - Consultation Consultation Note: FULL COMSULT DICTATED IMP: L MEDIAL MAL FX AND 4TH AND 3RD METATARSAL NECK FX PLAN: SPLINT, ICE AND ELEVATION, NWB-PT, DC WHEN STABLE AND F/U IN MY OFFICE X 10 DAYS
[2019-09-29] MEDS: ALBUTEROL SO4 2.5/IPRATROPIUM 0.5 INH SOL 3 ML VIAL.NEB. NEB SCH (19:31)
[2019-09-29] MEDS: traMADol HCL 50 MG TABLET PO PRN (19:45)
[2019-09-29] MEDS ORDERED: PT OWN MED DRAWER 7, Y5N ONE (20:58)
[2019-09-29] MEDS: LORazepam 0.5 MG TABLET PO PRN (21:03)
[2019-09-29] MEDS: busPIRone HCL 5 MG TABLET PO SCH (21:03)
[2019-09-29] MEDS: traZODone HCL 50 MG TABLET (FP) PO SCH (21:04)
[2019-09-30] MEDS: ALBUTEROL SO4 2.5/IPRATROPIUM 0.5 INH SOL 3 ML VIAL.NEB. NEB SCH ×6 (00:48→20:17)
[2019-09-30] MEDS: traMADol HCL 50 MG TABLET PO PRN ×2 (05:16→16:48)
[2019-09-30] MEDS: busPIRone HCL 5 MG TABLET PO SCH ×3 (05:16→21:11)
[2019-09-30] MEDS: HEPARIN NA (PORCINE) 5,000 UNITS/ML 1ML VIAL SQ SCH ×3 (05:17→21:11)
[2019-09-30 07:33] LABS: HEMATOCRIT 35.3 % (32.4-45.2); MCH 33.1 pg (25.7-33.7); MEAN CELL VOLUME 97.4 fl (80-96); MEAN PLT VOLUME 8.4 fl (7.5-11.1); PLATELET COUNT 164 K/MM3 (134-434); RBC 3.63 M/mm3 (3.60-5.2); RDW 16.4 % (11.6-15.6); WHITE BLOOD COUNT 7.2 K/mm3 (4.0-10.0)
[2019-09-30 07:57] LABS: ALBUMIN 3.7 g/dl (3.4-5.0); BILIRUBIN,TOTAL 2.5 mg/dL (0.2-1); BLOOD UREA NITROGEN 20.1 mg/dL (7-18); CALCIUM 9.6 mg/dL (8.5-10.1); POTASSIUM 4.4 mmol/L (3.5-5.1); TOT PROT 6.7 g/dl (6.4-8.2)
[2019-09-30] MEDS: MAGNESIUM OXIDE 400 MG TABLET (FP) PO SCH (10:30)
[2019-09-30] MEDS: FOLIC ACID 1 MG TABLET (FP) PO SCH (10:30)
[2019-09-30] MEDS: PANTOPRAZOLE 40 MG TABLET (FP) PO SCH (10:30)
[2019-09-30] MEDS: MULTIVITAMINS (DAILY MVI) TABLET (FP) PO SCH (10:30)
[2019-09-30] MEDS: THIAMINE HCL 100 MG TABLET (FP) PO SCH (10:30)
[2019-09-30] MEDS ORDERED: PT OWN MED DRAWER 7, Y5N ONE (10:31)
[2019-09-30] MEDS: FLUoxetine HCL 10 MG CAPSULE (FP) PO SCH (10:32)
[2019-09-30] MEDS: TIOTROPIUM BROMIDE 2.5 MCG (SPIRIVA) RESPIMAT INHALER IH SCH (10:34)
[2019-09-30] MEDS: LORazepam 0.5 MG TABLET PO PRN ×2 (10:36→21:11)
--- NOTE | 2019-09-30 10:44 | DS ---
Physical Examination Vital Signs: Vital Signs Temperature 98 F 09/30/19 04:00 Pulse Rate 60 09/30/19 04:00 Respiratory Rate 16 09/30/19 04:00 Blood Pressure 135/75 09/30/19 04:00 O2 Sat by Pulse Oximetry (%) 95 09/29/19 21:00 Findings/Remarks: Laboratory Results - last 24 hr 09/30/19 09/30/19 06:40 06:40 WBC 7.2 RBC 3.63 Hgb 12.0 Hct 35.3 MCV 97.4 H MCH 33.1 MCHC 34.0 RDW 16.4 H Plt Count 164 D MPV 8.4 Sodium 139 Potassium 4.4 Chloride 105 Carbon Dioxide 28 Anion Gap 7 L BUN 20.1 H Creatinine 1.0 Est GFR (CKD-EPI)AfAm 69.44 Est GFR (CKD-EPI)NonAf 59.91 Random Glucose 110 H Calcium 9.6 Total Bilirubin 2.5 H AST 38 H ALT 37 Alkaline Phosphatase 87 Total Protein 6.7 Albumin 3.7 Home Medication List Medication Instructions Recorded Confirmed Type Albuterol 2.5/Ipratropium 0.5 1 amp NEB Q4H 05/07/19 09/29/19 History [Duoneb -] Active Medications Generic Name Dose Route Start Last Admin Trade Name Freq PRN Reason Stop Dose Admin Albuterol/Ipratropium 1 amp 09/29/19 20:00 09/30/19 08:00 Duoneb - NEB 1 amp RQ4H [facility] Administration Buspirone HCl 10 mg 09/29/19 20:58 09/30/19 05:16 Buspar - PO 10 mg TID [facility] Administration Ergocalciferol 50,000 unit 09/29/19 10:00 09/29/19 11:22 Drisdol - PO 50,000 unit Q7D [facility] Administration Fluoxetine HCl 10 mg 09/29/19 10:00 09/30/19 10:32 Prozac - PO 10 mg DAILY [facility] Administration Folic Acid 1 mg 09/29/19 10:00 09/30/19 10:30 Folic Acid - PO 1 mg DAILY [facility] Administration Heparin Sodium (Porcine) 5,000 unit 09/29/19 14:00 09/30/19 05:17 Heparin - SQ 5,000 unit TID [facility] Administration Ketorolac Tromethamine 15 mg 09/30/19 10:56 Toradol Injection - IVPUSH 10/05/19 10:55 Q6H PRN PAIN LEVEL 6-10 Lorazepam 0.5 mg 09/29/19 11:58 09/30/19 10:36 Ativan - PO 0.5 mg BID PRN Administration AGITATION Magnesium Oxide 400 mg 09/29/19 10:00 09/30/19 10:30 Mag-Ox - PO 400 mg DAILY [facility] Administration Multivitamins/Minerals/Vitamin C 1 tab 09/30/19 10:00 09/30/19 10:30 Tab-A-Vit - PO 1 tab DAILY [facility] Administration Pantoprazole Sodium 40 mg 09/29/19 10:00 09/30/19 10:30 Protonix - PO 40 mg DAILY [facility] Administration Thiamine HCl 100 mg 09/29/19 10:00 09/30/19 10:30 Vitamin B1 - PO 100 mg DAILY [facility] Administration Tiotropium [place] 2 puff 09/29/19 10:00 09/30/19 10:34 Spiriva Respimat IH 2 puff DAILY [facility] Administration Tramadol HCl 50 mg 09/29/19 19:30 09/30/19 05:16 Ultram - PO 50 mg Q6H PRN Administration PAIN LEVEL 6-10 Trazodone HCl 100 mg 09/29/19 22:00 09/29/19 21:04 Desyrel - PO 100 mg HS [facility] Administration Constitutional: Yes: No Distress, Calm Eyes: Yes: Conjunctiva Clear HENT: Yes: Atraumatic Cardiovascular: Yes: Regular Rate and Rhythm Respiratory: Yes: Regular, CTA Bilaterally Gastrointestinal: Yes: Normal Bowel Sounds, Soft Musculoskeletal: Yes: Muscle Weakness Extremities: Yes: Other (cast LLE, able to wiggle toes, good cap refill) Edema: No Neurological: Yes: Alert, Oriented Psychiatric: Yes: Alert, Oriented Labs: CBC, BMP 09/30/19 06:40 09/30/19 06:40 Discharge Summary Problems reviewed: Yes Reason For Visit: FRACTURE OF ANKLE Current Active Problems Alcohol dependence with acute alcoholic intoxication (Acute) Ankle fracture, left (Acute) Anxiety (Acute) EtOH dependence (Acute) GERD (gastroesophageal reflux disease) (Acute) Injury of ankle, left (Acute) Frequent falls (Chronic) Hospital Course: 63 year old female, with a significant PMH of EtOH abuse, h/o TIA, COPD, HTN, liver cirrhosis (2/2 EtOH abuse), and seizures, who presents to the ED s/p fall. Patient states she was walking earlier tonight, when she stepped in a crack in the sidewalk and fell. She complains of left ankle pain most prominent at the medial aspect. Patient notes her pain is exacerbated with weight bearing and palpating the area. She denies any LOC or hitting any other part of her body during the fall. Patient admits to having 4-5 drinks tonight. Patient otherwise denies CP/SOB, fever, chills, urinary symptoms. Orthopedic consult placed and was evaluated by Dr Daniels. L Ankle/Foot Xray shows fracture of the medial malleolus and third and fourth metatarsals, arthritic changes. Patient was evaluated by PT and was only able to walk 4 feet. Will need SNF placement for PT for L ankle fracture. Condition: Stable - Instructions Diet, Activity, Other Instructions: Follow up with PMD in 2 weeks Follow up with Orthopedics Dr Daniels in 10 days Cont with splint, ICE, elevation, NWB, PT continue with medication as prescribed return to ER if develop severe pain, chest pain, respiratory distress, numbness to L foot Referrals: Dereck Daniels MD [Staff Physician] - Minnie Barnett MD, MD [Primary Care Provider] - Disposition: INTERMEDIATE FACILITY - Home Medications Comprehensive Discharge Medication List: Ambulatory Orders Nebulizer [Aeroeclipse II] 1 each MC DAILY 30 Days #30 each 05/04/19 Albuterol 0.083% Nebulizer Diamond [Ventolin 0.083% Nebulizer Soln -] 1 amp NEB Q4H PRN amp 05/05/19 Multivitamins [Multivit ([facility] Formul[facility])] 1 tab PO DAILY tab 05/05/19 Tiotropium [place] [Spiriva Respimat] 2 puff IH DAILY inhaler 05/05/19 Albuterol 2.5/Ipratropium 0.5 [Duoneb -] 1 amp NEB Q4H 05/07/19 Buspirone HCl [Buspar -] 10 mg PO TID #42 tablet 08/14/19 Fluoxetine HCl 10 mg PO DAILY #14 capsule 08/14/19 Fluticasone Prop 0.05% Nasal [Flonase -] 1 spray NS BID #1 spray 08/14/19 Folic Acid - 1 mg PO DAILY #14 tablet 08/14/19 Magnesium Oxide [Mag-Ox -] 400 mg PO DAILY #14 tablet 08/14/19 Pantoprazole Sodium [Protonix -] 40 mg PO DAILY #14 tablet.ec 08/14/19 Thiamine HCl [Vitamin B1 -] 100 mg PO DAILY #14 tablet 08/14/19 Tiotropium [place] [Spiriva Respimat] 2 puff IH DAILY #1 inhaler 08/14/19 traZODone HCL [Desyrel -] 100 mg PO HS #14 tablet 08/14/19
[2019-09-30] MEDS: KETOROLAC TROMETHAMINE 15 MG/ML VIAL IVPUSH PRN ×2 (11:26→18:24)
--- NOTE | 2019-09-30 12:01 | CONS ---
DATE OF CONSULTATION: 09/29/2019 The patient is a 63-year-old female status post fall today on the sidewalk, presents to the emergency room complaining of pain in the left foot and ankle. Past medical history is significant for EtOH abuse. On physical exam, she has tenderness over the medial malleolus and over the forefoot around the metatarsal heads of the 2nd through 4th metatarsals. She has only mild to moderate swelling of the foot and ankle. Calf is soft, nontender. Otherwise neurovascularly intact. Intact Achilles. No tenderness on the lateral side of the ankle. Otherwise, neurovascularly intact. X-rays taken in the hospital are positive for nondisplaced medial malleolus fracture with an intact mortise on the left side. Also a fracture at the metatarsal neck of the 3rd and 4th metatarsals. IMPRESSION: Fractures as described. PLAN: Closed treatment and a posterior splint, ice, elevation, nonweightbearing, PT, can be discharged in a splint and follow up in my office in 10 days time. Oli LOYA/[id number]
[2019-09-30] MEDS: traZODone HCL 50 MG TABLET (FP) PO SCH (21:11)
[2019-10-01] MEDS: ALBUTEROL SO4 2.5/IPRATROPIUM 0.5 INH SOL 3 ML VIAL.NEB. NEB SCH ×6 (00:03→20:35)
[2019-10-01] MEDS: KETOROLAC TROMETHAMINE 15 MG/ML VIAL IVPUSH PRN ×3 (01:44→16:16)
[2019-10-01] MEDS: busPIRone HCL 5 MG TABLET PO SCH ×3 (05:47→22:00)
[2019-10-01] MEDS: HEPARIN NA (PORCINE) 5,000 UNITS/ML 1ML VIAL SQ SCH ×3 (05:48→22:00)
[2019-10-01] MEDS: traMADol HCL 50 MG TABLET PO PRN (08:06)
--- NOTE | 2019-10-01 09:35 | DS ---
Physical Examination Vital Signs: Vital Signs Temperature 98.0 F 10/01/19 06:00 Pulse Rate 62 10/01/19 06:00 Respiratory Rate 20 10/01/19 06:00 Blood Pressure 135/77 10/01/19 06:00 O2 Sat by Pulse Oximetry (%) 96 09/30/19 21:00 Cardiovascular: Yes: Regular Rate and Rhythm Respiratory: Yes: Regular, CTA Bilaterally Gastrointestinal: Yes: Normal Bowel Sounds, Soft Extremities: Yes: Other (splint in place) Labs: CBC, BMP 09/30/19 06:40 09/30/19 06:40 Discharge Summary Problems reviewed: Yes Reason For Visit: FRACTURE OF ANKLE Current Active Problems Alcohol dependence with acute alcoholic intoxication (Acute) Ankle fracture, left (Acute) Anxiety (Acute) EtOH dependence (Acute) GERD (gastroesophageal reflux disease) (Acute) Injury of ankle, left (Acute) Frequent falls (Chronic) Hospital Course: 63 year old female, with a significant PMH of EtOH abuse, h/o TIA, COPD, HTN, liver cirrhosis (2/2 EtOH abuse), and seizures, who presents to the ED s/p fall. Patient states she was walking earlier tonight, when she stepped in a crack in the sidewalk and fell. She complains of left ankle pain most prominent at the medial aspect. Patient notes her pain is exacerbated with weight bearing and palpating the area. She denies any LOC or hitting any other part of her body during the fall. Patient admits to having 4-5 drinks tonight. Patient otherwise denies CP/SOB, fever, chills, urinary symptoms. Orthopedic consult placed and was evaluated by Dr Daniels. L Ankle/Foot Xray shows fracture of the medial malleolus and third and fourth metatarsals, arthritic changes. Patient was evaluated by PT and was only able to walk 4 feet. Will need SNF placement for PT for L ankle fracture. Condition: Stable - Instructions Diet, Activity, Other Instructions: Follow up with PMD in 2 weeks Follow up with Orthopedics Dr Daniels in 10 days Cont with splint, ICE, elevation, NWB, PT continue with medication as prescribed return to ER if develop severe pain, chest pain, respiratory distress, numbness to L foot Referrals: Dereck Daniels MD [Staff Physician] - Minnie Barnett MD, MD [Primary Care Provider] - [facility] - Home Medications Comprehensive Discharge Medication List: Ambulatory Orders Nebulizer [Aeroeclipse II] 1 each MC DAILY 30 Days #30 each 05/04/19 Albuterol 0.083% Nebulizer Diamond [Ventolin 0.083% Nebulizer Soln -] 1 amp NEB Q4H PRN amp 05/05/19 Multivitamins [Multivit ([facility] Formulary)] 1 tab PO DAILY tab 05/05/19 Tiotropium [place] [Spiriva Respimat] 2 puff IH DAILY inhaler 05/05/19 Albuterol 2.5/Ipratropium 0.5 [Duoneb -] 1 amp NEB Q4H 05/07/19 Buspirone HCl [Buspar -] 10 mg PO TID #42 tablet 08/14/19 Fluoxetine HCl 10 mg PO DAILY #14 capsule 08/14/19 Fluticasone Prop 0.05% Nasal [Flonase -] 1 spray NS BID #1 spray 08/14/19 Folic Acid - 1 mg PO DAILY #14 tablet 08/14/19 Magnesium Oxide [Mag-Ox -] 400 mg PO DAILY #14 tablet 08/14/19 Pantoprazole Sodium [Protonix -] 40 mg PO DAILY #14 tablet.ec 08/14/19 Thiamine HCl [Vitamin B1 -] 100 mg PO DAILY #14 tablet 08/14/19 Tiotropium [place] [Spiriva Respimat] 2 puff IH DAILY #1 inhaler 08/14/19 traZODone HCL [Desyrel -] 100 mg PO HS #14 tablet 08/14/19 Ergocalciferol [Vitamin D2] 50,000 unit PO Q7D capsule 09/30/19 Heparin - 5,000 unit SQ TID vial 09/30/19 Ibuprofen [Motrin -] 800 mg PO Q8H PRN tablet 09/30/19 LORazepam [Ativan] 0.5 mg PO BID PRN tablet MDD 1mg 09/30/19 Multivitamins [Multivit ([facility] Formulary)] 1 tab PO DAILY tab 09/30/19 traMADol HCL [Ultram -] 50 mg PO Q6H PRN tablet MDD 4 09/30/19
[2019-10-01] MEDS: PANTOPRAZOLE 40 MG TABLET (FP) PO SCH (09:44)
[2019-10-01] MEDS: LORazepam 0.5 MG TABLET PO PRN ×2 (09:44→22:17)
[2019-10-01] MEDS: FOLIC ACID 1 MG TABLET (FP) PO SCH (09:44)
[2019-10-01] MEDS: MAGNESIUM OXIDE 400 MG TABLET (FP) PO SCH (09:44)
[2019-10-01] MEDS: MULTIVITAMINS (DAILY MVI) TABLET (FP) PO SCH (09:44)
[2019-10-01] MEDS: FLUoxetine HCL 10 MG CAPSULE (FP) PO SCH (09:45)
[2019-10-01] MEDS: THIAMINE HCL 100 MG TABLET (FP) PO SCH (09:45)
[2019-10-01] MEDS: TIOTROPIUM BROMIDE 2.5 MCG (SPIRIVA) RESPIMAT INHALER IH SCH (09:45)
--- NOTE | 2019-10-01 13:46 | PN ---
Progress Note (short form) - Note Progress Note: Ortho Pt seen and examined s/p left medial mal and 3rd and 4th metatarsal neck fx Selected Entries 10/01/19 10:00 Temperature 98.4 F Pulse Rate 87 Respiratory 18 Rate Blood Pressure 134/69 splint intact, nvi a/p NWB LLE maintain splint strict elevation pain control d/c planning d/w Dr. Daniels
[2019-10-01] MEDS: traZODone HCL 50 MG TABLET (FP) PO SCH (22:00)
[2019-10-02] MEDS: KETOROLAC TROMETHAMINE 15 MG/ML VIAL IVPUSH PRN ×2 (02:55→09:52)
[2019-10-02] MEDS: ALBUTEROL SO4 2.5/IPRATROPIUM 0.5 INH SOL 3 ML VIAL.NEB. NEB SCH ×4 (04:00→11:35)
[2019-10-02] MEDS: busPIRone HCL 5 MG TABLET PO SCH (06:41)
[2019-10-02] MEDS: HEPARIN NA (PORCINE) 5,000 UNITS/ML 1ML VIAL SQ SCH (06:41)
[2019-10-02] MEDS: traMADol HCL 50 MG TABLET PO PRN (06:41)
--- NOTE | 2019-10-02 09:15 | PN ---
Progress Note, Physician Chief Complaint: L Ankle Fracture ETOH Abuse History of Present Illness: NAD Awaiting discharge to inpatient rehab - Current Medication List Current Medications: Active Medications Albuterol/Ipratropium (Duoneb -) 1 amp NEB RQ4H [facility] Last Admin: 10/02/19 07:25 Dose: 1 amp Buspirone HCl (Buspar -) 10 mg PO TID [facility] Last Admin: 10/02/19 06:41 Dose: 10 mg Ergocalciferol (Drisdol -) 50,000 unit PO Q7D [facility] Last Admin: 09/29/19 11:22 Dose: 50,000 unit Fluoxetine HCl (Prozac -) 10 mg PO DAILY [facility] Last Admin: 10/01/19 09:45 Dose: 10 mg Folic Acid (Folic Acid -) 1 mg PO DAILY [facility] Last Admin: 10/01/19 09:44 Dose: 1 mg Heparin Sodium (Porcine) (Heparin -) 5,000 unit SQ TID [facility] Last Admin: 10/02/19 06:41 Dose: 5,000 unit Ketorolac Tromethamine (Toradol Injection -) 15 mg IVPUSH Q6H PRN PRN Reason: PAIN LEVEL 6-10 Stop: 10/05/19 10:55 Last Admin: 10/02/19 02:55 Dose: 15 mg Lorazepam (Ativan -) 0.5 mg PO BID PRN PRN Reason: AGITATION Last Admin: 10/01/19 22:17 Dose: 0.5 mg Magnesium Oxide (Mag-Ox -) 400 mg PO DAILY [facility] Last Admin: 10/01/19 09:44 Dose: 400 mg Multivitamins/Minerals/Vitamin C (Tab-A-Vit -) 1 tab PO DAILY [facility] Last Admin: 10/01/19 09:44 Dose: 1 tab Pantoprazole Sodium (Protonix -) 40 mg PO DAILY [facility] Last Admin: 10/01/19 09:44 Dose: 40 mg Thiamine HCl (Vitamin B1 -) 100 mg PO DAILY [facility] Last Admin: 10/01/19 09:45 Dose: 100 mg Tiotropium [place] (Spiriva Respimat) 2 puff IH DAILY [facility] Last Admin: 10/01/19 09:45 Dose: 2 puff Tramadol HCl (Ultram -) 50 mg PO Q6H PRN PRN Reason: PAIN LEVEL 6-10 Last Admin: 10/02/19 06:41 Dose: 50 mg Trazodone HCl (Desyrel -) 100 mg PO HS [facility] Last Admin: 10/01/19 22:00 Dose: 100 mg - Objective Vital Signs: Vital Signs Temperature 98 F 10/02/19 06:12 Pulse Rate 74 10/02/19 06:12 Respiratory Rate 18 10/02/19 06:12 Blood Pressure 129/66 10/02/19 06:12 O2 Sat by Pulse Oximetry (%) 95 10/01/19 21:00 Constitutional: Yes: Well Nourished, No Distress, Calm Cardiovascular: Yes: Regular Rate and Rhythm Respiratory: Yes: Regular Gastrointestinal: Yes: WNL Genitourinary: Yes: WNL Musculoskeletal: Yes: Other (left ankle pain) Edema: No Peripheral Pulses WNL: Yes Neurological: Yes: Alert, Oriented Psychiatric: Yes: Alert, Oriented Labs: CBC, BMP 09/30/19 06:40 09/30/19 06:40 Assessment/Plan (1) Alcohol dependence with acute alcoholic intoxication Assessment/Plan: -Dr Thurman Consult -seizure precaution -fall precaution -MVI, Folate, Thiamine -Ativan 0.5mg BID prn for withdrawal -Alcohol level 361.3 Code(s): F10.229 - ALCOHOL DEPENDENCE WITH INTOXICATION, UNSPECIFIED Qualifiers: Complication of substance-induced condition: uncomplicated Qualified Code(s ): F10.220 - Alcohol dependence with intoxication, uncomplicated (2) Ankle fracture, left Assessment/Plan: -Orthopedic consult -L Ankle/Foot Xray shows fracture of the medial malleolus and third and fourth metatarsals, arthritic changes -pain control -PT Code(s): S82.892A - OTH FRACTURE OF LEFT LOWER LEG, INIT FOR CLOS FX (3) GERD (gastroesophageal reflux disease) Assessment/Plan: -Pantoprazole Code(s): K21.9 - GASTRO-ESOPHAGEAL REFLUX DISEASE WITHOUT ESOPHAGITIS (4) Frequent falls Assessment/Plan: -Fall Precaution -PT Code(s): R29.6 - REPEATED FALLS (5) COPD (chronic obstructive pulmonary disease) Assessment/Plan: -Bronchodilators -keep SpO2 >90% -Spiriva -O2 via [place] Code(s): J44.9 - CHRONIC OBSTRUCTIVE PULMONARY DISEASE, UNSPECIFIED Qualifiers: COPD type: unspecified COPD Qualified Code(s): J44.9 - Chronic obstructive pulmonary disease, unspecified (6) HTN (hypertension) Assessment/Plan: -monitor BP -low Na diet Code(s): I10 - ESSENTIAL (PRIMARY) HYPERTENSION Qualifiers: Hypertension type: essential hypertension Qualified Code(s): I10 - Essential (primary) hypertension (7) Depression Assessment/Plan: -Buspar, Trazadone, Prozac -Psych consult Code(s): F32.9 - MAJOR DEPRESSIVE DISORDER, SINGLE EPISODE, UNSPECIFIED Assessment/Plan see problem list dvt ppx
[2019-10-02] MEDS: FOLIC ACID 1 MG TABLET (FP) PO SCH (09:52)
[2019-10-02] MEDS: PANTOPRAZOLE 40 MG TABLET (FP) PO SCH (09:52)
[2019-10-02] MEDS: MULTIVITAMINS (DAILY MVI) TABLET (FP) PO SCH (09:52)
[2019-10-02] MEDS: MAGNESIUM OXIDE 400 MG TABLET (FP) PO SCH (09:52)
[2019-10-02] MEDS: LORazepam 0.5 MG TABLET PO PRN (09:53)
[2019-10-02] MEDS: FLUoxetine HCL 10 MG CAPSULE (FP) PO SCH (09:53)
[2019-10-02] MEDS: THIAMINE HCL 100 MG TABLET (FP) PO SCH (09:53)
[2019-10-02] MEDS: TIOTROPIUM BROMIDE 2.5 MCG (SPIRIVA) RESPIMAT INHALER IH SCH (09:56)
[2019-10-02 10:43] VITALS: BP 135/81; PULSE 87; TEMP 97.8
== END 2019-10-02 14:35 | DRG 342 ==
LOC: JER 22:44 → JERBED 09-29 05:41 → J6S 09-29 06:38
PROVIDERS: ADMIT Internal Medicine; ATTEND Family Medicine
DX: S82.55XA Nondisplaced fracture of medial malleolus of left tibia, initial encounter for closed fracture (principal); J44.9 Chronic obstructive pulmonary disease, unspecified; K21.9 Gastro-esophageal reflux disease without esophagitis; F10.220 Alcohol dependence with intoxication, uncomplicated; K70.30 Alcoholic cirrhosis of liver without ascites; I10 Essential (primary) hypertension; F41.8 Other specified anxiety disorders; W19.XXXA Unspecified fall, initial encounter; Y93.89 Activity, other specified; Y92.480 Sidewalk as the place of occurrence of the external cause; Y99.8 Other external cause status
CPT/HCPCS: 36415; 70450-TC; 73610-TC-LT-FY; 73630-TC-LT; 80048; 80053; 80307; 85025; 85027; 93005; 93010; 94640; 97116-GP; 97162-GP; 99283-25; J1644

== ENCOUNTER 2020-09-16 12:39 | Inpatient (IN) | payer OTHER ==
[2020-09-16] MEDS ORDERED: BISMUTH SUBSALICYLATE 524 MG/30 ML UD PO PRN (14:31)
[2020-09-16] MEDS ORDERED: MAGNESIUM HYDROX 2400MG/30ML ORAL SUSPENSION 30 ML CUP PO PRN (14:31)
[2020-09-16] MEDS ORDERED: MAGNESIUM CITRATE 300 ML BOTTLE PO PRN (14:31)
[2020-09-16] MEDS ORDERED: LORazepam 1 MG TABLET PO PRN (14:31)
[2020-09-16] MEDS ORDERED: MENTHOL/PHENOL 1 EACH UD MM PRN (14:31)
[2020-09-16] MEDS ORDERED: ONDANSETRON *ODT* 4 MG TABLET SL PRN (14:31)
[2020-09-16] MEDS ORDERED: ACETAMINOPHEN 325 MG TABLET (FP) PO PRN ×2 (14:31)
[2020-09-16] MEDS ORDERED: METHOCARBAMOL 500 MG TABLET PO PRN (14:31)
[2020-09-16] MEDS ORDERED: MAG HYDROX/AL HYDROX/SIMETH 30 ML UNIT-DOSE CUP PO PRN (14:31)
[2020-09-16] MEDS ORDERED: NICOTINE POLACRILEX 2 MG GUM BUC PRN (14:31)
[2020-09-16] MEDS ORDERED: IBUPROFEN 400 MG TABLET (FP) PO PRN (14:31)
[2020-09-16 14:43] VITALS: BMI 27.2
[2020-09-16 17:09] LABS: HEMATOCRIT 37.7 % (32.4-45.2); HEMOGLOBIN 12.6 GM/dL (10.7-15.3); MCH 34.4 pg (25.7-33.7); MCHC 33.4 g/dl (32.0-36.0); MEAN CELL VOLUME 102.8 fl (80-96); MEAN PLT VOLUME 9.2 fl (7.5-11.1); PLATELET COUNT 156 K/MM3 (134-434); RBC 3.67 M/mm3 (3.60-5.2); RDW 14.1 % (11.6-15.6); WHITE BLOOD COUNT 4.9 K/mm3 (4.0-10.0)
[2020-09-16 17:13] LABS: CALCIUM 8.5 mg/dL (8.5-10.1)
[2020-09-16 17:14] LABS: ALBUMIN 3.8 g/dl (3.4-5.0); BLOOD UREA NITROGEN 7.2 mg/dL (7-18)
[2020-09-16 17:17] LABS: CREATININE 0.8 mg/dL (0.55-1.3)
[2020-09-16 17:18] LABS: BILIRUBIN,TOTAL 0.7 mg/dL (0.2-1); TOT PROT 6.4 g/dl (6.4-8.2)
[2020-09-16] MEDS: hydrOXYzine PAMOATE 25 MG CAPSULE (FP) PO SCH ×2 (17:41→22:16)
[2020-09-16] MEDS: LORazepam 2 MG TABLET PO SCH ×2 (17:41→22:16)
[2020-09-16] MEDS: THIAMINE HCL 100 MG TABLET (FP) PO SCH (22:16)
[2020-09-16] MEDS: MELATONIN 5 MG TABLETS PO SCH (22:16)
[2020-09-17] MEDS: LORazepam 2 MG TABLET PO SCH ×4 (06:17→22:17)
[2020-09-17] MEDS: hydrOXYzine PAMOATE 25 MG CAPSULE (FP) PO SCH ×5 (06:17→22:17)
[2020-09-17] MEDS: PANTOPRAZOLE 40 MG TABLET PO SCH (10:20)
[2020-09-17] MEDS: FLUoxetine HCL 20 MG CAPSULE PO SCH (10:23)
[2020-09-17] MEDS: PRENATAL VITAMINS W/ FOLIC ACID TABLET (FP) PO SCH (10:23)
[2020-09-17] MEDS ORDERED: ERGOCALCIFEROL (VIT D2) 50,000 UNIT (1.25 MG) CAPSULE PO SCH (12:30)
[2020-09-17 12:41] LABS: HIV INTERPRETATION NEGATIVE (NEGATIVE)
[2020-09-17] MEDS: THIAMINE HCL 100 MG TABLET (FP) PO SCH (22:17)
[2020-09-17] MEDS: MELATONIN 5 MG TABLETS PO SCH (22:17)
[2020-09-17] MEDS: traZODone HCL 100 MG TABLET (FP) PO SCH (22:17)
[2020-09-18] MEDS: LORazepam 1 MG TABLET PO SCH ×4 (05:54→22:27)
[2020-09-18] MEDS: hydrOXYzine PAMOATE 25 MG CAPSULE (FP) PO SCH ×5 (06:14→22:27)
[2020-09-18] MEDS: MAGNESIUM OXIDE 400 MG TABLET (FP) PO SCH (11:06)
[2020-09-18] MEDS: PANTOPRAZOLE 40 MG TABLET PO SCH (11:06)
[2020-09-18] MEDS: FLUoxetine HCL 20 MG CAPSULE PO SCH (11:06)
[2020-09-18] MEDS: PRENATAL VITAMINS W/ FOLIC ACID TABLET (FP) PO SCH (11:06)
[2020-09-18] MEDS: traZODone HCL 100 MG TABLET (FP) PO SCH (22:26)
[2020-09-18] MEDS: THIAMINE HCL 100 MG TABLET (FP) PO SCH (22:27)
[2020-09-18] MEDS: MELATONIN 5 MG TABLETS PO SCH (22:34)
[2020-09-19] MEDS ORDERED: LORazepam 0.5 MG TABLET PO PRN
[2020-09-19] MEDS: hydrOXYzine PAMOATE 25 MG CAPSULE (FP) PO SCH ×5 (05:54→22:04)
[2020-09-19] MEDS: LORazepam 0.5 MG TABLET PO SCH ×4 (05:54→22:04)
[2020-09-19] MEDS: PRENATAL VITAMINS W/ FOLIC ACID TABLET (FP) PO SCH (10:21)
[2020-09-19] MEDS: PANTOPRAZOLE 40 MG TABLET PO SCH (10:22)
[2020-09-19] MEDS: FLUoxetine HCL 20 MG CAPSULE PO SCH (10:22)
[2020-09-19] MEDS: MAGNESIUM OXIDE 400 MG TABLET (FP) PO SCH (10:22)
[2020-09-19] MEDS: traZODone HCL 100 MG TABLET (FP) PO SCH (22:04)
[2020-09-19] MEDS: MELATONIN 5 MG TABLETS PO SCH (22:06)
[2020-09-19] MEDS: THIAMINE HCL 100 MG TABLET (FP) PO SCH (22:06)
[2020-09-20] MEDS ORDERED: LORazepam 0.5 MG TABLET PO ONE (05:00)
[2020-09-20] MEDS: hydrOXYzine PAMOATE 25 MG CAPSULE (FP) PO SCH ×2 (05:40→10:23)
[2020-09-20 09:15] VITALS: BP 117/84; PULSE 79; TEMP 96.1
[2020-09-20] MEDS: MAGNESIUM OXIDE 400 MG TABLET (FP) PO SCH (10:23)
[2020-09-20] MEDS: PRENATAL VITAMINS W/ FOLIC ACID TABLET (FP) PO SCH (10:24)
[2020-09-20] MEDS: FLUoxetine HCL 20 MG CAPSULE PO SCH (10:24)
[2020-09-20] MEDS: PANTOPRAZOLE 40 MG TABLET PO SCH (10:24)
== END 2020-09-20 13:16 | disposition other institution (70) | DRG 775 ==
LOC: YASAS 12:39 → Y6N 15:16
PROVIDERS: ADMIT Allergy & Immunology; ATTEND Allergy & Immunology
PROC: HZ2ZZZZ Detoxification Services for Substance Abuse Treatment (ICD-10-PCS; principal; 2020-09-16)
DX: F10.230 Alcohol dependence with withdrawal, uncomplicated (principal); F10.220 Alcohol dependence with intoxication, uncomplicated; F10.24 Alcohol dependence with alcohol-induced mood disorder; F10.282 Alcohol dependence with alcohol-induced sleep disorder; F32.9 Major depressive disorder, single episode, unspecified; F41.9 Anxiety disorder, unspecified; I10 Essential (primary) hypertension; K21.9 Gastro-esophageal reflux disease without esophagitis; R94.5 Abnormal results of liver function studies; K70.30 Alcoholic cirrhosis of liver without ascites; J44.9 Chronic obstructive pulmonary disease, unspecified; M54.5 Low back pain; G89.29 Other chronic pain; H91.90 Unspecified hearing loss, unspecified ear; R26.2 Difficulty in walking, not elsewhere classified; Z99.89 Dependence on other enabling machines and devices; Z86.69 Personal history of other diseases of the nervous system and sense organs; Z88.5 Allergy status to narcotic agent; Z86.19 Personal history of other infectious and parasitic diseases; Z62.810 Personal history of physical and sexual abuse in childhood; Z56.0 Unemployment, unspecified; Z59.0 Homelessness
CPT/HCPCS: 36415; 80053; 85027; 86780; 87389; C9803; U0003

== ENCOUNTER 2020-12-02 17:19 | Inpatient (IN) | payer MEDICARE, OTHER ==
[2020-12-02 18:46] VITALS: BMI 27.4
[2020-12-02] MEDS ORDERED: METHOCARBAMOL 500 MG TABLET PO PRN (19:30)
[2020-12-02] MEDS ORDERED: MENTHOL/PHENOL 1 EACH UD MM PRN (19:30)
[2020-12-02] MEDS ORDERED: ACETAMINOPHEN 325 MG TABLET (FP) PO PRN ×2 (19:30)
[2020-12-02] MEDS ORDERED: IBUPROFEN 400 MG TABLET (FP) PO PRN (19:30)
[2020-12-02] MEDS ORDERED: MAGNESIUM CITRATE 300 ML BOTTLE PO PRN (19:30)
[2020-12-02] MEDS ORDERED: ONDANSETRON *ODT* 4 MG TABLET SL PRN (19:30)
[2020-12-02] MEDS ORDERED: MAGNESIUM HYDROX 2400MG/30ML ORAL SUSPENSION 30 ML CUP PO PRN (19:30)
[2020-12-02] MEDS ORDERED: BISMUTH SUBSALICYLATE 524 MG/30 ML UD PO PRN (19:30)
[2020-12-02] MEDS ORDERED: hydrOXYzine PAMOATE 25 MG CAPSULE (FP) PO PRN (19:30)
[2020-12-02] MEDS ORDERED: MAG HYDROX/AL HYDROX/SIMETH 30 ML UNIT-DOSE CUP PO PRN (19:30)
[2020-12-02] MEDS ORDERED: chlordiazePOXIDE HCL 25 MG CAPSULE PO PRN (19:38)
[2020-12-02] MEDS: MELATONIN 5 MG TABLETS PO SCH (22:30)
[2020-12-02] MEDS: THIAMINE HCL 100 MG TABLET (FP) PO SCH (22:30)
[2020-12-03] MEDS: chlordiazePOXIDE HCL 25 MG CAPSULE PO SCH ×4 (06:05→22:28)
[2020-12-03] MEDS: PANTOPRAZOLE 40 MG TABLET PO SCH (10:38)
[2020-12-03] MEDS: PRENATAL VITAMINS W/ FOLIC ACID TABLET (FP) PO SCH (10:38)
[2020-12-03] MEDS: ERGOCALCIFEROL (VIT D2) 50,000 UNIT (1.25 MG) CAPSULE PO SCH (11:24)
[2020-12-03] MEDS: FLUoxetine HCL 20 MG CAPSULE PO SCH (11:24)
[2020-12-03 11:37] LABS: HEMATOCRIT 32.2 % (32.4-45.2); HEMOGLOBIN 11.3 GM/dL (10.7-15.3); MCH 34.8 pg (25.7-33.7); MCHC 35.1 g/dl (32.0-36.0); MEAN CELL VOLUME 99.4 fl (80-96); MEAN PLT VOLUME 8.2 fl (7.5-11.1); PLATELET COUNT 62 K/MM3 (134-434); RBC 3.24 M/mm3 (3.60-5.2); RDW 18.4 % (11.6-15.6); WHITE BLOOD COUNT 2.8 K/mm3 (4.0-10.0)
[2020-12-03 11:45] LABS: ALBUMIN 3.4 g/dl (3.4-5.0); BLOOD UREA NITROGEN 7.7 mg/dL (7-18)
[2020-12-03 11:46] LABS: BILIRUBIN,TOTAL 1.4 mg/dL (0.2-1); CALCIUM 8.2 mg/dL (8.5-10.1)
[2020-12-03 11:47] LABS: TOT PROT 5.7 g/dl (6.4-8.2)
[2020-12-03 11:48] LABS: CREATININE 0.7 mg/dL (0.55-1.3)
[2020-12-03 11:49] LABS: POTASSIUM 3.3 mmol/L (3.5-5.1)
[2020-12-03 12:40] LABS: HIV INTERPRETATION NEGATIVE (NEGATIVE)
[2020-12-03] MEDS ORDERED: POTASSIUM CHLORIDE ORAL LIQUID 20 MEQ/15 ML PO ONE (17:36)
[2020-12-03] MEDS: traZODone HCL 100 MG TABLET (FP) PO SCH (22:27)
[2020-12-03] MEDS: POTASSIUM CHLORIDE ORAL LIQUID 20 MEQ/15 ML PO SCH (22:27)
[2020-12-03] MEDS: THIAMINE HCL 100 MG TABLET (FP) PO SCH (22:28)
[2020-12-03] MEDS: MELATONIN 5 MG TABLETS PO SCH (22:33)
[2020-12-04] MEDS ORDERED: chlordiazePOXIDE HCL 25 MG CAPSULE PO SCH (05:00)
[2020-12-04] MEDS ORDERED: LOPERAMIDE HCL 2 MG CAPSULE PO ONE (10:30)
[2020-12-04] MEDS ORDERED: LORazepam 1 MG TABLET PO PRN (10:32)
[2020-12-04] MEDS: PRENATAL VITAMINS W/ FOLIC ACID TABLET (FP) PO SCH (10:39)
[2020-12-04] MEDS: PANTOPRAZOLE 40 MG TABLET PO SCH (10:39)
[2020-12-04] MEDS: POTASSIUM CHLORIDE ORAL LIQUID 20 MEQ/15 ML PO SCH ×2 (10:39→21:28)
[2020-12-04] MEDS: FLUoxetine HCL 20 MG CAPSULE PO SCH (10:39)
[2020-12-04] MEDS: LORazepam 2 MG TABLET PO SCH ×3 (10:59→22:15)
[2020-12-04] MEDS: FLUTICASONE PROP 0.05% 16 GM NASAL SPRAY NS SCH ×2 (13:29→21:30)
[2020-12-04 13:46] LABS: POTASSIUM 3.7 mmol/L (3.5-5.1)
[2020-12-04 13:50] LABS: HEMATOCRIT 36.5 % (32.4-45.2); HEMOGLOBIN 12.6 GM/dL (10.7-15.3); MCH 35.2 pg (25.7-33.7); MCHC 34.4 g/dl (32.0-36.0); MEAN CELL VOLUME 102.1 fl (80-96); MEAN PLT VOLUME 9.5 fl (7.5-11.1); PLATELET COUNT 57 K/MM3 (134-434); RBC 3.58 M/mm3 (3.60-5.2); RDW 17.6 % (11.6-15.6); WHITE BLOOD COUNT 2.8 K/mm3 (4.0-10.0)
[2020-12-04 13:54] LABS: ALBUMIN 4.1 g/dl (3.4-5.0); BLOOD UREA NITROGEN 7.4 mg/dL (7-18); CALCIUM 9.3 mg/dL (8.5-10.1)
[2020-12-04 13:56] LABS: CREATININE 0.9 mg/dL (0.55-1.3)
[2020-12-04 13:58] LABS: TOT PROT 6.7 g/dl (6.4-8.2)
[2020-12-04] MEDS: traZODone HCL 100 MG TABLET (FP) PO SCH (21:28)
[2020-12-04] MEDS: MELATONIN 5 MG TABLETS PO SCH (21:29)
[2020-12-04] MEDS: THIAMINE HCL 100 MG TABLET (FP) PO SCH (22:16)
[2020-12-05] MEDS ORDERED: chlordiazePOXIDE HCL 10 MG CAPSULE PO PRN
[2020-12-05] MEDS ORDERED: chlordiazePOXIDE HCL 10 MG CAPSULE PO SCH (05:00)
[2020-12-05] MEDS: LORazepam 1 MG TABLET PO SCH ×4 (06:59→22:52)
[2020-12-05] MEDS: POTASSIUM CHLORIDE ORAL LIQUID 20 MEQ/15 ML PO SCH ×2 (10:52→22:52)
[2020-12-05] MEDS: PANTOPRAZOLE 40 MG TABLET PO SCH (10:53)
[2020-12-05] MEDS: PRENATAL VITAMINS W/ FOLIC ACID TABLET (FP) PO SCH (10:54)
[2020-12-05] MEDS: FLUoxetine HCL 20 MG CAPSULE PO SCH (10:54)
[2020-12-05] MEDS: FLUTICASONE PROP 0.05% 16 GM NASAL SPRAY NS SCH ×2 (10:55→22:54)
[2020-12-05] MEDS: LACTULOSE 20 GM/30 ML UDC (FOR ORAL USE ONLY) PO SCH ×2 (14:51→22:54)
[2020-12-05] MEDS: traZODone HCL 100 MG TABLET (FP) PO SCH (22:52)
[2020-12-05] MEDS: THIAMINE HCL 100 MG TABLET (FP) PO SCH (22:52)
[2020-12-05] MEDS: MELATONIN 5 MG TABLETS PO SCH (22:53)
[2020-12-06] MEDS ORDERED: LORazepam 0.5 MG TABLET PO PRN
[2020-12-06] MEDS ORDERED: chlordiazePOXIDE HCL 10 MG CAPSULE PO SCH (05:00)
[2020-12-06] MEDS: LACTULOSE 20 GM/30 ML UDC (FOR ORAL USE ONLY) PO SCH ×3 (07:01→22:52)
[2020-12-06] MEDS: LORazepam 0.5 MG TABLET PO SCH ×4 (07:01→22:51)
[2020-12-06] MEDS: FLUTICASONE PROP 0.05% 16 GM NASAL SPRAY NS SCH ×2 (10:52→22:52)
[2020-12-06] MEDS: PRENATAL VITAMINS W/ FOLIC ACID TABLET (FP) PO SCH (10:52)
[2020-12-06] MEDS: PANTOPRAZOLE 40 MG TABLET PO SCH (10:52)
[2020-12-06] MEDS: FLUoxetine HCL 20 MG CAPSULE PO SCH (10:53)
[2020-12-06] MEDS: traZODone HCL 100 MG TABLET (FP) PO SCH (22:52)
[2020-12-06] MEDS: THIAMINE HCL 100 MG TABLET (FP) PO SCH (22:52)
[2020-12-06] MEDS: MELATONIN 5 MG TABLETS PO SCH (22:52)
[2020-12-07] MEDS ORDERED: LORazepam 0.5 MG TABLET PO ONE (05:00)
[2020-12-07] MEDS ORDERED: chlordiazePOXIDE HCL 10 MG CAPSULE PO ONE (05:00)
[2020-12-07] MEDS: LACTULOSE 20 GM/30 ML UDC (FOR ORAL USE ONLY) PO SCH ×3 (06:31→22:44)
[2020-12-07] MEDS: PRENATAL VITAMINS W/ FOLIC ACID TABLET (FP) PO SCH (13:32)
[2020-12-07] MEDS: PANTOPRAZOLE 40 MG TABLET PO SCH (13:32)
[2020-12-07] MEDS: FLUTICASONE PROP 0.05% 16 GM NASAL SPRAY NS SCH ×2 (13:32→22:44)
[2020-12-07] MEDS: FLUoxetine HCL 20 MG CAPSULE PO SCH (13:37)
[2020-12-07] MEDS: MELATONIN 5 MG TABLETS PO SCH (22:44)
[2020-12-07] MEDS: traZODone HCL 100 MG TABLET (FP) PO SCH (22:44)
[2020-12-07] MEDS: THIAMINE HCL 100 MG TABLET (FP) PO SCH (22:45)
[2020-12-08] MEDS: LACTULOSE 20 GM/30 ML UDC (FOR ORAL USE ONLY) PO SCH ×3 (07:09→22:13)
[2020-12-08] MEDS: PANTOPRAZOLE 40 MG TABLET PO SCH (09:58)
[2020-12-08] MEDS: FLUoxetine HCL 20 MG CAPSULE PO SCH (09:58)
[2020-12-08] MEDS: PRENATAL VITAMINS W/ FOLIC ACID TABLET (FP) PO SCH (09:58)
[2020-12-08] MEDS: FLUTICASONE PROP 0.05% 16 GM NASAL SPRAY NS SCH ×2 (09:58→22:14)
[2020-12-08] MEDS: THIAMINE HCL 100 MG TABLET (FP) PO SCH (22:13)
[2020-12-08] MEDS: traZODone HCL 100 MG TABLET (FP) PO SCH (22:13)
[2020-12-08] MEDS: MELATONIN 5 MG TABLETS PO SCH (22:14)
[2020-12-09] MEDS: LACTULOSE 20 GM/30 ML UDC (FOR ORAL USE ONLY) PO SCH ×5 (07:01→22:02)
[2020-12-09] MEDS: FLUTICASONE PROP 0.05% 16 GM NASAL SPRAY NS SCH ×2 (10:53→22:02)
[2020-12-09] MEDS: FLUoxetine HCL 20 MG CAPSULE PO SCH (10:54)
[2020-12-09] MEDS: PRENATAL VITAMINS W/ FOLIC ACID TABLET (FP) PO SCH (10:54)
[2020-12-09] MEDS: PANTOPRAZOLE 40 MG TABLET PO SCH (10:54)
[2020-12-09] MEDS: MELATONIN 5 MG TABLETS PO SCH (22:02)
[2020-12-09] MEDS: THIAMINE HCL 100 MG TABLET (FP) PO SCH (22:02)
[2020-12-09] MEDS: traZODone HCL 100 MG TABLET (FP) PO SCH (22:02)
[2020-12-10] MEDS: LACTULOSE 20 GM/30 ML UDC (FOR ORAL USE ONLY) PO SCH ×4 (11:11→22:11)
[2020-12-10] MEDS: PRENATAL VITAMINS W/ FOLIC ACID TABLET (FP) PO SCH (11:13)
[2020-12-10] MEDS: FLUTICASONE PROP 0.05% 16 GM NASAL SPRAY NS SCH ×2 (11:13→22:12)
[2020-12-10] MEDS: ERGOCALCIFEROL (VIT D2) 50,000 UNIT (1.25 MG) CAPSULE PO SCH (11:13)
[2020-12-10] MEDS: PANTOPRAZOLE 40 MG TABLET PO SCH (11:13)
[2020-12-10] MEDS: FLUoxetine HCL 20 MG CAPSULE PO SCH (11:13)
[2020-12-10] MEDS: LIDOCAINE 5% TOPICAL PATCH TP SCH (11:33)
[2020-12-10] MEDS ORDERED: COLLOIDAL OATMEAL 1 BAR EACH TP PRN (14:29)
[2020-12-10] MEDS: traZODone HCL 100 MG TABLET (FP) PO SCH (22:10)
[2020-12-10] MEDS: THIAMINE HCL 100 MG TABLET (FP) PO SCH (22:10)
[2020-12-10] MEDS: LIDOCAINE PATCH REMOVAL MC SCH (22:12)
[2020-12-10] MEDS: MELATONIN 5 MG TABLETS PO SCH (22:13)
[2020-12-11] MEDS: PANTOPRAZOLE 40 MG TABLET PO SCH (10:08)
[2020-12-11] MEDS: PRENATAL VITAMINS W/ FOLIC ACID TABLET (FP) PO SCH (10:09)
[2020-12-11] MEDS: FLUoxetine HCL 20 MG CAPSULE PO SCH (10:09)
[2020-12-11] MEDS: LACTULOSE 20 GM/30 ML UDC (FOR ORAL USE ONLY) PO SCH ×4 (10:10→22:10)
[2020-12-11] MEDS: LIDOCAINE 5% TOPICAL PATCH TP SCH (10:10)
[2020-12-11] MEDS: FLUTICASONE PROP 0.05% 16 GM NASAL SPRAY NS SCH ×2 (10:10→22:10)
[2020-12-11 12:57] LABS: HEMATOCRIT 35.8 % (32.4-45.2); HEMOGLOBIN 12.1 GM/dL (10.7-15.3); MCH 34.5 pg (25.7-33.7); MCHC 33.9 g/dl (32.0-36.0); MEAN CELL VOLUME 101.8 fl (80-96); MEAN PLT VOLUME 9.6 fl (7.5-11.1); PLATELET COUNT 131 K/MM3 (134-434); RBC 3.52 M/mm3 (3.60-5.2); RDW 16.5 % (11.6-15.6); WHITE BLOOD COUNT 3.3 K/mm3 (4.0-10.0)
[2020-12-11 13:05] LABS: POTASSIUM 4.4 mmol/L (3.5-5.1)
[2020-12-11 13:06] LABS: INR 1.08 (0.83-1.09); PROTHROMBIN TIME (PATIENT) 13.3 SEC (9.7-13.0)
[2020-12-11 13:12] LABS: ALBUMIN 3.7 g/dl (3.4-5.0); BLOOD UREA NITROGEN 10.2 mg/dL (7-18); CALCIUM 9.7 mg/dL (8.5-10.1)
[2020-12-11 13:15] LABS: CREATININE 0.9 mg/dL (0.55-1.3)
[2020-12-11 13:16] LABS: BILIRUBIN,TOTAL 0.7 mg/dL (0.2-1); TOT PROT 6.4 g/dl (6.4-8.2)
[2020-12-11] MEDS: traZODone HCL 100 MG TABLET (FP) PO SCH (22:10)
[2020-12-11] MEDS: THIAMINE HCL 100 MG TABLET (FP) PO SCH (22:10)
[2020-12-11] MEDS: MELATONIN 5 MG TABLETS PO SCH (22:10)
[2020-12-11] MEDS: LIDOCAINE PATCH REMOVAL MC SCH (22:11)
[2020-12-12] MEDS: LIDOCAINE 5% TOPICAL PATCH TP SCH (10:10)
[2020-12-12] MEDS: PRENATAL VITAMINS W/ FOLIC ACID TABLET (FP) PO SCH (10:10)
[2020-12-12] MEDS: LACTULOSE 20 GM/30 ML UDC (FOR ORAL USE ONLY) PO SCH ×4 (10:10→23:22)
[2020-12-12] MEDS: FLUTICASONE PROP 0.05% 16 GM NASAL SPRAY NS SCH ×2 (10:10→23:22)
[2020-12-12] MEDS: PANTOPRAZOLE 40 MG TABLET PO SCH (10:11)
[2020-12-12] MEDS: FLUoxetine HCL 20 MG CAPSULE PO SCH (10:11)
[2020-12-12] MEDS: MELATONIN 5 MG TABLETS PO SCH (22:12)
[2020-12-12] MEDS: THIAMINE HCL 100 MG TABLET (FP) PO SCH (22:12)
[2020-12-12] MEDS: traZODone HCL 100 MG TABLET (FP) PO SCH (22:12)
[2020-12-12] MEDS: LIDOCAINE PATCH REMOVAL MC SCH (22:14)
[2020-12-13] MEDS: PANTOPRAZOLE 40 MG TABLET PO SCH (10:20)
[2020-12-13] MEDS: PRENATAL VITAMINS W/ FOLIC ACID TABLET (FP) PO SCH (10:20)
[2020-12-13] MEDS: LACTULOSE 20 GM/30 ML UDC (FOR ORAL USE ONLY) PO SCH ×4 (10:20→22:24)
[2020-12-13] MEDS: FLUoxetine HCL 20 MG CAPSULE PO SCH (10:22)
[2020-12-13] MEDS: FLUTICASONE PROP 0.05% 16 GM NASAL SPRAY NS SCH ×2 (10:22→22:23)
[2020-12-13] MEDS: LIDOCAINE 5% TOPICAL PATCH TP SCH (10:22)
[2020-12-13] MEDS: THIAMINE HCL 100 MG TABLET (FP) PO SCH (22:23)
[2020-12-13] MEDS: MELATONIN 5 MG TABLETS PO SCH (22:23)
[2020-12-13] MEDS: LIDOCAINE PATCH REMOVAL MC SCH (22:23)
[2020-12-13] MEDS: traZODone HCL 100 MG TABLET (FP) PO SCH (22:23)
[2020-12-14] MEDS: PANTOPRAZOLE 40 MG TABLET PO SCH (10:08)
[2020-12-14] MEDS: PRENATAL VITAMINS W/ FOLIC ACID TABLET (FP) PO SCH (10:08)
[2020-12-14] MEDS: FLUTICASONE PROP 0.05% 16 GM NASAL SPRAY NS SCH ×2 (10:08→22:12)
[2020-12-14] MEDS: FLUoxetine HCL 20 MG CAPSULE PO SCH (10:08)
[2020-12-14] MEDS: LACTULOSE 20 GM/30 ML UDC (FOR ORAL USE ONLY) PO SCH ×4 (10:08→22:10)
[2020-12-14] MEDS: LIDOCAINE 5% TOPICAL PATCH TP SCH (10:09)
[2020-12-14] MEDS: THIAMINE HCL 100 MG TABLET (FP) PO SCH (22:10)
[2020-12-14] MEDS: MELATONIN 5 MG TABLETS PO SCH (22:10)
[2020-12-14] MEDS: traZODone HCL 100 MG TABLET (FP) PO SCH (22:10)
[2020-12-14] MEDS: LIDOCAINE PATCH REMOVAL MC SCH (22:12)
[2020-12-15] MEDS: LACTULOSE 20 GM/30 ML UDC (FOR ORAL USE ONLY) PO SCH ×4 (10:32→22:24)
[2020-12-15] MEDS: LIDOCAINE 5% TOPICAL PATCH TP SCH (10:33)
[2020-12-15] MEDS: PRENATAL VITAMINS W/ FOLIC ACID TABLET (FP) PO SCH (10:33)
[2020-12-15] MEDS: PANTOPRAZOLE 40 MG TABLET PO SCH (10:33)
[2020-12-15] MEDS: FLUoxetine HCL 20 MG CAPSULE PO SCH (10:33)
[2020-12-15] MEDS: FLUTICASONE PROP 0.05% 16 GM NASAL SPRAY NS SCH ×2 (10:33→22:23)
[2020-12-15] MEDS: THIAMINE HCL 100 MG TABLET (FP) PO SCH (22:23)
[2020-12-15] MEDS: traZODone HCL 100 MG TABLET (FP) PO SCH (22:23)
[2020-12-15] MEDS: LIDOCAINE PATCH REMOVAL MC SCH (22:24)
[2020-12-15] MEDS: MELATONIN 5 MG TABLETS PO SCH (22:24)
[2020-12-16 09:56] VITALS: TEMP 97.5
[2020-12-16] MEDS: FLUTICASONE PROP 0.05% 16 GM NASAL SPRAY NS SCH (10:03)
[2020-12-16] MEDS: FLUoxetine HCL 20 MG CAPSULE PO SCH (10:03)
[2020-12-16] MEDS: PANTOPRAZOLE 40 MG TABLET PO SCH (10:03)
[2020-12-16] MEDS: PRENATAL VITAMINS W/ FOLIC ACID TABLET (FP) PO SCH (10:03)
[2020-12-16] MEDS: LACTULOSE 20 GM/30 ML UDC (FOR ORAL USE ONLY) PO SCH ×2 (10:03→13:14)
[2020-12-16] MEDS: LIDOCAINE 5% TOPICAL PATCH TP SCH (10:04)
[2020-12-16 14:17] VITALS: BP 160/84; PULSE 88
== END 2020-12-16 15:58 | DRG 897 ==
LOC: YASAS 17:19 → Y6N 12-03 01:12
PROVIDERS: ADMIT Allergy & Immunology; ATTEND Allergy & Immunology
PROC: HZ2ZZZZ Detoxification Services for Substance Abuse Treatment (ICD-10-PCS; principal; 2020-12-03)
DX: F10.230 Alcohol dependence with withdrawal, uncomplicated (principal); D61.818 Other pancytopenia; E72.20 Disorder of urea cycle metabolism, unspecified; F33.2 Major depressive disorder, recurrent severe without psychotic features; F10.24 Alcohol dependence with alcohol-induced mood disorder; F10.282 Alcohol dependence with alcohol-induced sleep disorder; F10.220 Alcohol dependence with intoxication, uncomplicated; F19.24 Other psychoactive substance dependence with psychoactive substance-induced mood disorder; D72.819 Decreased white blood cell count, unspecified; E87.6 Hypokalemia; E55.9 Vitamin D deficiency, unspecified; I10 Essential (primary) hypertension; J44.9 Chronic obstructive pulmonary disease, unspecified; J34.89 Other specified disorders of nose and nasal sinuses; K21.9 Gastro-esophageal reflux disease without esophagitis; K74.60 Unspecified cirrhosis of liver; M54.5 Low back pain; G89.29 Other chronic pain; H91.90 Unspecified hearing loss, unspecified ear; R56.9 Unspecified convulsions; Z62.810 Personal history of physical and sexual abuse in childhood; Z98.890 Other specified postprocedural states; Z74.09 Other reduced mobility; Z99.89 Dependence on other enabling machines and devices; Z56.0 Unemployment, unspecified; Z59.0 Homelessness; Z88.5 Allergy status to narcotic agent
CPT/HCPCS: 36415; 80053; 82140; 84132; 85027; 85610; 86780; 86803; 87389; 97116-GP; 97161-GP; C9803; Q0162; U0003

== ENCOUNTER 2022-03-06 08:47 | Inpatient (IN) | payer OTHER ==
[2022-03-05 18:15] VITALS: BMI 26.6
[2022-03-05] MEDS: hydrOXYzine PAMOATE 25 MG CAPSULE (FP) PO SCH (20:14)
[~2022-03-06 08:47] MED LIST: ACETAMINOPHEN 325 MG TABLET (FP) PO PRN; BENZOCAINE/MENTHOL (CHLORASEPTIC ) LOZENGE MM PRN; BISMUTH SUBSALICYLATE 524 MG/30 ML PO PRN; DICYCLOMINE HCL 10 MG CAPSULE PO PRN; IBUPROFEN 400 MG TABLET (FP) PO PRN; IBUPROFEN 600 MG TABLET (FP) PO PRN; LOPERAMIDE HCL 2 MG CAPSULE PO PRN; MAG HYDROX/AL HYDROX/SIMETH 30 ML UNIT-DOSE CUP PO PRN; MAGNESIUM CITRATE 300 ML BOTTLE PO PRN; MAGNESIUM HYDROX 2400MG/30ML ORAL SUSPENSION 30 ML CUP PO PRN; METHOCARBAMOL 500 MG TABLET PO PRN; NICOTINE 10 MG CARTRIDGE (INHALER) IH PRN; ONDANSETRON *ODT* 4 MG TABLET SL PRN; hydrOXYzine PAMOATE 25 MG CAPSULE (FP) PO ONE
[2022-03-06] MEDS ORDERED: LORazepam 1 MG TABLET PO PRN (09:23)
[2022-03-06] MEDS ORDERED: LORazepam 2 MG TABLET PO ONE (09:23)
[2022-03-06] MEDS ORDERED: ONDANSETRON *ODT* 4 MG TABLET ONE (09:24)
[2022-03-06] MEDS: PRENATAL VITAMINS W/ FOLIC ACID TABLET (FP) PO SCH ×2 (10:13→10:30)
[2022-03-06] MEDS: hydrOXYzine PAMOATE 25 MG CAPSULE (FP) PO SCH ×6 (10:14→22:39)
[2022-03-06] MEDS ORDERED: ALBUTEROL SO4 HFA INHALER IH PRN (10:19)
[2022-03-06] MEDS ORDERED: KETOTIFEN FUMARATE OU SCH (10:30)
[2022-03-06] MEDS: MELATONIN 5 MG TABLETS PO SCH ×2 (10:30→22:39)
[2022-03-06] MEDS: THIAMINE HCL 100 MG TABLET (FP) PO SCH ×2 (10:30→22:39)
[2022-03-06] MEDS ORDERED: ARTIFICIAL TEARS (POLYVINYL ALCOHOL) OPTH DROPS OU PRN (10:39)
[2022-03-06 10:53] LABS: HEMATOCRIT 32.5 % (32.4-45.2); HEMOGLOBIN 11.3 GM/dL (10.7-15.3); MCH 36.2 pg (25.7-33.7); MCHC 34.7 g/dl (32.0-36.0); MEAN CELL VOLUME 104.3 fl (80-96); MEAN PLT VOLUME 8.2 fl (7.5-11.1); PLATELET COUNT 65 10^3/uL (134-434); RBC 3.12 M/mm3 (3.60-5.2); WHITE BLOOD COUNT 3.4 K/mm3 (4.0-10.0)
[2022-03-06 10:55] LABS: ALBUMIN 3.1 g/dl (3.4-5.0); BLOOD UREA NITROGEN 5.8 mg/dL (7-18); CALCIUM 8.7 mg/dL (8.5-10.1)
[2022-03-06 10:57] LABS: TOT PROT 6.6 g/dl (6.4-8.2)
[2022-03-06 10:58] LABS: CREATININE 0.6 mg/dL (0.55-1.3)
[2022-03-06] MEDS: LORazepam 2 MG TABLET PO SCH ×3 (10:59→22:39)
[2022-03-06] MEDS: FLUTICASONE PROP 0.05% 16 GM NASAL SPRAY NS SCH ×2 (12:00→22:41)
[2022-03-06] MEDS: METHYL SALICYLATE/MENTHOL OINT 30 GM TUBE TP PRN (22:40)
[2022-03-07] MEDS: hydrOXYzine PAMOATE 25 MG CAPSULE (FP) PO SCH ×5 (05:17→22:28)
[2022-03-07] MEDS: LORazepam 2 MG TABLET PO SCH ×4 (05:18→22:28)
[2022-03-07] MEDS: METHYL SALICYLATE/MENTHOL OINT 30 GM TUBE TP PRN (10:13)
[2022-03-07] MEDS: FLUTICASONE PROP 0.05% 16 GM NASAL SPRAY NS SCH ×2 (10:13→22:28)
[2022-03-07] MEDS: PRENATAL VITAMINS W/ FOLIC ACID TABLET (FP) PO SCH (10:14)
[2022-03-07] MEDS: LACTULOSE 20 GM/30 ML UDC (FOR ORAL USE ONLY) PO SCH ×3 (13:08→22:29)
[2022-03-07] MEDS: THIAMINE HCL 100 MG TABLET (FP) PO SCH (22:28)
[2022-03-07] MEDS: traZODone HCL 50 MG TABLET (FP) PO SCH (22:28)
[2022-03-07] MEDS: PANTOPRAZOLE 40 MG TABLET PO SCH (22:28)
[2022-03-07] MEDS: MELATONIN 5 MG TABLETS PO SCH (22:33)
[2022-03-08] MEDS: LORazepam 1 MG TABLET PO SCH ×4 (06:17→22:09)
[2022-03-08] MEDS: hydrOXYzine PAMOATE 25 MG CAPSULE (FP) PO SCH ×5 (07:11→22:08)
[2022-03-08] MEDS ORDERED: MAGNESIUM OXIDE 400 MG TABLET (FP) PO SCH (10:00)
[2022-03-08] MEDS: PRENATAL VITAMINS W/ FOLIC ACID TABLET (FP) PO SCH (10:26)
[2022-03-08] MEDS: FLUTICASONE PROP 0.05% 16 GM NASAL SPRAY NS SCH ×2 (10:26→23:28)
[2022-03-08] MEDS: FLUoxetine HCL 20 MG CAPSULE PO SCH (10:27)
[2022-03-08] MEDS: PANTOPRAZOLE 40 MG TABLET PO SCH ×2 (10:27→22:09)
[2022-03-08] MEDS: LACTULOSE 20 GM/30 ML UDC (FOR ORAL USE ONLY) PO SCH ×4 (10:31→22:10)
[2022-03-08] MEDS: MELATONIN 5 MG TABLETS PO SCH (22:09)
[2022-03-08] MEDS: THIAMINE HCL 100 MG TABLET (FP) PO SCH (22:09)
[2022-03-08] MEDS: traZODone HCL 50 MG TABLET (FP) PO SCH (22:09)
[2022-03-09] MEDS ORDERED: LORazepam 0.5 MG TABLET PO PRN
[2022-03-09] MEDS: LORazepam 0.5 MG TABLET PO SCH ×4 (05:59→22:34)
[2022-03-09] MEDS: hydrOXYzine PAMOATE 25 MG CAPSULE (FP) PO SCH ×5 (05:59→22:33)
[2022-03-09] MEDS: LACTULOSE 20 GM/30 ML UDC (FOR ORAL USE ONLY) PO SCH ×4 (10:28→22:32)
[2022-03-09] MEDS: PRENATAL VITAMINS W/ FOLIC ACID TABLET (FP) PO SCH (10:28)
[2022-03-09] MEDS: FLUTICASONE PROP 0.05% 16 GM NASAL SPRAY NS SCH ×2 (10:28→22:33)
[2022-03-09] MEDS: FLUoxetine HCL 20 MG CAPSULE PO SCH (10:29)
[2022-03-09] MEDS: PANTOPRAZOLE 40 MG TABLET PO SCH ×2 (10:29→22:34)
[2022-03-09] MEDS: THIAMINE HCL 100 MG TABLET (FP) PO SCH (22:33)
[2022-03-09] MEDS: traZODone HCL 50 MG TABLET (FP) PO SCH (22:34)
[2022-03-09] MEDS: MELATONIN 5 MG TABLETS PO SCH (22:34)
[2022-03-10] MEDS ORDERED: LORazepam 0.5 MG TABLET PO ONE (05:00)
[2022-03-10] MEDS: hydrOXYzine PAMOATE 25 MG CAPSULE (FP) PO SCH ×2 (05:52→10:45)
[2022-03-10 09:43] VITALS: BP 143/87; PULSE 105; TEMP 97.1
[2022-03-10] MEDS: PANTOPRAZOLE 40 MG TABLET PO SCH (10:44)
[2022-03-10] MEDS: FLUTICASONE PROP 0.05% 16 GM NASAL SPRAY NS SCH (10:44)
[2022-03-10] MEDS: FLUoxetine HCL 20 MG CAPSULE PO SCH (10:44)
[2022-03-10] MEDS: PRENATAL VITAMINS W/ FOLIC ACID TABLET (FP) PO SCH (10:44)
[2022-03-10] MEDS: LACTULOSE 20 GM/30 ML UDC (FOR ORAL USE ONLY) PO SCH (10:45)
== END 2022-03-10 10:58 | disposition home or self-care (01) | DRG 897 ==
LOC: YASAS 08:47 → Y6N 09:19
PROVIDERS: ADMIT Allergy & Immunology; ATTEND Surgery
PROC: HZ2ZZZZ Detoxification Services for Substance Abuse Treatment (ICD-10-PCS; principal; 2022-03-06)
DX: F10.230 Alcohol dependence with withdrawal, uncomplicated (principal); E72.20 Disorder of urea cycle metabolism, unspecified; F10.24 Alcohol dependence with alcohol-induced mood disorder; F41.8 Other specified anxiety disorders; F32.A Depression, unspecified; H91.93 Unspecified hearing loss, bilateral; H04.129 Dry eye syndrome of unspecified lacrimal gland; J45.20 Mild intermittent asthma, uncomplicated; E80.6 Other disorders of bilirubin metabolism; R94.5 Abnormal results of liver function studies; R29.6 Repeated falls; M54.50 Low back pain, unspecified; G89.29 Other chronic pain; Z62.810 Personal history of physical and sexual abuse in childhood; Z74.09 Other reduced mobility; Z99.89 Dependence on other enabling machines and devices; Z86.2 Personal history of diseases of the blood and blood-forming organs and certain disorders involving the immune mechanism; Z59.01 Sheltered homelessness
CPT/HCPCS: 36415; 80053; 82140; 82247; 85027; 86780; 86803; C9803-CS; Q0162; U0003; U0005

== ENCOUNTER 2022-04-17 18:28 | Inpatient (IN) | payer OTHER ==
[2022-04-17 20:36] VITALS: BMI 26.5
[2022-04-17] MEDS ORDERED: BENZOCAINE/MENTHOL (CHLORASEPTIC ) LOZENGE MM PRN (22:28)
[2022-04-17] MEDS ORDERED: MAGNESIUM HYDROX 2400MG/30ML ORAL SUSPENSION 30 ML CUP PO PRN (22:28)
[2022-04-17] MEDS ORDERED: BISMUTH SUBSALICYLATE 524 MG/30 ML PO PRN (22:28)
[2022-04-17] MEDS ORDERED: DICYCLOMINE HCL 10 MG CAPSULE PO PRN (22:28)
[2022-04-17] MEDS ORDERED: MAGNESIUM CITRATE 300 ML BOTTLE PO PRN (22:28)
[2022-04-17] MEDS ORDERED: LOPERAMIDE HCL 2 MG CAPSULE PO PRN (22:28)
[2022-04-17] MEDS ORDERED: MAG HYDROX/AL HYDROX/SIMETH 30 ML UNIT-DOSE CUP PO PRN (22:28)
[2022-04-17] MEDS ORDERED: ONDANSETRON *ODT* 4 MG TABLET SL PRN (22:28)
[2022-04-17] MEDS ORDERED: ACETAMINOPHEN 325 MG TABLET (FP) PO PRN ×2 (22:28)
[2022-04-17] MEDS ORDERED: IBUPROFEN 600 MG TABLET (FP) PO PRN (22:28)
[2022-04-17] MEDS ORDERED: LORazepam 1 MG TABLET PO PRN (22:33)
[2022-04-17] MEDS ORDERED: LORazepam 2 MG TABLET ONE (23:54)
[2022-04-17] MEDS: LORazepam 2 MG TABLET PO SCH (23:57)
[2022-04-18] MEDS: LORazepam 2 MG TABLET PO SCH ×4 (07:10→22:19)
[2022-04-18 11:18] LABS: HEMATOCRIT 29.5 % (32.4-45.2); HEMOGLOBIN 10.4 GM/dL (10.7-15.3); MCH 37.5 pg (25.7-33.7); MCHC 35.2 g/dl (32.0-36.0); MEAN CELL VOLUME 106.7 fl (80-96); MEAN PLT VOLUME 7.5 fl (7.5-11.1); PLATELET COUNT 52 10^3/uL (134-434); RBC 2.77 M/mm3 (3.60-5.2); RDW 15.6 % (11.6-15.6); WHITE BLOOD COUNT 2.3 K/mm3 (4.0-10.0)
[2022-04-18 12:16] LABS: CALCIUM 7.9 mg/dL (8.5-10.1)
[2022-04-18 12:17] LABS: ALBUMIN 2.8 g/dl (3.4-5.0); BLOOD UREA NITROGEN 3.4 mg/dL (7-18)
[2022-04-18] MEDS: PRENATAL VITAMINS W/ FOLIC ACID TABLET (FP) PO SCH (12:18)
[2022-04-18] MEDS: METHOCARBAMOL 500 MG TABLET PO PRN ×2 (12:18→22:19)
[2022-04-18 12:20] LABS: CREATININE 0.6 mg/dL (0.55-1.3)
[2022-04-18 12:22] LABS: BILIRUBIN,TOTAL 1.4 mg/dL (0.2-1); TOT PROT 5.9 g/dl (6.4-8.2)
[2022-04-18] MEDS ORDERED: ALBUTEROL SO4 HFA INHALER IH PRN (13:59)
[2022-04-18] MEDS ORDERED: POTASSIUM CHLORIDE TABS 20 MEQ TABLET.ER (FP) PO ONE (14:30)
[2022-04-18] MEDS: busPIRone HCL 5 MG TABLET PO SCH ×2 (14:42→22:19)
[2022-04-18] MEDS: IBUPROFEN 400 MG TABLET (FP) PO PRN (17:49)
[2022-04-18] MEDS ORDERED: MELATONIN 5 MG TABLETS PO SCH (22:00)
[2022-04-18] MEDS: THIAMINE HCL 100 MG TABLET (FP) PO SCH (22:19)
[2022-04-18] MEDS: traZODone HCL 50 MG TABLET (FP) PO SCH (22:19)
[2022-04-19] MEDS: LORazepam 1 MG TABLET PO SCH ×4 (06:29→22:08)
[2022-04-19] MEDS: busPIRone HCL 5 MG TABLET PO SCH (06:30)
[2022-04-19] MEDS: PRENATAL VITAMINS W/ FOLIC ACID TABLET (FP) PO SCH (10:10)
[2022-04-19] MEDS: FLUoxetine HCL 20 MG CAPSULE PO SCH (10:11)
[2022-04-19] MEDS: traZODone HCL 50 MG TABLET (FP) PO SCH (22:07)
[2022-04-19] MEDS: THIAMINE HCL 100 MG TABLET (FP) PO SCH (22:07)
[2022-04-19] MEDS: IBUPROFEN 400 MG TABLET (FP) PO PRN (23:29)
[2022-04-19] MEDS: METHOCARBAMOL 500 MG TABLET PO PRN (23:29)
[2022-04-20] MEDS ORDERED: LORazepam 0.5 MG TABLET PO PRN
[2022-04-20] MEDS: LORazepam 0.5 MG TABLET PO SCH ×4 (06:42→22:16)
[2022-04-20] MEDS: FLUoxetine HCL 20 MG CAPSULE PO SCH (10:29)
[2022-04-20] MEDS: PRENATAL VITAMINS W/ FOLIC ACID TABLET (FP) PO SCH (10:29)
[2022-04-20 11:25] LABS: CALCIUM 8.9 mg/dL (8.5-10.1)
[2022-04-20 11:26] LABS: BLOOD UREA NITROGEN 5.4 mg/dL (7-18)
[2022-04-20 11:29] LABS: CREATININE 0.8 mg/dL (0.55-1.3)
[2022-04-20] MEDS: traZODone HCL 50 MG TABLET (FP) PO SCH (22:15)
[2022-04-20] MEDS: THIAMINE HCL 100 MG TABLET (FP) PO SCH (22:15)
[2022-04-21] MEDS ORDERED: LORazepam 0.5 MG TABLET PO ONE (05:00)
[2022-04-21 09:56] VITALS: BP 179/74; PULSE 65; TEMP 98.6
[2022-04-21] MEDS: PRENATAL VITAMINS W/ FOLIC ACID TABLET (FP) PO SCH (10:14)
[2022-04-21] MEDS: FLUoxetine HCL 20 MG CAPSULE PO SCH (10:14)
== END 2022-04-21 11:39 | disposition home or self-care (01) | DRG 897 ==
LOC: YASAS 18:28 → Y3N 04-18 01:20
PROVIDERS: ADMIT Allergy & Immunology; ATTEND Surgery
PROC: HZ2ZZZZ Detoxification Services for Substance Abuse Treatment (ICD-10-PCS; principal; 2022-04-18)
DX: F10.230 Alcohol dependence with withdrawal, uncomplicated (principal); F10.24 Alcohol dependence with alcohol-induced mood disorder; F41.9 Anxiety disorder, unspecified; F32.A Depression, unspecified; E78.5 Hyperlipidemia, unspecified; E87.6 Hypokalemia; I10 Essential (primary) hypertension; J44.9 Chronic obstructive pulmonary disease, unspecified; K21.9 Gastro-esophageal reflux disease without esophagitis; M15.9 Polyosteoarthritis, unspecified; Z74.09 Other reduced mobility; Z86.19 Personal history of other infectious and parasitic diseases; Z91.51 Personal history of suicidal behavior
CPT/HCPCS: 36415; 80048; 80053; 82140; 85027; 86780; C9803-CS; Q0162; U0003; U0005